=== PATIENT | female | born 1940 | race Caucasian/White ===

== ENCOUNTER → 2017-04-17 13:55 | Outpatient (CLI) | payer MEDICARE, OTHER, SELFPAY ==
[2017-04-17 15:36] LABS: Anion Gap 13.1 mEq/L (5-15); Blood Urea Nitrogen 26 mg/dL (7-18); Carbon Dioxide 28 mmol/L (21.0-32.0); Chloride 108 mmol/L (98-107); Creatinine,Serum 1.23 mg/dL (0.55-1.02); Estimated Glomerular Filt Rate 42 ml/min (>60); GFR (African American) 51 ML/MIN (>60); Glucose 82 mg/dL (74-106); Potassium 5.1 mmoL/L (3.5-5.1); Sodium 144 mmol/L (136-145)
== END ==
PROVIDERS: PCP Internal Medicine Adolescent Medicine; Visit Provider Nurse Practitioner
DX: N17.9 Acute kidney failure, unspecified (principal); N18.3 Chronic kidney disease, stage 3 (moderate)
CPT/HCPCS: 36415; 80048

== ENCOUNTER → 2017-06-20 13:59 | Outpatient (CLI) | payer MEDICARE, OTHER, SELFPAY ==
[2017-06-20 14:04] LABS: Microscopic, Urine URINE MICROSCOPIC (MICROSCOPIC)
[2017-06-20 14:18] LABS: Basophils % 0.7 % (0.1-2.0); Eosinophils # 0.2 K/mm3 (0.0-0.4); Eosinophils % 3.7 % (0.1-12.0); Hematocrit 40.5 % (37.0-47.0); Lymphocytes # 1.1 K/mm3 (0.7-4.5); Lymphocytes % 20.6 K/mm3 (10-50); Mean Corpuscular HGB Conc 32.1 g/dL (31.8-35.4); Mean Corpuscular Hemoglobin 31.9 pg (27.0-31.2); Mean Corpuscular Volume 99.5 fl (81-99); Mean Platelet Volume 8.1 fl (7.4-10.4); Monocytes # 0.3 K/mm3 (0.1-1.0); Monocytes % 6.6 % (1.7-9.3); Neutrophils # 3.5 K/mm3 (1.8-7.8); Neutrophils % 68.3 % (37.0-80.0); Platelet Count 177 K/mm3 (142-424); Red Blood Count 4.07 M/mm3 (4.20-5.40); Red Cell Distribution Width 14.6 % (11.5-17.5); White Blood Count 5.1 K/mm3 (4.8-10.8)
[2017-06-20 14:35] LABS: Appearance,Urine CLEAR (Clear); Bilirubin,Urine Negative (Negative); Blood, Urine TRACE-L (Negative); Color,Urine YELLOW (Yellow); Glucose,Urine (UA) Negative (Negative); Ketones,Urine Negative (Negative); Leukocyte Esterase,Urine 1+ (Negative); Nitrate,Urine Negative (Negative); Protein,Urine 1+ (Negative); Specific Gravity, Urine 1.025 (1.005-1.030); Urobilinogen,Urine 0.2 EU/dl (0.2)
[2017-06-20 14:50] LABS: Creatinine,Urine Random 197 mg/dL (20-320); Total Protein,Urine Random 63.2 mg/dL (0.0-11.9)
[2017-06-20 15:18] LABS: Albumin Level 3.4 gm/dL (3.4-5.0); Anion Gap 11.9 mEq/L (5-15); Blood Urea Nitrogen 20 mg/dL (7-18); Calcium 9.1 mg/dL (8.5-10.1); Carbon Dioxide 25 mmol/L (21.0-32.0); Chloride 114 mmol/L (98-107); Creatinine,Serum 1.26 mg/dL (0.55-1.02); Estimated Glomerular Filt Rate 41 ml/min (>60); GFR (African American) 50 ML/MIN (>60); Glucose 104 mg/dL (74-106); Phosphorous 3.3 mg/dL (2.4-4.9); Potassium 4.9 mmoL/L (3.5-5.1); Sodium 146 mmol/L (136-145)
[2017-06-20 15:51] LABS: Bacteria,Urine 2+ /lpf; Mucus,Urine 1+ /lpf; Squamous Epithelial Cell,Urine 20-50 #/hpf (0-5)
== END ==
PROVIDERS: Visit Provider Hospitalist
DX: N18.9 Chronic kidney disease, unspecified (principal); N18.3 Chronic kidney disease, stage 3 (moderate); R82.90 Unspecified abnormal findings in urine
CPT/HCPCS: 36415; 80069; 81001; 82570; 84155; 85025; 87086

== ENCOUNTER → 2017-08-28 10:00 | Outpatient (CLI) | payer MEDICARE, OTHER, SELFPAY ==
[2017-08-28 10:06] LABS: Microscopic, Urine URINE MICROSCOPIC (MICROSCOPIC)
[2017-08-28 10:31] LABS: Basophils % 0.8 % (0.1-2.0); Eosinophils # 0.2 K/mm3 (0.0-0.4); Hematocrit 38.3 % (37.0-47.0); Lymphocytes % 19.3 K/mm3 (10-50); Mean Corpuscular HGB Conc 31.2 g/dL (31.8-35.4); Mean Corpuscular Hemoglobin 31.8 pg (27.0-31.2); Mean Corpuscular Volume 101.8 fl (81-99); Mean Platelet Volume 8.4 fl (7.4-10.4); Monocytes # 0.4 K/mm3 (0.1-1.0); Monocytes % 7.3 % (1.7-9.3); Neutrophils # 3.6 K/mm3 (1.8-7.8); Neutrophils % 68.6 % (37.0-80.0); Platelet Count 187 K/mm3 (142-424); Red Blood Count 3.76 M/mm3 (4.20-5.40); Red Cell Distribution Width 13.3 % (11.5-17.5); White Blood Count 5.2 K/mm3 (4.8-10.8)
[2017-08-28 11:14] LABS: Appearance,Urine CLEAR (Clear); Bilirubin,Urine Negative (Negative); Blood, Urine Negative (Negative); Color,Urine YELLOW (Yellow); Glucose,Urine (UA) Negative (Negative); Ketones,Urine Negative (Negative); Leukocyte Esterase,Urine TRACE (Negative); Nitrate,Urine Negative (Negative); PH,Urine 6.5 (5.0-8.5); Protein,Urine TRACE (Negative); Specific Gravity, Urine 1.015 (1.005-1.030); Urobilinogen,Urine 0.2 EU/dl (0.2)
[2017-08-28 11:19] LABS: Albumin Level 3.3 gm/dL (3.4-5.0); Anion Gap 9.4 mEq/L (5-15); Blood Urea Nitrogen 24 mg/dL (7-18); Calcium 8.8 mg/dL (8.5-10.1); Carbon Dioxide 28 mmol/L (21.0-32.0); Chloride 108 mmol/L (98-107); Creatinine,Serum 1.28 mg/dL (0.55-1.02); Estimated Glomerular Filt Rate 40 ml/min (>60); GFR (African American) 49 ML/MIN (>60); Glucose 94 mg/dL (74-106); Phosphorous 3.6 mg/dL (2.4-4.9); Potassium 4.4 mmoL/L (3.5-5.1); Sodium 141 mmol/L (136-145)
[2017-08-28 11:38] LABS: Creatinine,Urine Random 129 mg/dL (20-320); Total Protein,Urine Random 38.4 mg/dL (0.0-11.9)
[2017-08-28 11:56] LABS: Bacteria,Urine Trace /lpf; Squamous Epithelial Cell,Urine 20-50 #/hpf (0-5); WBC,Urine Occasional #/hpf (0-3)
[2017-08-29 08:28] LABS: Immunoglobulin A, Qn 308 mg/dL (64-422); Immunoglobulin G, Qn 736 mg/dL (700-1600)
[2017-08-29 20:06] LABS: Immunoglobulin M, Qn 27 mg/dL (26-217); Parathyroid Hormone Intact 138 pg/mL (15-65); Vitamin D 25 Hydroxy 13.9 ng/mL (30.0-100.0)
[2017-09-01 15:19] LABS: Albumin, U 49.8 % (.); Alpha-1-Globulin, U 5.4 % (.); Alpha-2-Globulin, U 11.1 % (.); Gamma Globulin, U 12.6 % (.); M-Spike, % Not Observed % (Not Observed); Protein,Total,Urine 36.7 mg/dL (Not Estab.)
== END ==
PROVIDERS: Visit Provider Hospitalist
DX: N18.3 Chronic kidney disease, stage 3 (moderate) (principal)
CPT/HCPCS: 36415; 80069; 81001; 82570; 82652; 82784; 83970; 84155; 84156; 85025

== ENCOUNTER → 2017-11-26 08:24 | Outpatient (CLI) | payer MEDICARE, OTHER, SELFPAY ==
[2017-11-26 08:27] LABS: Microscopic, Urine URINE MICROSCOPIC (MICROSCOPIC)
[2017-11-26 09:08] LABS: Appearance,Urine CLEAR (Clear); Bilirubin,Urine Negative (Negative); Blood, Urine Negative (Negative); Color,Urine YELLOW (Yellow); Glucose,Urine (UA) Negative (Negative); Ketones,Urine Negative (Negative); Leukocyte Esterase,Urine 1+ (Negative); Nitrate,Urine Negative (Negative); PH,Urine 6.5 (5.0-8.5); Protein,Urine Negative (Negative); Specific Gravity, Urine 1.015 (1.005-1.030); Urobilinogen,Urine 0.2 EU/dl (0.2)
[2017-11-26 09:09] LABS: Basophils % 0.5 % (0.1-2.0); Eosinophils # 0.1 K/mm3 (0.0-0.4); Hematocrit 37.3 % (37.0-47.0); Hemoglobin 11.9 g/dL (12.2-16.2); Lymphocytes # 1.3 K/mm3 (0.7-4.5); Lymphocytes % 29.5 K/mm3 (10-50); Mean Corpuscular HGB Conc 31.9 g/dL (31.8-35.4); Mean Corpuscular Hemoglobin 32.3 pg (27.0-31.2); Mean Corpuscular Volume 101.2 fl (81-99); Mean Platelet Volume 7.9 fl (7.4-10.4); Monocytes # 0.3 K/mm3 (0.1-1.0); Monocytes % 6.4 % (1.7-9.3); Neutrophils # 2.7 K/mm3 (1.8-7.8); Neutrophils % 60.7 % (37.0-80.0); Platelet Count 194 K/mm3 (142-424); Red Blood Count 3.69 M/mm3 (4.20-5.40); Red Cell Distribution Width 13.4 % (11.5-17.5); White Blood Count 4.4 K/mm3 (4.8-10.8)
[2017-11-26 09:15] LABS: Bacteria,Urine Trace /lpf
[2017-11-26 09:19] LABS: Creatinine,Urine Random 38 mg/dL (20-320); Total Protein,Urine Random 18.7 mg/dL (0.0-11.9)
[2017-11-26 10:02] LABS: Albumin Level 3.4 gm/dL (3.4-5.0); Blood Urea Nitrogen 21 mg/dL (7-18); Calcium 8.7 mg/dL (8.5-10.1); Carbon Dioxide 31 mmol/L (21.0-32.0); Chloride 109 mmol/L (98-107); Creatinine,Serum 1.37 mg/dL (0.55-1.02); Estimated Glomerular Filt Rate 37 ml/min (>60); GFR (African American) 45 ML/MIN (>60); Glucose 87 mg/dL (74-106); Sodium 143 mmol/L (136-145)
[2017-11-28 18:40] LABS: Vitamin D 25 Hydroxy 13.8 ng/mL (30.0-100.0)
== END ==
PROVIDERS: PCP Internal Medicine Adolescent Medicine; Visit Provider Hospitalist
DX: N18.3 Chronic kidney disease, stage 3 (moderate) (principal); R82.90 Unspecified abnormal findings in urine
CPT/HCPCS: 36415; 80069; 81001; 82570; 82652; 84155; 85025; 87086; 87088; 87186

== ENCOUNTER → 2018-03-31 14:45 | Outpatient (CLI) | payer MEDICARE, OTHER, SELFPAY ==
[2018-03-31 14:58] LABS: Microscopic, Urine URINE MICROSCOPIC (MICROSCOPIC)
[2018-03-31 15:39] LABS: Basophils % 0.7 % (0.1-2.0); Eosinophils # 0.1 K/mm3 (0.0-0.4); Eosinophils % 2.1 % (0.1-12.0); Hematocrit 37.7 % (37.0-47.0); Hemoglobin 12.1 g/dL (12.2-16.2); Lymphocytes # 0.9 K/mm3 (0.7-4.5); Mean Corpuscular Hemoglobin 31.6 pg (27.0-31.2); Mean Corpuscular Volume 98.8 fl (81-99); Mean Platelet Volume 7.5 fl (7.4-10.4); Monocytes # 0.3 K/mm3 (0.1-1.0); Monocytes % 5.1 % (1.7-9.3); Neutrophils # 3.7 K/mm3 (1.8-7.8); Neutrophils % 74.1 % (37.0-80.0); Platelet Count 216 K/mm3 (142-424); Red Blood Count 3.82 M/mm3 (4.20-5.40); Red Cell Distribution Width 13.7 % (11.5-17.5)
[2018-03-31 17:00] LABS: Albumin Level 3.2 gm/dL (3.4-5.0); Anion Gap 13.6 mEq/L (5-15); Blood Urea Nitrogen 27 mg/dL (7-18); Calcium 8.5 mg/dL (8.5-10.1); Carbon Dioxide 25 mmol/L (21.0-32.0); Chloride 106 mmol/L (98-107); Creatinine,Serum 1.28 mg/dL (0.55-1.02); Estimated Glomerular Filt Rate 40 ml/min (>60); GFR (African American) 49 ML/MIN (>60); Glucose 110 mg/dL (74-106); Phosphorous 3.1 mg/dL (2.4-4.9); Potassium 4.6 mmoL/L (3.5-5.1); Sodium 140 mmol/L (136-145)
[2018-03-31 18:41] LABS: Appearance,Urine CLEAR (Clear); Bilirubin,Urine Negative (Negative); Blood, Urine Negative (Negative); Color,Urine YELLOW (Yellow); Glucose,Urine (UA) Negative (Negative); Ketones,Urine Negative (Negative); Leukocyte Esterase,Urine Negative (Negative); Nitrate,Urine Negative (Negative); PH,Urine 6.5 (5.0-8.5); Protein,Urine TRACE (Negative); Urobilinogen,Urine 0.2 EU/dl (0.2)
[2018-03-31 18:48] LABS: Creatinine,Urine Random 141 mg/dL (20-320); Total Protein,Urine Random 47.6 mg/dL (0.0-11.9)
[2018-03-31 20:50] LABS: Bacteria,Urine 1+ /lpf
== END ==
PROVIDERS: Visit Provider Hospitalist
DX: N18.3 Chronic kidney disease, stage 3 (moderate) (principal)
CPT/HCPCS: 36415; 80069; 81001; 82570; 84155; 85025

== ENCOUNTER → 2018-05-07 12:37 | Outpatient (CLI) | payer MEDICARE, OTHER, SELFPAY ==
--- NOTE | 2018-05-07 12:40 | XR_ITS ---
XR DEXA axial skeleton HISTORY: ITS.REASON: POST MENOPAUSAL SCREENING ORDERING PHYSICIAN: Colby Lamar MD PATIENT AGE: 77 years COMPARISON: None FINDINGS: The BMD measured at the Left femoral neck is 0.711 g/cm squared with a T score of -2.4. This is considered Osteopenic according to the World Health Organization criteria. Fracture risk is Moderate. Treatment is advised. IMPRESSION: Osteopenia with moderate fracture risk. Treatment is advised. Suggest follow-up exam April 2020
== END ==
PROVIDERS: PCP Internal Medicine Adolescent Medicine; Visit Provider Internal Medicine Adolescent Medicine
DX: Z78.0 Asymptomatic menopausal state (principal)
CPT/HCPCS: 77080

== ENCOUNTER → 2018-05-28 09:07 | Outpatient (CLI) | payer MEDICARE, OTHER, SELFPAY ==
--- NOTE | 2018-05-28 09:23 | MM_ITS ---
MM Dig screening mamm BI w/CAD ORDERING PHYSICIAN : Bowen Escobedo MD PATIENT AGE: 77 years GENDER: Female COMPARISON: November 2015, August 2010, August 2008 INDICATION: Routine screening mammogram. No hormones no new complaints. Family history maternal aunt with breast cancer postmenopausal. TECHNIQUE: Standard CC and MLO images were obtained. R2 CAD reviewed. . Pacemaker placement. Would not allow including pectoralismuscle on left MLO view FINDINGS: Generalized fatty replacement with Low-density breast bilaterally. No dominant nor suspicious metastases no suspicious calcifications. Numerous benign skin, dermal calcifications at the medial right and left breast again observed similar to previous studies. RIGHT BREAST:No areas of concern LEFT BREAST: No new areas of significant concern Scant residual asymmetric fibroglandular towards the lateral breast are similar to previous 2016 study and can be followed IMPRESSION: No new areas of significant concern. Low-density breast with Stable minor asymmetry . Follow-up in one year recommended BI-RADS Category: 1 Negative RECOMMENDED FOLLOW-UP: 1YR 1 YEAR FOLLOW-UP (A letter has been sent to the patient regarding results of the study.)
== END ==
PROVIDERS: PCP Family Medicine; Visit Provider Family Medicine
DX: Z12.31 Encounter for screening mammogram for malignant neoplasm of breast (principal)
CPT/HCPCS: 77067

== ENCOUNTER → 2018-09-07 14:01 | Outpatient (CLI) | payer MEDICARE, OTHER, SELFPAY ==
--- NOTE | 2018-09-07 14:07 | XR_ITS ---
XR knee LT 2V HISTORY: ITS.REASON: TRAUMA, LT ANTERIOR KNEE PAIN ORDERING PHYSICIAN: Eliza Carpenter MD PATIENT AGE: 78 years COMPARISON: 11/27/1716 FINDINGS: There are severe osteoarthritic changes of the left knee at the medial compartment and patellofemoral joint. There is mild lateral proximal tibia subluxation of 8 mm.. There is a prominent intra-articular loose body noted posteriorly and laterally. There is generalized vascular calcification. IMPRESSION: 1. No acute fracture. 2. Severe osteoarthritis with loose body
== END ==
PROVIDERS: PCP Emergency Medicine; Visit Provider Emergency Medicine
DX: M25.562 Pain in left knee (principal); T14.90XA Injury, unspecified, initial encounter
CPT/HCPCS: 73560

== ENCOUNTER → 2018-10-14 09:16 | Outpatient (CLI) | payer MEDICARE, OTHER, SELFPAY ==
--- NOTE | 2018-10-14 09:22 | CI_ITS ---
Cerebrovascular Exam Indications: 780.2 Syncope and collapse. 780.4 Dizziness and giddiness. IMPRESSIONS 1. The bilateral vertebral arteries are patent with normal antegrade flow. 2. Study suggests 20-49% stenosis involving the right internal carotid artery. Disease progression from the study of 27-Mar-2015. 3. Study suggests 20-49% stenosis involving the left internal carotid artery. No change from the study of 27-Mar-2015. History: Risk factors: Hypertension. Hyperlipidemia. Ex smoker Carotid duplex study. Complete study and Doppler flow study including spectral analysis, color and allen scale imaging. Height: Height: 160cm. Height: 63in. Weight: Weight: 83.5kg. Weight: 183.6lb. Body mass index: BMI: 32.6kg/m^2. Body surface area: BSA: 1.96m^2. Location: Vascular laboratory. Patient status: Outpatient. Tables: Arterial flow: + +--------+--------+ Location V sys V ed + +--------+--------+ Right CCA - proximal 63.9cm/s 9.1cm/s + +--------+--------+ Right CCA - distal 51cm/s 12.8cm/s + +--------+--------+ Right ECA 73.9cm/s 9.5cm/s + +--------+--------+ Right ICA - proximal 30.8cm/s 10cm/s + +--------+--------+ Right ICA - mid 39.9cm/s 14.1cm/s + +--------+--------+ Right ICA - distal 51.7cm/s 15.9cm/s + +--------+--------+ Right vertebral 28.2cm/s 9.4cm/s + +--------+--------+ Left CCA - proximal 60.1cm/s 16.3cm/s + +--------+--------+ Left CCA - distal 39.7cm/s 13cm/s + +--------+--------+ Left ECA 60cm/s 7cm/s + +--------+--------+ Left ICA - proximal 42.8cm/s 10.6cm/s + +--------+--------+ Left ICA - mid 49cm/s 18.9cm/s + +--------+--------+ Left ICA - distal 68.2cm/s 20.1cm/s + +--------+--------+ Left vertebral 34.1cm/s 8.4cm/s + +--------+--------+ Velocity ratios: + + + + + + Right, V sys Right, V ed Left, V sys Left, V ed + + + + + + Max ICA/dist CCA 1.01 1.24 1.72 1.55 + + + + + + (Report amended ) Electronically signed by: Isidoro Sexton [id number]
== END ==
PROVIDERS: PCP Family Medicine; Visit Provider Family Medicine
DX: R55 Syncope and collapse (principal)
CPT/HCPCS: 93880

== ENCOUNTER 2019-05-18 15:22 | Observation (INO) ==
--- NOTE | 2019-05-18 18:15 | History & Physical Report ---
*Admission Date: 05/18/19 *Chief complaint: Hypotension, dehydration *History of present illness: Ms. Lopez is a 78-year-old white female with a history of congestive heart failure and chronic A. fib to fibrillation who presented to the office today with a one-week history of progressive weakness, dizziness, and debilitation. She was seen 8 days ago with a urinary tract infection and started on Bactrim which she took for 6 days but discontinued because of a sore tongue. She states her urinary symptoms have resolved and her tongue is better since stopping the Bactrim however she has not been eating or drinking very well for the past several days. Blood pressure has been low. No vomiting or diarrhea. No abdominal pain. She states her bowel movements have been normal. She has difficulty getting around the house because every time she stands up she gets dizzy. She lives alone. On examination in the office she appeared weak and tearful. Blood pressure was 90/60 with a heart rate of 116. CBC was normal in the office. She has been admitted for further evaluation and gentle IV hydration. [facility] History Medical History: Reports:: Atrial Fibrillation (chronic), Cardiomyopathy, Congestive Heart Failure, Coronary Artery Disease, Gastroesophageal Reflux Disease(GERD), Internal Pacemaker, Renal Insufficiency (chronic, Stage 3) Denies:: Cancer, Diabetes Mellitus Type 1, Diabetes Mellitus Type 2, MRSA *Have you ever received a pneumonia vaccine?: Yes *Have you received a flu vaccine this season?: Yes Other Medical History: Reports: Arthritis Laterality Cases: Left: Total Knee Replacement (2019), Bilateral: Cataract, Other Other Surgeries: Yes: Colonoscopy, Pacemaker, Other (Coronary ablation, back surgery x4) - *Social History Educational Level: Completed High School Smoking Status: Former smoker (Remote past) Alcohol Intake: never *Occupational Status:: retired *Travel in the last 8 weeks: None Family Hx:: Cancer Review of Systems - Constitutional Reports lack of energy, Reports weakness, Denies body ache(s), Denies chills, Denies fever(s) - Eyes Denies blurry vision, Denies change in vision - ENT Reports abnormal hearing, Denies hoarseness, Denies post nasal drip - *Cardiovascular Denies chest pain, Denies shortness of breath, Denies generalized swelling, Denies fast heart rate - *Respiratory Denies chest congestion, Denies cough - *Gastrointestinal Denies abdominal pain, Denies change in bowel habits, Denies loose stools, Denies vomiting - *Genitourinary Denies painful urination, Denies difficulty starting urination - *Musculoskeletal Denies joint pain - Integumentary/Breasts Reports rash (left breast) - *Neurologic Reports abnormal hearing, Reports unsteadiness, Reports dizziness, Denies behavioral changes, Denies confusion - Psychiatric Reports lack of enjoyment, Denies anxiety - Endocrine Denies cold intolerance, Denies increased urination - Hematologic/Lymphatic Denies easy bruising - Allergic/Immunologic Denies lip swelling Meds Home Medications Medication Instructions Recorded Confirmed Type Apixaban [Eliquis] 2.5 mg PO BID 06/26/17 05/19/19 History Atorvastatin Calcium [Atorvastatin 40 mg PO HS 06/26/17 05/19/19 History 40mg Tab] Gabapentin [Gabapentin 300mg Cap] 300 mg PO TID 06/26/17 05/18/19 History Levothyroxine Sodium [Synthroid 75 mcg PO DAILY 06/26/17 05/18/19 History 75mcg (0.075mg) tablet] Pantoprazole Sodium [Pantoprazole 40 mg PO BID 06/26/17 05/18/19 History 20mg Tab] buPROPion HCl [Bupropion Xl] 150 mg PO DAILY 06/26/17 05/18/19 History Furosemide [Furosemide 20mg Tab] 20 mg PO Q48H 05/19/19 05/19/19 History Montelukast Sodium 10 mg PO HS 05/19/19 05/19/19 History Sacubitril/Valsartan [Entresto 49 1 each PO DAILY 05/19/19 05/19/19 History mg-51 mg Tablet] carvediloL [Carvedilol 12.5mg Tab] 12.5 mg PO BID 05/19/19 05/19/19 History Allergies Allergy/AdvReac Type Severity Reaction Status Date / Time sulfamethoxazole Allergy Unknown Verified 05/18/19 19:16 [From Bactrim] trimethoprim [From Bactrim] Allergy Unknown Verified 05/18/19 19:16 Exam Vital signs and Labs for Last 24 Hours: Temp Pulse Resp BP Pulse Ox 97.2 F L 76 17 105/71 L 96 05/18/19 15:52 05/18/19 15:52 05/18/19 15:52 05/18/19 15:52 05/18/19 15:52 I & O for Last 24 hours: Intake & Output 05/16/19 05/17/19 05/18/19 05/19/19 11:59 11:59 11:59 11:59 Weight 173 lb 7 oz Narrative: She appears weak. She is tearful. She is mildly hard of hearing. Color is normal. No respiratory distress. HEENT shows a cream to be atraumatic and normocephalic. Sclera and conjunctive are clear. Nares patent. Oropharynx shows no oral lesions. Neck is supple with no masses, thyromegaly, or bruits. Lungs are clear to auscultation. Heart is irregularly irregular with no murmur s. Abdomen is soft and nondistended with no unusual masses or tenderness. Lower extremities show no edema. There is a 4 cm red scaly rash on the left breast. Assessment and Plan (1) Hypotension Current visit: Yes Status: Acute Category: Medical Code(s): I95.9 - H ypotension, unspecified (2) Dehydration Current visit: Yes Status: Acute Category: Medical Code(s): E86.0 - Dehydration (3) Congestive heart failure Current visit: Yes Status: Acute Category: Medical Code(s): I50.9 - Heart failure, unspecified (4) Cardiomyopathy Current visit: Yes Status: Acute Category: Medical Code(s): I42.9 - Cardiomyopathy, unspecified (5) Hypothyroidism Current visit: Yes Status: Acute Category: Medical Code(s): E03.9 - Hypothyroidism, unspecified (6) Obstructive sleep apnea Current visit: Yes Status: Acute Category: Medical Code(s): G47.33 - Obstructive sleep apnea (adult) (pediatric) (7) Chronic kidney disease Current visit: Yes Status: Acute Category: Medical Code(s): N18.9 - Chronic kidney disease, unspecified (8) GERD (gastroesophageal reflux disease) Current visit: Yes Status: Acute Category: Medical Code(s): K21.9 - Gastro-esophageal reflux disease without esophagitis (9) Paroxysmal atrial fibrillation Current visit: Yes Status: Acute Category: Medical Code(s): I48.0 - Par oxysmal atrial fibrillation - Assessment and plan all Dx Assessment and Plan for all problems:: She is admitted for further evaluation of her hypotension. This is likely on the basis of hypovolemia as she has not been eating or drinking well for several days. May also be related to her cardiac meds particularly Coreg and Entresto. We will gently hydrate her overnight and reassess things in the morning.
[2019-05-18 18:33] LABS: Albumin Level 3.7 g/dl (3.5-5.0); Albumin/Globulin Ratio 1.3 (1.1-1.8); Anion Gap 13.8 mEq/L (5-15); Bilirubin,Total 0.6 mg/dl (0.2-1.3); Globulin 2.8 g/dL (1.3-3.2); Total Protein,Serum 6.5 g/dl (6.3-8.2)
[2019-05-18 18:42] LABS: Creatine Kinase 30 U/L (30-135)
[2019-05-18 20:59] LABS: Microscopic, Urine URINE MICROSCOPIC (MICROSCOPIC)
[2019-05-18 21:06] LABS: Appearance,Urine CLEAR (Clear); Bilirubin,Urine Negative (Negative); Blood, Urine Negative (Negative); Color,Urine YELLOW (Yellow); Glucose,Urine (UA) Negative (Negative); Ketones,Urine Negative (Negative); Leukocyte Esterase,Urine TRACE (Negative); Protein,Urine Negative (Negative); Urobilinogen,Urine 0.2 EU/dl (0.2)
[2019-05-18 21:15] LABS: Bacteria,Urine Trace /lpf; WBC,Urine Occasional #/hpf (0-3)
--- NOTE | 2019-05-19 07:41 | Pharmacy Consult Notes ---
[facility] Pharmacy VTE Monitoring - Patient Demographics Admission date: 05/19/19 Report Date: 05/19/19 Time: 07:41 Allergies/Adverse Reactions: Patient Allergies sulfamethoxazole [From Bactrim] Allergy (Unknown, Verified 05/18/19 19:16) trimethoprim [From Bactrim] Allergy (Unknown, Verified 05/18/19 19:16) Height: 1.6 m Weight: 79.861 kg Patient Problems: Current Active Problems Hypotension (Acute) Dehydration (Acute) Chronic atrial fibrillation (Acute) Congestive heart failure (Acute) Cardiomyopathy (Acute) Hypothyroidism (Acute) Obstructive sleep apnea (Acute) Chronic kidney disease (Acute) GERD (gastroesophageal reflux disease) (Acute) Paroxysmal atrial fibrillation (Acute) - VTE Risk Labs: VTE Related Lab Results BUN 28 mg/dl (7-17) H 05/18/19 18:00 Creatinine 1.40 mg/dl (0.52-1.04) H 05/18/19 18:00 Estimated Creat Clear 40 mL/min (50-200) 05/18/19 18:00 Clinical Trial Participant: No - Prophylaxis VTE Prophylaxis Ordered?: Yes Types of VTE Prophylaxis: TEDS Knee High
--- NOTE | 2019-05-19 08:42 | Progress Note ---
Internal Medicine - PN: Subj *Date: 05/19/19 *Time: 08:42 Interval history: States she feels better this morning but has not been out of bed much. Exam Vital signs and Labs for Last 24 Hours: Temp Pulse Resp BP Pulse Ox 97.8 F 76 18 126/77 95 05/19/19 08:00 05/19/19 08:00 05/19/19 08:00 05/19/19 08:00 05/19/19 08:00 Laboratory Results - last 24 hr 05/18/19 18:00: Sodium 137, Potassium 4.8, Chloride 106, Carbon Dioxide 22, Anion Gap 13.8, BUN 28 H, Creatinine 1.40 H, Estimated Creat Clear 40, Estimated GFR 36 L, Est GFR ( Amer) 44 L, Glucose 90, Calcium 9.0, Total Bilirubin 0.6, AST 21, ALT 14, Alkaline Phosphatase 105, Total Protein 6.5, Albumin 3.7, Globulin 2.8, Albumin/Globulin Ratio 1.3 05/18/19 18:00: NT-Pro-B Natriuret Pep 513 H 05/18/19 18:00: Total Creatine Kinase 30, CK-MB (CK-2) < 0.2, CK-MB (CK-2) Rel Index 0.7, Troponin I < 0.01 05/18/19 20:50: Urine Color Yellow, Urine Appearance Clear, Urine pH 6.0, Ur Specific [place] 1.020, Urine Protein Negative, Urine Glucose (UA) Negative, Urine Ketones Negative, Urine Blood Negative, Urine Nitrate Negative, Urine Bilirubin Negative, Urine Urobilinogen 0.2, Ur Leukocyte Esterase Trace, Urine WBC Occasional, Ur Squamous Epith Cells 3-5, Urine Bacteria Trace I & O for Last 24 hours: Intake & Output 05/16/19 05/17/19 05/18/19 05/19/19 11:59 11:59 11:59 11:59 Intake Total 1134 / 1134 Output Total 800 / 800 Balance 334 / 334 Weight 176 lb 1 oz Narrative: Alert and oriented. Color is good. Lungs are clear anteriorly. Heart regular. Extremities no edema. Assessment and Plan (1) Hypotension Current visit: Yes Status: Acute Category: Medical Code(s): I95.9 - Hypotension, unspecified (2) Dehydration Current visit: Yes Status: Acute Category: Medical Code(s): E86.0 - Dehydration (3) Congestive heart failure Current visit: Yes Status: Acute Category: Medical Code(s): I50.9 - Heart failure, unspecified (4) Cardiomyopathy Current visit: Yes Status: Acute Category: Medical Code(s): I42.9 - Cardiomyopathy, unspecified (5) Hypothyroidism Current visit: Yes Status: Acute Category: Medical Code(s): E03.9 - Hypothyroidism, unspecified (6) Obstructive sleep apnea Current visit: Yes Status: Acute Category: Medical Code(s): G47.33 - Obstructive sleep apnea (adult) (pediatric) (7) Chronic kidney disease Current visit: Yes Status: Acute Category: Medical Code(s): N18.9 - Chronic kidney disease, unspecified (8) GERD (gastroesophageal reflux disease) Current visit: Yes Status: Acute Category: Medical Code(s): K21.9 - Gastro-esophageal reflux disease without esophagitis (9) Paroxysmal atrial fibrillation Current visit: Yes Status: Acute Category: Medical Code(s): I48.0 - Paroxysmal atrial fibrillation - Assessment and plan all Dx Assessment and Plan for all problems:: Will resume lower dose of Entresto and monitor her blood pressure. She will be allowed to be up and about the room. If she tolerates activity with no further dizziness, may discharge later today.
--- NOTE | 2019-05-20 07:37 | Electrocardiograph Report ---
APPROVED REPORT Exam: Resting ECG HR:77 bpm ECG Measurements Heart Rate 77 AXES QRSd 134 QRS -84 QT 438 T82 QTc 495 <Conclusion> Electronic ventricular pacemaker Electronically signed by : Colby Lamar, 05/20/2019 07:36:27
--- NOTE | 2019-05-20 12:40 | Discharge Summary ---
General - General Admission date:: 05/18/19 <Bowen Escobedo - 05/22/19 11:52> 05/18/19 <Hannah Navas - 05/20/19 12:59> Discharge date: 05/19/19 <Hannah Navas - 05/20/19 12:59> HPI HPI: Ms. Lopez is a 78-year-old white female with a history of congestive heart failure and chronic Atrial fibrillation who presented to the office today with a one-week history of progressive weakness, dizziness, and debilitation. She was seen 8 days ago with a urinary tract infection and started on Bactrim which she took for 6 days but discontinued because of a sore tongue. She states her urinary symptoms have resolved and her tongue is better since stopping the Bactrim, however she has not been eating or drinking very well for the past several days. Blood pressure has been low. No vomiting or diarrhea. No abdominal pain. She states her bowel movements have been normal. She has difficulty getting around the house because every time she stands up, she gets dizzy. She lives alone. On examination in the office she appeared weak and tearful. Blood pressure was 90/60 with a heart rate of 116. CBC was normal in the office. She has been admitted for further evaluation and gentle IV hydration. <Hannah Navas - 05/20/19 12:59> Hospital Course Hospital Course: The patient was admitted and started on gentle hydration. It was felt her hypotension was likely on the basis of hypovolemia, as she had not been eating and drinking well. The patient felt much better by the next day and her blood pressure had improved. She was started back on a low-dose of Entresto and was encouraged to be up and about in her room. She did tolerate activity with no further dizziness and was stable to be discharged home. <Hannah Navas - 05/20/19 12:59> Objective Vital signs: Temp Pulse Resp BP Pulse Ox 98.2 F 64 17 111/79 97 05/19/19 16:00 05/19/19 16:00 05/19/19 16:00 05/19/19 16:00 05/19/19 16:00 <Bowen Escobedo - 05/22/19 11:52> Temp Pulse Resp BP Pulse Ox 98.2 F 64 17 111/79 97 05/19/19 16:00 05/19/19 16:00 05/19/19 16:00 05/19/19 16:00 05/19/19 16:00 <Hannah Navas - 05/20/19 12:59> Narrative: Alert and oriented. Color is good. Lungs are clear anteriorly. Heart regular. Extremities no edema. <Hannah Navas - 05/20/19 12:59> DS: Diagnosis - Discharge Diagnosis (1) Hypotension Status: Acute (2) Dehydration Status: Acute (3) Congestive heart failure Status: Acute (4) Cardiomyopathy Status: Acute (5) Hypothyroidism Status: Acute (6) Obstructive sleep apnea Status: Acute (7) Chronic kidney disease Status: Acute (8) GERD (gastroesophageal reflux disease) Status: Acute (9) Paroxysmal atrial fibrillation Status: Acute <Hannah Navas - 05/20/19 12:20> (1) Hypotension Status: Acute (2) Dehydration Status: Acute (3) Congestive heart failure Status: Acute (4) Cardiomyopathy Status: Acute (5) Hypothyroidism Status: Acute (6) Obstructive sleep apnea Status: Acute (7) Chronic kidney disease Status: Acute (8) GERD (gastroesophageal reflux disease) Status: Acute (9) Paroxysmal atrial fibrillation Status: Acute <Bowen Escobedo - 05/22/19 11:52> Discharge Plan - Patient Discharge Instructions ACTIVITY: Continue current activity <Hannah Navas - 05/20/19 12:59> DIET: continue same diet <Hannah Navas - 05/20/19 12:59> Additional Instructions: Drink plenty of fluids. Try Ensure or Boost supplements. <Bowen Escobedo - 05/22/19 11:52> Patient Instructions: Heart Failure, DI for Hypotension <Bowen Escobedo - 05/22/19 11:52> Forms: <Bowen Escobedo - 05/22/19 11:52> - Follow up Plan Follow up with: Bowen Escobedo MD [Primary Care Provider] - 05/25/19 2:15 pm <Bowen Escobedo - 05/22/19 11:52> Disposition: Home, Self-Care <Bowen Escobedo - 05/22/19 11:52> Home Medications: Home Medications Medication Instructions Recorded Confirmed Type Apixaban [Eliquis 2.5mg tab] 2.5 mg PO BID 06/26/17 05/19/19 History Atorvastatin Calcium [Atorvastatin 40 mg PO HS 06/26/17 05/19/19 History 40mg Tab] Gabapentin [Gabapentin 300mg Cap] 300 mg PO TID 06/26/17 05/18/19 History Levothyroxine Sodium [Synthroid 75 mcg PO DAILY 06/26/17 05/18/19 History 75mcg (0.075mg) tablet] Pantoprazole Sodium [Pantoprazole 40 mg PO BID 06/26/17 05/18/19 History 20mg Tab] buPROPion HCL [Bupropion Xl] 150 mg PO DAILY 06/26/17 05/18/19 History Furosemide [Furosemide 20mg Tab] 20 mg PO Q48H 05/19/19 05/19/19 History Montelukast Sodium 10 mg PO HS 05/19/19 05/19/19 History Sacubitril/Valsartan [Entresto 1 each PO DAILY tab 05/19/19 Rx 24/26mg Tablet] carvediloL [Carvedilol 12.5mg Tab] 12.5 mg PO BID 05/19/19 05/19/19 History <Bowen Escobedo - 05/22/19 11:52> Prescriptions/Medication Reconciliation: New Sacubitril/Valsartan [Entresto 24/26mg Tablet] 1 each PO DAILY tab Continued buPROPion HCL [Bupropion Xl] 150 mg PO DAILY Apixaban [Eliquis 2.5mg tab] 2.5 mg PO BID Pantoprazole Sodium [Pantoprazole 20mg Tab] 40 mg PO BID Levothyroxine Sodium [Synthroid 75mcg (0.075mg) tablet] 75 mcg PO DAILY Gabapentin [Gabapentin 300mg Cap] 300 mg PO TID Montelukast Sodium 10 mg PO HS carvediloL [Carvedilol 12.5mg Tab] 12.5 mg PO BID Atorvastatin Calcium [Atorvastatin 40mg Tab] 40 mg PO HS Furosemide [Furosemide 20mg Tab] 20 mg PO Q48H Discontinued Sacubitril/Valsartan [Entresto 49 mg-51 mg Tablet] 1 each PO DAILY <Bowen Escobedo - 05/22/19 11:52> - Problem Reconciliation Problems Reviewed?: Yes <Bowen Escobedo - 05/22/19 11:52> Yes <Hannah Navas - 05/20/19 12:59> - Additional Information Additional Information: Concur with plan for discharge as outlined above. <Bowen Escobedo - 05/22/19 11:52>
== END 2019-05-19 16:25 | disposition home or self-care (01) ==
LOC: 2ND
PROVIDERS: ADMIT Family Medicine; ATTEND Family Medicine
CPT/HCPCS: 36415; 80053; 81001; 82550; 82553; 83880; 84484; 93005; G0378

== ENCOUNTER → 2020-12-11 16:21 | Outpatient (CLI) | payer MEDICARE, OTHER, SELFPAY ==
--- NOTE | 2020-12-11 16:28 | XR_ITS ---
PROCEDURE INFORMATION: Exam: XR Right Ankle Exam date and time: 12/11/2020 4:28 PM Age: 80 years old Clinical indication: Injury or trauma; Fall; Blunt trauma; Injury details: Patient twisted her right ankle 2 days ago walking down a step in her garage. ; Additional info: Unspecified injury of right ankle, initial encounter TECHNIQUE: Imaging protocol: XR Right ankle. Views: 3 or more views. COMPARISON: CR LLR LOWER LEG-RT 09/24/2014 9:44 AM FINDINGS: Bones/joints: No definite fracture. No malalignment. Bones are osteopenic. Soft tissues: Mild lateral and medial malleolar soft tissue swelling. IMPRESSION: No definite fracture
--- NOTE | 2020-12-11 16:28 | XR_ITS ---
PROCEDURE INFORMATION: Exam: XR Right Hip Exam date and time: 12/11/2020 4:28 PM Age: 80 years old Clinical indication: Injury or trauma; Fall; Blunt trauma (contusions or hematomas); Patient HX: Patient fell 2 days ago in her garage injuring her right hip. TECHNIQUE: Imaging protocol: XR Right hip. Views: 2 or 3 views hip with pelvis when performed. COMPARISON: CR PELAP PELVIS AP ONLY 03/05/2016 6:43 PM FINDINGS: Bones/joints: Unremarkable. No acute fracture. Soft tissues: Unremarkable. IMPRESSION: No definite fracture
== END ==
PROVIDERS: PCP Family Medicine; Visit Provider Family Medicine
DX: S99.911A Unspecified injury of right ankle, initial encounter (principal); S79.911A Unspecified injury of right hip, initial encounter
CPT/HCPCS: 73502; 73610

== ENCOUNTER → 2020-12-12 10:53 | Outpatient (CLI) | payer MEDICARE, OTHER, SELFPAY ==
[2020-12-12 12:14] LABS: Alanine Aminotransferase 11 U/L (12-78); Albumin Level 3.6 g/dl (3.5-5.0); Albumin/Globulin Ratio 1.4 (1.1-1.8); Alkaline Phosphatase 98 U/L (38-126); Anion Gap 9.8 mEq/L (5-15); Aspartate Amino Transferase 21 U/L (14-36); Bilirubin,Total 0.7 mg/dl (0.2-1.3); Blood Urea Nitrogen 19 mg/dl (7-17); Calcium 9.1 mg/dl (8.4-10.2); Carbon Dioxide 28 mmol/L (22.0-30.0); Chloride 109 mmol/L (98-107); Chol/HDL Ratio 2.8 (1-3.5); Cholesterol 127 mg/dl (140-200); Estimated Glomerular Filt Rate 48 ml/min (>60); GFR (African American) 58 ML/MIN (>60); Globulin 2.6 g/dL (1.3-3.2); Glucose 91 mg/dl (74-100); HDL Cholesterol 45 mg/dl (40-60); Potassium 4.8 mmoL/L (3.5-5.1); Sodium 142 mmol/L (136-145); Total Protein,Serum 6.2 g/dl (6.3-8.2); Triglycerides 71 mg/dl (30-150); VLDL Cholesterol 14 mg/dL (0-40)
[2020-12-12 12:25] LABS: Direct LDL Cholesterol 57.67 mg/dL (100-129)
[2020-12-12 12:44] LABS: Thyroid Stimulating Hormone 1.61 uIU/mL (0.465-4.68)
== END ==
PROVIDERS: Visit Provider Family Medicine
DX: I10 Essential (primary) hypertension (principal); E78.5 Hyperlipidemia, unspecified; E03.9 Hypothyroidism, unspecified; I48.20 Chronic atrial fibrillation, unspecified
CPT/HCPCS: 36415; 80053; 80061; 84443

== ENCOUNTER → 2021-06-14 11:03 | Outpatient (CLI) | payer MEDICARE, OTHER, SELFPAY ==
[2021-06-14 13:09] LABS: Alanine Aminotransferase 13 U/L (12-78); Albumin Level 3.8 g/dl (3.5-5.0); Albumin/Globulin Ratio 1.7 (1.1-1.8); Alkaline Phosphatase 100 U/L (38-126); Anion Gap 12.5 mEq/L (5-15); Aspartate Amino Transferase 17 U/L (14-36); Bilirubin,Total 0.8 mg/dl (0.2-1.3); Blood Urea Nitrogen 32 mg/dl (7-17); Calcium 8.6 mg/dl (8.4-10.2); Carbon Dioxide 22 mmol/L (22.0-30.0); Chloride 110 mmol/L (98-107); Chol/HDL Ratio 2.6 (1-3.5); Cholesterol 141 mg/dl (140-200); Estimated Glomerular Filt Rate 43 ml/min (>60); GFR (African American) 52 ML/MIN (>60); Globulin 2.3 g/dL (1.3-3.2); Glucose 79 mg/dl (74-100); HDL Cholesterol 55 mg/dl (40-60); Potassium 4.5 mmoL/L (3.5-5.1); Sodium 140 mmol/L (136-145); Total Protein,Serum 6.1 g/dl (6.3-8.2); Triglycerides 101 mg/dl (30-150); VLDL Cholesterol 20 mg/dL (0-40)
[2021-06-14 13:21] LABS: Direct LDL Cholesterol 60.18 mg/dL (100-129)
[2021-06-14 13:39] LABS: Thyroid Stimulating Hormone 1.21 uIU/mL (0.465-4.68)
== END ==
PROVIDERS: Visit Provider Family Medicine
DX: I10 Essential (primary) hypertension (principal); E03.9 Hypothyroidism, unspecified
CPT/HCPCS: 36415; 80053; 80061; 82043; 84443

== ENCOUNTER → 2021-06-22 09:05 | Outpatient (CLI) | payer MEDICARE, OTHER, SELFPAY ==
--- NOTE | 2021-06-22 09:25 | XR_ITS ---
FINAL REPORT TECHNIQUE: Bone densitometry calculations of the lumbar spine and left hip were obtained. CLINICAL HISTORY: . osteopenia FINDINGS: Using 1/3 forearm the bone mineral density is 0.480 g/cm2, corresponding to T-score of -3.6. Using the left hip, the bone mineral density of the femoral neck is 0.643 g/cm2, corresponding to a T-score of -2.4. Using the right hip, the bone mineral density of the femoral neck is 0.605 g/cm2, corresponding to a T-score of -2.2. NOTE: T-score: Standard deviation compared with peak bone mass of young adult mean. *Following the recommendations of the International Society of Bone densitometry, classification of hip BMD is based on the lower of two T-scores; total hip or femoral neck. IMPRESSION: Diminished bone mineral density of the hips bilaterally consistent with osteopenia. Diminished bone mineral density of the 1/3 forearm consistent with osteoporosis. Using FRAX data, 10 year fracture risk is 28% for major osteoporotic fracture and 19% of hip fracture. Reviewed, Interpreted and Dictated by Nathen Fernandez MD Transcribed by Alissa Garner Authenticated by Nathen Fernandez MD on 06/22/2021 02:40:48 PM [facility]
--- NOTE | 2021-06-22 09:25 | MM_ITS ---
PROCEDURE INFORMATION: Exam: MG Bilateral Screening 3D Mammography Exam date and time: 06/22/2021 9:52 AM Age: 80 years old Clinical indication: Screening examination TECHNIQUE: Imaging protocol: Bilateral Screening tomosynthesis and 2D mammography including computer-aided detection (CAD) when performed. COMPARISON: 1. MG SCBI MM Dig screening mamm BI w/CAD 05/28/2018 9:26 AM 2. MG DMSB DIG MAMM-SCREEN ZULEYKA 11/29/2015 3:28 PM FINDINGS: MAMMOGRAPHY: Breast composition: The breasts are almost entirely fatty. Mass: None. Architectural distortion: None. Calcifications: No suspicious calcifications. Asymmetric density: None. Skin thickening: None. Axillary adenopathy: None. IMPRESSION: No mammographic evidence of malignancy. Annual screening is recommended unless otherwise clinically indicated. ASSESSMENT: BI-RADS Category 1: Negative
== END ==
PROVIDERS: PCP Family Medicine; Visit Provider Family Medicine
DX: Z12.31 Encounter for screening mammogram for malignant neoplasm of breast (principal); M85.89 Other specified disorders of bone density and structure, multiple sites
CPT/HCPCS: 77063; 77067; 77080

== ENCOUNTER → 2021-09-07 11:55 | Outpatient (CLI) | payer MEDICARE, OTHER, SELFPAY ==
--- NOTE | 2021-09-07 12:12 | XR_ITS ---
FINAL REPORT CLINICAL HISTORY: Dorsalgia, unspecified, UNSPECIFIED FALL FINDINGS: LUMBAR SPINE 5 views of the lumbar spine were obtained. There is fusion from L4 to the sacrum. There is no evidence of fracture or dislocation. There is mild anterolisthesis of L4 on L5. There is moderate degenerative change. There is a 3.4 cm abdominal aortic aneurysm. IMPRESSION: Degenerative change with no acute bony abnormality. 3.4 cm abdominal aortic aneurysm, if indicated CTA could further evaluate. Reviewed, Interpreted and Dictated by Luis Fernando Rodriguez III, MD Transcribed by Elizabeth Sanchez Authenticated and [facility]
== END ==
PROVIDERS: PCP Family Medicine; Visit Provider Family Medicine
DX: M54.50 Low back pain, unspecified (principal); M54.9 Dorsalgia, unspecified; W19.XXXA Unspecified fall, initial encounter
CPT/HCPCS: 72110

== ENCOUNTER → 2021-09-18 13:28 | Outpatient (CLI) | payer MEDICARE, OTHER, SELFPAY ==
[2021-09-18 14:38] LABS: Blood Urea Nitrogen 30 mg/dl (7-17); Estimated Glomerular Filt Rate 36 ml/min (>60); GFR (African American) 44 ML/MIN (>60)
== END ==
PROVIDERS: PCP Family Medicine; Visit Provider Family Medicine
DX: I71.4 Abdominal aortic aneurysm, without rupture (principal)
CPT/HCPCS: 36415; 82565; 84520

== ENCOUNTER → 2021-09-20 08:58 | Outpatient (CLI) | payer MEDICARE, OTHER, SELFPAY ==
--- NOTE | 2021-09-20 09:02 | CT_ITS ---
FINAL REPORT TECHNIQUE: Axial CT images were performed through the abdomen pelvis utilizing a CTA protocol. Coronal and sagittal reformatted images were submitted. This study was performed with techniques to keep radiation doses as low as reasonably achievable (ALARA). Individualized dose reduction techniques using automated exposure control or adjustment of mA and/or kV according to the patient's size were employed. CLINICAL HISTORY: ABDOMINAL AORTIC ANEURYSM FINDINGS: CTA: The abdominal aorta is mildly ectatic at the origins of the renal arteries up to 3.2 x 2.8 cm. 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 There is 40% stenosis of the proximal SMA. The MATTIE is patent. There are dual renal arteries bilaterally that are patent. 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 The liver is normal in size and attenuation. The gallbladder is absent. There are calcified granulomas in the spleen. The adrenals are normal. The pancreas is unremarkable. The kidneys enhance appropriately. The aorta is normal in caliber. No free fluid or adenopathy is identified. No findings for mechanical bowel obstruction are identified. There are scattered diverticula throughout the sigmoid colon. PELVIS: There is streak artifact from posterior fusion hardware bridging L3-S1. The appendix is not identified. The urinary bladder is unremarkable. No free fluid, free air, abscess or adenopathy is identified. 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 Mild ectasia of the proximal abdominal aorta. Reviewed, Interpreted and Dictated by Nathen Fernandez MD Transcribed by Linden Li Authenticated and [facility]
== END ==
PROVIDERS: PCP Family Medicine; Visit Provider Family Medicine
DX: I71.4 Abdominal aortic aneurysm, without rupture (principal)
CPT/HCPCS: 74174; Q9967

== ENCOUNTER → 2021-10-23 11:30 | Outpatient (CLI) | payer MEDICARE, OTHER, SELFPAY ==
--- NOTE | 2021-10-23 11:57 | CT_ITS ---
FINAL REPORT TECHNIQUE: Thin section axial CT images were obtained through the neck after intravenous contrast administration. Coronal and sagittal reformats were also obtained. This study was performed with techniques to keep radiation doses as low as reasonably achievable (ALARA). Individualized dose reduction techniques using automated exposure control or adjustment of mA and/or kV according to the patient''s size were employed. CLINICAL HISTORY: CERVICALGIA FINDINGS: The nasopharynx, oropharynx, hypopharynx and larynx are unremarkable. There is a very tortuous right ICA which extends into the right right retropharyngeal region. There are calcifications in the tonsillar pillars consistent with sequela of prior infection. There is no adenopathy. There is a poorly defined nodule in the right thyroid lobe measuring 8 mm. There is a retention cyst or polyp in the right maxillary sinus. There is diffuse moderate to severe degenerative change with multilevel osteophytes and neural foraminal narrowing. There is mild central canal stenosis at C4-5, C5-6 and C6-7. There is scarring in the lung apices. IMPRESSION: Poorly defined nodule in the right thyroid lobe. A thyroid ultrasound may be helpful for further evaluation. Possible retention cyst or polyp in the right maxillary sinus. Diffuse moderate to severe degenerative changes with multilevel osteophytes neural foraminal narrowing. Mild central canal stenosis at multiple levels. Reviewed, Interpreted and Dictated by Luis Fernando Rodriguez III, MD Transcribed by Ivette Hugo Authenticated and . [facility]
[2021-10-23 11:58] LABS: Blood Urea Nitrogen 29 mg/dl (7-17); Estimated Glomerular Filt Rate 36 ml/min (>60); GFR (African American) 44 ML/MIN (>60)
== END ==
PROVIDERS: PCP Family Medicine; Visit Provider Student in an Organized Health Care Education/Training Program
DX: M54.2 Cervicalgia (principal)
CPT/HCPCS: 36415; 70491; 82565; 84520; Q9967

== ENCOUNTER → 2021-11-07 07:40 | Outpatient (CLI) | payer MEDICARE, OTHER, SELFPAY ==
--- NOTE | 2021-11-07 07:47 | US_ITS ---
FINAL REPORT CLINICAL HISTORY: THYROID NODULE FINDINGS: THYROID ULTRASOUND Sonographic images of the thyroid was obtained. The right lobe of the thyroid measures 3.6 x 2.6 x 1.9 cm. There is a 23 x 16 x 15 mm mostly solid and isoechoic nodule, TI-RADS category 3. The left lobe of the thyroid measures 4.3 x 2.1 x 1.2 cm. There is a 3 x 2 x 2 mm solid and hypoechoic nodule in the mid lobe, TI-RADS category 4. There is a 13 x 11 x 6 mm solid and hypoechoic nodule in the lower lobe, TI-RADS category 4. The isthmus measures 4 mm. IMPRESSION: Bilateral thyroid TI-RADS category 3 and TI-RADS category 4 nodules as described. Recommend follow-up ultrasound in 6-12 months. Reviewed, Interpreted and Dictated by Luis Fernando Rodriguez III, MD Transcribed by Elizabeth Sanchez Authenticated and [facility]
--- NOTE | 2021-11-07 07:49 | US_ITS ---
FINAL REPORT CLINICAL HISTORY: THYROID NODULE-- FNA PER MINA MARCANO-- PRIOR US DONE TODAY FINDINGS: Ultrasound guided thyroid biopsy. HISTORY: Thyroid mass. PROCEDURE: After informed consent was obtained and a time-out was performed, the patient was prepped and draped in usual sterile fashion over the anterior neck. Utilizing local anesthesia and sterile technique with a 25-gauge needle, access to the lesion was obtained. 6 passes were made. The patient received no conscious sedation. The patient tolerated procedure well and left the department in good condition. IMPRESSION: Status post ultrasound guided biopsy of a thyroid nodule without immediate complication. Films reviewed , interpreted and dictated by Dr. Rodriguez Transcribed by Mina Marcano PA-C. Reviewed, Interpreted and Dictated by Luis Fernando Rodriguez III, MD Transcribed by MAXIMUS Salvador Authenticated and [facility]
== END ==
PROVIDERS: PCP Family Medicine; Visit Provider Student in an Organized Health Care Education/Training Program
DX: E04.1 Nontoxic single thyroid nodule (principal)
CPT/HCPCS: 10005; 76536; 88173

== ENCOUNTER → 2022-01-02 14:08 | Outpatient (CLI) | payer MEDICARE, OTHER, SELFPAY ==
[2022-01-02 15:13] LABS: Alanine Aminotransferase 13 U/L (12-78); Albumin Level 4.1 g/dl (3.5-5.0); Albumin/Globulin Ratio 1.6 (1.1-1.8); Alkaline Phosphatase 133 U/L (38-126); Anion Gap 16.5 mEq/L (5-15); Aspartate Amino Transferase 22 U/L (14-36); Bilirubin,Total 0.9 mg/dl (0.2-1.3); Blood Urea Nitrogen 26 mg/dl (7-17); Calcium 9.1 mg/dl (8.4-10.2); Carbon Dioxide 31 mmol/L (22.0-30.0); Chloride 100 mmol/L (98-107); Chol/HDL Ratio 2.5 (1-3.5); Cholesterol 127 mg/dl (140-200); Estimated Glomerular Filt Rate 33 ml/min (>60); GFR (African American) 40 ML/MIN (>60); Globulin 2.5 g/dL (1.3-3.2); Glucose 88 mg/dl (74-100); HDL Cholesterol 50 mg/dl (40-60); Potassium 4.5 mmoL/L (3.5-5.1); Sodium 143 mmol/L (136-145); Total Protein,Serum 6.6 g/dl (6.3-8.2); Triglycerides 85 mg/dl (30-150); VLDL Cholesterol 17 mg/dL (0-40)
[2022-01-02 15:40] LABS: Direct LDL Cholesterol 58.17 mg/dL (100-129); Thyroid Stimulating Hormone 1.14 uIU/mL (0.465-4.68)
== END ==
PROVIDERS: PCP Family Medicine; Visit Provider Family Medicine
DX: E03.9 Hypothyroidism, unspecified (principal); E78.5 Hyperlipidemia, unspecified; I10 Essential (primary) hypertension; N18.9 Chronic kidney disease, unspecified
CPT/HCPCS: 36415; 80053; 80061; 84443

== ENCOUNTER 2022-02-19 14:00 | Outpatient (RCR) | payer MEDICARE, OTHER, SELFPAY ==
--- NOTE | 2022-01-08 10:01 | HMH.PTOPEV ---
PT Outpatient Evaluation Rehab PT Outpatient Evaluation Start: 01/08/22 09:21 Freq: Status: Active Protocol: Document 01/08/22 09:21 MARY (Rec: 01/08/22 10:01 MARY [id number]) E-signed By Reji Pittman, PT Outpatient Therapy Subjective History Subjective History Pt reports h/o chronic neck pain for 'many years', however , reports h/o recenet falls with most severe occurring ~3 months ago. Pt reports falling in garage at home, 'I missed a step fall and hit my head against the car, and then against the refridgerator.' Pt reports severe neck pain with catching when going from a flexed position back into neutral. PMH: lumbar fusion w/ right foot drop Chief Complaint Pain,Stiff,Clicks,Catches/ Locks Symptoms Relieved By Rest/Positioning,Heat Symptoms Aggravated By Physical Activity,Twisting Prior Functional Limitations Lifting,Housework Current Functional Limitations Lifting,Housework,Driving Symptom Description Constant but Variable Level of pain today (0-10) 1 Pain scale - at its best (0-10) 1 Pain scale - at its worst (0-10) 10 Cervical Eval Palpation Cervical Muscles R Cervical Paraspinal,L Cervical Paraspinal,R CT Junction,L CT Junction,R Upper Trapezius,L Upper Trapezius Cervical/Thoracic Palpation Findings Tenderness,Trigger Point, Muscle Guarding Posture Head/C-Spine Posture Sitting Position Flexed Head/C-Spine Posture Standing Position Flexed Flexibility Deficits Upper Trapezius Muscle Length (R) Moderate Tightness,(L) Moderate Tightness Levaetor Scapulae Muscle Length (R) Mild Tightness,(L) Mild Tightness Scalene Group Muscle Length (R) Moderate Tightness,(L) Moderate Tightness Passive Joint Mobility Cervical PIVM Dec: R OA L OA R AA L AA R C2/3 L C2/3 R C3/4 L C3/4 R C4/5 L C4/5 R C5/6
--- NOTE | 2022-02-19 14:26 | HMH.RHREAS ---
Rehab Reassessment Rehab OP Re-assessment Start: 02/15/22 10:49 Freq: Status: Active Protocol: Document 02/19/22 14:05 MARY (Rec: 02/19/22 14:26 MARY [id number]) E-signed By Reji Pittman, PT Rehab Re-assessment Subjective Subjective Pt reports 2-5/10 neck pain on VAS w/ activity this pm, and feels 50% better overall since I eval Objective Objective Notes CROM: FLX 0-45, EXT 0-50, R SB 0-40, L SB 0-45, B. ROT 50 MMT: ZULEYKA. DELTOID MM 4/5, ZULEYKA BICEP 4-4+/5, ZULEYKA. TRICEP 4-4+ /5, ZULEYKA. WRIST FLX,EXT 4+/5 TTP: ZULEYKA. UT MM 2-3/4, ZULEYKA. SCALENE 2/4, ZULEYKA. CERVICAL PARASPINALS 2/4 Assessment Progress Assessment Progressing as Expected Assessment Notes IMPROVED CROM, STRENGTH, LIMITED IMPROVEMENT IN TTP Patient goals met STG'S 08/15 LTG'S 03/16 Goals Not Met STG'S 04/17, LTG'S 08/14 Plan Plan Pt to continue w/skilled P.T. to make further improvements in CROM, strength, and TTP to allow for optimal function Frequency of Therapy 2-3x/wk Duration of therapy 4-6wks Time and Billing Re-Eval Time 12 Re-Eval Billing Units 1 PHYSICIAN CERTIFICATION: I certify the specified therapy services for Elyssa Lopez are required, authorized, and reviewed every 30 days.
== END 2022-02-19 14:05 | disposition home or self-care (01) ==
LOC: PT 14:00
PROVIDERS: PCP Family Medicine; Visit Provider Family Medicine
DX: M54.2 Cervicalgia (principal)
CPT/HCPCS: 97010; 97035; 97110; 97140; 97163; 97164

== ENCOUNTER → 2022-11-06 12:57 | Outpatient (CLI) | payer MEDICARE, OTHER, SELFPAY ==
--- NOTE | 2022-11-06 13:01 | CA_ITS ---
FINAL REPORT TECHNIQUE: Real-time imaging was performed of the extracranial carotid arteries in transverse and longitudinal planes, with color duplex evaluation of blood flow velocity. Spectral analysis was performed. The cervical vertebral arteries were also examined. CLINICAL HISTORY: dizziness COMPARISON: None FINDINGS: NASCET technique is utilized for stenosis evaluation. Right carotid system (centimeters/second): CCA: 52.6 ICA: 105.9 ECA: 117.5 Vertebral artery: Antegrade ICA/CCA ratio: 2.4 Mild to moderate plaque is identified at the bifurcation. Left carotid system (centimeters/second): CCA: 62.9 ICA: 70.6 ECA: 108.5 Vertebral artery: Antegrade ICA/CCA ratio: 1.8 Mild to moderate plaque is identified at the bifurcation. IMPRESSION: Less than 50% right ICA stenosis. Less than 50% left ICA stenosis. Antegrade flow bilateral vertebral arteries. Reviewed, Interpreted and Dictated by Nathen Fernandez MD Transcribed by Radha Guzman Authenticated and [facility]
--- NOTE | 2022-11-06 13:02 | US_ITS ---
FINAL REPORT CLINICAL HISTORY: REST PAIN ZULEYKA,HTN,HLD,EX SMOKER COMPARISON: None FINDINGS: ANKLE-BRACHIAL PRESSURE INDICES Pressure indices are as follows: RIGHT LOWER EXTREMITY: Ankle-brachial pressure index: 0.93 Comments: Mildly depressed LEFT LOWER EXTREMITY: Ankle-brachial pressure index: 1.05 Comments: Within normal limits IMPRESSION: Mildly depressed pressures on the right with pressures on the left within normal limits. No evidence of significant arterial disease bilaterally. Reviewed, Interpreted and Dictated by Nathen Fernandez MD Transcribed by Rody Gomez Authenticated and [facility]
== END ==
PROVIDERS: PCP Family Medicine; Visit Provider Family Medicine
DX: R42 Dizziness and giddiness (principal); M79.604 Pain in right leg; M79.605 Pain in left leg; R09.89 Other specified symptoms and signs involving the circulatory and respiratory systems
CPT/HCPCS: 93880; 93923

== ENCOUNTER → 2022-12-31 16:13 | Outpatient (CLI) | payer MEDICARE, OTHER, SELFPAY ==
--- NOTE | 2022-12-31 16:25 | XR_ITS ---
PROCEDURE INFORMATION: Exam: XR Right Ankle Exam date and time: 12/31/2022 4:28 PM Age: 82 years old Clinical indication: Pain; Ankle; Right TECHNIQUE: Imaging protocol: Radiologic exam of the right ankle. Views: 3 or more views. COMPARISON: CR XR ANKLE RT MIN 3V 12/11/2020 4:39 PM FINDINGS: Bones/joints: No fracture or destructive lesion. Mild degenerative change of the tibiotalar and fibulotalar joints. Mild dorsal osteophytic spurring of the tarsal bones. Small plantar surface calcaneal bone spur. Osteopenia. Soft tissues: Medial and lateral soft tissue swelling. IMPRESSION: 1. Medial and lateral soft tissue swelling. 2. No fracture. 3. Mild degenerative changes in the ankle and midfoot.
--- NOTE | 2022-12-31 16:25 | XR_ITS ---
PROCEDURE INFORMATION: Exam: XR Left Hip Exam date and time: 12/31/2022 4:28 PM Age: 82 years old Clinical indication: Hip pain; Left hip TECHNIQUE: Imaging protocol: Radiologic exam of the left hip. Views: 2 or 3 views hip with pelvis when performed. COMPARISON: CT ANGIO ABDOMEN PELVIS 09/20/2021 9:14 AM FINDINGS: Bones/joints: Mild bilateral hip joint space narrowing. Mild degenerative change of the bilateral sacroiliac joints. Moderate degenerative change of the pubic symphysis. Posterior pedicle screws and rods extend from L4 to the sacrum. No fracture or destructive lesion. Soft tissues: Unremarkable. IMPRESSION: 1. 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 2. 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
== END ==
PROVIDERS: PCP Family Medicine; Visit Provider Family Medicine
DX: M25.552 Pain in left hip (principal); M25.571 Pain in right ankle and joints of right foot
CPT/HCPCS: 73502; 73610

== ENCOUNTER 2023-02-02 23:22 | Observation (INO) | payer MEDICARE, OTHER, SELFPAY ==
[2023-02-02 23:22] VITALS: BP 160/102; PULSE 73; RESP 16; TEMP 36.6; O2SAT 96; BMI 31.8
[2023-02-02 23:30] VITALS: BP 160/102; PULSE 73; RESP 16; O2SAT 97
--- OUTSIDE RECORDS SUMMARY | 2023-02-02 23:33 | XMS_ITS | Patient Health Record ---
Author Name Unknown Organization Unknown Support Name Relationship Address Phone Alondra Hollis Emergency Contact Unknown Elyssa Lopez Guarantor Unknown [phone] REASON FOR REFERRAL No Information MEDICATIONS Medication SIG (Take, Route, Frequency, Duration) Notes Start Date End Date Status pantoprazole 40 mg 1 tab(s) orally once a day for 30 day(s) Active Eliquis 2.5 mg 1 tab(s) orally 2 ti mes a day for 30 day(s) Active Entresto 49 mg-51 mg 1 tab(s) orally 2 t imes a day Active atorvastatin 40 mg 1 tab(s) orally once a day for 30 day(s) Active buPROPion 150 mg/24 hours 1 tab(s) orall y every 24 hours for 30 day(s) Active carvedilol 12.5 mg 1 tab(s) orally 2 ti mes a day for 30 day(s) Active Colace sodium 100 mg 1 cap(s) orally 2 t imes a day Active furosemide 40 mg 1 tab(s) orally ever y other day Active gabapentin 300 mg 1 cap(s) orally 3 ti mes a day for 30 day(s) Active levothyroxine 75 mcg (0.075 mg) 1 tab(s) orally once a day for 30 day(s) Active meclizine 25 mg 1 tab(s) orally 3 ti mes a day Active montelukast 10 mg 1 tab(s) orally once a day for 30 day(s) Active oxyCODONE 5 mg 1 tab(s) orally ever y 6 hours prn Active PLAN OF TREATMENT No Information Insurance Providers
--- NOTE | 2023-02-02 23:47 | HMH.EDGENADL ---
Discharge Plan Disposition Patient Disposition: Admitted Clinical Impressions Clinical Impression: Acute pain of left hip, Fall, Ambulatory dysfunction Discharge ED Provider: Jameson Robbins General Adult HPI General Chief complaint: Extremity Injury, Lower Stated complaint: pain from fall Time Seen by Provider: 02/02/23 23:25 Mode of Arrival: EMS Limitations: No Limitations Description of Symptoms (Recalled from ER Triage Doc. by RN): Patient fell out of bed 4 days ago. Patient has brusing on left side of face, left buttock, left and right legs. Patient states that she has been getting around okay since the fall and laying on a heating pad, but tonight when she awoke she could not get up on her own to walk to the restroom. Patient states that the pain comes and goes, the pain is 0/10 right now but a 10/10 when it is there. 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 Patient had a fall out of bed 4 days ago. She did not lose consciousness at that time. She has had some bruising but otherwise did not have any ear symptoms initially. Her hip pain has been worsening since that time. She was unable to ambulate today secondary to severity of pain. Pain is somewhat intermittent in nature but worsens with any movement. Continues to have normal neurologic exam. Denies chest pain abdominal pain shortness of breath neck pain etc. Pain is localized to the left hip and low back. Related Data Home Medications Medication Instructions Recorded Confirmed atorvastatin 40 mg tablet 40 mg PO HS Cholesterol 06/26/17 02/02/23 bupropion HCl 150 mg 24 hr tablet, 150 mg PO DAILY Depression 06/26/17 02/02/23 extended release gabapentin 300 mg capsule 300 mg PO TID Pain 06/26/17 02/02/23 levothyroxine 75 mcg tablet 75 mcg PO DAILY Hypothyroidism 06/26/17 02/02/23 (Synthroid) carvedilol 12.5 mg tablet 12.5 mg PO BID Hypertension 05/19/19 02/03/23 montelukast 10 mg tablet 10 mg PO HS Asthma 05/19/19 02/02/23 apixaban 5 mg tablet (Eliquis) 5 mg PO BID 01/20/23 02/02/23 pantoprazole 40 mg tablet,delayed 40 mg PO BID 01/20/23 02/03/23 release torsemide 10 mg tablet 10 mg PO DAILY 01/20/23 02/02/23 meclizine 12.5 mg tablet 12.5 mg PO TID PRN Dizziness Or 02/03/23 02/03/23 Vertigo sacubitril 24 mg-valsartan 26 mg 1 each PO BID 02/03/23 02/03/23 tablet tramadol 50 mg tablet 50 mg PO HS 02/03/23 02/03/23 Allergies Allergy/AdvReac Type Severity Reaction Status Date / Time sulfamethoxazole Allergy Unknown Verified 01/20/23 15:30 [From Bactrim] trimethoprim [From Bactrim] Allergy Unknown Verified 01/20/23 15:30 PFSH [facility] Disclaimer: The information contained in this section may have been updated after the patient was seen, as this information can be updated by other users. Medical History (Updated 02/03/23 @ 03:46 by Jameson Robbins MD) Cataract Hoarseness Surgical History (Updated 02/03/23 @ 03:32 by Tania Atkinson RN) H/O: hysterectomy History of back surgery History of left knee replacement Hx of cholecystectomy Social History (Updated 02/03/23 @ 03:31 by Tania Atkinson RN) Smoking Status: Never smoker alcohol intake: never current occupational status: retired Travel in the last 8 weeks: None ROS Obtained: Yes All systems reviewed & no additional complaints except as documented Physical Exam General General appearance: alert and in no apparent distress Head Head exam: normocephalic and other (Mild bruising to the left face without focal tenderness) Eye Eye exam: Present normal appearance, PERRL and EOMI ENT ENT exam: Present normal oropharynx and normal external ear exam Neck Neck exam: Present normal inspection and full ROM; Absent tenderness Chest Chest inspection: Present normal inspection and symmetric chest wall rise; Absent tend
--- NOTE | 2023-02-02 23:48 | CT_ITS ---
PROCEDURE INFORMATION: Exam: CT Left Lower Extremity Without Contrast, Hip Exam date and time: 02/03/2023 12:08 AM Age: 82 years old Clinical indication: Pain; Hip; Left; Additional info: Fall, worsening left hip/pelvic pain TECHNIQUE: Imaging protocol: CT of the left lower extremity without contrast was performed. Exam focused on the hip. Radiation optimization: All CT scans at this facility use at least one of these dose optimization techniques: automated exposure control; mA and/or kV adjustment per patient size (includes targeted exams where dose is matched to clinical indication); or iterative reconstruction. REPORTING DATA: Count of CT and Cardiac NM exams in prior 12 months: This patient has received 0 known CTs and 0 known cardiac nuclear medicine studies in the 12 months prior to the current study. COMPARISON: CR XR HIP LT 2-3V W/PELVIS 12/31/2022 4:28 PM FINDINGS: Bones/joints: Moderate degenerative changes of hip. No acute fracture or dislocation. Soft tissues: Normal. IMPRESSION: No acute findings identified. Degenerative changes.
--- NOTE | 2023-02-02 23:48 | CT_ITS ---
PROCEDURE INFORMATION: Exam: CT Lumbar Spine Without Contrast Exam date and time: 02/03/2023 12:02 AM Age: 82 years old Clinical indication: Low back pain; Additional info: Fall, worsening lumbar/left hip pain TECHNIQUE: Imaging protocol: Computed tomography of the lumbar spine without contrast. Radiation optimization: All CT scans at this facility use at least one of these dose optimization techniques: automated exposure control; mA and/or kV adjustment per patient size (includes targeted exams where dose is matched to clinical indication); or iterative reconstruction. REPORTING DATA: Count of CT and Cardiac NM exams in prior 12 months: This patient has received 0 known CTs and 0 known cardiac nuclear medicine studies in the 12 months prior to the current study. COMPARISON: CR XR LUMBAR SPINE MIN 4V 09/07/2021 12:15 PM FINDINGS: Bones/joints: No acute fracture. Multilevel degenerative disc and joint space changes. Chronic degenerative grade 1 L3 on L4 and L4 on L5 anterolisthesis. Vertebral body heights grossly preserved. ORIF of L3, L4 and L5 levels. No significant disc bulge or herniation. No severe spinal canal stenosis. No significant neural foraminal narrowing. Stomach and bowel: Colonic diverticulosis. Vasculature: Tortuous aortoiliac arteries. Soft tissues: Unremarkable. IMPRESSION: No acute findings.
--- NOTE | 2023-02-02 23:48 | XR_ITS ---
PROCEDURE INFORMATION: Exam: XR Chest Exam date and time: 02/03/2023 12:11 AM Age: 82 years old Clinical indication: Pain; Chest pressure; Additional info: Fall TECHNIQUE: Imaging protocol: Radiologic exam of the chest. Views: 1 view. COMPARISON: CR CXR1 CHEST-PORTABLE 03/05/2016 6:41 PM FINDINGS: Tubes, catheters and devices: [address]. Lungs: Unremarkable. No consolidation. Underlying interstitial lung markings. Pleural spaces: Unremarkable. No pleural effusion. No pneumothorax. Heart/Mediastinum: Unremarkable. Stable mild cardiomegaly. Bones/joints: Unremarkable. IMPRESSION: No acute findings.
--- NOTE | 2023-02-02 23:48 | CT_ITS ---
PROCEDURE INFORMATION: Exam: CT Pelvis Without Contrast; Skeletal Exam date and time: 02/03/2023 12:05 AM Age: 82 years old Clinical indication: Pelvic pain; Additional info: Fall, worsening left hip/pelvic pain TECHNIQUE: Imaging protocol: Computed tomography of the pelvis without contrast. Exam focused on the skeleton. Radiation optimization: All CT scans at this facility use at least one of these dose optimization techniques: automated exposure control; mA and/or kV adjustment per patient size (includes targeted exams where dose is matched to clinical indication); or iterative reconstruction. REPORTING DATA: Count of CT and Cardiac NM exams in prior 12 months: This patient has received 0 known CTs and 0 known cardiac nuclear medicine studies in the 12 months prior to the current study. COMPARISON: CT ANGIO ABDOMEN PELVIS 09/20/2021 9:14 AM FINDINGS: Stomach and bowel: Sigmoid colonic diverticulosis. Bones/joints: Unremarkable. No acute fracture. No dislocation. Degenerative changes of both hips and sacroiliac joints. ORIF of visualized lumbosacral spine. Soft tissues: Unremarkable. IMPRESSION: No acute findings.
--- NOTE | 2023-02-02 23:48 | XR_ITS ---
PROCEDURE INFORMATION: Exam: XR Left Hip Exam date and time: 02/03/2023 12:11 AM Age: 82 years old Clinical indication: Hip pain; Left hip; Additional info: Fall, pain TECHNIQUE: Imaging protocol: Radiologic exam of the left hip. Views: 2 or 3 views hip with pelvis when performed. COMPARISON: CT HIP LT WO CON 02/03/2023 12:08 AM FINDINGS: Bones/joints: ORIF of visualized lumbosacral spine. Mild degenerative changes of hips and sacroiliac joints. No erosive changes. Normal bony density. Intact cortices. Soft tissues: Unremarkable. IMPRESSION: Degenerative changes without acute radiographic findings identified.
[2023-02-03] VITALS (12 sets, daily range): BP systolic 111–159; BP diastolic 66–103; PULSE 68–76; RESP 14–19; TEMP 36.6–36.8; O2SAT 94–99; BMI 33.1
--- NOTE | 2023-02-03 00:05 | PC.NURSE ---
pt to radiology
--- NOTE | 2023-02-03 00:24 | PC.NURSE ---
pt back from radiology
[2023-02-03 00:46] LABS: Basophils % 0.5 % (0.1-2.0); Eosinophils # 0.2 K/mm3 (0.0-0.4); Eosinophils % 3.9 % (0.1-12.0); Hematocrit 37.8 % (37.0-47.0); Hemoglobin 12.4 g/dL (12.2-16.2); Lymphocytes # 1.1 K/mm3 (0.7-4.5); Lymphocytes % 23.7 % (10-50); Mean Corpuscular HGB Conc 32.7 g/dL (31.8-35.4); Mean Corpuscular Hemoglobin 33.8 pg (27.0-31.2); Mean Corpuscular Volume 103.3 fl (81-99); Mean Platelet Volume 8.7 fl (7.4-10.4); Monocytes # 0.2 K/mm3 (0.1-1.0); Monocytes % 4.6 % (1.7-9.3); Neutrophils # 3.1 K/mm3 (1.8-7.8); Neutrophils % 67.4 % (37.0-80.0); Platelet Count 178 K/mm3 (142-424); Red Blood Count 3.66 M/mm3 (4.20-5.40); Red Cell Distribution Width 13.8 % (11.5-17.5); White Blood Count 4.6 K/mm3 (4.8-10.8)
[2023-02-03 00:50] LABS: Chloride 107 mmol/L (98-107); Potassium 4.3 mmoL/L (3.5-5.1); Sodium 140 mmol/L (136-145)
[2023-02-03 00:53] LABS: Alanine Aminotransferase 14 U/L (12-78); Albumin Level 3.8 g/dl (3.5-5.0); Albumin/Globulin Ratio 1.4 (1.1-1.8); Alkaline Phosphatase 103 U/L (38-126); Anion Gap 7.3 mEq/L (5-15); Aspartate Amino Transferase 22 U/L (14-36); Bilirubin,Total 0.6 mg/dl (0.2-1.3); Blood Urea Nitrogen 25 mg/dl (7-17); Carbon Dioxide 30 mmol/L (22.0-30.0); Creatinine Clearance Estimated 34 mL/min (50-200); Estimated Glomerular Filt Rate 31 ml/min (>60); GFR (African American) 37 ML/MIN (>60); Globulin 2.7 g/dL (1.3-3.2); Total Protein,Serum 6.5 g/dl (6.3-8.2)
[2023-02-03 00:54] LABS: Calcium 8.1 mg/dl (8.4-10.2); Glucose 99 mg/dl (74-100)
--- NOTE | 2023-02-03 02:16 | PC.NURSE ---
paged dr calvillo @ this time
--- NOTE | 2023-02-03 02:24 | PC.NURSE ---
on phone with dr calvillo
--- NOTE | 2023-02-03 02:24 | PC.NURSE ---
notified warehouse specialist
--- NOTE | 2023-02-03 02:26 | PC.NURSE ---
OBSERVATION TO 207 WITH DX OF FALL AND HIP PAIN TO SERVICE OF DR. DYKES TO DR. VIDAL.
--- NOTE | 2023-02-03 02:42 | PC.NURSE ---
[id number] RECEIVED PHONE REPORT FROM GALINA RN/ED NURSE. PATIENT IS 82 YO FEMALE S/P FALL 4 DAYS AGO. XRAYS NO ACUTE FINDINGS. ADMITTED FOR PAIN CONTROL.
--- NOTE | 2023-02-03 02:50 | PC.NURSE ---
report called to yon alexander
--- NOTE | 2023-02-03 03:07 | PC.NURSE ---
ARRIVED TO THE FLOOR AT 0307 VIA STRETCHER.
--- NOTE | 2023-02-03 03:07 | PC.NURSE ---
pt arrived to floor via stretcher @[id number]
--- NOTE | 2023-02-03 03:57 | PC.NURSE ---
Pt arrived to floor with daughter at bedside. Pt daughter states pt fell out of bed on jan 24 and has become weak since then. She also states that pt was lifting a bag of groceries on Friday afternoon and felt a pop in her back which has caused her weakness to be more severe. Pt states she was unable to get out of bed tonight which caused her to press her life alert bracelet for an ambulance. Pt states she has been having muscle spasms in her back causing 10/10 pain at times.
--- NOTE | 2023-02-03 07:39 | HMH.PHAINT1 ---
Pharmacy Intervention Comments: Med reconciliation completed using external fill history and patient interview. Despite external fill history not showing a fill since July, Ms Lopez states that she is still taking Entresto. It sounds as though she is using an alternate means to her insurance for coverage, and she states that she last took the med on 02/02. She states that she is still taking gabapentin, but she typically takes BID rather than TID as stated on the bottle. She has used meclizine 12.5 mg TID PRN for dizziness, but she states that she has not used it in over a month. She also states that she has been taking her tramadol BID and taking it more frequently recently.
--- NOTE | 2023-02-03 08:39 | EXP.HP ---
History of Present Illness *Admission Date: 02/02/23 *Reason for visit:: Follow-up with right ankle and left hip pain *History of present illness: Ms. Lopez is an 82-year-old female with a history of hypothyroidism, goiter, hypertension, osteoarthritis, stage III chronic kidney disease, CHF, atrial fibs, pacemaker dependent, right foot drop, peripheral neuropathy, presbycusis, and osteopenia who presented to the emergency room with worsening left hip pain after a fall several weeks ago. She had been seen in the office of [facility] on 1024 and x-rays at that time showed arthritis of both the right ankle and the left hip. She was started on tramadol for discomfort. She states that this really did not help totally. With evaluation in the emergency room imaging showed no acute findings with the pelvis CT, lumbar spine CT ,and hip CT. With care in the emergency room they attempted to ambulate the patient after medication. ER staff felt like her pain was possibly related to muscle spasm and she was thus admitted for further evaluation and treatment with PT OT evaluation. [facility] Disclaimer: The information contained in this section may have been updated after the patient was seen, as this information can be updated by other users. Medical History (Updated 02/03/23 @ 13:04 by Say Krause MD) Cataract Chronic atrial fibrillation Chronic kidney disease GERD (gastroesophageal reflux disease) Hoarseness Hypertension Hypothyroidism Osteoarthritis Pacemaker Surgical History (Updated 02/03/23 @ 08:54 by Alissa Stone APRN) H/O: hysterectomy History of back surgery History of cataract surgery History of left knee replacement Hx of cholecystectomy Family History (Updated 02/03/23 @ 08:55 by Alissa Stone APRN) Cancer Social History (Updated 02/03/23 @ 03:31 by Tania Atkinson RN) Smoking Status: Never smoker alcohol intake: never current occupational status: retired Travel in the last 8 weeks: None Review of Systems Constitutional Constitutional: Denies headache(s) and Reports weakness Eyes Eyes: Denies change in vision ENT Ears, Nose, Mouth, and Throat: Denies otalgia, Denies headache(s) and Denies sore throat *Cardiovascular Cardiovascular: Denies chest pain and Denies dyspnea *Respiratory Respiratory: Denies chest congestion, Reports cough (Dry cough) and Denies dyspnea *Gastrointestinal Gastrointestinal: Denies abdominal pain, Denies dyspepsia, Denies nausea and Denies vomiting *Genitourinary Genitourinary: Denies difficulty voiding *Musculoskeletal Musculoskeletal: Reports abnormal gait and Reports arthralgias (Left hip and right ankle) *Neurologic Neurologic: Reports abnormal gait, Denies headache(s) and Reports weakness Meds Home Medications and Allergies Home Medications Medication Instructions Recorded Confirmed Type atorvastatin 40 mg tablet 40 mg PO HS Cholesterol 06/26/17 02/03/23 History bupropion HCl 150 mg 24 hr tablet, 150 mg PO DAILY Depression 06/26/17 02/03/23 History extended release gabapentin 300 mg capsule 300 mg PO BID Pain 06/26/17 02/03/23 History levothyroxine 75 mcg tablet 75 mcg PO DAILY Hypothyroidism 06/26/17 02/03/23 History (Synthroid) carvedilol 12.5 mg tablet 12.5 mg PO BID Hypertension 05/19/19 02/03/23 History montelukast 10 mg tablet 10 mg PO HS Asthma 05/19/19 02/03/23 History apixaban 5 mg tablet (Eliquis) 5 mg PO BID 01/20/23 02/03/23 History pantoprazole 40 mg tablet,delayed 40 mg PO BID 01/20/23 02/03/23 History release torsemide 10 mg tablet 10 mg PO DAILY 01/20/23 02/03/23 History sacubitril 49 mg-valsartan 51 mg 1 tab PO BID 02/03/23 02/03/23 History tablet (Entresto) tramadol 50 mg tablet 50 mg PO HS 02/03/23 02/03/23 History New Prescriptions to Start Prescriptions: Allergies Allergy/AdvReac Type Severity Reaction Status Date / Time sulfamethoxazole Allergy Unknown Verified 01/20/23 15:30 [From Bactrim]
--- NOTE | 2023-02-03 10:56 | HMH.PTEV ---
Physical Therapy Evaluation Rehab PT IP Evaluation Start: 02/03/23 08:49 Freq: ONCE Status: Active Protocol: Document 02/03/23 10:24 LILLIAM (Rec: 02/03/23 10:55 LILLIAM [id number]) Subjective/History History History Pt is a 82 y/o female who reported to [facility] ED on 02/03/23 with report of worsening left hip pain after a fall several weeks ago. Per history & physical note, She had been seen in the office of [facility] on 1024 and x- rays at that time showed arthritis of both the right ankle and the left hip. She was started on tramadol for discomfort. She states that this really did not help totally. With evaluation in the emergency room imaging showed no acute findings with the pelvis CT, lumbar spine CT , and hip CT. With care in the emergency room they attempted to ambulate the patient after medication. ER staff felt like her pain was possibly related to muscle spasm and she was thus admitted for further evaluation and treatment with PT/OT evaluation. Medical History: Cataract, Chronic atrial fibrillation, Chronic kidney disease, GERD ( gastroesophageal reflux disease), Hoarseness, Hypertension, Hypothyroidism, Osteoarthritis, Pacemaker Subjective Subjective Pt reports she fell out of her daughter's guest bed ~3 weeks ago. Pt denies falls since. Pt reports left lumbar/hip pain since with report of sharp, brief pain with any movement. Pt reports pain is a 10/10 when this occurs even after taking prescribed Morphine. Upon observation, pt
--- NOTE | 2023-02-03 11:38 | HMH.OTEV ---
OT Inpatient Evaluation Rehab OT IP Evaluation Start: 02/03/23 09:03 Freq: ONCE Status: Active Protocol: Document 02/03/23 11:15 KRISTIE (Rec: 02/03/23 11:38 KRISTIE [id number]) Rehab OT IP Assessment Subjective History Ms. Lopez is an 82-year-old female with a history of hypothyroidism, goiter, hypertension, osteoarthritis, stage III chronic kidney disease, CHF, atrial fibs, pacemaker dependent, right foot drop, peripheral neuropathy, presbycusis, and osteopenia who presented to the emergency room with worsening left hip pain after a fall several weeks ago. She had been seen in the office of [facility] on 1024 and x-rays at that time showed arthritis of both the right ankle and the left hip. She was started on tramadol for discomfort. She states that this really did not help totally. With evaluation in the emergency room imaging showed no acute findings with the pelvis CT, lumbar spine CT , and hip CT. With care in the emergency room they attempted to ambulate the patient after medication. ER staff felt like her pain was possibly related to muscle spasm and she was thus admitted for further evaluation and treatment with PT OT evaluation. Patient lives home alone. Indepenent with all ADLs and fx'l mobility prior to hospitalization. Patient reported falling out of a bed at her daughters house ~2 weeks ago. Patient has been living alone with continous falls. No fractures note.d Subjective I can get up. Instructed Patient on proper
--- NOTE | 2023-02-03 11:39 | SW/DCPLANNER ---
Addendum entered by Maryana Bremen 02/04/23 12:12: Brianna w/ [facility] stated that services will begin this week for this patient. Addendum entered by [facility] 02/04/23 11:33: Patient information/order has been faxed to [facility]. The plan for this patient is to discharge later today. Addendum entered by Maryana Bremen 02/04/23 11:20: Patient's daughter address: [address] [place] [address] in [facility]. Addendum entered by Maryana Bremen 02/03/23 11:55: Patient's daughter contacted regarding concern w/ discharge plans of home w/ her and home health services. I explained discharge plans further home w/ 24-7 care and home health vs placement under private pay. Daughter is not interested in placement w/ private pay at this time. Original Note: I spoke w/ this patient regarding plans once medically stable for discharge. PT/OT evaluated patient and recommended placement vs home w/ home health and 24-7 assistance. Patient stated that her plan is to discharge home w/ her daughter and home health services. Patient is agreeable to [facility] services. The option of placement was explained to patient regarding private pay: patient is not interested in placement at this time. I will continue to follow up w/ patient and family until medically stable for discharge.
[2023-02-04 04:00] VITALS: BP 119/77; PULSE 78; RESP 16; TEMP 36.4; O2SAT 93; BMI 33.3
--- NOTE | 2023-02-04 05:26 | PC.NURSE ---
Patient slept well this shift. Patient did not c/o of pain throughout the night. Patient had one episode of confusion around 03:00 and was easily reorientated. x1 assist to ambulate to bathroom room to void. Bed alarm remains on for safety. Call light within reach.
[2023-02-04 07:13] LABS: Basophils % 0.4 % (0.1-2.0); Eosinophils # 0.1 K/mm3 (0.0-0.4); Eosinophils % 3.8 % (0.1-12.0); Hematocrit 37.1 % (37.0-47.0); Hemoglobin 12.1 g/dL (12.2-16.2); Lymphocytes # 0.9 K/mm3 (0.7-4.5); Lymphocytes % 25.3 % (10-50); Mean Corpuscular HGB Conc 32.6 g/dL (31.8-35.4); Mean Corpuscular Hemoglobin 33.5 pg (27.0-31.2); Monocytes # 0.2 K/mm3 (0.1-1.0); Monocytes % 5.6 % (1.7-9.3); Neutrophils # 2.3 K/mm3 (1.8-7.8); Neutrophils % 64.8 % (37.0-80.0); Platelet Count 153 K/mm3 (142-424); Red Cell Distribution Width 13.8 % (11.5-17.5); White Blood Count 3.5 K/mm3 (4.8-10.8)
[2023-02-04 07:27] LABS: Anion Gap 9.2 mEq/L (5-15); Blood Urea Nitrogen 22 mg/dl (7-17); Calcium 7.9 mg/dl (8.4-10.2); Carbon Dioxide 28 mmol/L (22.0-30.0); Chloride 102 mmol/L (98-107); Creatinine Clearance Estimated 41 mL/min (50-200); Estimated Glomerular Filt Rate 36 ml/min (>60); GFR (African American) 43 ML/MIN (>60); Glucose 85 mg/dl (74-100); Potassium 4.2 mmoL/L (3.5-5.1); Sodium 135 mmol/L (136-145)
[2023-02-04 08:00] VITALS: BP 90/68; PULSE 74; RESP 16; TEMP 36.4; O2SAT 97
--- NOTE | 2023-02-04 08:06 | EXP.ACUTE.PN ---
Subjective *Date: 02/04/23 *Time: 08:34 Interval history: Patient feels she slept some last night. Nurses noted some confusion during the night. Patient does not remember yesterday. She does not remember physical therapy working with her. She states the pain in her hip is improved but still is sore. She does recall getting up and going to the bathroom with help. She is eating without problems. Renal function has improved. Physical therapy did see the patient and care management has spoken with both patient and family. Plan is for patient to go home with supervision and home health. Medical Exam Vital signs and Labs for Last 24 Hours: Vital Signs Temp Pulse Resp BP Pulse Ox O2 Del Method 02/04/23 07:00 Room Air 02/04/23 05:00 Room Air 02/04/23 04:00 97.6 F 78 16 119/77 93 L Room Air 02/04/23 03:00 Room Air 02/04/23 01:00 Room Air 02/03/23 23:00 Room Air 02/03/23 20:58 Room Air 02/03/23 20:00 Room Air 02/03/23 20:00 98.1 F 72 18 131/85 94 L Room Air 02/03/23 18:35 Room Air 02/03/23 17:00 Room Air 02/03/23 16:00 98.3 F 75 19 111/66 94 L Room Air 02/03/23 15:00 Room Air 02/03/23 13:00 Room Air 02/03/23 10:54 Room Air 02/03/23 09:00 Room Air Intake and Output 02/03/23 02/04/23 02/04/23 19:59 03:59 11:59 Intake Total 710 / 710 360 / 1070 Output Total 0 / 0 0 / 0 0 / 0 Balance 710 / 710 0 / 710 360 / 1070 Intake: Intake, Oral Amount 710 / 710 360 / 1070 Output: Output, Urine Amount 0 / 0 0 / 0 0 / 0 Other: Number of Voids 1 Number of Unmeasured Voids 1 1 1 Weight 188 lb Patient Weight 02/04/23 11:59 Weight 188 lb Laboratory Results - last 24 hr 02/04/23 06:01: WBC 3.5 L, RBC 3.60 L, Hgb 12.1 L, Hct 37.1, MCV 103.0 H, MCH 33.5 H, MCHC 32.6, RDW 13.8, Plt Count 153, MPV 9.0, Neut % (Auto) 64.8, Lymph % (Auto) 25.3, [place] % (Auto) 5.6, Eos % (Auto) 3.8, Baso % (Auto) 0.4, Neut # (Auto) 2.3, Lymph # (Auto) 0.9, [place] # (Auto) 0.2, Eos # (Auto) 0.1, Baso # (Auto) 0.0, Sodium 135 L, Potassium 4.2, Chloride 102, Carbon Dioxide 28, Anion Gap 9.2, BUN 22 H, Creatinine 1.40 H, Estimated Creat Clear 41, Estimated GFR 36 L, Est GFR ( Amer) 43 L, Glucose 85, Calcium 7.9 L I & O for Labs for Last 24 Hours: Intake & Output 02/01/23 02/02/23 02/03/23 02/04/23 11:59 11:59 11:59 11:59 Intake Total 240 / 240 1070 / 1070 Output Total 0 / 0 Balance 240 / 240 1070 / 1070 Weight 187 lb 188 lb Constitutional: Present no acute distress Comment:: Patient is sitting up in bedside comfort chair eating her breakfast. She appears very comfortable. Respiratory: Present CTA bilaterally (A&P) Cardiac: Present Reg Rate and Rhythm GI: Present soft and normal bowel sounds; Absent distention Extremities: Absent edema or calf tenderness Neuro: Present alert and oriented x 3 Assessment and Plan *Assessment and plan (1) Hypothyroidism: Status: Acute Category: Medical Code(s): E03.9 - Hypothyroidism, unspecified (2) GERD (gastroesophageal reflux disease): Status: Acute Category: Medical Code(s): K21.9 - Gastro-esophageal reflux disease without esophagitis (3) Chronic kidney disease: Status: Acute Category: Medical Code(s): N18.9 - Chronic kidney disease, unspecified (4) Osteoarthritis: Status: Acute Category: Medical Code(s): M19.90 - Unspecified osteoarthritis, unspecified site (5) Paroxysmal atrial fibrillation: Status: Acute Category: Medical Code(s): I48.0 - Paroxysmal atrial fibrillation (6) Obstructive sleep apnea: Status: Acute Category: Medical Code(s): G47.33 - Obstructive sleep apnea (adult) (pediatric) (7) Acute pain of left hip: Status: Acute Category: Medical Code(s): M25.552 - Pain in left hip (8) Frequent falls: Status: Acute C
[2023-02-04 09:01] LABS: Vitamin B12 184 pg/mL (239-931)
[2023-02-04 09:03] LABS: Folate 5.55 ng/mL
--- NOTE | 2023-02-05 15:41 | CARE MANAGER ---
Patient's daughter called. She states the patient had a rough night due to muscle spasms. They did not send anything home for that with her. Suggested the daughter reach out to [facility]. I also reached out to Hannah and Dr. Escobedo. They state she has an appointment tomorrow and they will address then. Denies any other questions or concerns. ALONZO Mathias
--- NOTE | 2023-02-06 14:47 | EXP.DC.SUM ---
General Admission date:: 02/03/23 Discharge date: 02/04/23 HPI HPI HPI: Ms. Lopez is an 82-year-old female with a history of hypothyroidism, goiter, hypertension, osteoarthritis, stage III chronic kidney disease, CHF, atrial fibs, pacemaker dependent, right foot drop, peripheral neuropathy, presbycusis, and osteopenia who presented to the emergency room with worsening left hip pain after a fall several weeks ago. She had been seen in the office of [facility] on 1024 and x-rays at that time showed arthritis of both the right ankle and the left hip. She was started on tramadol for discomfort. She states that this really did not help totally. With evaluation in the emergency room imaging showed no acute findings with the pelvis CT, lumbar spine CT ,and hip CT. With care in the emergency room they attempted to ambulate the patient after medication. ER staff felt like her pain was possibly related to muscle spasm and she was thus admitted for further evaluation and treatment with PT OT evaluation. Hospital Course Hospital Course Hospital Course: The patient was admitted and started on pain medication and muscle relaxants. PT and OT were consulted and some of her home medications were restarted. The patient did have some confusion during the night and did not remember working with physical therapy. Her hip pain improved. Her renal function improved. Physical therapy and care management both spoke with the patient and her family and the plan was for her to be discharged home with supervision and home health. She will follow-up in the office [facility]. Exam Data for Last 24 hours Vital signs and Labs for Last 24 Hours: Temp Pulse Resp BP Pulse Ox O2 Del Method 97.5 F L 74 16 90/68 L 97 Room Air 02/04/23 08:00 02/04/23 08:00 02/04/23 08:00 02/04/23 08:00 02/04/23 08:00 02/04/23 14:37 I & O for Last 24 hours: Intake & Output 02/04/23 02/05/23 02/06/23 02/07/23 11:59 11:59 11:59 11:59 Intake Total 1070 / 1070 360 / 360 Output Total 0 / 0 Balance 1070 / 1070 360 / 360 Weight 188 lb Narrative: Constitutional Constitutional: no acute distress Comments: Conversant *Routine HEENT Exam Head: Present normocephalic and atraumatic Eye: Present PERRL; Absent conjunctival icterus, scleral injection or conjunctivae pink ENT: Present mucous membranes moist and oropharynx clear *Routine Neck Exam Neck: Present supple and full ROM; Absent carotid bruit, lymphadenopathy or thyromegaly *Routine Respiratory Exam Respiratory: Present CTA bilaterally *Routine Cardiovascular Exam Cardiovascular: Present RRR *Routine Abdominal Exam Abdominal: Present soft and normoactive bowel sounds; Absent tenderness or distended *Routine Rectal Exam Rectal:: deferred *Routine Genitalia Exam Genitalia:: deferred *Routine Extremities Exam Extremities: Absent edema, calf tenderness or palpable cord Comments: Deformity of toes on the right *Routine Skin Exam Skin: Present ecchymosis Comments: Resolving ecchymosis on face and bilateral legs *Routine Neurological Exam Neurological: Present alert and oriented X3 DS: Diagnosis Discharge Diagnosis (1) Hypothyroidism: Status: Acute Code(s): E03.9 - Hypothyroidism, unspecified (2) GERD (gastroesophageal reflux disease): Status: Acute Code(s): K21.9 - Gastro-esophageal reflux disease without esophagitis (3) Chronic kidney disease: Status: Acute Code(s): N18.9 - Chronic kidney disease, unspecified (4) Osteoarthritis: Status: Acute Code(s): M19.90 - Unspecified osteoarthritis, unspecified site (5) Paroxysmal atrial fibrillation: Status: Acute Code(s): I48.0 - Paroxysmal atrial fibrillation (6) Obstructive sleep apnea: Status: Acute Code(s): G47.33 - Obstructive sleep apnea (adult) (pediatric) (7) Acute pain of left hip: Status: Acute Code(s): M25.552 -
== END 2023-02-04 15:21 | disposition home health service (06) ==
LOC: ER 02-03 00:03 → 2ND 02-03 03:06
PROVIDERS: Family Medicine; Admitting Provider Internal Medicine Adolescent Medicine; Emergency Provider Emergency Medicine; PCP Family Medicine; Visit Provider Family Medicine
DX: E03.9 Hypothyroidism, unspecified (principal); K21.9 Gastro-esophageal reflux disease without esophagitis; N18.30 Chronic kidney disease, stage 3 unspecified; M19.90 Unspecified osteoarthritis, unspecified site; I48.0 Paroxysmal atrial fibrillation; G47.33 Obstructive sleep apnea (adult) (pediatric); M25.552 Pain in left hip; R29.6 Repeated falls; Z95.0 Presence of cardiac pacemaker; Z79.899 Other long term (current) drug therapy; I50.9 Heart failure, unspecified; I13.0 Hypertensive heart and chronic kidney disease with heart failure and stage 1 through stage 4 chronic kidney disease, or unspecified chronic kidney disease
CPT/HCPCS: 36415; 71045; 72131; 72192; 73502; 73700; 80048; 80053; 82607; 82746; 85025; 93225; 97116; 97162; 97165; 97530; 97535; 99285; G0378; J2405

== ENCOUNTER 2023-12-24 15:53 | Outpatient (CLI) | payer MEDICARE, OTHER, SELFPAY ==
--- NOTE | 2023-12-24 16:02 | XR_ITS ---
FINAL REPORT CLINICAL HISTORY: ACUTE MIDLINE LOW BACK PAIN FINDINGS: Sacrum/coccyx Three views were obtained. There is no acute fracture or dislocation. There are mild hypertrophic changes of the sacroiliac joints. The sacrum/coccyx are osteopenic. No soft tissue abnormality is identified. IMPRESSION: Hypertrophic changes of the sacroiliac joints. Reviewed, Interpreted and Dictated by Nathen Fernandez MD Transcribed by Alissa Garner Authenticated and . [facility]
--- NOTE | 2023-12-24 16:02 | XR_ITS ---
FINAL REPORT CLINICAL HISTORY: ACUTE MIDLINE LOW BACK PAIN COMPARISON: 09/07/2021 FINDINGS: LUMBAR SPINE Five views demonstrate no acute fracture. There is posterior fusion hardware bridging L3-S1. Lumbar scoliosis is convex to the right. Vacuum disc phenomenon is most evident at L2-3. Degenerative change has progressed at L2-3. There is no malalignment. IMPRESSION: Degenerative and postsurgical changes. Reviewed, Interpreted and Dictated by Nathen Fernandez MD Transcribed by Alissa Garner Authenticated and [facility]
== END 2023-12-24 23:59 | disposition home or self-care (01) ==
LOC: RAD 15:56
PROVIDERS: PCP Physician Assistant; Visit Provider Physician Assistant
DX: M54.50 Low back pain, unspecified (principal)
CPT/HCPCS: 72110; 72220

== ENCOUNTER 2024-08-10 10:59 | Outpatient (CLI) | payer MEDICARE, OTHER, SELFPAY ==
--- NOTE | 2024-08-10 | US_ITS ---
FINAL REPORT CLINICAL HISTORY: AFIB, LEG PAIN, NONSMOKER, HX- COMPARISON: None FINDINGS: ANKLE-BRACHIAL PRESSURE INDICES Pressure indices are as follows: RIGHT LOWER EXTREMITY: Ankle-brachial pressure index: 0.97 Comments: Normal LEFT LOWER EXTREMITY: Ankle-brachial pressure index: 1.1 Comments: Normal CONCLUSION: No evidence of significant obstructive peripheral vascular disease of the lower extremities Reviewed, Interpreted and Dictated by Gina Howell MD Transcribed by Radha Guzman Authenticated and [facility]
== END 2024-08-10 23:59 | disposition home or self-care (01) ==
LOC: RT 11:00
PROVIDERS: PCP Family Medicine; Visit Provider Physician Assistant
DX: I48.91 Unspecified atrial fibrillation (principal); M79.604 Pain in right leg; G91.2 (Idiopathic) normal pressure hydrocephalus; M79.605 Pain in left leg
CPT/HCPCS: 93923

== ENCOUNTER 2024-11-02 12:03 | Emergency (ER) | payer MEDICARE, OTHER, SELFPAY ==
--- OUTSIDE RECORDS SUMMARY | 2024-09-07 11:00 | XMS_ITS ---
[facility] Address [address] [facility] [address] [place] [id number] Care Team Providers Care Target Protection Specialist Name Role Phone Derrell Escobedo Primary Care [...] Status W/U Status Risk Notes Problem Rhinitis (96252619) Rhinitis (J31.0) Active confirmed Problem Venous insufficiency (I87.2) Active confirmed Vital Signs Weight 165 lbs 09/07/2024 Blood pressure systolic 132 mm Hg 09/08/19 25 Blood pressure diastolic 92 mm Hg 025 Heart Rate 70 /min 09/07/2024 Height 63 in 09/07/2024 BMI 29.23 kg/m2 09/07/2024 Encounters Encounter Location Date [facility] [address] [phone] 09/07/2024 R Nitin Escobedo Rhinitis J31.0 ; [...] Details Follow Up: prn, Reason: Provider Name:Derrell Hawley, 11/23/2024 11:00:00 AM, [address] [place] [facility] 36 [facility], [address], [place], [id number], Provider Name:Derrell Hawley, 05/12/2025 11:00:00 AM, [address] [facility] 36 [facility], [address], [place], [place], [phone], Progress Notes * BRUCE GAONADOB:1940 ( 84 yo F)Acc No.[id number]:09/07/2024 Progress Notes Patient: BRUCE BLANC Provider: Derrell Escobedo M.D. :1940 A ge:84 Y S ex:Female Date:09/07/2024 Address:[facility] [address], [place], [id number] Subjective: * Chief Complaints: * 1 . [...] 2012, cataract surgery , cardiac ablation-Dr Felder [facility] , Pacemaker 2017, left knee njytjtejhgz-[id number]-Sg Kirk 12/29/2018. * Hospitalization/Major Diagno stic Procedure: [...] R hinitis - J31.0 3 . B UT 29.0-29.9,adult - Z68.29 Plan: * Treatment: 2. R shadia Start Flonase Allergy Relief Suspension, 50 MCG/ACT, 1 spray in each nostril, Nasally, Twice a day, 30 days, 1, Refills 2. Notes: OTC Coricidin * Procedure Codes: G 2211 Complex e/m visit add on, 1036F TOBACCO NON-USER, G8420 BMI<30 AND >=22 CALC & DOCU * Follow Up: p rn * Images: Billing Information: * Visit Code: 05485 Office Visit, Est Pt., Level 3. * Procedure Codes: G2211 Complex e/m visit add on. 1036F TOBACCO NON-USER. G8420 BMI<30 AND >=22 CALC & DOCU. * Electronic signature of Derrell Escobedo MD on 11/02/2024 at 12:12 PM EDT Sign off status: Pending * Provider: Derrell Escobedo M.D. Date: 0 09/07/2024 Generated for Martin berman/Jasbir/Marissaitting on: 0 11/02/2024 12:12 PM EDT History and Physical Notes * HPI (History [...]
--- OUTSIDE RECORDS SUMMARY | 2024-09-16 07:00 | XMS_ITS ---
Author Organization [facility] Address [address] [facility] [address] [place] [phone] Care Team Providers Care Dental Chair Assembler Name Role Phone Derrell Escobedo Primary Care Provider Allergies Allergen (clinical drug ingredient) Drug/Non Drug Allergy documented on EMR Reaction Allergy Type Onset Date Status sulfamethoxazole / trimethoprim Bactrim tongue burning, redness Drug Allergy Active REASON FOR VISIT hearing loud noises that are not happening Encounters Encounter Location Date Provider Diagnosis [facility] [address] [place] [phone] 09/16/2024 Derrell Escobedo Plan Of Treatment Next Appt Details Provider Name:Derrell Hawley, 11/23/2024 11:00:00 AM, [address] [place], [address], [place], [phone], Provider Name:Derrell Hawley, 05/12/2025 11:00:00 AM, [address] [place], [address], [place], [phone], Progress Notes * BRUCE GAONADOB:1940 ( 84 yo F)Acc No.[id number]:09/16/2024 Progress Notes Patient: BRUCE BLANC Provider: Derrell Escobedo M.D. :1940 A ge:84 Y S ex:Female Date:09/16/2024 Address:[facility] [address], [place], [id number] Subjective: * Chief Complaints: * 1 . [...] for prolapse , Colonoscopy/ 5 polyps/ Dr. lAexandra 2008, back surgery X 4 Dr Calvo 2012, cataract surgery , cardiac ablation-Dr Felder [facility] , Pacemaker 2017, left knee sgyfwzzknjn-lpsgy-Rs Kirk 12/29/2018. * Hospitalization/Major Diagno stic Procedure: [...] of Derrell Escobedo MD on 11/02/2024 at 12:11 PM EDT Sign off status: Pending * Provider: Derrell Escobedo M.D. Date: 0 09/16/2024 Generated for Martin berman/Jasbir/Edgardo on: 0 11/02/2024 12:11 PM EDT History and Physical Notes * HPI (History of Present Illness) Category Sub-Category Detail Notes Category Not es HPI Patient is here today for Pt is here today with c/o hearing loud noises that are not actually there or happening
--- OUTSIDE RECORDS SUMMARY | 2024-09-16 09:00 | XMS_ITS | Encounter Summary ---
Author Organization [facility] Address [address] [place] [address] Care Team Providers Care Communications Executive Name Role Phone Bowen Escobedo MD Primary Care Provider Encounter Details Date Type Department Care Team (Latest Contact Info) Description 09/16/2024 9:00 AM EDT Clinical Support No Requirements [facility] [address] [phone] Social History Tobacco Use Types Packs/Day Years Used Date Smoking Tobacco: Former Cigarettes 0.5 3 0 03/10/1963 - 03/10/1966 Smokeless Tobacco: Never Comments:socially, quit in 1 967 Alcohol Use Standard Drinks/Week Comments No 0 (1 standard drink = 0.6 oz pur e alcohol) Abuse Screen Answer Date Recorded Feels Unsafe at Home or Work/School no 09/16/2024 Feels Threatened by Someone no 09/07 Does Anyone Try to Keep You From Having Contact with Others or Doing Things Outside Your Home? no 09/16/2024 Physical Signs of Abuse Present no 09/16/2024 Comments No Sex and Gender Information Value Date Recorded Sex Assigned at Female 06/01/2024 7:28 PM EDT Legal Sex Female 11:16 AM EDT Gender Identity Not on file Sexual Orientation Not on file Occupation Industry Job Start Date Job End Date retired Not on file Not on file Not on file documented as of this encounter Functional Status * Calculated C-SSRS Risk Score (Lifetime/Recent) Answer Date of Assessment Author No Risk Indicated 09/16/2024 11:22 AM EDT Carlos Courtney, ALONZO * [place] Suicide Severity Rating Scale (Screener/Recent Self-Report) Question Answer Date of Assessment Author 1. Wish to be (Past 1 Month) No 11:22 AM EDT Carlos Courtney, RN 2. Non-Specific Active Suici rosana Thoughts (Past 1 Month) No 09/16/2024 11:22 AM EDT Marisela Courtney RN 6. Suicidal Behavior (Lifetime) No 11:22 AM EDT Carlos Courtney RN documented as of this encounter Plan of Treatment Upcoming Encounters Date Type Department Care Team (Late st Contact Info) Description 01/20/2025 10:30 AM EST Office Visit [facility] [address] [facility] [address] [place] [phone] Karol Hanson MD [address] [facility] [address] [place] [phone] 06/29/2025 1:45 PM EDT Office Visit [facility] [address] [facility] [address] [place] [phone] Micheal Lopez MD [address] [id number] 11/01/2025 2:30 PM EDT Office Visit [facility] [address] [facility] [address] [place] [address] Rocky Reynolds MD [address] [facility] [address] [place], [place] [phone] Scheduled Procedures Name Priority Associated Diagnoses Date/Ti me LEFT HEART CATH w/cors Angina pectoris documented as of this encounter Procedures Procedure Name Priority Date/Time Associated Diagnosis Comments IN OFFICE DEVICE CHECK 09/16/2024 12:00 AM EDT documented in this encounter Results * In Office Device Check (09/16/2024 12:00 AM EDT) Date Time Interrogation Session [id number] [facility] Implantable Pulse Generator Aluminum Siding Applicator [employer] [facility] Implantable Pulse Generator Type CLIENT TECHNICAL SPECIALIST-P [facility] Implantable Pulse Generator Model 3262 Quadra Allure MP(TM) RF [facility] Implantable Pulse Generator Serial Number [id number] [facility] Implantable Pulse Generator Implant Date [id number] [facility] Battery Voltage 2.960 [facility] Battery BELLMAN CAPTAIN Trigger 2.620 [facility] Battery Status [facility] [place] RADIOLOGY Lead Channel RV Sensing Intrinsic Amplitude 5.900 [facility] Lead Channel Setting RV Sensing Sensitivity 2.00 [facility] Lead Channel RV Impedance Value 410 [facility] [employer] RADIOLOGY Lead Channel RV Pacing Threshold Amplitude 0.880 [facility] Lead Channel RV Pacing Threshold Pulse Width 0.5 [facility] Lead Channel RV Measurements Date and Time 20240916 [facility] Lead Channel Setting RV Pacing Amplitude 2.000 [facility] RADI[facility] Lead Channel Setting RV Pacing Pulse Width 0.5 [facility] Lead Channel LV Impedance Value 1,050 [facility] Lead Channel LV Pacing Threshold Amplitude 0.880 [facility] Lead Channel LV Pacing Threshold Pulse Width 0.7 [facility] LV Lead Channel Measurements Date and Time 20240916 [facility] Lead Channel Setting LV Pacing Amplitude 2.000 [facility] Lead Channel Setting LV Pacing Pulse Width 0.7 [facility] Josesito Setting Mode (NBG Code) VVIR [facility] Ventricular chambers paced during CLIENT TECHNICAL SPECIALIST pacing. BiV [facility] Josesito Setting Lower Rate Limit 70 [facility] Josesito Setting Maximum Sensor Rate 120 [facility] CLIENT TECHNICAL SPECIALIST LV-RV Delay 0 [facility] 09/16/2024 us Rocky Reynolds MD CV IMPLANTABLE CARDIAC DEVICE Fi nal Result [facility] documented in this encounter Visit Diagnoses Not on filedocumented in this encounter Care Teams Communications Executive Relationship Specialty Start Date End Date Bowen Escobedo MD [address] [place] [address] [facility] [place] [address] PCP - General Family Medicine 05/27/18 documented as of this encounter
--- OUTSIDE RECORDS SUMMARY | 2024-09-16 11:21 | XMS_ITS | Encounter Summary ---
Author Organization [facility] Address [address] [place] [address] Care Team Providers Care Musical Instrument Mechanic Name Role Phone Bowen Escobedo MD Primary Care Provider Reason for Visit * Reason Comments Syncope Encounter Details Date Type Department Care Team (Late st Contact Info) Description 09/16/2024 11:21 AM EDT - 09/16/2024 4:59 PM EDT Emergency [facility] [address] [place] [address] Gayathri Hilton MD [address] [facility] [place] [address] Spell of loss of consciousness (Primary Dx); Chronic renal insufficiency, stage 2 (mild); Continuous auditory hallucinations Discharge Disposition: Home or Self Care Social History Tobacco Use Types Packs/Day Years [...] on file documented as of this encounter Last Filed Vital Signs Vital Sign Reading Time Taken Comments Blood Pressure 160/103 09/16/2024 4:30 PM EDT Pulse 73 09/16/2024 4:30 PM EDT Temperature 36.9 C (98.5 F) 09/16/2024 2:45 PM EDT Respiratory Rate 16 09/16/2024 2:45 PM EDT Oxygen Saturation 95% 09/16/2024 4:30 PM EDT Inhaled Oxygen Concentration - - Weight 73.9 kg (163 lb) 09/16/2024 11:18 AM EDT Height 167.6 cm (5' 6 ) 09/16/2024 11:18 AM EDT Body Mass Index 26.31 09/16/2024 11:18 AM EDT documented in this encounter Functional Status * Calculated C-SSRS Risk Score (Lifetime/Recent) Answer Date of Assessment Author No Risk Indicated 09/16/2024 11:22 AM EDT Carlos Courtney RN * [place] Suicide Severity Rating Scale (Screener/Recent Self-Report) Question Answer Date of Assessment Author 1. Wish to be (Past 1 Month) No 025 11:22 AM EDT Carlos Courtney RN 2. Non-Specific Active Suici rosana Thoughts (Past 1 Month) No 09/16/2024 11:22 AM EDT Marisela Courtney RN 6. Suicidal Behavior (Lifetime) No 11:22 AM EDT Carlos Courtney RN documented as of this encounter Discharge Instructions * Discharge Instructions* Gayathri Hilton MD - 09/16/2024 4:14 PM EDT I think you should move in with your daughter so they can keep a closer eye on you. Avoid bending your neck forward or backward to extremes. * Attachments The following attachments cannot be sent through Care Everywhere. * Chronic Kidney Disease in Adults: What to Know (Bruneian) * Syncope Adult (Bruneian) documented in this encounter Medications at Time of Discharge atorvastatin (LIPITOR) 40 MG tablet Take 1 tablet by mouth Every Night. 0 03/13/2017 buPROPion XL (WELLBUTRIN XL) 150 MG 24 hr tablet Take 1 tablet by mouth Daily. 0 03/28/2017 carvedilol (COREG) 12.5 MG tabletIndications :Primary hypertension Take 0.5 tablets by mouth 2 (Two) Times a Day. 08/06/2024 cetirizine (zyrTEC) 10 MG tablet Take 1 tablet by mouth As Needed. Cyanocobalamin (B-12) 1000 MCG tablet controlled-releas e Take 1 tablet by mouth Daily. 05/10/2024 cyclobenzaprine (FLEXERIL) 5 MG tablet Take 1 tablet by mouth As Needed. gabapentin (NEURONTIN) 300 MG capsule Take 1 capsule by mouth 3 (Three) Times a Day. 12 capsule 01/07/2019 ipratropium (ATROVENT) 0.06 % nasal spray Every 8 (Eight) Hours. levothyroxine (SYNTHROID, LEVOTHROID) 75 MCG tabletIndications :Hypothyroidism, unspecified type take 1 tablet by mouth once daily 30 tablet 06/02/2017 meclizine (ANTIVERT) 12.5 MG tablet Take 1 tablet by mouth 3 (Three) Times a Day As Needed. 12/18/2020 montelukast (SINGULAIR) 10 MG tablet Take 1 tablet by mouth Every Night. 0 09/22/2018 NON FORMULARY As Needed. Neuro Reformulating cream for arthritis pantoprazole (PROTONIX) 40 MG EC tablet Take 1 tablet by mouth 2 (Two) Times a Day. sacubitril-valsar mcleod (Entresto) 49-51 MG tablet Take 1 tablet by mouth 2 (Two) Times a Day. 180 tablet 3 04/28/2024 silver sulfadiazine (SILVADENE, SSD) 1 % cream Apply topically to the appropriate area as directed See Admin Instructions. Apply topically to the affected area twice daily 06/12/2021 torsemide (DEMADEX) 10 MG tablet TAKE 1 TABLET BY MOUTH DAILY 90 tablet 3 09/17/2024 traMADol (ULTRAM) 50 MG tablet Take 1 tablet by mouth 3 (Three) Times a Day As Needed. for pain 08/21/2020 triamcinolone (KENALOG) 0.5 % cream Apply 1 Application topically to the appropriate area as directed Daily. 10/25/2022 apixaban (ELIQUIS) 5 MG tablet tablet Take 1 tablet by mouth 2 (Two) Times a Day. 180 tablet 3 04/28/2024 09/28/19 Melatonin 3 MG capsule Take 1 capsule by mouth Every Night. 06/02/2024 10/20/19 torsemide (DEMADEX) 10 MG tablet TAKE 1 TABLET BY MOUTH DAILY 90 tablet 3 09/17/2023 09/18/19 25 documented as of this encounter ED Notes * Gayathri Hilton MD - 09/16/2024 12:07 PM EDT Subjective History of Present Illness This is a pleasant 84-year-old female lives in [facility] accompanied by her daughters and who she stays with in [place] frequently. Baseline a good day for is getting up and getting aroundusing a cane if she is feeling okay a walker if she is not getting room room in the house. I reviewed her most recent cardiology note. She comes emergency room today with a spell of unresponsiveness that happened at home at her daughter's house. Her daughter was doing a hair blow and cool air on her head and curling her hair her head was intermittently for her backwards and flexion extension of the neck and the patient could not be roused. The daughter tried for about 8 or 10 minutes called EMS and by the time they got there shewas starting to rouse up and then regained her normal mentation. She has had a similar episode in the past actually when her hair was being done but only lasted 2 or 3 minutes and they did not seek medical attention at the time. This was not associate with any tonic-clonic activity or incontinence though she is normally incontinent of urine. She has no history of epilepsy but interestingly she has had bilateral auditory hallucinations and is getting ready to see the doctor today for this. She has never had an EEG before. She was started on Coricidin and Flonase a few weeks ago but daughter thinks she had poor reaction to that took her off of it. She think she may be dehydrated. She has had no runny nose she has occasional cough no vomiting or diarrhea. She has had no dysuria. She is chronically anticoagulated on a apixaban for persistent A-fib. No recent hospital admissions. Daughters feel that her strength is declined over the past month. The patient herself can give some simple answers but has some memory issues and so most of the review of systems is from the patient's daughters but the patient does participate. All other systems reviewed and are negative except as noted above. Review of Systems All other systems reviewed and are negative. Past Medical History: Diagnosis Date Abdominal aortic aneurysm (AAA) Abnormal ECG Dont remember Arrhythmia Not sure Arthritis of both knees Atrial fibrillation, chronic CHF (congestive heart failure) CKD (chronic kidney disease) stage 3, GFR 30-59 ml/min Foot drop, right foot GERD (gastroesophageal reflux disease) History of transfusion 1961 during child delivery in [place] per patient's daughter; patient has an antibody present in blood Hyperlipidemia Hypertension Menopause PAD (peripheral artery disease) Sleep apnea 30lb weight loss, has but does not wear Thyroid disease TIA (transient ischemic attack) no residual Wears glasses Wears hearing aid Echo June 2024 inical Indication Heart Failure, Cardiomyopathy, or Sytemic or Pulmonary Hypertension; Dyspnea Dx: Dyspnea on exertion [R06.09 (ICD-10-CM)] Interpretation Summary Left ventricular systolic function is normal. Calculated left ventricular EF = 64.1% Normal left ventricular cavity size noted. Left ventricular wall thickness is consistent with mild to moderate concentric hypertrophy. All left ventricular wall segments contract normally. Left ventricular diastolic function is consistent with age. Normal left atrial pressure. The right ventricular cavity is mildly dilated. Normal right ventricular systolic function noted. Electronic lead present in the ventricle. Severe bi-atrial dilation No aortic valve regurgitation or stenosis is present. There is mild calcification of the aortic valve. Mild mitral annular calcification is present. Moderate mitral valve regurgitation is present with multiple jets noted. No significant mitral valve stenosis is present. TV annular dilation. Moderate tricuspid valve regurgitation is present. No evidence of significant tricuspid valve stenosis is present. Cardiology note Encounter Date: 06/02/24 Patient ID: Elyssa Lopez is a 83 y.o. white female, from [place], [place]. PHYSICIAN: Bowen Escobedo MD FORMER PHYSICIAN: Colby Lamar MD REMOTE PARACHUTE CUSHION INSTALLER: [facility], Seb Phelan MD CURRENT PARACHUTE CUSHION INSTALLER: Rocky Reynolds MD REMOTE CHEMICAL PLANT WORKER: Ozzie Barragan MD FINAL INSPECTOR TRUCK TRAILER: Ana Aguilar MD ORTHOPEDIST: Norbert Ortez MD Chief Complaint: Chief Complaint Patient presents with NICM (nonischemic cardiomyopathy) Problem List: Chronic atrial fibrillation: PVA ablation at [facility] 06/03/13; data deficit, apparent amiodarone prior to ablation. TTE, 09/01/2013: LVEF 0.68, no significant valvular stenosis or regurgitation, LA 5.7 cm TTE, 04/23/2017: LA mild to moderately dilated, mild to moderate MR, mild TR, mild UT, LVEF 0.33, LVmildly dilated, dilated cardiomyopathy, no pericardial effusion, no pulmonary hypertension, aortic valve exhibits sclerosis, normal RV cavity size, wall thickness, systolic motion and septal motion noted. LV wall segments are akinetic: Mid anterior, apical anterior, apical septal, mid inferoseptal,apex and mid anteroseptal AV node ablation with [employer] Mickey biventricular pacemaker placement (October 2017) Persistent normal sinus rhythm with acceptable electrocardiogram and abnormal echocardiogram, September 2019 TTE, 05/02/2021: LVEF 0.58. Left atrial volume severely increased. LV wall thickness consistent with mild to moderate concentric hypertrophy. Estimated RVSP from TR normal. Normal RV cavity size, wall thickness, and septal motion with moderate reduction in RV systolic function. Mild to moderate MR. Hypertension Hyperlipidemia Hx of HFrEF with recovered EF Remote heart catheterization prior to [address] Persaud-data deficit CCS class 0 chest pain/NYHA class III-IV fatigue with abnormal IV Lexiscan hybrid PET cardiac stress scan without evidence of ischemia with reduced LVEF (0.26), May 2017 Hypothyroidism GERD Obstructive sleep apnea, no CPAP use History of moderate obesity with weight loss Peripheral vascular disease Angioplasty of right anterior tibial artery, right peroneal artery with successful intervention 04/10/13 at [facility] Right second toe amputation, right RAMIRO 0.85 indicating mild to moderate flow restriction on the right leg, left RAMIRO 1.09, 04/05/2013 Remote tobacco abuse; smoked 0.25 packs per day ??3 years, quit in 1967 History of CHF with last exacerbation approximately 2011 Osteoarthritis Anxiety/depression Stage III-IV chronic kidney disease Type 2 prediabetes mellitus, hemoglobin A1c 5.8%, May 2017; 6%, October 2017 Episode of epistaxis with [facility] ED evaluation, data deficit, June 2017 Surgical history: Cholecystectomy Back surgeries ??4 PVA ablation [place] Second right toe amputation, 2013 Left total knee arthroplasty, December 2018 Allergies Allergies Allergen Reactions Bactrim [Sulfamethoxazole-Trimethoprim] Other (See Comments) Makes real sick, nausea/vomiting, weakness with inability to ambulate Carbamazepine Unknown - High Severity Sulfamethoxazole Unknown - Low Severity Trimethoprim Unknown - Low Severity Current Medications Current Outpatient Medications: apixaban (ELIQUIS) 5 MG tablet tablet, Take 1 tablet by mouth 2 (Two) Times a Day., Disp: 180 tablet, Rfl: 3 atorvastatin (LIPITOR) 40 MG tablet, Take 1 tablet by mouth Every Night., Disp: , Rfl: 0 buPROPion XL (WELLBUTRIN XL) 150 MG 24 hr tablet, Take 1 tablet by mouth Daily., Disp: , Rfl: 0 carvedilol (COREG) 12.5 MG tablet, Take 1 tablet by mouth 2 (Two) Times a Day. (Patient taking differently: Take 1 tablet by mouth 2 (Two) Times a Day. Pt takes 1.5 two times a day now.), Disp: 60 tablet, Rfl: 11 cetirizine (zyrTEC) 10 MG tablet, Take 1 tablet by mouth As Needed., Disp: , Rfl: Cyanocobalamin (B-12) 1000 MCG tablet controlled-release, Take 1 tablet by mouth Daily., Disp: , Rfl: cyclobenzaprine (FLEXERIL) 5 MG tablet, Take 1 tablet by mouth As Needed., Disp: , Rfl: gabapentin (NEURONTIN) 300 MG capsule, Take 1 capsule by mouth 3 (Three) Times a Day., Disp: 12 capsule, Rfl: 0 ipratropium (ATROVENT) 0.06 % nasal spray, Every 8 (Eight) Hours., Disp: , Rfl: levothyroxine (SYNTHROID, LEVOTHROID) 75 MCG tablet, take 1 tablet by mouth once daily, Disp: 30 tablet, Rfl: 0 meclizine (ANTIVERT) 12.5 MG tablet, Take 1 tablet by mouth 3 (Three) Times a Day As Needed., Disp:, Rfl: NON FORMULARY, As Needed. Neuro Reformulating cream for arthritis, Disp: , Rfl: pantoprazole (PROTONIX) 40 MG EC tablet, Take 1 tablet by mouth 2 (Two) Times a Day., Disp: , Rfl: sacubitril-valsartan (Entresto) 49-51 MG tablet, Take 1 tablet by mouth 2 (Two) Times a Day., Disp:180 tablet, Rfl: 3 silver sulfadiazine (SILVADENE, SSD) 1 % cream, Apply topically to the appropriate area as directedSee Admin Instructions. Apply topically to the affected area twice daily, Disp: , Rfl: torsemide (DEMADEX) 10 MG tablet, TAKE 1 TABLET BY MOUTH DAILY, Disp: 90 tablet, Rfl: 3 traMADol (ULTRAM) 50 MG tablet, Take 1 tablet by mouth 3 (Three) Times a Day As Needed. for pain, Disp: , Rfl: triamcinolone (KENALOG) 0.5 % cream, Apply 1 Application topically to the appropriate area as directed Daily., Disp: , Rfl: montelukast (SINGULAIR) 10 MG tablet, Take 1 tablet by mouth Every Night., Disp: , Rfl: 0 History of Present Illness: Elyssa Lopez returns today for routine follow-up after last being seen in Feb 2023. Since that time she had been seen by Dr. Reynolds in October of last year with normal device interrogation. She denies any chest pain but has been having dyspnea on exertion with her usualactivity. Additionally, she reports feeling tired during the day. On further questioning she does admit to rather atypical sleep schedule, often times not going to bed till 4 AM. She will stay up late and do laundry or other housework. She says that she probably sleeps 4 hours a night and does not feel rested in the mornings. Allergies Allergen Reactions Bactrim [Sulfamethoxazole-Trimethoprim] Other (See Comments) Makes real sick, nausea/vomiting, weakness with inability to ambulate Carbamazepine Unknown - High Severity Sulfamethoxazole Unknown - Low Severity Trimethoprim Unknown - Low Severity Past Surgical History: Procedure Laterality Date BACK SURGERY x4 CARDIAC CATHETERIZATION CARDIAC ELECTROPHYSIOLOGY PROCEDURE N/A 10/15/2017 Procedure: 1. [employer] Biv Pacemaker 2. AV Node Ablation; Surgeon: Seb Phelan MD; Location: [facility]; Service: Cardiology CARDIAC ELECTROPHYSIOLOGY PROCEDURE N/A 10/15/2017 Procedure: av node ablation; Surgeon: Seb Phelan MD; Location: [facility];Service: Cardiovascular CATARACT EXTRACTION Bilateral CHOLECYSTECTOMY COLONOSCOPY HYSTERECTOMY INSERT / REPLACE / REMOVE PACEMAKER Not sure POPLITEAL ARTERY STENT TOE AMPUTATION right second toe TOTAL KNEE ARTHROPLASTY Left 12/29/2018 Procedure: TOTAL KNEE ARTHROPLASTY LEFT; Surgeon: Norbert Ortez MD; Location: [facility]; Service: Orthopedics Family History Problem Relation Age of Onset Cancer Mother Diverticulitis Mother Heart attack Mother Hypertension Mother Cancer Father Cancer Sister Diabetes Brother Heart disease Brother Heart attack Brother Arthritis Maternal Grandmother No Known Problems Maternal Grandfather No Known Problems Paternal Grandmother No Known Problems Paternal Grandfather Social History Socioeconomic History Marital status: Tobacco Use Smoking status: Former Current packs/day: 0.00 Average packs/day: 0.5 packs/day for 3.0 years (1.5 ttl pk-yrs) Types: Cigarettes Start date: 03/10/1963 Quit date: 03/10/1966 Years since quittin.5 Smokeless tobacco: Never Tobacco comments: socially, quit in 1966 Vaping Use Vaping status: Never Used Substance and Sexual Activity Alcohol use: No Drug use: Never Sexual activity: Not Currently control/protection: Abstinence, Post-menopausal Objective Physical Exam Vitals and nursing note reviewed. Constitutional: Comments: This is a pleasant 84-year-old alert in no distress. HENT: Head: Normocephalic and atraumatic. Right Ear: Tympanic membrane, ear canal and external ear normal. Left Ear: Tympanic membrane, ear canal and external ear normal. Ears: Comments: Aids removed Nose: Nose normal. Mouth/Throat: Mouth: Mucous membranes are moist. Pharynx: Oropharynx is clear. Eyes: Extraocular Movements: Extraocular movements intact. Conjunctiva/sclera: Conjunctivae normal. Pupils: Pupils are equal, round, and reactive to light. Neck: Vascular: No carotid bruit. Cardiovascular: Rate and Rhythm: Normal rate and regular rhythm. Pulses: Normal pulses. Heart sounds: Normal heart sounds. Pulmonary: Effort: Pulmonary effort is normal. Breath sounds: Normal breath sounds. Abdominal: General: Abdomen is flat. Bowel sounds are normal. There is no distension. Palpations: Abdomen is soft. There is no mass. Tenderness: There is no abdominal tenderness. Hernia: No hernia is present. Musculoskeletal: Cervical back: Normal range of motion and neck supple. No rigidity or tenderness. Comments: Cool full pulses without edema synovitis rash or venous cords. Lymphadenopathy: Cervical: No cervical adenopathy. Skin: General: Skin is warm and dry. Capillary Refill: Capillary refill takes less than 2 seconds. Neurological: Comments: Face symmetric, voice strong, tongue midline. Vision, hearing, and speech preserved. No focal weakness. Modest generalized weakness. Procedures ED Course Recent Results (from the past 24 hours) In Office Device Check Collection Time: 09/16/24 12:00 AM Result Value Ref Range Date Time Interrogation Session [id number] Implantable Pulse Generator Executive Producer [employer] Implantable Pulse Generator Type QUALITY REVIEW TRAINER-P Implantable Pulse Generator Model 3262 Quadra Allure MP(TM) RF Implantable Pulse Generator Serial Number [id number] Implantable Pulse Generator Implant Date 20171015 Battery Voltage 2.960 Battery POT PUSHER Trigger 2.620 Battery Status MOS Lead Channel RV Sensing Intrinsic Amplitude 5.900 Lead Channel Setting RV Sensing Sensitivity 2.00 Lead Channel RV Impedance Value 410 Lead Channel RV Pacing Threshold Amplitude 0.880 Lead Channel RV Pacing Threshold Pulse Width 0.5 Lead Channel RV Measurements Date and Time 20240916 Lead Channel Setting RV Pacing Amplitude 2.000 Lead Channel Setting RV Pacing Pulse Width 0.5 Lead Channel LV Impedance Value 1,050 Lead Channel LV Pacing Threshold Amplitude 0.880 Lead Channel LV Pacing Threshold Pulse Width 0.7 LV Lead Channel Measurements Date and Time 20240916 Lead Channel Setting LV Pacing Amplitude 2.000 Lead Channel Setting LV Pacing Pulse Width 0.7 [place] Setting Mode (NBG Code) VVIR Ventricular chambers paced during QUALITY REVIEW TRAINER pacing. BiV Josesito Setting Lower Rate Limit 70 Josesito Setting Maximum Sensor Rate 120 QUALITY REVIEW TRAINER LV-RV Delay 0 Urinalysis With Microscopic If Indicated (No Culture) - Urine, Clean Catch Collection Time: 09/16/24 12:58 PM Specimen: Urine, Clean Catch Result Value Ref Range Color, UA Yellow Yellow, Straw Appearance, UA Clear Clear pH, UA 6.5 5.0 - 8.0 Specific [place], UA 1.011 1.005 - 1.030 Glucose, UA Negative Negative Ketones, UA Negative Negative Bilirubin, UA Negative Negative Blood, UA Negative Negative Protein, UA Trace (A) Negative Leuk Esterase, UA Large (3+) (A) Negative Nitrite, UA Negative Negative Urobilinogen, UA 0.2 E.U./dL 0.2 - 1.0 E.U./dL Urinalysis, Microscopic Only - Urine, Clean Catch Collection Time: 09/16/24 12:58 PM Specimen: Urine, Clean Catch Result Value Ref Range RBC, UA 0-2 None Seen, 0-2 /HPF WBC, UA 21-50 (A) None Seen, 0-2 /HPF Bacteria, UA Trace (A) None Seen /HPF Squamous Epithelial Cells, UA 7-12 (A) None Seen, 0-2 /HPF Hyaline Casts, UA 3-6 None Seen /LPF Methodology Automated Microscopy ECG 12 Lead Syncope Collection Time: 09/16/24 1:16 PM Result Value Ref Range QT Interval 456 ms QTC Interval 492 ms Comprehensive Metabolic Panel Collection Time: 09/16/24 1:23 PM Specimen: Blood Result Value Ref Range Glucose 101 (H) 65 - 99 mg/dL BUN 16.7 8.0 - 23.0 mg/dL Creatinine 1.30 (H) 0.57 - 1.00 mg/dL Sodium 139 136 - 145 mmol/L Potassium 4.1 3.5 - 5.2 mmol/L Chloride 104 98 - 107 mmol/L CO2 26.1 22.0 - 29.0 mmol/L Calcium 8.6 8.6 - 10.5 mg/dL Total Protein 6.4 6.0 - 8.5 g/dL Albumin 3.8 3.5 - 5.2 g/dL ALT (SGPT) 6 1 - 33 U/L AST (SGOT) 11 1 - 32 U/L Alkaline Phosphatase 89 39 - 117 U/L Total Bilirubin 0.9 0.0 - 1.2 mg/dL Globulin 2.6 gm/dL A/G Ratio 1.5 g/dL BUN/Creatinine Ratio 12.8 7.0 - 25.0 Anion Gap 8.9 5.0 - 15.0 mmol/L eGFR 40.4 (L) >60.0 mL/min/1.73 CBC Auto Differential Collection Time: 09/16/24 1:23 PM Specimen: Blood Result Value Ref Range WBC 5.21 3.40 - 10.80 10*3/mm3 RBC 3.82 3.77 - 5.28 10*6/mm3 Hemoglobin 12.5 12.0 - 15.9 g/dL Hematocrit 39.4 34.0 - 46.6 % MCV 103.1 (H) 79.0 - 97.0 fL MCH 32.7 26.6 - 33.0 pg MCHC 31.7 31.5 - 35.7 g/dL RDW 13.2 12.3 - 15.4 % RDW-SD 50.3 37.0 - 54.0 fl MPV 10.3 6.0 - 12.0 fL Platelets 129 (L) 140 - 450 10*3/mm3 Neutrophil % 75.0 42.7 - 76.0 % Lymphocyte % 11.5 (L) 19.6 - 45.3 % Monocyte % 11.9 5.0 - 12.0 % Eosinophil % 1.0 0.3 - 6.2 % Basophil % 0.4 0.0 - 1.5 % Immature Grans % 0.2 0.0 - 0.5 % Neutrophils, Absolute 3.91 1.70 - 7.00 10*3/mm3 Lymphocytes, Absolute 0.60 (L) 0.70 - 3.10 10*3/mm3 Monocytes, Absolute 0.62 0.10 - 0.90 10*3/mm3 Eosinophils, Absolute 0.05 0.00 - 0.40 10*3/mm3 Basophils, Absolute 0.02 0.00 - 0.20 10*3/mm3 Immature Grans, Absolute 0.01 0.00 - 0.05 10*3/mm3 nRBC 0.0 0.0 - 0.2 /100 WBC TSH Rfx On Abnormal To Free T4 Collection Time: 09/16/24 1:23 PM Specimen: Blood Result Value Ref Range TSH 0.958 0.270 - 4.200 uIU/mL Magnesium Collection Time: 09/16/24 1:23 PM Specimen: Blood Result Value Ref Range Magnesium 2.0 1.6 - 2.4 mg/dL Note: In addition to lab results from this visit, the labs listed above may include labs taken at another facility or during a different encounter within the last 24 hours. Please correlate lab timeswith ED admission and discharge times for further clarification of the services performed during this visit. CT Head Without Contrast Final Result Impression: 1.No acute intracranial process identified. 2.Findings suggestive of mild chronic small vessel ischemic disease. 3.Moderate mucous retention cyst within right maxillary sinus. Electronically Signed: Samir Muñiz MD 09/16/2024 1:14 PM EDT Workstation ID: [id number] XR Chest 1 View Final Result Impression: Chronic findings without acute process identified. Electronically Signed: Isacc Lan MD 09/16/2024 1:01 PM EDT Workstation ID: [id number] Vitals: 09/16/24 1500 09/16/24 1530 09/16/24 1600 09/16/24 1630 BP: (!) 149/101 138/96 152/100 (!) 160/103 Pulse: 74 70 72 73 Resp: Temp: TempSrc: SpO2: 97% 95% 95% Weight: Height: Medications sodium chloride 0.9 % bolus 1,000 mL (0 mL Intravenous Stopped 09/16/24 1620) ECG/EMG Results (last 24 hours) Procedure Component Value Units Date/Time Telemetry Scan [[id number]] Resulted: 09/16/24 1135 Updated: 09/16/24 1151 ECG 12 Lead Syncope Final Result Test Reason : Syncope Blood Pressure : */* mmHG Vent. Rate : 70 BPM Atrial Rate : 300 BPM P-R Int : * ms QRS Dur : 146 ms QT Int : 456 ms P-R-T Axes : * -74 44 degrees QTcB Int : 492 ms Ventricular-paced rhythm Biventricular pacemaker detected Abnormal ECG When compared with ECG of 17-Dec-2018 16:11, Vent. rate has decreased by 6 bpm Confirmed by GAYATHRI HILTON MD ([id number]) on 09/16/2024 4:25:13 PM Referred By: ED Confirmed By: GAYATHRI HILTON MD Telemetry Scan Final Result Medical Decision Making I have reviewed all available studies at the bedside with the patient and her daughter. She is resting comfortably. She is little bit hypertensive and has not had her second medication today for her blood pressure. Results of her EEG pending. I personally viewed her CT scan of the head which is chronic age-related changes nothing acute chest x-ray is bland. Labs showed asymptomatic leucouria . She has chronic mild renal insufficiency With regards to her auditory hallucinations certainly some something like dementia could be the cause but I wonder rule out a temporal lobe epilepsy and I will refer to neurology for follow-up on this and her EEG. With regards to the spell of loss of consciousness likely represents syncope. She has had in the past. May be carotid sinus receptor mediated and so have asked them to hold off on flexing and extending her neck very much to see if this may help mitigate this. Follow-up with her primary care and neurology as well. Mild elevated blood pressure at discharge just as family keep a blood pressure log and follow-up with her PCP regarding that. Also discussed at length with the patient and family I do not think she is should be living independently anymore and should have some by with her 30/09 and the family will work on that plan. She will return to the ED if worse in any way. 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 Labs: ordered. Decision-making details documented in ED Course. Radiology: ordered and independent interpretation performed. Decision-making details documented in ED Course. ECG/medicine tests: ordered and independent interpretation performed. Decision- making details documented in ED Course. Final diagnoses: Spell of loss of consciousness Chronic renal insufficiency, stage 2 (mild) Continuous auditory hallucinations ED Disposition ED Disposition ED Disposition Discharge Condition Stable Comment -- Bowen Escobedo MD [address] [facility] [address] [facility], [place] [address] Schedule an appointment as soon as possible for a visit Karol Hanson MD [address] [facility] [address] [facility] [phone] Schedule an appointment as soon as possible for a visit Follow-up on your EEG and your auditory music Medication List No changes were made to your prescriptions during this visit. Gayathri Hilton MD 09/16/24 1702 Gayathri Hilton MD 09/16/24 1702 documented in this encounter Plan of Treatment Upcoming Encounters Date Type Department Care Team (Late st Contact Info) Description 01/20/2025 10:30 AM EST Office Visit [facility] [address] [facility] [address] [place] [address] Karol Hanson MD [address] [facility] [address] [place] [phone] 06/29/2025 1:45 PM EDT Office Visit [facility] [address] [facility] [address] [place] [phone] Micheal Lopez MD [address] [facility] [address] [place] [address] 11/01/2025 2:30 PM EDT Office Visit [facility] [address] [facility] [address] [place] [address] Rocky Reynolds MD [address] [facility] [address] [place], [place] [id number] Scheduled Orders Name Type Priority Associated Diagnoses Orde r Schedule Cardiology Scan Cardiac Services Onc e for 1 Occurrences starting 09/20/2024 until 09/20/2024 Scheduled Procedures Name Priority Associated Diagnoses Date/Ti me LEFT HEART CATH w/cors Angina pectoris documented as of this encounter Procedures Procedure Name Priority Date/Time Associated Diagnosis Comments EEG AWAKE OR ASLEEP PORTABLE STAT 09/16/2024 2:10 PM EDT TSH RFX ON ABNORMAL TO FREE T4 STAT 09/16/2024 1:23 PM EDT CBC WITH AUTO DIFFERENTIAL STAT 09/16/2024 1:23 PM EDT CBC AND DIFFERENTIAL STAT 09/16/2024 1:23 PM EDT MAGNESIUM STAT 09/16/2024 1:23 PM EDT COMPREHENSIVE METABOLIC PANEL STAT 09/16/2024 1:23 PM EDT ECG 12-LEAD STAT 09/16/2024 1:[address] HEAD WO CONTRAST STAT 09/16/2024 1 :06 PM EDT XR CHEST 1 VW STAT 09/16/2024 12:59 PM EDT URINALYSIS, MICROSCOPIC ONLY STAT 09/16/2024 12:58 PM EDT URINALYSIS W/ MICROSCOPIC IF INDICATED (NO CULTURE) STAT 09/16/2024 12:58 PM EDT SCANNED - TELEMETRY 09/16/2024 1 1:35 AM EDT documented in this encounter Results * EEG AWAKE OR ASLEEP PORTABLE (09/16/2024 2:10 PM EDT) Impressions Samir Fish MD - 09/16/2024 6:08 PM EDT Diffuse cerebral dysfunction of at least mild degree but nonspecific. This is most commonly seen due to toxic/metabolic or hypoxemic cause No evidence for epilepsy is present This report is transcribed using the [employer] dictation system. Narrative Samir Fish MD - 09/16/2024 6:08 PM EDT Reason for referral: 84 y.o.female with altered mental status, auditory hallucinations Technical Summary: A 19 channel digital EEG was performed using the international 10-20 placement system, including eye leads and EKG leads. Duration: 22 minutes Findings: When the patient is awake, diffuse medium amplitude 4 to 6 Hz intermixed delta and theta activity is seen symmetrically over both hemispheres. A clear posterior rhythm is not seen. Sleep is seen with slowing of the background and vertex waves. Photic stimulation does not change the tracing. Hyperventilation is not performed. No focal features or epileptiform activity are seen. Video: Available Technical quality: Good Rhythm strip: Regular, 70 bpm SUMMARY: Mild-moderate generalized slow No focal features or epileptiform activity are seen us Gayathri Hilton MD NEUROLOGY ORDERABLES Final Re sult * Magnesium (09/16/2024 1:23 PM EDT) Pathologist [facility] Magnesium 2.0 1.6 - 2.4 mg/dL 09/16/2024 2:01 PM EDT [facility] Blood Venipuncture / Unknown 09/16/2024 1:23 PM EDT 09/16/2024 1:28 PM EDT us Gayathri Hilton MD LAB BLOOD ORDERABLES Final Re sult Performing Organization Address [facility] Co de Phone Number [facility]
[address] [place] [address], * TSH Rfx On Abnormal To Free T4 (09/16/2024 1:23 PM EDT) Pathologist [facility] TSH 0.958 0.270 - 4.200 uIU/mL 09/16/2024 2:01 PM EDT [facility] Blood Venipuncture / Unknown 09/16/2024 1:23 PM EDT 09/16/2024 1:28 PM EDT us Gayathri Hilton MD LAB BLOOD ORDERABLES Final Re sult Performing Organization Address [facility] Co de Phone Number [facility]
[address] [place] [address], [place] [phone] * (ABNORMAL) CBC Auto Differential (09/16/2024 1:23 PM EDT) Pathologist [facility] WBC 5.21 3.40 - 10.80 10*3/mm3 09/16/2024 1:37 PM EDT [facility] RBC 3.82 3.77 - 5.28 10*6/mm3 09/16/2024 1:37 PM EDT [facility] Hemoglobin 12.5 12.0 - 15.9 g/dL 09/16/2024 1:37 PM EDT [facility] Hematocrit 39.4 34.0 - 46.6 % 09/16/2024 1:37 PM EDT [facility] MCV 103.1(H) 79.0 - 97.0 fL 09/16/2024 1:37 PM EDT [facility] MCH 32.7 26.6 - 33.0 pg 09/16/2024 1:37 PM EDT [facility] MCHC 31.7 31.5 - 35.7 g/dL 09/16/2024 1:37 PM EDT [facility] RDW 13.2 12.3 - 15.4 % 09/16[facility]2024 [facility] RDW-SD 50.3 37.0 - 54.0 fl 09/16/2024 1:37 [facility] MPV 10.3 6.0 - 12.0 fL 09/16/2024 1:37 PM EDT [facility] Platelets 129(L) 140 - 450 10*3/mm3 09/16/2024 1:37 PM EDT [facility] Neutrophil % 75.0 42.7 - 76.0 % 09/16/2024 1:37 PM EDT [facility] Lymphocyte % 11.5(L) 19.6 - 45.3 % 09/16/2024 1:37 PM EDT [facility] Monocyte % 11.9 5.0 - 12.0 % 09/16/2024 1:37 PM EDT [facility] Eosinophil % 1.0 0.3 - 6.2 % 09/16/2024 1:37 PM EDT [facility] Basophil % 0.4 0.0 - 1.5 % 09/16/2024 1:37 PM EDT [facility] Immature Grans % 0.2 0.0 - 0.5 % 09/16/2024 1:37 PM EDT [facility] Neutrophils, Absolute 3.91 1.70 - 7.00 10*3/mm3 09/16/2024 1:37 PM EDT [facility] Lymphocytes, Absolute 0.60(L) 0.70 - 3.10 10*3/mm3 09/16/2024 1:37 PM EDT [facility] Monocytes, Absolute 0.62 0.10 - 0.90 10*3/mm3 09/16/2024 1:37 PM EDT [facility] Eosinophils, Absolute 0.05 0.00 - 0.40 10*3/mm3 09/16/2024 1:37 PM EDT [facility] Basophils, Absolute 0.02 0.00 - 0.20 10*3/mm3 09/16/2024 1:37 PM EDT [facility] Immature Grans, Absolute 0.01 0.00 - 0.05 10*3/mm3 09/16/2024 1:37 PM EDT [facility] nRBC 0.0 0.0 - 0.2 /100 WBC 09/16/2024 1:37 PM EDT [facility] Blood Venipuncture / Unknown 09/16/2024 1:23 PM EDT 09/16/2024 1:28 PM EDT Narrative [facility] - 09/16/2024 1:37 PM EDT Instrument flags present, additional testing may be recommended. us Gayathri Hilton MD LAB BLOOD ORDERABLES Final Re sult [facility]
[address] [place] [address], * (ABNORMAL) Comprehensive Metabolic Panel (09/16/2024 1:23 PM EDT) [facility] Glucose 101(H) 65 - 99 mg/dL 09/16/2024 2:01 PM EDT [facility] BUN 16.7 8.0 - 23.0 mg/dL 09/16/2024 2:01 PM [facility] Creatinine 1.30(H) 0.57 - 1.00 mg/dL 09/16/2024 2:01 PM [facility] Sodium 139 136 - 145 mmol/L 09/16/2024 2:01 PM [facility] Potassium 4.1 3.5 - 5.2 mmol/L 09/16/2024 2:01 PM [facility] Chloride 104 98 - 107 mmol/L 09/16/2024 2:01 PM [facility] CO2 26.1 22.0 - 29.0 mmol/L 09/16/2024 2:01 PM [facility] Calcium 8.6 8.6 - 10.5 mg/dL 09/16/2024 2:01 PM [facility] Total Protein 6.4 6.0 - 8.5 g/dL 09/16/2024 2:01 PM [facility] Albumin 3.8 3.5 - 5.2 g/dL 09/16/2024 2:01 PM [facility] ALT (SGPT) 6 1 - 33 U/L 09/16/2024 2:01 PM [facility] AST (SGOT) 11 1 - 32 U/L 09/16/2024 2:01 PM [facility] Alkaline Phosphatase 89 39 - 117 U/L 09/16/2024 2:01 PM [facility] Total Bilirubin 0.9 0.0 - 1.2 mg/dL 09/16/2024 2:01 PM [facility] Globulin 2.6 gm/dL 09/16/2024 2:01 PM [facility] Comment:Calculated Result A/G Ratio 1.5 g/dL 09/16/2024 2:01 PM [facility] BUN/Creatinine Ratio 12.8 7.0 - 25.0 09/16/2024 2:01 PM [facility] Anion Gap 8.9 5.0 - 15.0 mmol/L 09/16/2024 2:01 PM EDT [facility] eGFR 40.4(L) >60.0 mL/min/1.7 3 09/16/2024 2:01 PM EDT [facility] Blood Venipuncture / Unknown 09/16/2024 1:23 PM EDT 09/16/2024 1:28 PM EDT Narrative [facility] - 09/16/2024 2:01 PM EDT GFR Categories in Chronic Kidney Disease (CKD) GFR Category GFR (mL/min/1.73) Interpretation G1 90 or greater Normal or high (1) G2 60-89 Mild decrease (1) G3a 45-59 Mild to moderate decrease G3b 30-44 Moderate to severe decrease G4 15-29 Severe decrease G5 14 or less Kidney failure (1)In the absence of evidence of kidney disease, neither GFR category G1 or G2 fulfill the criteria for CKD. eGFR calculation 2020 CKD-EPI creatinine equation, which does not include race as a factor us Gayathri Hilton MD LAB BLOOD ORDERABLES Final Re sult [facility]
[address] [place] [address], * ECG 12 Lead Syncope (09/16/2024 1:16 PM EDT) QT Interval 456 ms ECG QTC Interval 492 ms ECG 09/16/2024 1:16 PM EDT 09/16/2024 4:25 PM EDT Narrative ECG - 09/16/2024 4:25 PM EDT Test Reason : Syncope Blood Pressure : */* mmHG Vent. Rate : 70 BPM Atrial Rate : 300 BPM P-R Int : * ms QRS Dur : 146 ms QT Int : 456 ms P-R-T Axes : * -74 44 degrees QTcB Int : 492 ms Ventricular-paced rhythm Biventricular pacemaker detected Abnormal ECG When compared with ECG of 17-Dec-2018 16:11, Vent. rate has decreased by 6 bpm Confirmed by GAYATHRI HILTON MD ([id number]) on 09/16/2024 4:25:13 PM Referred By: ED Confirmed By: GAYATHRI HILTON MD Procedure Note Gayathri Hilton MD - 09/16/2024 Test Reason : Syncope Blood Pressure : */* mmHG Vent. Rate : 70 BPM Atrial Rate : 300 BPM P-R Int : * ms QRS Dur : 146 ms QT Int : 456 ms P-R-T Axes : * -74 44 degrees QTcB Int : 492 ms Ventricular-paced rhythm Biventricular pacemaker detected Abnormal ECG When compared with ECG of 17-Dec-2018 16:11, Vent. rate has decreased by 6 bpm Confirmed by GAYATHRI HILTON MD ([id number]) on 09/16/2024 4:25:13 PM Referred By: ED Confirmed By: GAYATHRI HILTON MD Gayathri Hilton MD ECG ORDERABLES Final Result ECG * CT Head Without Contrast (09/16/2024 1:06 PM EDT) Anatomical Region Laterality Modality Head N/A Computed Tomogra phy 09/16/2024 1:07 PM EDT Impressions 09/16/2024 1:14 PM EDT Impression: 1.No acute intracranial process identified. 2.Findings suggestive of mild chronic small vessel ischemic disease. 3.Moderate mucous retention cyst within right maxillary sinus. Electronically Signed: Samir Muñiz MD 09/16/2024 1:14 PM EDT Workstation ID: [id number] Narrative 09/16/2024 1:[address] HEAD WO CONTRAST Date of Exam: 09/16/2024 1:04 PM EDT Indication: Bilateral auditory hallucinations evaluate for mass occupying lesion. Comparison: None available. Technique: Axial CT images were obtained of the head without contrast administration. Automated exposure control and iterative construction methods were used. Findings: No acute intracranial hemorrhage or extra-axial collection is identified. The ventricles appear normal in caliber, with no evidence of mass effect or midline shift. The basal cisterns appear patent. The allen-white differentiation appears preserved. The calvarium appear intact. There is a moderate mucous retention cyst in the right maxillary sinus. The mastoid air cells are well-aerated. 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 Scattered foci of periventricular and subcortical white matter hypodensities are nonspecific, but likely the sequela of mild chronic small vessel ischemic disease. Procedure Note Samir Muñiz MD - 09/16/2024 CT HEAD WO CONTRAST Date of Exam: 09/16/2024 1:04 PM EDT Indication: Bilateral auditory hallucinations evaluate for mass occupyinglesion. Comparison: None available. Technique: Axial CT images were obtained of the head without contrastadministration. Automated exposure control and iterative constructionmethods were used. Findings: No acute intracranial hemorrhage or extra-axial collection is identified.The ventricles appear normal in caliber, with no evidence of mass effector midline shift. The basal cisterns appear patent. The allen-whitedifferentiation appears preserved. The calvarium appear intact. There is a moderate mucous retention cyst inthe right maxillary sinus. The mastoid air cells are well-aerated. Thereis an old lacunar infarct along the right basal ganglia. Scattered foci ofperiventricular and subcortical white matter hypodensities are nonspecific, but likely the sequela of mildchronic small vessel ischemic disease. IMPRESSION: Impression: 1.No acute intracranial process identified. 2.Findings suggestive of mild chronic small vessel ischemic disease. 3.Moderate mucous retention cyst within right maxillary sinus. Electronically Signed: Samir Muñiz MD 09/16/2024 1:14 PM EDT Workstation ID: [id number] us Gayathri Hilton MD IMG CT ORDERABLES Final Resul t * XR Chest 1 View (09/16/2024 12:59 PM EDT) Anatomical Region Laterality Modality Body N/A Radiographic Bridgett ging 09/16/2024 1:00 PM EDT Impressions 09/16/2024 1:01 PM EDT Impression: Chronic findings without acute process identified. Electronically Signed: Isacc Lan MD 09/16/2024 1:01 PM EDT Workstation ID: [id number] Narrative 09/16/2024 1:01 PM EDT XR CHEST 1 VW Date of Exam: 09/16/2024 12:31 PM EDT Indication: syncope Comparison: 10/16/2017 Findings: Cardiomediastinal silhouette is enlarged. There is pulmonary vascular and interstitial prominence, similar to prior examination.. No superimposed airspace disease, pneumothorax, nor pleural effusion. No acute osseous abnormality identified. Procedure Note Isacc Lan MD - 09/16/2024 XR CHEST 1 VW Date of Exam: 09/16/2024 12:31 PM EDT Indication: syncope Comparison: 10/16/2017 Findings: Cardiomediastinal silhouette is enlarged. There is pulmonary vascular andinterstitial prominence, similar to prior examination.. No superimposedairspace disease, pneumothorax, nor pleural effusion. No acute osseousabnormality identified. IMPRESSION: Impression: Chronic findings without acute process identified. Electronically Signed: Isacc Lan MD 09/16/2024 1:01 PM EDT Workstation ID: [id number] Gayathri Hilton MD IMG DIAGNOSTIC IMAGING ORDERA BLES Final Result * (ABNORMAL) Urinalysis, Microscopic Only - Urine, Clean Catch (09/16/2024 12:58 PM EDT) RBC, UA 0-2 None Seen, 0-2 /HPF 09/16/2024 1:12 PM EDT [facility] WBC, UA 21-50(A) None Seen, 0-2 /HPF 09/16/2024 1:12 PM EDT [facility] Bacteria, UA Trace(A) None Seen /HPF 09/16/2024 1:12 PM EDT [facility] Squamous Epithelial Cells, UA 7-12(A) None Seen, 0-2 /HPF 09/16/2024 1:12 PM EDT [facility] Hyaline Casts, UA 3-6 None Seen /LPF 09/16/2024 1:12 PM EDT [facility] Methodology Automated Microscopy 09/16/2024 1:12 PM EDT [facility] Urine Urine specimen obtained by clean catch procedure / Unknown Collection / Unknown 09/16/2024 12:58 PM EDT 09/16/2024 1:04 PM EDT Gayathri Hilton MD URINE ORDERABLES Final Result [facility]
[address] [place] [address], * (ABNORMAL) Urinalysis With Microscopic If Indicated (No Culture) - Urine, Clean Catch (09/16/2024 12:58 PM EDT) Color, UA Yellow Yellow, Straw 09/16/2024 1:24 PM EDT [facility] Appearance, UA Clear Clear 09/16/2024 1:24 PM EDT [facility] pH, UA 6.5 5.0 - 8.0 09/16/2024 1:24 PM EDT [facility] Specific [place], UA 1.011 1.005 - 1.030 09/16/2024 1:24 PM EDT [facility] Glucose, UA Negative Negative 09/16/2024 1:24 PM EDT [facility] Ketones, UA Negative Negative 09/16/2024 1:24 PM EDT [facility] Bilirubin, UA Negative Negative 09/16/2024 1:24 PM EDT [facility] Blood, UA Negative Negative 09/16/2024 1:24 PM EDT [facility] Protein, UA Trace(A) Negative 09/16/2024 1:24 PM EDT [facility] Leuk Esterase, UA Large (3+)(A) Negative 09/16/2024 1:24 PM EDT [facility] Nitrite, UA Negative Negative 09/16/2024 1:24 PM EDT [facility] Urobilinogen, UA 0.2 E.U./dL 0.2 - 1.0 E.U./dL 09/16/2024 1:24 PM EDT [facility] Urine Urine specimen obtained by clean catch procedure / Unknown Collection / Unknown 09/16/2024 12:58 PM EDT 09/16/2024 1:04 PM EDT Gayathri Hilton MD URINE ORDERABLES Final Result [facility]
[address] [place] [address], * Telemetry Scan (09/16/2024 11:35 AM EDT) [facility] Onbase ECG ORDERABLES Final Result documented in this encounter Visit Diagnoses Diagnosis Spell of loss of consciousness- Primary Chronic renal insufficiency, stage 2 (mild) Continuous auditory hallucinations documented in this encounter Administered Medications Inactive Administered Medications - up to 3 most recent administrations Medication Order MAR Action Action Date Dose Rate Site sodium chloride 0.9 % bolus 1,000 mL 1,000 mL, Intravenous, at 2,000 mL/hr, Administer over 0.5 Hours, Once, On Alexandra 09/16/24 at 1244, For 1 dose New Bag 09/16/2024 3:22 PM EDT 1,000 mL 2000 mL/hr documented in this encounter Active and Recently Administered Medications Times are shown in EDT. 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
--- OUTSIDE RECORDS SUMMARY | 2024-09-21 10:00 | XMS_ITS ---
Author Organization [facility] Address [address] [place] [id number] Care Team Providers Care In Service Educator Name Role Phone Derrell Escobedo Primary Care Provider [phone] Allergies Allergen (clinical drug ingredient) Drug/Non Drug Allergy documented on EMR Reaction Allergy Type Onset Date Status sulfamethoxazole / trimethoprim Bactrim tongue burning, redness Drug Allergy Active Reason For Referral Reason [facility] in [place] for leg weakness, balance problems, right foot drop Diagnosis 1 Leg weakness, bilate ral (M62.81) Referral Organization [facility] Referring Provider First Name Derrell Taveras Referring Provider Last Name Fanny Referring Provider Speciality Family Pra ctice Referred Provider Physical Therapy, . Referred Provider Specialty Physical The rapist General Notes Sharon Lyle 2024 09:53:44 AM > faxed to [facility] in [place] Referral Priority Routine REASON FOR VISIT f/u [...] Problem Status W/U Status Risk Notes Problem Balance problem (R26.89) Active confirmed Vital Signs Weight 161 lbs 09/21/2024 Blood pressure systolic 130 mm Hg 09/22/19 25 Blood pressure diastolic 82 mm Hg 025 Heart Rate 75 /min 09/21/2024 Height 63 in 09/21/2024 BMI 28.52 kg/m2 09/21/2024 Encounters Encounter Location Date Provider Diagnosis [facility] [address] [facility] [address] [place], [place] [id number] 09/21/2024 Derrell Escobedo UTI (lower urinary tract [...] 09/21/2024 09/21/2024, [facility] in [place] for leg weakness, balance problems, right foot drop, . Physical Therapy Next Appt Details Follow Up: 2 Months, Reason: Provider Name:Derrell Hawley, 11/23/2024 11:00:00 AM, [address] [facility] [address] [facility], [address], [place], [place], [id number], Provider Name:Derrell Hawley, 05/12/2025 11:00:00 AM, [address] [facility] [address] [facility], [address], [place], [place], [phone], Progress Notes * BRUCE GAONADOB:1940 ( 84 yo F)Acc No.[id number]:09/21/2024 Patient: BRUCE BLANC Provider: Derrell Escobedo M.D. :1940 A ge:84 Y S ex:Female Date:09/21/2024 Address:[address], [place], [id number] Subjective: * Chief Complaints: * 1 . f/u er. * HPI: C ardiology: Bruce was taken to [facility] emergency room 2 days ago after she [...] 2012, cataract surgery , cardiac ablation-Dr Felder [facility] , Pacemaker 2017, left knee [id number]-Tm Kirk 12/29/2018. * Hospitalization/Major Diagno stic Procedure: [...] Temp: 97.5, BP: 130/82, HR: 75, Nurse: PE, Ht: 63, BMI:28.52. * Examination: G eneral [...] foot drop - M21.371 5 . B UT 28.0-28.9,adult - Z68.28 Plan: * Treatment: * Procedure Codes: G 2211 Complex e/m visit add on, 1036F TOBACCO NON-USER, G8420 BMI<30 AND >=22 CALC & DOCU, G8783 BP SCR PRFRM RCMDD DEFIND SCR INTVL, G8752 MOST RECENT SYSTOLIC BP < 140MM HG, G8754 MOST RECENT DIASTOLIC BP < 90MM HG * Follow Up: 2 Months * Images: Billing Information: * Visit Code: 99737 Office Visit, Est Pt., Level 3. * [...] M.D. Date: 0 09/21/2024 Generated for Martin berman/Jasbir/eTransmitting on: 0 11/02/2024 12:11 PM EDT History and Physical Notes * Examination Category [...] Referring Provider Referred Provider Not es 09/21/2024 Derrell Escobedo Physical Therapy, . [facility] in [place] for leg weakness, balance problems, right foot drop
--- OUTSIDE RECORDS SUMMARY | 2024-10-19 10:45 | XMS_ITS | Encounter Summary ---
Author Organization [facility] Address [address] [place] [address] Care Team Providers Care Refinery Operator Helper Crude Unit Name Role Phone Bowen Escobedo MD Primary Care Provider Reason for Visit * Reason Comments NICM (nonischemic cardiomyopathy) Encounter Details Date Type Department Care Team (Late st Contact Info) Description 10/19/2024 10:45 AM EDT Office Visit [facility] [address] [facility] [address] [place] [address] Rocky Reynolds MD [address] [facility] [address] [place], [place] [id number] Persistent atrial fibrillation (Primary Dx); NICM (nonischemic cardiomyopathy); Congestive heart failure, unspecified HF chronicity, unspecified heart failure type; Biventricular cardiac pacemaker in situ; Primary hypertension Social History Tobacco Use Types Packs/Day Years Used Date Smoking Tobacco: Former Cigarettes 0.5 3 0 03/10/1963 - 03/10/1966 Passive Smoke Exposure: Past Smokeless Tobacco: Never Tobacco Cessation:Counseling Given: Not Answered Comments:socially, quit in 1966 Alcohol Use Standard Drinks/Week Comments No 0 [...] Sign Reading Time Taken Comments Blood Pressure 136/88 10/19/2024 11:17 AM EDT Pulse 69 10/19/2024 11:17 AM EDT Temperature - - Respiratory Rate - - Oxygen Saturation 98% 10/19/2024 11:17 AM EDT Inhaled Oxygen Concentration - - Weight 73.5 kg (162 lb) 10/19/2024 11:17 AM EDT Height 167.6 cm (5' 6 ) 10/19/2024 11:17 AM EDT Body Mass Index 26.15 10/19/2024 11:17 AM EDT documented in this encounter Progress Notes * Rocky Reynolds MD - 10/19/2024 10:45 AM EDT Images from the original note were not included. Cardiac Electrophysiology Outpatient Note [facility] Office Visit Elyssa Lopez [id number] 09/25/2021 Primary Care Physician: Bowen Escobedo MD Referred By: No ref. provider found Subjective Chief Complaint Patient presents with NICM (nonischemic cardiomyopathy) History of Present Illness: Elyssa Lopez is a 84 y.o. female who presents to my electrophysiology clinic for follow up of permanent atrial fibrillation status post AV node ablation and biventricular pacemaker implantation, now normalized ejection fraction. She overall continues to do well since her last visit. No significant cardiac issues. Her main issue has been back pain. Denies any significant shortness of breath. Gets a little shortness of breath with stairs but otherwise is not noticed problems. No significant chest pain. Did have an episode ofsyncope. She was getting her hair done at the time. She was seen in the ER and this was felt to be vasovagal syncope. Has not had any further recurrence. Does have some overall fatigue. Continues to take torsemide. Last visit she is overall done well. She does complain about feeling tired all the time. She does say she does not get good sleep at night. She often has to wake up to use the bathroom. Also has had trouble with a UTI which has been making her feel poorly also. Denies any significant shortness of breath. Has been tolerating her Eliquis without issue. Past Medical History: Diagnosis Date Abdominal aortic aneurysm (AAA) Abnormal ECG Dont remember Arrhythmia Not sure Arthritis of both knees Atrial fibrillation, chronic CHF (congestive heart failure) CKD (chronic kidney disease) stage 3, GFR 30-59 ml/min Foot drop, right foot GERD (gastroesophageal reflux disease) History of transfusion 1961 during child delivery in [place] per patient's daughter; patient has an antibody present in blood Hyperlipidemia Hypertension Menopause PAD (peripheral artery disease) Sleep apnea 30lb weight loss, has but does not wear Thyroid disease TIA (transient ischemic attack) no residual Wears glasses Wears hearing aid Past Surgical History: Procedure Laterality Date BACK SURGERY x4 CARDIAC CATHETERIZATION CARDIAC ELECTROPHYSIOLOGY PROCEDURE N/A 10/15/[address]: [address] Biv Pacemaker 2. AV Node Ablation; Surgeon: Seb Phelan MD; Location: [facility] LOCATION; Service: Cardiology CARDIAC ELECTROPHYSIOLOGY PROCEDURE N/A 10/15/2017 Procedure: av node ablation; Surgeon: Seb Phelan MD; Location: [facility]IVE LOCATION;Service: Cardiovascular CATARACT EXTRACTION Bilateral [...] date: 03/10/1963 Quit date: 03/10/1966 Years since quittin.6 Passive exposure: Past Smokeless tobacco: Never Tobacco comments: socially, quit in 1966 Vaping Use Vaping status: Never Used Substance and Sexual Activity Alcohol use: No Drug use: Never Sexual activity: Not Currently control/protection: Abstinence, Post-menopausal Current Outpatient Medications: atorvastatin (LIPITOR) 40 MG tablet, Take 1 tablet by mouth Every Night., Disp: , Rfl: 0 buPROPion XL (WELLBUTRIN XL) 150 MG 24 hr tablet, Take 1 tablet by mouth Daily., Disp: , Rfl: 0 carvedilol (COREG) 12.5 MG tablet, Take 0.5 tablets by mouth 2 (Two) Times a Day., Disp: , Rfl: cetirizine (zyrTEC) 10 MG tablet, Take 1 tablet by mouth As Needed., Disp: , Rfl: Cyanocobalamin (B-12) 1000 MCG tablet controlled-release, Take 1 tablet by mouth Daily., Disp: , Rfl: cyclobenzaprine (FLEXERIL) 5 MG tablet, Take 1 tablet by mouth As Needed., Disp: , Rfl: Eliquis 5 MG tablet tablet, TAKE 1 TABLET BY MOUTH TWICE DAILY, Disp: 180 tablet, Rfl: 3 gabapentin (NEURONTIN) 300 MG capsule, Take 1 [...] Times a Day As Needed., Disp:, Rfl: montelukast (SINGULAIR) 10 MG tablet, Take 1 tablet by mouth Every Night., Disp: , Rfl: 0 NON FORMULARY, As Needed. Neuro Reformulating cream [...] area as directed Daily., Disp: , Rfl: Allergies: Allergies Allergen Reactions Bactrim [Sulfamethoxazole-Trimethoprim] Other (See Comments) Makes real sick, nausea/vomiting, weakness with inability to ambulate Carbamazepine Unknown - High Severity Melatonin Mental Status Change Sulfamethoxazole Unknown - Low Severity Trimethoprim Unknown - Low Severity Objective Vital Signs: Blood pressure 136/88, pulse 69, height 167.6 cm (66 ), weight 73.5 kg (162 lb), SpO2 98%, not currently . PHYSICAL EXAM General appearance: Awake, alert, cooperative Head: Normocephalic, without obvious abnormality, atraumatic Neck: No JVD Lungs: Clear to ascultation bilaterally Heart: Regular rate and rhythm, no murmurs, 2+ LE pulses, no lower extremity swelling Skin: Skin color, turgor normal, no rashes or lesions Neurologic: Grossly normal Lab Results Component Value Date GLUCOSE 101 (H) 09/16/2024 CALCIUM 8.6 09/16/2024 NA 139 09/16/2024 K 4.1 09/16/2024 CO2 26.1 09/16/2024 CL 104 09/16/2024 BUN 16.7 09/16/2024 CREATININE 1.30 (H) 09/16/2024 EGFRIFNONA 46 (L) 10/13/2020 BCR 12.8 09/16/2024 ANIONGAP 8.9 09/16/2024 Lab Results Component Value Date WBC 5.21 09/16/2024 HGB 12.5 09/16/2024 HCT 39.4 09/16/2024 MCV 103.1 (H) 09/16/2024 PLT 129 (L) 09/16/2024 Lab Results Component Value Date INR 1.11 12/29/2018 INR 1.30 (H) 12/17/2018 PROTIME 13.7 12/29/2018 PROTIME 15.6 (H) 12/17/2018 Lab Results Component Value Date TSH 0.958 09/16/2024 Results for orders placed during the hospital encounter of 08/05/24 Adult Transthoracic Echo Complete w/ Color, Spectral and Contrast if necessary per protocol 08/05/2024 3:11 PM Interpretation Summary Left ventricular systolic function is [...] of significant tricuspid valve stenosis is present. Procedures Advance Care Planning ACP discussion was held with the patient during this visit. Patient has an advance directive in EMRwhich is still valid. Assessment & Plan 1. Biventricular cardiac pacemaker in situ Her [employer] biventricular pacemaker was interrogated function well. She has approximately 2.7 years of battery life remaining. She is pacing all the time in the ventricles. She is set to VVIR 70. Her pacing sensing threshold in normal limits. No significant arrhythmias. No changes to settings today. 2. NICM (nonischemic cardiomyopathy) ([facility]) Has history of nonischemic cardiomyopathy and follows with Dr. Lopez. Ejection fraction is now normalized. 3. Persistent atrial fibrillation She has a history of permanent atrial fibrillation status post AV node ablation. She remains on Eliquis for anticoagulation. Follow Up: Return in about 1 year (around 10/19/2025) for [facility]. Thank you for allowing me to participate in the care of your patient. Please do not hesitate to contact me with additional questions or concerns. Rocky Reynolds M.D. Cardiac Group Manager [facility] documented in this encounter Plan of Treatment Upcoming Encounters Date Type Department Care Team (Late st Contact Info) Description 01/20/2025 10:30 AM EST Office Visit [facility] [address] [facility] [address] [place] [address] Karol Hanson MD [address] [facility] [address] [place] [address] 06/29/2025 1:45 PM EDT Office Visit [facility] [address] [facility] [address] [place] [address] Micheal Lopez MD [address] [facility] [address] [place], [place] [phone] 11/01/2025 2:30 PM EDT Office Visit [facility] [address] [facility] [address] [place] [address] Rocky Reynolds MD [address] [facility] [address] [place], [place] [phone] Scheduled Procedures Name Priority Associated Diagnoses Date/Ti me LEFT HEART CATH w/cors Angina pectoris documented as of this encounter Visit Diagnoses Diagnosis Persistent atrial fibrillation- Primary Atrial fibrillation NICM (nonischemic cardiomyopathy) Congestive heart failure, unspecified HF chronicity, unspecified heart failure type Biventricular cardiac pacemaker in situ Primary hypertension Unspecified essential hypertension documented in this encounter Care Teams Refinery Operator Helper Crude Unit Relationship Specialty Start Date End Date Bowen Escobedo MD [address] [facility] [address] [place] [address] PCP - General Family Medicine 05/27/18 documented as of this encounter
[2024-11-02 12:05] VITALS: BP 141/97; PULSE 71; RESP 18; TEMP 36.7; O2SAT 97; BMI 26.6
--- OUTSIDE RECORDS SUMMARY | 2024-11-02 12:11 | XMS_ITS | Encounter Summary ---
[facility] Address [address] [place] [address] Care Team Providers Care Mold Making Plastics Sheets Supervisor Name Role Phone Bowen Escobedo MD Primary Care Provider Encounter Details Date Type Department Care Team (Late st Contact Info) Description 12/24/2017 External CPT II DIRECTOR OF SPECIAL SERVICES - [facility] Social History Tobacco Use Types Packs/Day Years Used Date Smoking Tobacco: Former Cigarettes 1 964 - 1966 Smokeless Tobacco: Never Comments:socially, quit in 1 967 Alcohol Use Standard Drinks/Week Comments No 0 (1 standard drink = 0.6 oz pur e alcohol) Comments No Sex and Gender Information Value Date Recorded Sex Assigned at Female 06/01/2024 7:28 PM EDT Legal Sex Female 11:16 AM EDT Gender Identity Not on file Sexual Orientation Not on file Occupation Industry Job Start Date Job End Date retired Not on file Not on file Not on file documented as of this encounter Plan of Treatment Upcoming Encounters Date Type Department Care Team (Late st Contact Info) Description 01/20/2025 10:30 AM EST Office Visit [facility] NEUROLOGY [address] [facility] [address] [place] [address] Karol Hanson MD [address] [facility] [address] [place] [address] 06/29/2025 1:45 PM EDT Office Visit [facility] CARDIOLOGY [address] [facility] [address] [place] [address] Micheal Lopez MD 1720 [facility] 400 [place], [place] [id number] 11/01/2025 2:30 PM EDT Office Visit [facility] CARDIOLOGY [address] [facility] [address] [place] [address] Rocky Reynolds MD [address] [facility] [address] [place] [address] Scheduled Procedures Name Priority Associated Diagnoses Date/Ti me LEFT HEART CATH w/cors Angina pectoris documented as of this encounter Visit Diagnoses Not on filedocumented in this encounter Care Teams Mold Making Plastics Sheets Supervisor Relationship Specialty Start Date End Date Bowen Escobedo MD 1210 [facility] [address] [place] [address] PCP - General Family Medicine 05/27/18 documented as of this encounter
--- OUTSIDE RECORDS SUMMARY | 2024-11-02 12:11 | XMS_ITS | Encounter Summary ---
[facility] Address [address] [place] [address] Care Team Providers Care Instrument Engineer Name Role Phone Bowen Escobedo MD Primary Care Provider Encounter Details Date Type Department Care Team (Late st Contact Info) Description 05/17/2015 External CPT II FEEDER OPERATOR - [facility] Social History Tobacco Use Types Packs/Day Years Used Date Smoking Tobacco: Never Assessed Comments Unknown Sex and Gender Information Value Date Recorded Sex Assigned at Female 06/01/2024 7:28 PM EDT Legal Sex Female 11:16 AM EDT Gender Identity Not on file Sexual Orientation Not on file documented as of this encounter Plan of Treatment Upcoming Encounters Date Type Department Care Team (Late st Contact Info) Description 01/20/2025 10:30 AM EST Office Visit [facility] NEUROLOGY [address] [facility] 204 [place] [address] Karol Hanson MD [address] [facility] 204 [place] [address] 06/29/2025 1:45 PM EDT Office Visit [facility] CARDIOLOGY [address] [facility] [address] [place] [address] Micheal Lopez MD 1720 [facility] 400 [place] [address] 11/01/2025 2:30 PM EDT Office Visit [facility] CARDIOLOGY [address] [facility] [address] [place] [address] Rocky Reynolds MD 1720 [facility] 400 [place], [place] [id number] Scheduled Procedures Name Priority Associated Diagnoses Date/Ti me LEFT HEART CATH w/cors Angina pectoris documented as of this encounter Visit Diagnoses Not on filedocumented in this encounter Care Teams Instrument Engineer Relationship Specialty Start Date End Date Bowen Escobedo MD 1210 [facility] [address] [place] [address] PCP - General Family Medicine 05/27/18 documented as of this encounter
--- OUTSIDE RECORDS SUMMARY | 2024-11-02 12:11 | XMS_ITS | Encounter Summary ---
[facility] Address [address] [place] [address] Care Team Providers Care Cook Fish And Chips Name Role Phone Bowen Escobedo MD Primary Care Provider Encounter Details Date Type Department Care Team (Late st Contact Info) Description 08/18/2018 External CPT II GOGGLES ASSEMBLER - [facility] Social History Tobacco Use [...] 01/20/2025 10:30 AM EST Office Visit [facility] NEUROLOGY [address] [facility] 204 [place] [address] Karol Hanson MD [address] [facility] 204 [place] [address] 06/29/2025 1:45 PM EDT Office Visit [facility] CARDIOLOGY 17[address] [facility] 400 [place] [address] Micheal Lopez MD 1720 [facility] 400 [place], [place] [address] 11/01/2025 2:30 PM EDT Office Visit [facility] CARDIOLOGY 17[address] [facility] 400 [place] [address] Rocky Reynolds MD 1720 [facility] [address] [place] [address] Scheduled Procedures Name Priority Associated Diagnoses Date/Ti me LEFT HEART CATH w/cors Angina pectoris documented as of this encounter Visit Diagnoses Not on filedocumented in this encounter Care Teams Cook Fish And Chips Relationship Specialty Start Date End Date Bowen Escobedo MD 1210 [facility] [address] [place] [address] PCP - General Family Medicine 05/27/18 documented as of this encounter
--- OUTSIDE RECORDS SUMMARY | 2024-11-02 12:11 | XMS_ITS | Encounter Summary ---
[facility] Address [address] [place] [address] Care Team Providers Care Adjunct Instructor In Economics Name Role Phone Bowen Escobedo MD Primary Care Provider Encounter Details Date Type Department Care Team (Late st Contact Info) Description 08/10/2015 External CPT II BUCKLE COVERER - [facility] Social History Tobacco Use [...] Description 01/20/2025 10:30 AM EST Office Visit [facility] NEUROLOGY [address] [facility] 204 [place] [address] Karol Hanson MD [address] [facility] [address] [place] [address] 06/29/2025 1:45 PM EDT Office Visit [facility] CARDIOLOGY [address] [facility] [address] [place] [address] Micheal Lopez MD 1720 [facility] 400 [place] [address] 11/01/2025 2:30 PM EDT Office Visit [facility] CARDIOLOGY 17[address] [facility] 400 [place] [address] Rocky Reynolds MD [address] [facility] [address] [place], [place] [id number] Scheduled Procedures Name Priority Associated Diagnoses Date/Ti me LEFT HEART CATH w/cors Angina pectoris documented as of this encounter Visit Diagnoses Not on filedocumented in this encounter Care Teams Adjunct Instructor In Economics Relationship Specialty Start Date End Date Bowen Escobedo MD 1210 [facility] [address] [place] [address] PCP - General Family Medicine 05/27/18 documented as of this encounter
--- OUTSIDE RECORDS SUMMARY | 2024-11-02 12:11 | XMS_ITS | Encounter Summary ---
[facility] Address [address] [place] [address] Care Team Providers Care Bagger And Stock Handler Helper Name Role Phone Bowen Escobedo MD Primary Care Provider Encounter Details Date Type Department Care Team (Late st Contact Info) Description 09/24/2014 External CPT II TRAFFIC OR SYSTEM DISPATCHER - [facility] Social History Tobacco Use [...] Description 01/20/2025 10:30 AM EST Office Visit [facility] NEUROLOGY [address] [facility] 204 [place] [address] Karol Hanson MD 2101 [facility] 204 [place] [address] 06/29/2025 1:45 PM EDT Office Visit [facility] CARDIOLOGY 1720 [facility] [address] [place] [address] Micheal Lopez MD 1720 [facility] 400 [place] [address] 11/01/2025 2:30 PM EDT Office Visit [facility] CARDIOLOGY [address] [facility] [address] [place] [address] Rocky Reynolds MD [address] [facility] [address] [place], [place] [phone] Scheduled Procedures Name Priority Associated Diagnoses Date/Ti me LEFT HEART CATH w/cors Angina pectoris documented as of this encounter Visit Diagnoses Not on filedocumented in this encounter Care Teams Bagger And Stock Handler Helper Relationship Specialty Start Date End Date Bowen Escobedo MD 1210 [facility] [address] [place] [address] PCP - General Family Medicine 05/27/18 documented as of this encounter
--- OUTSIDE RECORDS SUMMARY | 2024-11-02 12:11 | XMS_ITS | Clinical Summary ---
Author Organization Healthcare Address [address] [place] [address] Care Team Providers Care Medicare Compliance Auditor Name Role Phone Colby Lamar MD Primary Care Provider [phone] Family History Medical History Relation Name Comments Diabetes Brother 1 Hypertension Brother 2 Arthritis Mother Cancer Mother Hypertension Mother Cancer Other 1 Hypertension Other 2 Relation Name Status Comments Brother 1 Brother 2 Mother Other 1 Other 2 Social History Tobacco Use Types Packs/Day Years Used Date Smoking Tobacco: Never Assessed Comments Unknown Sex and Gender Information Value Date Recorded Sex Assigned at Not on file Legal Sex Female 7:33 PM EDT Gender Identity Not on file Sexual Orientation Not on file Last Filed Vital Signs Vital Sign Reading Time Taken Comments Blood Pressure - - Pulse - - Temperature - - Respiratory Rate - - Oxygen Saturation - - Inhaled Oxygen Concentration - - Weight 83.4 kg (183 lb 13.8 oz) 017 10:51 AM EDT Height 167.6 cm (5' 6 ) 08/02/2016 10:5 1 AM EDT Body Mass Index 29.68 08/02/2016 10:51 AM EDT Plan of Treatment Health Maintenance Due Date Last Done Comments [facility]-Bone Density Scan 1939 [facility]-Depression Screening 1939 [facility]-Infant/Child/Adol SDOH Screenings 1940 [facility]- SDOH Screenings 07/09/1957 [facility]-Adult SDOH Screenings 07/09/1957 [facility]-DTaP,Tdap,and Td Vaccine s (1 - Tdap) 07/09/1958 [facility]-Pneumococcal Vaccine: 50 + Years (1 of 1 - PCV) 07/09/1989 [facility]-Zoster Vaccines (1 of 2) 07/09/1989 [facility]-RSV Vaccine: 60+ Years o r (1 - 1-dose 75+ series) 07/09/2014 [id number] Vaccine (1 - 20 24-25 season) 2023 [facility]-Influenza Vaccine (#1) 2024 HPV Vaccines Aged Out No longer eligi ble based on patient's age to complete this topic [facility]-HIB Vaccines Aged Out No longer e ligible based on patient's age to complete this topic [facility]-Hepatitis A Vaccines Aged Out No longer eligible based on patient's age to complete this topic [facility]-IPV Vaccines Aged Out No longer e ligible based on patient's age to complete this topic [facility]-Rotavirus Vaccines Aged Out No lo nger eligible based on patient's age to complete this topic Care Teams Medicare Compliance Auditor Relationship Specialty Start Date End Date Colby Lamar MD [address] [place] [address] PCP - General 07/21/20
--- OUTSIDE RECORDS SUMMARY | 2024-11-02 12:11 | XMS_ITS | Encounter Summary ---
Author Organization [facility] Address [address] [place] [address] Care Team Providers Care Logging Specialist Name Role Phone Bowen Escobedo MD Primary Care Provider Encounter Details Date Type Department Care Team (Late st Contact Info) Description 12/11/2016 External CPT II PERISHABLE FRUIT INSPECTOR - [facility] Social History Tobacco Use [...] Description 01/20/2025 10:30 AM EST Office Visit [facility] NEUROLOGY [address]01 [facility] 204 [place] [address] Karol Hanson MD [address]01 [facility] 204 [place] [address] 06/29/2025 1:45 PM EDT Office Visit [facility] CARDIOLOGY 1720 [facility] [address] [place] [address] Micheal Lopez MD 1720 [facility] 400 [place] [address] 11/01/2025 2:30 PM EDT Office Visit [facility] CARDIOLOGY 1720 [facility] 400 [place] [address] Rocky Reynolds MD [address]20 [facility] 400 [place], [place] [phone] Scheduled Procedures Name Priority Associated Diagnoses Date/Ti me LEFT HEART CATH w/cors Angina pectoris documented as of this encounter Visit Diagnoses Not on filedocumented in this encounter Care Teams Logging Specialist Relationship Specialty Start Date End Date Bowen Escobedo MD 1210 [facility] [address] [place] [address] PCP - General Family Medicine 05/27/18 documented as of this encounter
--- OUTSIDE RECORDS SUMMARY | 2024-11-02 12:11 | XMS_ITS | Encounter Summary ---
[facility] Address [address] [place] [address] Care Team Providers Care Waste Elimination Name Role Phone Bowen Escobedo MD Primary Care Provider Encounter Details Date Type Department Care Team (Late st Contact Info) Description 02/28/2016 External CPT II APPLICATION PROGRAMMER ANALYST - [facility] Social History Tobacco Use [...] Description 01/20/2025 10:30 AM EST Office Visit [facility] NEUROLOGY [address] [facility] [address] [place] [address] Karol Hanson MD [address] [facility] [address] [place] [address] 06/29/2025 1:45 PM EDT Office Visit [facility] CARDIOLOGY 1720 [facility] [address] [place] [address] Micheal Lopez MD 1720 [facility] 400 [place] [address] 11/01/2025 2:30 PM EDT Office Visit [facility] CARDIOLOGY [address] [facility] [address] [place] [address] Rocky Reynolds MD [address] [facility] 400 [place], [place] [phone] Scheduled Procedures Name Priority Associated Diagnoses Date/Ti me LEFT HEART CATH w/cors Angina pectoris documented as of this encounter Visit Diagnoses Not on filedocumented in this encounter Care Teams Waste Elimination Relationship Specialty Start Date End Date Bowen Escobedo MD 1210 [facility] [address] [place] [address] PCP - General Family Medicine 05/27/18 documented as of this encounter
--- OUTSIDE RECORDS SUMMARY | 2024-11-02 12:11 | XMS_ITS | Encounter Summary ---
[facility] Address [address] [place] [address] Care Team Providers Care Call Worker Person Name Role Phone Bowen Escobedo MD Primary Care Provider Encounter Details Date Type Department Care Team (Late st Contact Info) Description 03/13/2016 External CPT II THERMITE BOMB LOADER - [facility] Social History Tobacco Use [...] Description 01/20/2025 10:30 AM EST Office Visit [facility] NEUROLOGY 2101 [facility] 204 [place] [address] Karol Hanson MD 2101 [facility] [address] [place] [address] 06/29/2025 1:45 PM EDT Office Visit [facility] CARDIOLOGY 1720 [facility] [address] [place] [address] Micheal Lopez MD 1720 [facility] 400 [place] [address] 11/01/2025 2:30 PM EDT Office Visit [facility] CARDIOLOGY 1720 [facility] 400 [place] [address] Rocky Reynolds MD 1720 [facility] 400 [place], [place] [address] Scheduled Procedures Name Priority Associated Diagnoses Date/Ti me LEFT HEART CATH w/cors Angina pectoris documented as of this encounter Visit Diagnoses Not on filedocumented in this encounter Care Teams Call Worker Person Relationship Specialty Start Date End Date Bowen Escobedo MD 1210 [facility] [address] [place] [address] PCP - General Family Medicine 05/27/18 documented as of this encounter
--- NOTE | 2024-11-02 12:12 | ECG_ITS ---
APPROVED REPORT Exam: Resting ECG HR:69 bpm ECG Measurements Heart Rate 69 AXES QRSd 145 QRS -69 QT 473 T 82 QTc 493 Conclusion ELECTRONIC VENTRICULAR PACEMAKER ABNORMAL RHYTHM ECG UNCONFIRMED REPORT Ventricular pacemaker present. No ST elevation or depression. Electronically signed by : MARGARITO PERDOMO, 11/03/2024 13:44:51
--- NOTE | 2024-11-02 12:12 | XR_ITS ---
FINAL REPORT CLINICAL HISTORY: CP, soa COMPARISON: 02/03/2023 FINDINGS: A portable view of the chest was obtained. There is no change in the left-sided pacemaker. The heart is enlarged. The mediastinum is unremarkable. There are increased interstitial markings bilaterally which are worse from prior exam, could represent interstitial pulmonary edema or interstitial pneumonia. There is no pleural effusion or pneumothorax. IMPRESSION: Interstitial edema versus interstitial pneumonia. Reviewed, Interpreted and Dictated by Gina Howell MD Transcribed by Alissa Garner Authenticated and [facility]
--- OUTSIDE RECORDS SUMMARY | 2024-11-02 12:12 | XMS_ITS | Encounter Summary ---
[facility] Address [address] [place] [address] Care Team Providers Care Pole Shaver Helper Name Role Phone Bowen Escobedo MD Primary Care Provider Encounter Details Date Type Department Care Team (Latest Contact Info) Description 10/19/2024 Travel Social History Tobacco Use Types Packs/Day Years Used Date Smoking Tobacco: Former Cigarettes 0.5 3 0 03/10/1963 - 03/10/1966 Passive Smoke Exposure: Past Smokeless Tobacco: Never Comments:socially, quit in 1 [...] Description 01/20/2025 10:30 AM EST Office Visit [facility] NEUROLOGY [address] [facility] 204 [place] [address] Karol Hanson MD 2101 [facility] [address] [place] [address] 06/29/2025 1:45 PM EDT Office Visit [facility] CARDIOLOGY [address] [facility] 400 [place] [address] Micheal Lopez MD 1720 [facility] 400 [place] [address] 11/01/2025 2:30 PM EDT Office Visit [facility] CARDIOLOGY [address] [facility] 400 [place] [address] Rocky Reynolds MD 1720 [facility] [address] [place], [place] [address] Scheduled Procedures Name Priority Associated Diagnoses Date/Ti me LEFT HEART CATH w/cors Angina pectoris documented as of this encounter Visit Diagnoses Not on filedocumented in this encounter Care Teams Pole Shaver Helper Relationship Specialty Start Date End Date Bowen Escobedo MD 1210 [facility] [address] [place] [address] PCP - General Family Medicine 05/27/18 documented as of this encounter
--- OUTSIDE RECORDS SUMMARY | 2024-11-02 12:12 | XMS_ITS | Encounter Summary ---
[facility] Address [address] [place] [address] Care Team Providers Care Group Sales Coordinator Name Role Phone Bowen Escobedo MD Primary Care Provider Reason for Visit * Reason Comments Med Refill Encounter Details Date Type Department Care Team (Late st Contact Info) Description 09/26/2024 Refill [facility] CARDIOLOGY 1720 [facility] 400 [place] [address] Micheal Lopez MD 1720 [facility] [address] [place] [address] Med Refill Social History Tobacco Use Types Packs/Day Years [...] Description 01/20/2025 10:30 AM EST Office Visit [facility] NEUROLOGY 2101 [facility] 204 [place] [address] Karol Hanson MD 2101 [facility] [address] [place] [address] 06/29/2025 1:45 PM EDT Office Visit [facility] CARDIOLOGY 1720 [facility] [address] [place] [address] Micheal Lopez MD 1720 [facility] [address] [place], [place] [id number] 11/01/2025 2:30 PM EDT Office Visit [facility] CARDIOLOGY 1720 [facility] [address] [place] [address] Rocky Reynolds MD 1720 [facility] [address] [place], [place] [phone] Scheduled Procedures Name Priority Associated Diagnoses Date/Ti me LEFT HEART CATH w/cors Angina pectoris documented as of this encounter Visit Diagnoses Not on filedocumented in this encounter Care Teams Group Sales Coordinator Relationship Specialty Start Date End Date Bowen Escobedo MD 1210 [facility] [address] [place] [address] PCP - General Family Medicine 05/27/18 documented as of this encounter
--- OUTSIDE RECORDS SUMMARY | 2024-11-02 12:12 | XMS_ITS | Encounter Summary ---
Author Organization [facility] Address [address] [place] [address] Care Team Providers Care Drum Sprayer Name Role Phone Bowen Escobedo MD Primary Care Provider Encounter Details Date Type Department Care Team (Latest Contact Info) Description 09/16/2024 Travel Social History Tobacco Use Types Packs/Day [...] 11:22 AM EDT Carlos Courtney RN * [place] Suicide Severity Rating Scale (Screener/Recent Self-Report) Question Answer Date of Assessment Author 1. Wish to be (Past 1 Month) No 025 11:22 AM EDT Carlos Courtney, ALONZO 2. Non-Specific Active Suici rosana Thoughts (Past 1 Month) No 09/16/2024 11:22 AM EDT Marisela Courtney RN 6. Suicidal Behavior (Lifetime) No 11:22 AM EDT Carlos Courtney RN documented as of this encounter Plan of Treatment Upcoming Encounters Date Type Department Care Team (Late st Contact Info) Description 01/20/2025 10:30 AM EST Office Visit [facility] NEUROLOGY 2101 [facility] 204 [place] [address] Karol Hanson MD 210 [facility] 204 [place] [address] 06/29/2025 1:45 PM EDT Office Visit [facility] CARDIOLOGY 1720 [facility] 400 [place] [address] Micheal Lopez MD 1720 [facility] 400 [place], [place] [phone] 11/01/2025 2:30 PM EDT Office Visit [facility] CARDIOLOGY 1720 [facility] [address] [place] [address] Rocky Reynolds MD 1720 [facility] [address] [place], [place] [phone] Scheduled Procedures Name Priority Associated Diagnoses Date/Ti me LEFT HEART CATH w/cors Angina pectoris documented as of this encounter Visit Diagnoses Not on filedocumented in this encounter Care Teams Drum Sprayer Relationship Specialty Start Date End Date Bowen Escobedo MD 1210 [facility] [address] [place] [address] PCP - General Family Medicine 05/27/18 documented as of this encounter
--- OUTSIDE RECORDS SUMMARY | 2024-11-02 12:12 | XMS_ITS | Clinical Summary ---
Author Organization [facility] Address [address] [place] [address] Care Team Providers Care Limnologist Name Role Phone Bowen Escobedo MD Primary Care Provider Allergies Active Allergy Reactions Criticality Noted Date Comments Sulfamethoxazole-Trimethop rim Other (See Comments) High 08/24/2019 Makes real sick, nausea/vomiting, weakness with inability to ambulate Carbamazepine Unknown - High Severity 02/27/2022 Melatonin Mental Status Change 10/19/2024 Sulfamethoxazole Unknown - Low Severity 01/20/2023 Trimethoprim Unknown - Low Severity 01/20/2023 Medications buPROPion XL (WELLBUTRIN XL) 150 MG 24 hr tablet Take 1 tablet by mouth Daily. 0 018 Active atorvastatin (LIPITOR) 40 MG tablet Take 1 tablet by mouth Every Night. 0 018 Active levothyroxine (SYNTHROID, LEVOTHROID) 75 MCG tabletIndicatio ns:Hypothyroidi sm, unspecified type take 1 tablet by mouth once daily 30 tablet 018 Active pantoprazole (PROTONIX) 40 MG EC tablet Take 1 tablet by mouth 2 (Two) Times a Day. Active montelukast (SINGULAIR) 10 MG tablet Take 1 tablet by mouth Every Night. 0 019 Active gabapentin (NEURONTIN) 300 MG capsule Take 1 capsule by mouth 3 (Three) Times a Day. 12 capsule Active cetirizine (zyrTEC) 10 MG tablet Take 1 tablet by mouth As Needed. Active traMADol (ULTRAM) 50 MG tablet Take 1 tablet by mouth 3 (Three) Times a Day As Needed. for pain Active meclizine (ANTIVERT) 12.5 MG tablet Take 1 tablet by mouth 3 (Three) Times a Day As Needed. Active silver sulfadiazine (SILVADENE, SSD) 1 % cream Apply topically to the appropriate area as directed See Admin Instructions. Apply topically to the affected area twice daily Active ipratropium (ATROVENT) 0.06 % nasal spray Every 8 (Eight) Hours. Active NON FORMULARY As Needed. Neuro Reformulating cream for arthritis Active cyclobenzaprine (FLEXERIL) 5 MG tablet Take 1 tablet by mouth As Needed. Active triamcinolone (KENALOG) 0.5 % cream Apply 1 Application topically to the appropriate area as directed Daily. 023 Active sacubitril-vals jaqui (Entresto) 49-51 MG tablet Take 1 tablet by mouth 2 (Two) Times a Day. 180 tablet 3 025 Active Cyanocobalamin (B-12) 1000 MCG tablet controlled-rele ase Take 1 tablet by mouth Daily. 025 Active carvedilol (COREG) 12.5 MG tabletIndicatio ns:Primary hypertension Take 0.5 tablets by mouth 2 (Two) Times a Day. 025 Active torsemide (DEMADEX) 10 MG tablet TAKE 1 TABLET BY MOUTH DAILY 90 tablet 3 025 Active Eliquis 5 MG tablet tablet TAKE 1 TABLET BY MOUTH TWICE DAILY 180 tablet 3 025 Active Melatonin 3 MG capsule Take 1 capsule by mouth Every Night. 025 2024 Discontinued Active Problems Problem Noted Date Diagnosed Date JASON (obstructive sleep apnea) 12/29/2018 Dyslipidemia 12/12/2017 Biventricular cardiac pacemaker in situ 10/16/19 18 Overview (10/15/2017): 1. [employer] Pacemaker - Oct 2017 NICM (nonischemic cardiomyopathy) 06/20/2017 CHF (congestive heart failure) 05/28/2017 Overview (05/28/2017): 1. Echo 04-09-17 Left atrial cavity size is tnwa-yu-mnxnodthpr dilated. Xutv-yx-uaifemhy mitral valve regurgitation is present. Mild tricuspid valve regurgitation is present. Mild pulmonic valve regurgitation is present. Left ventricular systolic function is severely decreased. Estimated EF = 33%. The left ventricular cavity is mildly dilated. 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 PAD (peripheral artery disease) 05/28/2017 Overview (05/28/2017): 1. 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 Resolved Problems Problem Noted Date Diagnosed Date Resolved Date Acute blood loss anemia, 1 unit PRBC 01/0112/30/2018 10/01/2022 Acute postoperative pain 12/30/2018 Primary osteoarthritis of left knee 10/21/2018 10/01/2022 Epistaxis 07/11/2017 10/01/2022 Encounters Date Type Department Care Team Description 10/19/2024 10:45 AM EDT Office [facility] [address] [facility] [address] [place] [address] Rocky Reynolds MD Persistent atrial fibrillation (Primary Dx); NICM (nonischemic cardiomyopathy); Congestive heart failure, unspecified HF chronicity, unspecified heart failure type; Biventricular cardiac pacemaker in situ; Primary hypertension 10/19/2024 Travel 10/12/[address] [facility] [address] [facility] [address] [place] [address] Rocky Reynolds MD 09/26/[address] [facility] [address] [facility] [address] [place] [address] Micheal Lopez MD Med Refill 09/16/2024 11:21 AM EDT - 09/16/2024 4:59 PM EDT Emergency [facility] [address] [place] [address] Gayathri Hilton MD Spell of loss of consciousness (Primary Dx); Chronic renal insufficiency, stage 2 (mild); Continuous auditory hallucinations Discharge Disposition: Home or Self Care 09/16/2024 9:00 AM EDT Clinical Support No Requirements [facility] [address] [facility] [address] [place] [address] 09/16/2024 Travel 09/16/[address] [facility] [address] [facility] [address] [place] [address] Micheal Lopez MD Med Refill 08/05/2024 12:36 PM EDT - 08/05/2024 11:59 PM EDT Hospital Encounter [facility] [address] [place] [address] Micheal Lopez MD Dyspnea on exertion Discharge Disposition: Home or Self Care 08/05/2024 Results Follow-Up [facility] [address] [facility] [address] [place] [address] Micheal Lopez MD Results 08/05/2024 Travel from Last 3 Months Immunizations Immunization Administration Dates Next Due Fluzone High-Dose 65+yrs 01/16/2022 Family History Medical History Relation Name Comments Diabetes Brother L C Heart attack Brother L C Heart disease Brother L C Cancer Father No Known Problems Maternal Grandfather Arthritis Maternal Grandmother Cancer Mother Mother Diverticulitis Mother Mother Heart attack Mother Mother Hypertension Mother Mother No Known Problems Paternal Grandfather No Known Problems Paternal Grandmother Cancer Sister Relation Name Status Comments Brother L C Father Maternal Grandfather Maternal Grandmother Mother Mother Paternal Grandfather Paternal Grandmother Sister Social History Tobacco Use Types Packs/Day Years [...] file Not on file Not on file Last Filed Vital Signs Vital Sign Reading Time Taken Comments Blood Pressure 136/88 10/19/2024 11:17 AM EDT Pulse 69 10/19/2024 11:17 AM EDT Temperature 36.9 C (98.5 F) 09/16/2024 2:45 PM EDT Respiratory Rate 16 09/16/2024 2:45 PM EDT Oxygen Saturation 98% 10/19/2024 11:17 AM EDT Inhaled Oxygen Concentration - - Weight 73.5 kg (162 lb) 10/19/2024 11:17 AM EDT Height 167.6 cm (5' 6 ) 10/19/2024 11:17 AM EDT Body Mass Index 26.15 10/19/2024 11:17 AM EDT Plan of Treatment Upcoming Encounters Date Type Department Care Team (Late st Contact Info) Description 01/20/2025 10:30 AM EST Office Visit [facility] [address] [facility] [address] [place] [address] Karol Hanson MD [address] [facility] [address] [place] [address] 06/29/2025 1:45 PM EDT Office Visit [facility] [address] [facility] [address] [place] [address] Micheal Lopez MD [address] [facility] [address] [place] [address] 11/01/2025 2:30 PM EDT Office Visit [facility] [address] [facility] [address] [place] [address] Rocky Reynolds MD [address] [facility] [address] [place] [address] Scheduled Procedures Name Priority Associated Diagnoses Date/Ti me LEFT HEART CATH w/cors Angina pectoris Health Maintenance Due Date Last Done Comments TDAP/TD VACCINES (1 - Tdap) 07/09/1959 ZOSTER VACCINE (1 of 2) 07/09/1989 RSV Vaccine - Adults (1 - 1- dose 75+ series) 07/09/2014 Pneumococcal Vaccine 50+ (2 of 2 - PPSV23) 02/18/2018 12/24/2017, 12/13/2016 DXA SCAN 06/23/2023 06/22/2021, 05/07/2018 ANNUAL WELLNESS VISIT 10/16/2023 10/15/2022 , 06/11/2021, 08/18/2018, Additional history exists LIPID PANEL 10/16/2023 10/15/2022, 12/09, 06/14/2021, Additional history exists COVID-19 Vaccine (2023-2 5 season) 2023 02/15/2021, 05/17/2020, 04/19/2020 INFLUENZA VACCINE 12/08/2024 01/16/2022, , 01/16/2022, Additional history exists HEMOGLOBIN A1C Discontinued 12/17/2018, 12/08, 08/18/2018, Additional history exists Medical Devices Implanted Type Area Cook Fry Device Identifier Shelf Expiration Date Model / Serial / Lot Cmt Bone Simplex/P Full Dose 10Pk - [id number] Implanted:Qty: 2 on 12/29/2018 by Norbert Ortez MD at [facility] Implant Left: Knee AURA DIVINA 12/07/2020 [id number] / / [id number] Comp Fem Legion Oxinium Ps Sz5 Lt - [id number] Implanted:Qty: 1 on 12/29/2018 by Norbert Ortez MD at [facility] Implant Left: Knee [employer] 10/31/2028 [id number] / / [id number] Pat Gen2 Resrf 32mm - [id number] Implanted:Qty: 1 on 12/29/2018 by Norbert Ortez MD at [facility] Implant Left: Knee [employer] 10/31/2028 [id number] / / [id number] Base Tib/Kn Gen2 Nonpor Ti Sz3 Lt - [id number] Implanted:Qty: 1 on 12/29/2018 by Norbert Ortez MD at [facility] Implant Left: Knee [employer] 08/18/2028 [id number] / / [id number] Insrt Art Legion Ps Hf Xlpe Sz3to4 10mm - [id number] Implanted:Qty: 1 on 12/29/2018 by Norbert Ortez MD at [facility] Implant Left: Knee [employer] 11/16/2028 [id number] / / [id number] Totl Kn Joshua Mccloud Nephew - [id number] Implanted:Qty: 1 on 12/29/2018 by Norbert Ortez MD at [facility] Implant Left: Knee [employer] CAPKNEETOTA LSN2 / / Ld Pm Tendril Sts 6f52cm [id number] - [id number] - [id number] Implanted:Qty: 1 on 10/15/2017 by Seb Phelan MD at [facility] Lead [facility] 08/07/[id number] / [id number] / Ld Quartet Lv S/Crv Bipol 1458q/75 - [id number] - [id number] Implanted:Qty: 1 on 10/15/2017 by Seb Phelan MD at [facility] Lead [employer] 08/08/2019 [id number] / [id number] / Gen Pm Allure Quadra Bivent Rf Crtp Vq9025 - [id number] - [id number] Implanted:Qty: 1 on 10/15/2017 by Seb Phelan MD at [facility] Pacemaker [facility] 01/07/2019 [id number] / [id number] / [id number] Description:home monitoring Procedures Procedure Name Priority Date/Time Associated Diagnosis Comments REMOTE DEVICE CHECK 10/31/2024 8 :19 PM EDT EEG AWAKE OR ASLEEP PORTABLE STAT 09/16/2024 2:10 PM EDT CBC AND DIFFERENTIAL STAT 09/16/2024 1:23 PM EDT MAGNESIUM STAT 09/16/2024 1:23 PM EDT TSH RFX ON ABNORMAL TO FREE T4 STAT 09/16/2024 1:23 PM EDT CBC WITH AUTO DIFFERENTIAL STAT 09/16/2024 1:23 PM EDT COMPREHENSIVE METABOLIC [...] - TELEMETRY 09/16/2024 1 1:35 AM EDT IN OFFICE DEVICE CHECK 12:00 AM EDT ECHO COMPLETE W/ DOPPLER AND COLOR FLOW Routine 08/05/2024 1:21 PM EDT Dyspnea on exertion HEMOGLOBIN A1C Routine 12/17/2018 3:59 PM EDT LIPID PANEL STAT 05/28/2017 6:39 AM EDT from Last 3 Months or Most Recently Relevant to Health Maintenance Results * EEG AWAKE OR ASLEEP PORTABLE (09/16/2024 2:10 PM EDT) Impressions Samir Fish MD - 09/16/2024 6:08 PM EDT Diffuse cerebral dysfunction of at least mild degree but nonspecific. This is most commonly seen due to toxic/metabolic or hypoxemic cause No evidence for epilepsy is present This report is transcribed using the Dataguise dictation system. Narrative Samir Fish MD - [...] MD NEUROLOGY ORDERABLES Final Re sult * TSH Rfx On Abnormal To Free T4 (09/16/2024 1:23 PM EDT) TSH 0.958 0.270 - 4.200 uIU/mL 09/16/2024 2:01 PM EDT [facility] Blood Venipuncture / Unknown 09/16/2024 1:23 PM EDT 09/16/2024 1:28 PM EDT Gayathri Hilton MD LAB BLOOD ORDERABLES Final Re sult [facility]
[address] [place] [address], * (ABNORMAL) CBC Auto Differential (09/16/2024 1:23 PM EDT) WBC 5.21 3.40 - 10.80 10*3/mm3 09/16/2024 1:37 PM EDT [facility] RBC 3.82 3.77 - 5.28 10*6/mm3 09/16/2024 1:37 PM EDT [facility] Hemoglobin 12.5 12.0 - 15.9 g/dL 09/16/2024 1:37 PM EDT [facility] Hematocrit 39.4 34.0 - 46.6 % 09/16/2024 1:37 PM EDT [facility] MCV 103.1(H) 79.0 - 97.0 fL 09/16/2024 1:37 PM EDT [facility] MCH 32.7 26.6 - 33.0 pg 09/16/2024 1:37 PM EDT [facility] MCHC 31.7 31.5 - 35.7 g/dL 09/16/2024 1:37 PM EDT [facility] RDW 13.2 12.3 - 15.4 % 09/16/2024 1:37 PM EDT [facility] RDW-SD 50.3 37.0 - 54.0 fl 09/16/2024 1:37 PM EDT [facility] MPV 10.3 6.0 - 12.0 fL 09/16/2024 1:37 PM EDT [facility] Platelets 129(L) 140 - 450 10*3/mm3 09/16/2024 1:37 PM EDT [facility] Neutrophil % 75.0 42.7 - 76.0 % 09/16/2024 1:37 PM [facility] Lymphocyte % 11.5(L) 19.6 - 45.3 % 09/16/2024 1:37 PM [facility] Monocyte % 11.9 5.0 - 12.0 % 09/16/2024 1:37 PM [facility] Eosinophil % 1.0 0.3 - 6.2 % 09/16/2024 1:37 PM [facility] Basophil % 0.4 0.0 - 1.5 % 09/16/2024 1:37 PM [facility] Immature Grans % 0.2 0.0 - 0.5 % 09/16/2024 1:37 PM [facility] Neutrophils, Absolute 3.91 1.70 - 7.00 10*3/mm3 09/16/2024 1:37 PM [facility] Lymphocytes, Absolute 0.60(L) 0.70 - 3.10 10*3/mm3 09/16/2024 1:37 PM [facility] Monocytes, Absolute 0.62 0.10 - 0.90 10*3/mm3 09/16/2024 1:37 PM [facility] Eosinophils, Absolute 0.05 0.00 - 0.40 10*3/mm3 09/16/2024 1:37 PM [facility] Basophils, Absolute 0.02 0.00 - 0.20 10*3/mm3 09/16/2024 1:37 PM [facility] Immature Grans, Absolute 0.01 0.00 - 0.05 10*3/mm3 09/16/2024 1:37 PM [facility] nRBC 0.0 0.0 - 0.2 /100 WBC 09/16/2024 1:37 PM [facility] Blood Venipuncture / Unknown 09/16/2024 1:23 PM EDT 09/16/2024 1:28 PM [facility] - 09/16/2024 1:37 PM EDT Instrument flags present, additional testing may be recommended. us Gayathri Hilton MD LAB BLOOD ORDERABLES Final Re sult Performing Organization Address City/[facility]/ZIP Co de Phone Number [facility]
[address] [place] [address], [place] [phone] * Magnesium (09/16/2024 1:23 PM EDT) Pathologist [facility] Magnesium 2.0 1.6 - 2.4 mg/dL 09/16/2024 2:01 PM EDT [facility] Blood Venipuncture / Unknown 09/16/2024 1:23 PM EDT 09/16/2024 1:28 PM EDT us Gayathri Hilton MD LAB BLOOD ORDERABLES Final Re sult Performing Organization Address [facility] Co de Phone Number [facility]
[address] [place] [address], [place] [phone] * (ABNORMAL) Comprehensive Metabolic Panel (09/16/2024 1:23 PM EDT) Pathologist [facility] Glucose 101(H) 65 - 99 mg/dL 09/16/2024 2:01 PM EDT [facility] BUN 16.7 8.0 - 23.0 mg/dL 09/16/2024 2:01 PM EDT [facility] Creatinine 1.30(H) 0.57 - 1.00 mg/dL 09/16/2024 2:01 PM EDT [facility] Sodium 139 136 - 145 mmol/L 09/16/2024 2:01 PM EDT [facility] Potassium 4.1 3.5 - 5.2 mmol/L 09/16/2024 2:01 PM EDT [facility] Chloride 104 98 - 107 mmol/L 09/16/2024 2:01 PM EDT [facility] CO2 26.1 22.0 - 29.0 mmol/L 09/16/2024 2:01 PM EDT [facility] Calcium 8.6 8.6 - 10.5 mg/dL 09/16/2024 2:01 PM T [facility] Total Protein 6.4 6.0 - 8.5 g/dL 09/16/2024 2:01 PM T [facility] Albumin 3.8 3.5 - 5.2 g/dL 09/16/2024 2:01 PM EDT [facility] ALT (SGPT) 6 1 - 33 U/L 09/16/2024 2:01 PM T [facility] AST (SGOT) 11 1 - 32 U/L 09/16/2024 2:01 PM T [facility] Alkaline Phosphatase 89 39 - 117 U/L 09/16/2024 2:01 PM T [facility] Total Bilirubin 0.9 0.0 - 1.2 mg/dL 09/16/2024 2:01 PM [facility] Globulin 2.6 gm/dL 09/16/2024 2:01 PM [facility] Comment:Calculated Result A/G Ratio 1.5 g/dL 09/16/2024 2:01 PM [facility] BUN/Creatinine Ratio 12.8 7.0 - 25.0 09/16/2024 2:01 PM [facility] Anion Gap 8.9 5.0 - 15.0 mmol/L 09/16/2024 2:01 PM [facility] eGFR 40.4(L) >60.0 mL/min/1.7 3 09/16/2024 2:01 PM [facility] Blood Venipuncture / Unknown 09/16/2024 1:23 PM EDT 09/16/2024 1:28 PM T [facility] - 09/16/2024 2:01 PM EDT GFR [...] does not include race as a factor Gayathri Hilton MD LAB BLOOD ORDERABLES Final Re sult [facility]
[address] [place] [address], * ECG 12 Lead Syncope (09/16/2024 1:16 PM EDT) QT Interval 456 ms BH ECG QTC Interval 492 ms ECG 09/16/2024 1:16 PM EDT 09/16/2024 4:25 PM EDT Narrative BH ECG - 09/16/2024 4:25 PM EDT Test [...] MD 09/16/2024 1:14 PM EDT Workstation ID: [id number] Narrative 09/16/2024 1:[address] HEAD [...] MD 09/16/2024 1:14 PM EDT Workstation ID: [id number] us Gayathri Hilton MD IMG CT ORDERABLES Final Resul t * XR Chest 1 View (09/16/2024 12:59 PM EDT) Anatomical Region Laterality Modality Body N/A Radiographic Bridgett ging 09/16/2024 1:00 PM EDT Impressions 09/16/2024 1:01 PM EDT Impression: Chronic findings without acute process identified. Electronically Signed: Isacc Lan MD 09/16/2024 1:01 PM EDT Workstation ID: [id number] Narrative 09/16/2024 1:01 PM EDT XR CHEST [...] MD 09/16/2024 1:01 PM EDT Workstation ID: [id number] Gayathri Hilton MD IMG DIAGNOSTIC IMAGING ORDERA BLES Final Result * (ABNORMAL) Urinalysis, Microscopic Only - Urine, Clean Catch (09/16/2024 12:58 PM EDT) RBC, UA 0-2 None Seen, 0-2 /HPF 09/16/2024 1:12 PM EDT [facility] WBC, UA 21-50(A) None Seen, 0-2 /HPF 09/16/2024 1:12 PM EDT [facility] Bacteria, UA Trace(A) None Seen /HPF 09/16/2024 1:12 PM EDT [facility] Squamous Epithelial Cells, UA 7-12(A) None Seen, 0-2 /HPF 09/16/2024 1:12 PM EDT [facility] Hyaline Casts, UA 3-6 None Seen /LPF 09/16/2024 1:12 PM EDT [facility] Methodology Automated Microscopy 09/16/2024 1:12 PM EDT [facility] Urine Urine specimen obtained by clean catch procedure / Unknown Collection / Unknown 09/16/2024 12:58 PM EDT 09/16/2024 1:04 PM EDT Gayathri Hilton MD URINE ORDERABLES Final Result [facility]
[address] [place] [address], * (ABNORMAL) Urinalysis With Microscopic If Indicated (No Culture) - Urine, Clean Catch (09/16/2024 12:58 PM EDT) Color, UA Yellow Yellow, Straw 09/16/2024 1:24 PM EDT [facility] Appearance, UA Clear Clear 09/16/2024 1:24 PM EDT [facility] pH, UA 6.5 5.0 - 8.0 09/16/2024 1:24 PM EDT [facility] Specific [place], UA 1.011 1.005 - 1.030 09/16/2024 1:24 PM EDT [facility] Glucose, UA Negative Negative 09/16/2024 1:24 PM EDT [facility] Ketones, UA Negative Negative 09/16/2024 1:24 PM EDT [facility] Bilirubin, UA Negative Negative 09/16/2024 1:24 PM EDT [facility] Blood, UA Negative Negative 09/16/2024 1:24 PM EDT [facility] Protein, UA Trace(A) Negative 09/16/2024 1:24 PM EDT [facility] Leuk Esterase, UA Large (3+)(A) Negative 09/16/2024 1:24 PM EDT [facility] Nitrite, UA Negative Negative 09/16/2024 1:24 PM EDT [facility] Urobilinogen, UA 0.2 E.U./dL 0.2 - 1.0 E.U./dL 09/16/2024 1:24 PM EDT [facility] Urine Urine specimen obtained by clean catch procedure / Unknown Collection / Unknown 09/16/2024 12:58 PM EDT 09/16/2024 1:04 PM EDT us Gayathri Hilton MD URINE ORDERABLES Final Result [facility]
[address] [place] [address], * Telemetry Scan (09/16/2024 11:35 AM EDT) [facility] ORDERABLES Final Result * In Office Device Check (09/16/2024 12:00 AM EDT) Date Time Interrogation Session [id number] [facility] Implantable Pulse Generator Cook Fry [facility] Implantable Pulse Generator Type EXT JS DEVELOPER-P [facility] Implantable Pulse Generator Model 3262 Quadra Allure MP(TM) RF [facility] Implantable Pulse Generator Serial Number [id number] [facility] Implantable Pulse Generator Implant Date [id number] [facility] Battery Voltage 2.960 [facility] Battery FRUIT SHIPPER Trigger 2.620 [facility] Battery Status MOS [facility] [employer] [facility] Lead Channel RV Sensing Intrinsic Amplitude 5.900 [facility] [employer] [facility] Lead Channel Setting RV Sensing Sensitivity 2.00 [facility] [employer] [facility] Lead Channel RV Impedance Value 410 [facility] [employer] [facility] Lead Channel RV Pacing Threshold Amplitude 0.880 [facility] [employer] [facility] Lead Channel RV Pacing Threshold Pulse Width 0.5 [facility] Lead Channel RV Measurements Date and Time [id number] [facility] Lead Channel Setting RV Pacing Amplitude 2.000 [facility] [employer] [facility] Lead Channel Setting RV Pacing Pulse Width 0.5 [facility] Lead Channel LV Impedance Value 1,050 [facility] [employer] [facility] Lead Channel LV Pacing Threshold Amplitude 0.880 [facility] [employer] [facility] Lead Channel LV Pacing Threshold Pulse Width 0.7 [facility] LV Lead Channel Measurements Date and Time [id number] [facility] Lead Channel Setting LV Pacing Amplitude 2.000 [facility] Lead Channel Setting LV Pacing Pulse Width 0.7 [facility] [employer] Setting Mode (NBG Code) VVIR [facility] Ventricular chambers paced during EXT JS DEVELOPER pacing. BiV [facility] [employer] Setting Lower Rate Limit 70 [facility] [employer] Setting Maximum Sensor Rate 120 [facility] fanatix EXT JS DEVELOPER LV-RV Delay 0 [facility] 09/16/2024 Rocky Reynolds MD CV IMPLANTABLE CARDIAC DEVICE Fi nal Result [facility] * ECHO COMPLETE W/ DOPPLER AND COLOR FLOW (08/05/2024 1:21 PM EDT) EF(MOD-bp) 64.1 % LVIDd 4.6 cm LVIDs 3.2 cm IVSd 1.20 cm LVPWd 1.30 cm FS 30.4 % IVS/LVPW 0.92 cm ESV(cubed) 32.8 ml LV Sys Vol (BSA corrected) 7.4 cm2 EDV(cubed) 97.3 ml LV Funk Vol (BSA corrected) 21.7 cm2 LV mass(C)d 217.4 grams LVOT area 3.1 cm2 LVOT diam 2.00 cm EDV(MOD-sp2) 42.0 ml EDV(MOD-sp4) 39.6 ml ESV(MOD-sp2) 16.9 ml ESV(MOD-sp4) 13.5 ml SV(MOD-sp2) 25.1 ml SV(MOD-sp4) 26.1 ml SVi(MOD-SP2) 13.8 ml/m2 SVi(MOD-SP4) 14.3 ml/m2 SVi (LVOT) 25.5 ml/m2 EF(MOD-sp2) 59.8 % EF(MOD-sp4) 65.9 % MV E max shane 82.8 cm/sec MV A max shane 32.0 cm/sec MV dec time 0.16 sec MV E/A 2.6 LA ESV Index (BP) 57.7 ml/m2 Med Peak E' Shane 7.3 cm/sec Lat Peak E' Shane 10.2 cm/sec TR max shane 222.0 cm/sec Avg E/e' ratio 9.46 SV(LVOT) 46.5 ml RV Base 3.2 cm RV Mid 2.6 cm RV Length 5.3 cm TAPSE (>1.6) 2.7 cm RV S' 7.8 cm/sec LA dimension (2D) 5.3 cm LV V1 max 76.5 cm/sec LV V1 max PG 2.34 mmHg LV V1 mean PG 1.00 mmHg LV V1 VTI 14.8 cm Ao pk shane 101.3 cm/sec Ao max PG 4.1 mmHg Ao mean PG 2.00 mmHg Ao V2 VTI 20.1 cm GUILLERMO(I,D) 2.32 cm2 Dimensionless Index 0.74 (DI) MV max PG 5.8 mmHg MV mean PG 2.00 mmHg MV V2 VTI 30.3 cm MV P1/2t 52.9 msec MVA(P1/2t) 4.2 cm2 MVA(VTI) 1.53 cm2 MV dec slope 676.0 cm/sec2 TR max PG 23.3 mmHg PA acc time 0.14 sec PI end-d shane 144.0 cm/sec Ao root diam 3.2 cm Ascending aorta 3.3 cm BH CV VAS BP RIGHT ARM 161/100 mmHg Anatomical Region Laterality Modality Ultrasound Narrative 08/05/2024 3:11 PM EDT Left ventricular systolic function is normal. Calculated [...] of significant tricuspid valve stenosis is present. Left Ventricle Left ventricular systolic function is normal. Calculated left ventricular EF = 64.1% Normal left ventricular cavity size noted. Left ventricular wall thickness is consistent with mild to moderate concentric hypertrophy. All left ventricular wall segments contract normally. Left ventricular diastolic function is consistent with age. Normal left atrial pressure. Right Ventricle The right ventricular cavity is mildly dilated. Normal right ventricular systolic function noted. Electronic lead present in the ventricle. Left Atrium The left atrial cavity is dilated. Left atrial volume is severely increased. Right Atrium The right atrial cavity is severely dilated. Right atrial volume is 79 ml. Mitral Valve Mild mitral annular calcification is present. Moderate mitral valve regurgitation is present with multiple jets noted. No significant mitral valve stenosis is present. Tricuspid Valve The tricuspid valve is abnormal in structure. Moderate tricuspid valve regurgitation is present. No evidence of significant tricuspid valve stenosis is present. Aortic Valve No aortic valve regurgitation or stenosis is present. The aortic valve is abnormal in structure. There is mild calcification of the aortic valve. Pulmonic Valve The pulmonic valve is structurally normal with no significant stenosis present. There is mild pulmonic valve regurgitation present. Pericardium There is no evidence of pericardial effusion. . Greater Vessels No dilation of the aortic root is present. No dilation of the ascending aorta is present. Inferior vena cava not well visualized. Study Quality The study is technically good for diagnosis. us Micheal Lopez MD CV ECHO ORDERABLES Final Resu lt * Hemoglobin A1c (12/17/2018 3:59 PM EDT) Hemoglobin A1C 5.30 4.80 - 5.60 % 12/17/2018 5:10 PM EDT [facility] Blood Venipuncture / Unknown 12/17/2018 3:59 PM EDT 12/17/2018 4:32 PM EDT Narrative [facility] - 12/17/2018 5:10 PM EDT Hemoglobin A1C Ranges: Increased Risk for Diabetes 5.7% to 6.4% Diabetes >= 6.5% Diabetic Goal < 7.0% Nathen Johnson MD LAB BLOOD ORDERABLES Gwendolyn l Result [facility]
[address] [place] [address], * Lipid Panel (05/28/2017 6:39 AM EDT) Total Cholesterol 120 0 - 200 mg/dL 05/28/2017 7:24 AM EDT [facility] Triglycerides 80 0 - 150 mg/dL 05/28/2017 7:24 AM EDT [facility] HDL Cholesterol 47 40 - 60 mg/dL 05/28/2017 7:24 AM EDT [facility] LDL Cholesterol 67 0 - 130 mg/dL 05/28/2017 7:24 AM EDT [facility] Blood Line / Unknown 05/28/2017 6: 39 AM EDT 05/28/2017 6:48 AM EDT Narrative [facility] - 05/28/2017 7:24 AM EDT Cholesterol Reference Ranges: Desirable < 200 mg/dL Borderline 200-239 mg/dL High Risk > 239 mg/dL Triglyceride Reference Ranges: Normal < 150 mg/dL Borderline 150-199 mg/dL High 200-499 mg/dL Very High > 499 mg/dL HDL Reference Ranges: Low < 40 mg/dL High > 59 mg/dL LDL Reference Ranges: Optimal < 100 mg/dL Near Optimal 100-129 mg/dL Borderline 130-159 mg/dL High 160-189 mg/dL Very High > 189 mg/dL Rui STROUD LAB BLOOD ORDERABLES Final Result [facility]
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 - SCAN 12/29/2018 12:21 PM POA 12/25/2018 LIVING WILL - SCAN 12/29/2018 12:21 PM RICCARDO GONCALVES WILL/HEALTHCARE SURROGATE 09/05/2009 * CPR (Attempt to Resuscitate) (Latest Code Status on File) Date Activated Date Inactivated Comments 01/05/2019 7:32 PM 01/07/2019 5:53 PM Question Answer Comments Code Status (Patient has no pulse and is not breathing): CPR (Attempt to Resuscitate) Medical Interventions (Patie nt has pulse or is breathing): Full * CPR (Attempt to Resuscitate) Date Activated Date Inactivated Comments 12/29/2018 4:57 PM 01/01/2019 8:36 PM Question Answer Comments Code Status (Patient has no pulse and is not breathing): CPR (Attempt to Resuscitate) Medical Interventions (Patie nt has pulse or is breathing): Full Level Of Support Discussed With: Patient Care Teams Limnologist Relationship Specialty Start Date End Date Bowen Escobedo MD [facility] [address] [facility] [address] [place] [address] PCP - General Family Medicine 05/27/18
--- OUTSIDE RECORDS SUMMARY | 2024-11-02 12:12 | XMS_ITS | Encounter Summary ---
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 - [facility] Social History Tobacco Use [...] Description 01/20/2025 10:30 AM EST Office Visit [facility] [address] [facility] [address] [place] [address] Karol Hanson MD [address] [facility] [address] [place] [address] 06/29/2025 1:45 PM EDT Office Visit [facility] [address] [facility] [address] [place] [address] Micheal Lopez MD [address] [facility] [address] [place] [address] 11/01/2025 2:30 PM EDT Office Visit [facility] [address] [facility] [address] [place] [address] Rocky Reynolds MD [address] [facility] [address] [place], [place] [id number] Scheduled Procedures Name Priority Associated Diagnoses Date/Ti me LEFT HEART CATH w/cors Angina pectoris documented as of this encounter Visit Diagnoses Not on filedocumented in this encounter Care Teams Banbury Operator Relationship Specialty Start Date End Date Bowen Escobedo MD [address] [facility] [address] [place] [address] PCP - General Family Medicine 05/27/18 documented as of this encounter
--- OUTSIDE RECORDS SUMMARY | 2024-11-02 12:12 | XMS_ITS | Encounter Summary ---
[facility] Address [address] [place] [address] Care Team Providers Care X Ray Inspector Name Role Phone Bowen Escobedo MD Primary Care Provider Encounter Details Date Type Department Care Team (Late st Contact Info) Description 10/12/2024 Telephone [facility]ICAL [facility] [address] [facility] [address] [place] [address] Rocky Reynolds MD [address] [facility] [address] [place] [id number] Social History Tobacco Use Types Packs/Day Years [...] on file documented as of this encounter Miscellaneous Notes * Telephone Encounter - WynneRoberto julioprem Fraire - 10/12/2024 2:52 PM EDT I spoke with 's daughter regarding her bedside landy monitor. It was scheduled to send a reading this morning and it did not. She is staying with her daughter for a few days do to being ill.Her daughter stated she may home in a few more days, documented in this encounter Plan of Treatment Upcoming Encounters Date Type Department Care Team (Late st Contact Info) Description 01/20/2025 10:30 AM EST Office Visit [facility] [address] [facility] [address] [place] [address] Karol Hanson MD [address] [facility] [address] [place] [address] 06/29/2025 1:45 PM EDT Office Visit [facility] [address] [facility] [address] [place] [address] Micheal Lopez MD [address] [id number] 11/01/2025 2:30 PM EDT Office Visit [facility] [address] [facility] [address] [place] [address] Rocky Reynolds MD [address] [facility] [address] [place], [place] [phone] Scheduled Procedures Name Priority Associated Diagnoses Date/Ti me LEFT HEART CATH w/cors Angina pectoris documented as of this encounter Visit Diagnoses Not on filedocumented in this encounter Care Teams X Ray Inspector Relationship Specialty Start Date End Date Fanny, Bowen Nitin, MD [address] [facility] [address] [place] [address] PCP - General Family Medicine 05/27/18 documented as of this encounter
--- OUTSIDE RECORDS SUMMARY | 2024-11-02 12:12 | XMS_ITS | Encounter Summary ---
[facility] Address [address] [place] [address] Care Team Providers Care Brief Writer Name Role Phone Bowen Escobedo MD Primary Care Provider Reason for Visit * Reason Comments Med Refill Encounter Details Date Type Department Care Team (Late st Contact Info) Description 09/16/2024 Refill [facility] MEDICAL [facility] C[facility] [address] [facility] [address] [place] [address] Micheal Lopez MD [address] [facility] [address] [place] [address] Med Refill Social History Tobacco Use Types [...] 11:22 AM EDT Carlos Courtney RN * [place] Suicide Severity Rating Scale (Screener/Recent Self-Report) Question Answer Date of Assessment Author 1. Wish to be (Past 1 Month) No 025 11:22 AM EDT Carlos Courtney, ALONZO 2. Non-Specific Active Suici rosana Thoughts (Past 1 Month) No 09/16/2024 11:22 AM EDT Marisela Courtney RN 6. Suicidal Behavior (Lifetime) No 11:22 AM EDT Carlos Courtney RN documented as of this encounter Miscellaneous Notes * Telephone Encounter - Sandy Whalen RN - 09/17/2024 8:52 AM EDT Lab Results Component Value Date GLUCOSE 101 (H) 09/16/2024 BUN 16.7 09/16/2024 CREATININE 1.30 (H) 09/16/2024 NA 139 09/16/2024 K 4.1 09/16/2024 CL 104 09/16/2024 CALCIUM 8.6 09/16/2024 PROTEINTOT 6.4 09/16/2024 ALBUMIN 3.8 09/16/2024 ALT 6 09/16/2024 AST 11 09/16/2024 ALKPHOS 89 09/16/2024 BILITOT 0.9 09/16/2024 GLOB 2.6 09/16/2024 AGRATIO 1.5 09/16/2024 BCR 12.8 09/16/2024 ANIONGAP 8.9 09/16/2024 EGFR 40.4 (L) 09/16/2024 documented in this encounter Plan of Treatment Upcoming Encounters Date Type Department Care Team (Late st Contact Info) Description 01/20/2025 10:30 AM EST Office Visit [facility] NEUR[facility] [address] [facility] [address] [place] [address] Karol Hanson MD [address] [facility] [address] [place] [address] 06/29/2025 1:45 PM EDT Office Visit [facility] [address] [facility] [address] [place] [address] Micheal Lopez MD [address] [facility] [address] [place] [address] 11/01/2025 2:30 PM EDT Office Visit [facility] [address] [facility] [address] [place] [address] Rocky Reynolds MD [address] [facility] [address] [place], [place] [phone] Scheduled Procedures Name Priority Associated Diagnoses Date/Ti me LEFT HEART CATH w/cors Angina pectoris documented as of this encounter Visit Diagnoses Not on filedocumented in this encounter Care Teams Brief Writer Relationship Specialty Start Date End Date Bowen Escobedo MD [facility] [address] [place] [address] PCP - General Family Medicine 05/27/18 documented as of this encounter
--- OUTSIDE RECORDS SUMMARY | 2024-11-02 12:12 | XMS_ITS | Encounter Summary ---
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 - [facility] Social History Tobacco Use [...] Description 01/20/2025 10:30 AM EST Office Visit [facility]UR[facility] [address] [facility] [address] [place] [address] Karol Hanson MD [address] [facility] [address] [place] [address] 06/29/2025 1:45 PM EDT Office Visit [facility] [address] [facility] [address] [place] [address] Micheal Lopez MD [address]20 [facility] [address] [place] [address] 11/01/2025 2:30 PM EDT Office Visit [facility] [address] [facility] [address] [place] [address] Rocky Reynolds MD [address] [facility] [address] [place], [place] [phone] Scheduled Procedures Name Priority Associated Diagnoses Date/Ti me LEFT HEART CATH w/cors Angina pectoris documented as of this encounter Visit Diagnoses Not on filedocumented in this encounter Care Teams Sole Layer Relationship Specialty Start Date End Date Bowen Escobedo MD [address] [facility] [address] [place] [address] PCP - General Family Medicine 05/27/18 documented as of this encounter
--- OUTSIDE RECORDS SUMMARY | 2024-11-02 12:13 | XMS_ITS | Encounter Summary ---
Author Organization [facility] Address [address] [place] [address] Care Team Providers Care Spice Miller Name Role Phone Bowen Escobedo MD Primary Care Provider Encounter Details Date Type Department Care Team (Late st Contact Info) Description 10/24/2017 External CPT II SINGLE RESOURCE BOSS - [facility] Social History Tobacco Use [...] Description 01/20/2025 10:30 AM EST Office Visit [facility]UR[facility] [address] [facility] [address] [place] [address] Karol Hanson MD [address] [facility] [address] [place] [address] 06/29/2025 1:45 PM EDT Office Visit [facility] [address] [facility] [address] [place] [address] Micheal Lopez MD [address]20 [facility] [address] [place], [place] [id number] 11/01/2025 2:30 PM EDT Office Visit [facility] [address] [facility] [address] [place] [address] Rocky Reynolds MD [address] [facility] [address] [place] [address] Scheduled Procedures Name Priority Associated Diagnoses Date/Ti me LEFT HEART CATH w/cors Angina pectoris documented as of this encounter Visit Diagnoses Not on filedocumented in this encounter Care Teams Spice Miller Relationship Specialty Start Date End Date Bowen Escobedo MD [address] [facility] [address] [place] [address] PCP - General Family Medicine 05/27/18 documented as of this encounter
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
[2024-11-02 12:18] LABS: Hematocrit 37.1 % (37.0-47.0); Hemoglobin 11.9 g/dL (12.2-16.2); Immature Granulocytes % 0.2 %; Mean Corpuscular HGB Conc 32.1 g/dL (31.8-35.4); Mean Corpuscular Hemoglobin 32.7 pg (27.0-31.2); Mean Corpuscular Volume 101.9 fl (81-99); Nucleated Red Blood Cells % 0 %; Platelet Count 159 K/mm3 (142-424); Red Blood Count 3.64 M/mm3 (4.20-5.40); Red Cell Distribution Width-SD 51.8 fL; White Blood Count 4.1 K/mm3 (4.8-10.8)
[2024-11-02 12:24] LABS: Albumin Level 4.1 g/dl (3.5-5.0); Chloride 108 mmol/L (98-107)
--- NOTE | 2024-11-02 12:24 | CT_ITS ---
FINAL REPORT TECHNIQUE: Axial imaging of the chest is obtained after the administration of contrast. 3-D MIP reformatted images were also obtained and reviewed per PE protocol. CLINICAL HISTORY: Shortness of breath, chest pain COMPARISON: CTA abdomen 09/20/2021 FINDINGS: The pulmonary arteries are well filled. There is no evidence of pulmonary embolus. Exam is somewhat limited for evaluation of the aorta due to contrast bolus timing. However, there appears to be aortic dissection or intramural hematoma beginning at the level of the aortic arch and extending to the aortic hiatus. Heart size is enlarged. There is no mediastinal, hilar, or axillary lymphadenopathy. Basilar and subpleural predominant areas of ground glass opacity and interlobular septal thickening are favored to be related to interstitial lung disease. There is no pleural or pericardial effusion. Evaluation of the upper abdomen is limited, but abnormality of the aorta extends into the upper abdomen. Otherwise, no acute findings. No acute osseous abnormality. 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 Exam not performed using aortic protocol. This is new at the level of the diaphragm compared to prior CTA of the abdomen from 2021. No evidence of pulmonary embolism. Reviewed, Interpreted and Dictated by Gina Howell MD Transcribed by Rody Gomez Authenticated and . [facility]
[2024-11-02 12:25] LABS: Potassium 4.5 mmoL/L (3.5-5.1); Sodium 141 mmol/L (136-145)
[2024-11-02 12:27] LABS: Alanine Aminotransferase 10 U/L (12-78); Alkaline Phosphatase 99 U/L (38-126); Anion Gap 11.5 mEq/L (5-15); Aspartate Amino Transferase 22 U/L (14-36); Bilirubin,Total 1.3 mg/dl (0.2-1.3); Carbon Dioxide 26 mmol/L (22.0-30.0)
--- NOTE | 2024-11-02 12:27 | HMH.EDGENADL ---
Discharge Plan Disposition Patient Disposition: Xfer Other Prescriptions Prescriptions: No Action Eliquis 5 mg tablet 5 mg PO BID Patient Comments: TAKE 1 TABLET BY MOUTH TWICE DAILY pantoprazole 40 mg tablet,delayed release (DR/EC) 40 mg PO BID torsemide 10 mg tablet 10 mg PO DAILY Patient Comments: TAKE 1 TABLET BY MOUTH DAILY bupropion HCl 150 MG tablet extended release 24 hr 150 mg PO DAILY atorvastatin 40 MG tablet 40 mg PO HS levothyroxine [Synthroid] 75 MCG tablet 75 mcg PO DAILY gabapentin 300 MG capsule 300 mg PO BID carvedilol 12.5 MG tablet 12.5 mg PO BID montelukast 10 MG tablet 10 mg PO HS tramadol 50 mg tablet 50 mg PO HS Patient Comments: TAKE 1 TABLET BY MOUTH THREE TIMES DAILY NEEDED Entresto 49-51 mg Tablet 1 tab PO BID Referrals Follow up/Referrals: Bowen Escobedo MD [Primary Care Provider, Medical] - See instructions Clinical Impressions Clinical Impression: Aortic arch dissection Stand Alone Forms Stand Alone Forms: Transfer Record - ED Print Language Print Language: Panamanian Discharge ED Provider: Renard Benton General Adult HPI General Chief complaint: Chest Pain Stated complaint: Chest Pain Time Seen by Provider: 11/02/24 12:12 Mode of Arrival: EMS Source of Information: Patient and EMS Description of Symptoms (Recalled from ER Triage Doc. by RN): pt reports having crushing CP that started @0400. she states it goes through her shoulders and to her back. rates it a 10/10. denies SOA. no vomiting, no nausea History of Present Illness HPI narrative: Elyssa Lopez is an 84y female with a history of GERD, CKD, hypothyroidism, hypertension, hypotension who presents to the emergency department via EMS for complaints of chest pain. Patient states that she has been stressed recently as she is helping her daughter take care of her disabled family member. She states that she was at home earlier this morning cleaning the house and was on her hands and knees when she developed sudden sharp and dull midsternal chest pain that radiates to her back. She describes it as severe and unrelenting. She received nitroglycerin and 25 mcg of fentanyl with EMS with only slight improvement in the pain. She denies any history of heart attacks but states that she has a pacemaker. She does report that she is mildly short of breath and that the pain is worse with palpation. She states that it is worse with deep breathing as well. Related Data Home Medications ?Medication ?Instructions ?Recorded ?Confirmed atorvastatin 40 mg tablet 40 mg PO HS Cholesterol 06/26/17 02/03/23 bupropion HCl 150 mg 24 hr tablet, 150 mg PO DAILY Depression 06/26/17 02/03/23 extended release gabapentin 300 mg capsule 300 mg PO BID Pain 06/26/17 02/03/23 levothyroxine 75 mcg tablet 75 mcg PO DAILY Hypothyroidism 06/26/17 02/03/23 (Synthroid) carvedilol 12.5 mg tablet 12.5 mg PO BID Hypertension 05/19/19 02/03/23 montelukast 10 mg tablet 10 mg PO HS Asthma 05/19/19 02/03/23 apixaban 5 mg tablet (Eliquis) 5 mg PO BID 01/20/23 02/03/23 pantoprazole 40 mg tablet,delayed 40 mg PO BID 01/20/23 02/03/23 release torsemide 10 mg tablet 10 mg PO DAILY 01/20/23 02/03/23 sacubitril 49 mg-valsartan 51 mg 1 tab PO BID 02/03/23 02/03/23 tablet (Entresto) tramadol 50 mg tablet 50 mg PO HS 02/03/23 02/03/23 Allergies Allergy/AdvReac Type Severity Reaction Status Date / Time sulfamethoxazole (From Allergy Unknown Verified 01/20/23 15:30 Bactrim) trimethoprim (From Bactrim) Allergy Unknown Verified 01/20/23 15:30 [facility] Disclaimer: The information contained in this section may have been updated after the patient was seen, as this information can be updated by other users. Medical History (Updated 11/02/24 @ 14:27 by Renard Benton MD) Pacemaker Osteoarthritis Cataract Hoarseness Paroxysmal atrial fibrillation GERD (gastroesophageal reflux disease) Chronic kidney disease Hypothyroidism Cardiomyopathy Congestive heart failure Chronic atrial fibrillation Hypotension Hypertension Epistaxis Surgical History (Updated 02/03/23 @ 08:54 by Alissa Stone APRN) History of cataract surgery Hx of cholecystectomy History of left knee replacement History of back surgery H/O: hysterectomy Family History (Updated 02/03/23 @ 08:55 by Alissa Stone APRN) Other Cancer Social History (Updated 02/03/23 @ 03:31 by Tania Atkinson RN) Smoking Status: Never smoker alcohol intake: never current occupational status: retired Travel in the last 8 weeks?: None Have you lived/traveled outside [place] in past 30 days?: No Contact w/someone who lives/traveled outside US past 30 days?: No Exposure to someone with infectious disease in past 14 days?: No Do you have a fever (greater than 100.4 F or 38 C)?: No Have you tested positive for COVID-19?: No Exposed to someone with COVID-19 in past 14 days?: No Do you have a sore throat?: No Do you have a cough?: No Do you have any weakness?: No Do you have any diarrhea?: No Are you experiencing any unusual bleeding?: No Do you have any muscle aches/pain?: No Do you have any abdominal pain?: No Are you experiencing loss of taste or smell?: No Other Medical History Have you received the Flu Vaccine for this season: No Have you received the Pneumonia Vaccine: No ROS Obtained: Yes Systems reviewed as appropriate & no additional complaints except as documented Physical Exam General General appearance: alert and in no apparent distress Comment: appears uncomfortable Head Head exam: atraumatic Eye Eye exam: Present normal appearance ENT ENT exam: Present normal external ear exam Neck Neck exam: Present full ROM Chest Chest inspection: Present symmetric chest wall rise Respiratory Respiratory exam: Present normal lung sounds bilaterally; Absent respiratory distress, wheezes or stridor Cardiovascular Cardiovascular exam: Present regular rate and normal rhythm Abdominal Exam Abdominal exam: Present soft; Absent tenderness or guarding Extremities Exam Extremities exam: Present normal inspection Back Exam Back exam: Present normal inspection Neurological Exam Neurological exam: Present alert and oriented X3 Psychiatric Psychiatric exam: Present normal affect Skin Skin exam: Present warm and dry Medical Decision Making Medical Records Screening: Per USPSTF and CDC recommendations, given the prevalence of disease in our region, it is our hospital?s policy to screen for HIV and viral Hepatitis for all patients aged 18 and over and those with ongoing risk factors. Samuel Inquiry Pt receiving controlled substance: No Vital Signs: 11/02/24 12:05 11/02/24 12:30 11/02/24 13:00 Temperature 98.1 F Temperature Source Oral Pulse Rate 71 Pulse Rate [Right] 71 Respiratory Rate 18 Blood Pressure 158/100 H 152/108 H Blood Pressure [Right Arm] 141/97 H Blood Pressure Mean 120 Blood Pressure Mean [Right Arm] 111 02 Sat by Pulse Oximetry 97 98 Oxygen Delivery Method Room Air Lab Data Lab Results 11/02/24 12:00: WBC 4.1 L, RBC 3.64 L, Hgb 11.9 L, Hct 37.1, MCV 101.9 H, MCH 32.7 H, MCHC 32.1, RDW 13.7, Plt Count 159, MPV 10.5 H, Neut % (Auto) 71.7, Lymph % (Auto) 17.1, [place] % (Auto) 7.6, Eos % (Auto) 2.7, Baso % (Auto) 0.7, Neut # (Auto) 2.9, Lymph # (Auto) 0.7, [place] # (Auto) 0.3, Eos # (Auto) 0.1, Baso # (Auto) 0.0, PT 12.8 H, INR 1.17 H, APTT 29.2, Sodium 141, Potassium 4.5, Chloride 108 H, Carbon Dioxide 26, Anion Gap 11.5, BUN 20 H, Creatinine 1.20 H, Estimated Creat Clear 40, Estimated GFR 43 L, Est GFR ( Amer) 52 L, Glucose 83, Calcium 9.2, Total Bilirubin 1.3, AST 22, ALT 10 L, Alkaline Phosphatase 99, Troponin I < 0.01, NT-Pro-B Natriuret Pep 4230 H, Total Protein 7.1, Albumin 4.1, Globulin 3.0, Albumin/Globulin Ratio 1.4, HCV Ab VERENICE w/Rflx PCR Qn Negative, HIV Ag/Ab Combo Qual Negative 11/02/24 12:24: VBG pH 7.32, VBG pCO2 32.8 L, VBG pO2 51.0 H, VBG HCO3 16.6 L, VBG Total CO2 17.6 L, VBG O2 Saturation 80.0 H, VBG Base Excess -9.5 L, VBG Lactic Acid 0.7 11/02/24 12:00 11/02/24 12:00 Orders (Tests/Meds): ED MEDICATIONS Generic Name Dose Route Start Last Admin Trade Name Freq PRN Reason Stop Dose Admin Esmolol HCl 2,500 mg in 250 mls @ 22.453 mls/hr 11/02/24 14:30 11/02/24 15:16 Esmolol In Water 2,500mg/250ml Premix IV 12/02/24 14:29 300 mcg/kg/min .Q11H9M DMITRI 134.72 mls/hr Protocol Titration 50 MCG/KG/MIN Nicardipine HCl 25 mg/ Sodium 250 mls @ 50 mls/hr 11/02/24 15:32 11/02/24 15:43 Chloride IV 12/02/24 15:31 5 mg/hr .Q5H DMITRI 50 mls/hr Protocol Administration 5 MG/HR Discontinued Medications Generic Name Dose Route Start Last Admin Trade Name Burtq PRN Reason Stop Dose Admin Aspirin 325 mg 11/02/24 12:24 11/02/24 12:31 Aspirin 325mg Tablet PO 11/02/24 12:25 325 mg ONCE ONE Administration Iopamidol 80 ml 11/02/24 13:32 11/02/24 13:33 Iopamidol-370 (76%);100ml Bottle IV 11/02/24 13:33 80 ml ONCE ONE Administration Morphine Sulfate 2 mg 11/02/24 12:24 11/02/24 12:31 Morphine 2mg/Ml Syringe IV 11/02/24 12:25 2 mg ONCE ONE Administration Sodium Chloride 50 ml 11/02/24 13:32 11/02/24 13:33 0.9 % Sodium Chloride 50 Ml Vial IV 11/02/24 13:33 50 ml ONCE ONE Administration Sodium Chloride 10 ml 11/02/24 13:32 11/02/24 13:33 Sodium Chloride 0.9% 10ml Syr (Rad Only) IV 11/02/24 13:33 10 ml ONCE ONE Administration ORDERS Category Date Time Status CT angio chest PE protocol Stat Cat Scan 11/02/24 12:24 Completed Chest XR -- portable [XR chest portable] Stat Exams 11/02/24 12:12 Completed POCUS Point of Care (ER Only) Stat Exams 11/02/24 14:02 Completed BNP [NT Pro Brain Natriuretic Pep.] Stat Lab 11/02/24 12:00 Completed Complete Blood Count Auto Diff Stat Lab 11/02/24 12:00 Completed Comprehensive Metabolic Panel Stat Lab 11/02/24 12:00 Completed HIV Combo Stat Lab 11/02/24 12:00 Completed Hepatitis C Ab Qual. W/ RFX Stat Lab 11/02/24 12:00 Completed PT INR [Prothrombin Time INR] Stat Lab 11/02/24 12:00 Completed PTT [Activated Partial Thrombo Time] Stat Lab 11/02/24 12:00 Completed Troponin I Q3H Lab 11/02/24 16:00 Received Troponin I Q3H Lab 11/02/24 18:15 Ordered Troponin I Stat Lab 11/02/24 12:00 Completed VBG [Venous Blood Gas] Stat RT 11/02/24 12:24 Completed ECG Data Tracing #1: I reviewed this ECG and interpreted as documented below: Ventricularly paced rhythm. No ST elevation or depression. T wave inversions in V2 and aVL. QTc of 493. Medical Decision Narrative: Elyssa Lopez is an 84y female with a history of GERD, CKD, hypothyroidism, hypertension, hypotension who presents to the emergency department via EMS for complaints of chest pain. Patient states that she has been stressed recently as she is helping her daughter take care of her disabled family member. She states that she was at home earlier this morning cleaning the house and was on her hands and knees when she developed sudden sharp and dull midsternal chest pain that radiates to her back. She describes it as severe and unrelenting. She received nitroglycerin and 25 mcg of fentanyl with EMS with only slight improvement in the pain. She denies any history of heart attacks but states that she has a pacemaker. She does report that she is mildly short of breath and that the pain is worse with palpation. She states that it is worse with deep breathing as well. On arrival, patient is hypertensive, heart rate within normal limits, heart rate within normal limits. Oxygen saturation 98% SpO2. Afebrile. Physical exam, as stated above, revealed an overall nontoxic-appearing female in no respiratory distress. She does appear mildly uncomfortable. Cardiopulmonary exam reveals no murmurs, wheezing. No rales or rhonchi. Abdomen is soft, nontender nondistended. Differential diagnosis includes, but is not limited to: ACS, pulmonary embolism, aortic dissection, pericarditis, gastroesophageal reflux disease, rib fracture, costochondritis, among others. The most morbid conditions were considered and workup was based on these. Patient was given 325 mg of oral aspirin as well as 2 mg of IV morphine. Workup in the emergency department included CTA pulmonary embolism, troponin, CBC with differential, CMP, BNP, VBG with lactate, chest x-ray, EKG. EKG showed isolated T wave inversions and V2 and aVL without ST depression or elevation. See interpretation above. Chest x-ray interpreted by me personally. Patient does appear to have a widened mediastinum and some increased pulmonary vascular congestion. See final radiology report for details. Laboratory studies show chronically low white blood cell count of 4.1 (at baseline), hemoglobin near baseline at 11.9, hematocrit 37.1. VBG showed low bicarb of 16.6 but pH normal at 7.32, pCO2 low at 32.8, lactate of 0.7. Chronically elevated creatinine at baseline of 1.2, BUN chronically elevated and at baseline of 20. Electrolytes within normal limits. Liver enzymes within normal limits. Initial troponin less than 0.01. BNP is elevated at 4230, this is above last check in 2020. CT imaging was interpreted by me personally and confirmed via radiologist. Patient appears to have an aortic dissection versus intramural hematoma from the aortic arch extending into the upper abdomen, which is new compared to previous scan in 2021. Given these findings, patient was started on an esmolol drip for tight impulse and blood pressure control and patient states that she is followed by cardiology at [facility]. Will arrange for transfer to [facility] as she will likely need cardiothoracic surgery. [id number] cardiac ultrasound was performed by me personally. No pericardial effusion is noted. Globally enlarged heart. No focal wall hypokinesis. I discussed case with Janina, nurse coordinator at [facility] who stated that the CT surgeon is currently scrubbed in in the OR and is unable to take the call and recommended we send that patient elsewhere. Will attempt to talk to transfer [place] for transfer. I spoke with Dr. Begum at 1458 at the [facility] transfer center who stated that she attempted to call cardiothoracic surgery however had not heard back from them. Will call back once they are able to look at the images. Dr. Begum at the transfer center called back at 1547 and patient was excepted to the [facility] emergency department for transfer as she would likely need vascular surgery evaluation. Patient was also started on Cardene drip due to continued elevated blood pressures. Patient's heart rate has remained in the 70s, although she is in a paced rhythm. She is currently on Cardene and maxed on esmolol. Will transfer the patient via [facility]. Procedures Limited Ultrasound Interpretation:: Limited cardiac ultrasound Indication: -Chest pain -Shortness of breath Identified cardiac views: -Cardiac parasternal long axis -Cardiac parasternal short axis -Cardiac apical four-chamber -Cardiac subxiphoid Findings: -Cardiac activity present -Wall motion mildly reduced -Pericardial effusion absent -Right heart strain absent Impression: - From above Images were saved to permanent archive The study was technically adequate CPT: 20131 This study was performed by me, and I personally interpreted all images/videos. Based on my clinical judgement, these images were adequate and did not not necessitate further imaging. Critical Care Critical Care Time Critical Care Time: Yes Attestation: On 11/02/24, the high probability of a clinically significant, sudden or life threatening deterioration of the following system(s) required my full and direct attention, intervention and personal management. The time I documented below is in addition to time spent performing reported procedures but includes the following listed in this critical care notation. Total Time Total Critical Care Time: 45
[2024-11-02 12:28] LABS: Albumin/Globulin Ratio 1.4 (1.1-1.8); Calcium 9.2 mg/dl (8.4-10.2); Globulin 3.0 g/dL (1.3-3.2); Glucose 83 mg/dl (74-100); Total Protein,Serum 7.1 g/dl (6.3-8.2)
[2024-11-02 12:30] VITALS: BP 158/100; PULSE 71; O2SAT 98
[2024-11-02] MEDS: MORPHINE 2MG/ML SYRINGE 2 MG IV (12:31)
[2024-11-02] MEDS: ASPIRIN 325MG TABLET 325 MG PO (12:31)
--- NOTE | 2024-11-02 12:40 | PC.NURSE ---
Collected and sent VBG to lab. Notified respiratory.
[2024-11-02 12:42] LABS: Lactate Venous 0.7 mmol/L (0.4-2.0); VBG HCO3 16.6 mmol/L (23-30); VBG PCO2 32.8 mmol/L (35-51); VBG PH 7.32 mmol/L (7.31-7.41); VBG PO2 51.0 mmol/L (28-40)
[2024-11-02 12:50] LABS: NT Pro Brain Natriuretic Pep. 4230 pg/mL (0-450)
[2024-11-02 13:00] VITALS: BP 152/108
[2024-11-02 13:14] LABS: Blood Urea Nitrogen 20 mg/dl (7-17); Creatinine Clearance Estimated 40 mL/min (50-200); Creatinine,Serum 1.20 mg/dl (0.52-1.04); Estimated Glomerular Filt Rate 43 ml/min (>60); GFR (African American) 52 ML/MIN (>60)
[2024-11-02 13:27] LABS: Troponin I < 0.01 ng/ml (0.00-0.034)
[2024-11-02 13:28] LABS: Hepatitis C Ab Qual. W/ RFX NEGATIVE (Negative)
[2024-11-02] MEDS: SODIUM CHLORIDE 0.9% 10ML SYR (RAD ONLY) 10 ML IV (13:33)
[2024-11-02] MEDS: IOPAMIDOL-370 (76%);100ML BOTTLE 80 ML IV (13:33)
[2024-11-02] MEDS: 0.9 % SODIUM CHLORIDE 50 ML VIAL IV (13:33)
--- NOTE | 2024-11-02 14:26 | PC.NURSE ---
call made to [facility] for weather check. possible ETA 36 minutes
--- NOTE | 2024-11-02 14:26 | PC.NURSE ---
Called [facility] per Dr Benton to have this pt transferred to there facility for an Aortic Dissection. Patient asked to call [facility] because thats where there animal husbandry worker is so calling [facility] now.
[2024-11-02] MEDS: ESMOLOL HCL IN STERILE WATER 2,500 MG/250 ML PIGGYBACK 22.45 MG IV (14:30)
--- NOTE | 2024-11-02 14:30 | PC.NURSE ---
[facility] accept flight stand by at [facility] call back [facility] when have accepting MD AGUILAR 36 minutes
--- NOTE | 2024-11-02 14:33 | PC.NURSE ---
Called [facility] per Dr Benton about this pt with an Aortic Dissection. [facility] said they would call back
--- NOTE | 2024-11-02 14:45 | PC.NURSE ---
Called [facility] back to speak to them about this pt since [facility] declined. they said they would call us back
[2024-11-02 14:53] LABS: Activated Partial Thrombo Time 29.2 seconds (22.8-30.6); INR 1.17 (0.9-1.1); Prothrombin Time 12.8 seconds (10.1-12.5)
--- NOTE | 2024-11-02 15:05 | PC.NURSE ---
spoke with MD in regards to esmolol increase. okayed to increase to max of 300.
[2024-11-02] MEDS: NICARDIPINE HCL 25 MG in 0.9 % SODIUM CHLORIDE 240 ML 50 MG IV (15:43)
--- NOTE | 2024-11-02 15:47 | PC.NURSE ---
called back and is speaking with Dr Benton at this time
--- NOTE | 2024-11-02 15:52 | PC.NURSE ---
[facility] was pulled to another transport. [facility] checking with [facility] for possible transfer. will call back with update
--- NOTE | 2024-11-02 15:56 | PC.NURSE ---
[facility] called back and said [facility] was in the air and would be at our facility in 10 minutes. Let House know and maintenance
[2024-11-02 16:10] VITALS: BP 96/68; PULSE 77; RESP 16; TEMP 36.9; O2SAT 98
[2024-11-02 16:45] LABS: Troponin I < 0.01 ng/ml (0.00-0.034)
== END 2024-11-02 16:26 | disposition other institution (70) ==
PROVIDERS: Emergency Provider Student in an Organized Health Care Education/Training Program; PCP Family Medicine
DX: I71.011 Dissection of aortic arch (principal); I48.91 Unspecified atrial fibrillation; I13.0 Hypertensive heart and chronic kidney disease with heart failure and stage 1 through stage 4 chronic kidney disease, or unspecified chronic kidney disease; N18.9 Chronic kidney disease, unspecified; I50.9 Heart failure, unspecified
CPT/HCPCS: 71045; 71275; 80053; 82803; 83880; 84484; 85025; 85610; 85730; 86803; 87389; 93005; 96365; 96367; 96375; 99284; 99291; J1806; J2270; J2404; J7050; Q9967

== ENCOUNTER 2025-01-17 22:26 | Observation (INO) | payer MEDICARE, OTHER, SELFPAY ==
[2025-01-17] VITALS (13 sets, daily range): BP systolic 106–180; BP diastolic 70–112; PULSE 69–75; RESP 12–21; TEMP 37.3; O2SAT 92–95; BMI 29.8
--- NOTE | 2025-01-17 22:28 | ECG_ITS ---
APPROVED REPORT Exam: Resting ECG HR:69 bpm ECG Measurements Heart Rate 69 AXES QRSd 137 QRS -71 QT 458 T 88 QTc 478 Conclusion ELECTRONIC VENTRICULAR PACEMAKER ABNORMAL RHYTHM ECG UNCONFIRMED REPORT Electronically signed by : MARCO ANTONIO BENITEZ, 01/18/2025 05:21:25
--- OUTSIDE RECORDS SUMMARY | 2025-01-17 22:31 | XMS_ITS | Encounter Summary ---
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 - [facility] Social History Tobacco Use [...] Description 01/20/2025 10:30 AM EST Office Visit [facility] NEUROLOGY [address] [facility] [address] [place] [address] Karol Hanson MD [address] [facility] [address] [place] [address] 06/29/2025 1:45 PM EDT Office Visit [facility] CARDIOLOGY [address] [facility] [address] [place] [address] Micheal Lopez MD [address] [facility] [address] [place], [place] [id number] 11/01/2025 2:30 PM EDT Office Visit [facility] CARDI[facility]Y [address] [facility] [address] [place] [address] Rocky Reynolds MD [address] [facility] [address] [place] [address] Scheduled Procedures Name Priority Associated Diagnoses Date/Ti me LEFT HEART CATH w/cors Angina pectoris documented as of this encounter Visit Diagnoses Not on filedocumented in this encounter Care Teams Septic Tank Servicer Relationship Specialty Start Date End Date Bowen Escobedo MD [address] [facility] [address] [place] [address] PCP - General Family Medicine 05/27/18 documented as of this encounter
--- OUTSIDE RECORDS SUMMARY | 2025-01-17 22:31 | XMS_ITS | Encounter Summary ---
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 - [facility] Social History Tobacco Use [...] Description 01/20/2025 10:30 AM EST Office Visit [facility] NEUROLOGY [address] [facility] [address] [place] [address] Karol Hanson MD [address] [facility] [address] [place] [address] 06/29/2025 1:45 PM EDT Office Visit [facility] CARDIOLOGY [address] [facility] [address] [place] [address] Micheal Lopez MD [address] [facility] [address] [place], [place] [id number] 11/01/2025 2:30 PM EDT Office Visit [facility] CARDIOLOGY [address] [facility] [address] [place] [address] Rocky Reynolds MD [address] [facility] [address] [place] [address] Scheduled Procedures Name Priority Associated Diagnoses Date/Ti me LEFT HEART CATH w/cors Angina pectoris documented as of this encounter Visit Diagnoses Not on filedocumented in this encounter Care Teams Deputy Sheriff Civil Division Relationship Specialty Start Date End Date Bowen Escobedo MD [address] [facility] [address] [place] [address] PCP - General Family Medicine 05/27/18 documented as of this encounter
--- NOTE | 2025-01-17 22:32 | CT_ITS ---
PROCEDURE INFORMATION: Exam: CTA Chest With Contrast Exam date and time: 01/17/2025 11:21 PM Age: 84 years old Clinical indication: Pain; Chest pressure; HX of dissection; Additional info: Cp TECHNIQUE: Imaging protocol: Computed tomographic angiography of the chest with contrast. Exam focused on the arteries. 3D rendering (Not supervised by radiologist): MIP and/or 3D reconstructed images were created by the technologist. Radiation optimization: All CT scans at this facility use at least one of these dose optimization techniques: automated exposure control; mA and/or kV adjustment per patient size (includes targeted exams where dose is matched to clinical indication); or iterative reconstruction. Contrast material: ISOVUE; Contrast volume: 80 ml; Contrast route: INTRAVENOUS (IV); COMPARISON: CT ANGIO CHEST PE PROTOCOL 11/02/2024 1:35 PM FINDINGS: Tubes, catheters and devices: A pacing device enters via the left subclavian vein. Pulmonary arteries: The pulmonary artery is dilated measuring 3.5 cm diameter. No pulmonary embolus. Aorta: Again noted is a type B dissection beginning at the distal arch level and extending into the proximal abdominal aorta. There is opacification of the false lumen along the distal aspect of the arch and at the mid to distal descending aortic level. There has been an overall increase in the false lumen component of the dissection. For example the false lumen now measures 1.9 cm in thickness between the left pulmonary artery and proximal descending aorta series 8, image 40 compared to 1.1 cm on series 5, image 48 of the prior study. Lungs: Chronic peripheral interstitial lung disease is present. Pleural spaces: Unremarkable. No pneumothorax. No pleural effusion. Heart: The heart is enlarged. Lymph nodes: Unremarkable. No enlarged lymph nodes. Bones/joints: There are moderate to severe degenerative changes of the thoracic spine. No acute fracture. Soft tissues: Unremarkable. 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
--- NOTE | 2025-01-17 22:32 | CT_ITS ---
PROCEDURE INFORMATION: Exam: CTA Abdomen and Pelvis With Contrast Exam date and time: 01/17/2025 11:21 PM Age: 84 years old Clinical indication: Pain; Other: Chest; HX of dissection; Additional info: Cp, R/O dissection TECHNIQUE: Imaging protocol: Computed tomographic angiography of the abdomen and pelvis with contrast. Exam focused on the arteries. 3D rendering (Not supervised by radiologist): MIP and/or 3D reconstructed images were created by the technologist. Radiation optimization: All CT scans at this facility use at least one of these dose optimization techniques: automated exposure control; mA and/or kV adjustment per patient size (includes targeted exams where dose is matched to clinical indication); or iterative reconstruction. 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 The remainder of the abdominal aorta is ectatic without aneurysmal dilatation or dissection. Moderate calcific atherosclerotic disease is evident. Celiac and mesenteric arteries: No occlusion. 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 Renal arteries: No occlusion or significant stenosis. There are accessory bilateral renal arteries. Right iliac arteries: No occlusion or significant stenosis. Left iliac arteries: No occlusion or significant stenosis. Liver: No mass. Gallbladder and biliary ducts: The gallbladder is absent. There is no biliary ductal dilation. Pancreas: Unremarkable. No mass. No ductal dilation. Spleen: Unremarkable. No splenomegaly. Adrenal glands: Unremarkable. No mass. Kidneys and ureters: No hydronephrosis or stone disease. There is a 2.8 cm cortical cyst upper pole right kidney. Stomach and bowel: There is left colon diverticulosis without acute inflammation. No bowel obstruction. No mucosal thickening. Appendix: No evidence of appendicitis. Intraperitoneal space: Unremarkable. No free air. No significant fluid collection. Lymph nodes: Unremarkable. No enlarged lymph nodes. Urinary bladder: Unremarkable. No mass. Reproductive: The uterus is absent. Bones/joints: There is severe degenerative changes of the spine. There is hardware fusion from L3 through S1. The hardware is intact. Soft tissues: Unremarkable. IMPRESSION: 1. The known type B aortic dissection extends into the supra celiac component of the abdominal aorta. The remainder of the abdominal aorta does not demonstrate an acute abnormality. There approximate 50% stenoses of the proximal celiac axis and SMA. 2. Other nonurgent findings as noted.
--- NOTE | 2025-01-17 22:32 | CT_ITS ---
PROCEDURE INFORMATION: Exam: CT Head Without Contrast Exam date and time: 01/17/2025 11:18 PM Age: 84 years old Clinical indication: Pain; Headache; Additional info: HOPE TECHNIQUE: Imaging protocol: Computed tomography of the head without contrast. Radiation optimization: All CT scans at this facility use at least one of these dose optimization techniques: automated exposure control; mA and/or kV adjustment per patient size (includes targeted exams where dose is matched to clinical indication); or iterative reconstruction. 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 Cerebral ventricles: No ventriculomegaly. Paranasal sinuses: Visualized sinuses are unremarkable. No fluid levels. Mastoid air cells: Visualized mastoid air cells are well aerated. Bones: Unremarkable. No acute fracture. Soft tissues: Unremarkable. 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
--- OUTSIDE RECORDS SUMMARY | 2025-01-17 22:32 | XMS_ITS | Encounter Summary ---
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 - [facility] Social History Tobacco Use [...] AM EST Office Visit [facility] NEUROLOGY [address] [facility] [address] [place] [address] Karol Hanson MD [address] [facility] [address] [place] [address] 06/29/2025 1:45 PM EDT Office Visit [facility] CARDIOLOGY [address] [facility] [address] [place] [phone] Micheal Lopez MD [address] [facility] [address] [place] [address] 11/01/2025 2:30 PM EDT Office Visit [facility] CARDIOLOGY [address] [facility] [address] [place] [address] Rocky Reynolds MD [address] [facility] [address] [place], [place] [phone] Scheduled Procedures Name Priority Associated Diagnoses Date/Ti me LEFT HEART CATH w/cors Angina pectoris documented as of this encounter Visit Diagnoses Not on filedocumented in this encounter Care Teams Hotel Reservation Agent Relationship Specialty Start Date End Date Bowen Escobedo MD [address] [facility] [address] [place] [address] PCP - General Family Medicine 05/27/18 documented as of this encounter
--- OUTSIDE RECORDS SUMMARY | 2025-01-17 22:32 | XMS_ITS | Encounter Summary ---
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 - [facility] Social History Tobacco Use [...] 10:30 AM EST Office Visit [facility] NEUROLOGY [address] [facility] [address] [place] [address] Karol Hanson MD [address] [facility] [address] [place] [address] 06/29/2025 1:45 PM EDT Office Visit [facility] CARDIOLOGY [address] [facility] [address] [place] [address] Micheal Lopez MD [address] [facility] [address] [place] [address] 11/01/2025 2:30 PM EDT Office Visit [facility] CARDIOLOGY [address] [facility] [address] [place] [address] Rocky Reynolds MD [address] [facility] [address] [place], [place] [phone] Scheduled Procedures Name Priority Associated Diagnoses Date/Ti me LEFT HEART CATH w/cors Angina pectoris documented as of this encounter Visit Diagnoses Not on filedocumented in this encounter Care Teams Welfare Aide Relationship Specialty Start Date End Date Bowen Escobedo MD [address] [facility] [address] [place] [address] PCP - General Family Medicine 05/27/18 documented as of this encounter
--- OUTSIDE RECORDS SUMMARY | 2025-01-17 22:32 | XMS_ITS | Clinical Summary ---
[facility] Address [address] [place] [address] Care Team Providers Care Voltage Inspector Name Role Phone Bowen Escobedo MD [...] Take 1 tablet by mouth Daily. 0 03/28/19 18 Active atorvastatin (LIPITOR) 40 MG tablet Take 1 tablet by mouth Every Night. 0 03/13/19 18 Active levothyroxine (SYNTHROID, LEVOTHROID) 75 MCG tabletIndication s:Hypothyroidism , unspecified type take 1 tablet by mouth once daily 30 tablet 06/03/19 18 Active pantoprazole (PROTONIX) 40 MG EC tablet Take 1 tablet by mouth 2 (Two) Times a Day. Active montelukast (SINGULAIR) 10 MG tablet Take 1 tablet by mouth Every Night. 0 09/23/19 19 Active gabapentin (NEURONTIN) 300 MG capsule Take 1 capsule by mouth 3 (Three) Times a Day. 12 capsule 01/08/20 19 Active cetirizine (zyrTEC) 10 MG tablet Take 1 tablet by mouth As Needed. Active traMADol (ULTRAM) 50 MG tablet Take 1 tablet by mouth 3 (Three) Times a Day As Needed. for pain 08/22/19 21 Active meclizine (ANTIVERT) 12.5 MG tablet Take 1 tablet by mouth 3 (Three) Times a Day As Needed. 12/19/19 21 Active silver sulfadiazine (SILVADENE, SSD) 1 % cream Apply topically to the appropriate area as directed See Admin Instructions. Apply topically to the affected area twice daily 06/13/19 22 Active ipratropium (ATROVENT) 0.06 % nasal spray Every 8 (Eight) Hours. Active NON FORMULARY As Needed. Neuro Reformulating cream for arthritis Active cyclobenzaprine (FLEXERIL) 5 MG tablet Take 1 tablet by mouth As Needed. Active triamcinolone (KENALOG) 0.5 % cream Apply 1 Application topically to the appropriate area as directed Daily. 10/26/19 23 Active sacubitril-valsa rtan (Entresto) 49-51 MG tablet Take 1 tablet by mouth 2 (Two) Times a Day. 180 tablet 3 04/28/19 25 Active Cyanocobalamin (B-12) 1000 MCG tablet controlled-relea se Take 1 tablet by mouth Daily. 05/11/19 25 Active carvedilol (COREG) 12.5 MG tabletIndication s:Primary hypertension Take 0.5 tablets by mouth 2 (Two) Times a Day. 08/07/19 25 Active torsemide (DEMADEX) 10 MG tablet TAKE 1 TABLET BY MOUTH DAILY 90 tablet 3 09/18/19 25 Active Eliquis 5 MG tablet tablet TAKE 1 TABLET BY MOUTH TWICE DAILY 180 tablet 3 09/28/19 25 Active Active Problems Problem Noted Date Diagnosed Date JASON (obstructive sleep apnea) 12/29/2018 Dyslipidemia 12/12/2017 Biventricular cardiac pacemaker in situ 10/16/19 18 Overview (10/15/2017): 1. [facility] Pacemaker - Oct 2017 NICM (nonischemic cardiomyopathy) 06/20/2017 CHF (congestive heart failure) 05/28/2017 Overview (05/28/2017): 1. Echo 04-09-17 Left atrial cavity size is lsff-ey-usjukrbgzx dilated. Sfco-vq-xbgewvlg mitral valve regurgitation is present. Mild tricuspid valve regurgitation is present. Mild pulmonic valve regurgitation is present. Left ventricular systolic function is severely decreased. Estimated EF = 33%. The left ventricular cavity is mildly dilated. 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 PAD (peripheral artery disease) 05/28/2017 Overview (05/28/2017): 1. AA with runoff and TE[employer] Apr 2013 Mixed hyperlipidemia 05/16/2017 Hypothyroidism 04/09/2017 Hypertension Persistent atrial fibrillation Overview (04/25/2017): Hx of atrial flutter s/p flutter ablation 06/03/13 ([facility]) Chadsvasc: 4 Echo 09/01/13: Normal EF, 68%, [...] Description 10/19/2024 10:45 AM EDT Office Visit [facility] CARDIOLOGY [address] [place] [phone] Rocky Reynolds MD Persistent atrial fibrillation (Primary Dx); NICM (nonischemic cardiomyopathy); Congestive heart failure, unspecified HF chronicity, unspecified heart failure type; Biventricular cardiac pacemaker in situ; Primary hypertension 10/19/2024 Travel from Last 3 Months Immunizations Immunization [...] Description 01/20/2025 10:30 AM EST Office Visit [facility] NEUROLOGY [address] [place] [address] Karol Hanson MD [address] [facility] [address] [place] [address] 06/29/2025 1:45 PM EDT Office Visit [facility] CARD[facility] [address] [facility] [address] [place] [phone] Micheal Lopez MD [address] [facility] [address] [place], [place] [id number] 11/01/2025 2:30 PM EDT Office Visit [facility] [address] [facility] [address] [place] [address] Rocky Reynolds MD [address] [facility] [address] [place], [place] [phone] Scheduled Procedures Name Priority Associated Diagnoses Date/Ti me LEFT HEART CATH w/cors Angina pectoris Health Maintenance Due Date Last Done Comments TDAP/TD VACCINES (1 - Tdap) 07/09/1959 ZOSTER VACCINE (1 of 2) 07/09/1989 RSV Vaccine - Adults (1 - 1- dose 75+ series) 07/09/2014 Pneumococcal Vaccine 50+ (2 of 2 - PPSV23, PCV20, or PCV21) 02/18/2018 12/24/2017, 12/13/2016 COVID-19 Vaccine (3 - Modern a risk series) 03/15/2021 02/15/2021, 05/17/2020, 04/19/2020 DXA SCAN 06/23/2023 06/22/2021, 05/07/2018 ANNUAL WELLNESS VISIT 10/16/2023 10/15/2022 , 06/11/2021, 08/18/2018, Additional history exists LIPID PANEL 10/16/2023 10/15/2022, 12/09, 06/14/2021, Additional history exists INFLUENZA VACCINE 10/08/2024 01/16/2022, , 01/16/2022, Additional history exists HEMOGLOBIN A1C Discontinued 12/17/2018, 12/08, 08/18/2018, Additional history exists Medical Devices Implanted Type Area Farmworker Fur Device Identifier Shelf Expiration Date Model / Serial / Lot Cmt Bone Simplex/P Full Dose 10/Pk - [id number] Implanted:Qty: 2 on 12/29/2018 by Norbert Ortez MD at [facility] Implant Left: Knee AURA [employer]INA 12/07/2020 [id number] / / [id number] Comp Fem Legion Oxinium Ps Sz5 Lt - [id number] Implanted:Qty: 1 on 12/29/2018 by Norbert Ortez MD at [facility] Implant Left: Knee [employer] 10/31/2028 [id number] / / [id number] Pat Gen2 Resrf 32mm - [id number] Implanted:Qty: 1 on 12/29/2018 by Norbert Ortez MD at [facility] Implant Left: Knee [employer] 10/31/2028 [id number] / / [id number] Base Tib/Kn Gen2 Nonpor Ti Sz3 Lt - [id number] Implanted:Qty: 1 on 12/29/2018 by Norbert Ortez MD at [facility] Implant Left: Knee [employer] 08/18/2028 [id number] / / [id number] Insrt Art Legion Ps Hf Xlpe Sz3to4 10mm - [id number] Implanted:Qty: 1 on 12/29/2018 by Norbert Ortez MD at [facility] Implant Left: Knee [employer] 11/16/2028 [id number] / / [id number] Totl Kn Joshua Mccloud Nephew - [id number] Implanted:Qty: 1 on 12/29/2018 by Norbert Ortez MD at [facility] Implant Left: Knee [employer] CAPKNEETOTA LSN2 / / Ld Pm Tendril Sts 6f52cm [id number] - [id number] - [id number] Implanted:Qty: 1 on 10/15/2017 by Seb Phelan MD at [facility] Lead [employer] 08/07/[id number] / [id number] / Ld Quartet Lv S/Crv Bipol 1458q/75 - [id number] - [id number] Implanted:Qty: 1 on 10/15/2017 by Seb Phelan MD at [facility] Lead [facility] 08/08/2019 [id number] / [id number] / Gen Pm Allure Quadra Bivent Rf Crtp [id number] - [id number] - [id number] Implanted:Qty: 1 on 10/15/2017 by Seb Phelan MD at [facility] Pacemaker [facility] 01/07/2019 [id number] / [id number] / [id number] Description:home monitoring Procedures Procedure Name Priority Date/Time Associated Diagnosis Comments REMOTE DEVICE CHECK 10/31/2024 8 :19 PM EDT HEMOGLOBIN A1C Routine 12/17/2018 3:59 PM EDT LIPID PANEL STAT 05/28/2017 6:39 AM EDT from Last 3 Months or Most Recently Relevant to Health Maintenance Results * Remote Device Check (10/31/2024 8:19 PM EDT) Date Time Interrogation Session [id number] [facility] Type Interrogation Session Remote Scheduled [facility] Implantable Pulse Generator Farmworker Fur [employer] [facility] Implantable Pulse Generator Type MENTAL RETARDATION AIDE-P [facility] Implantable Pulse Generator Model [id number] Quadra Allure MP(TM) RF [facility] Implantable Pulse Generator Serial Number [id number] [facility] Implantable Pulse Generator Implant Date [id number] [facility] Battery Remaining Percentage 33.00 % [facility] Battery Remaining Longevity 30.0 mo [facility] Battery Voltage 2.960 [facility] Battery HOOK AND EYE ATTACHER Trigger 2.620 [facility] Battery Status Middle of Service [facility] MENTAL RETARDATION AIDE Statistic MENTAL RETARDATION AIDE Percent Paced 99.00 [facility] Lead Channel RV Sensing Intrinsic Amplitude 6.100 [facility] Lead Channel Setting RV Sensing Sensitivity 2.00 [facility] Lead Channel RV Impedance Value 360 [facility] Lead Channel RV Pacing Threshold Amplitude 0.750 [facility] Lead Channel RV Pacing Threshold Pulse Width 0.5 [facility] [employer] [facility] Lead Channel RV Measurements Date and Time [id number] [facility] [employer] [facility] Lead Channel Setting RV Pacing Amplitude 2.000 [facility] Lead Channel Setting RV Pacing Pulse Width 0.5 [facility] [employer] Lead Channel LV Impedance Value 990 [facility] [employer] [facility] Lead Channel LV Pacing Threshold Amplitude 1.000 [facility] Lead Channel LV Pacing Threshold Pulse Width 0.7 [facility] [employer] [facility] LV Lead Channel Measurements Date and Time [id number] [facility] [employer] [facility] Lead Channel Setting LV Pacing Amplitude 2.000 [facility] [employer] [facility] Lead Channel Setting LV Pacing Pulse Width 0.7 [facility] [employer] [facility] [place] Setting Mode (NBG Code) VVIR [facility] [employer] Ventricular chambers paced during MENTAL RETARDATION AIDE pacing. BiV [facility] [employer] [facility] [place] Setting Lower Rate Limit 70 [facility] [employer] [facility] [place] Setting Maximum Sensor Rate 120 [facility] [facility] MENTAL RETARDATION AIDE LV-RV Delay 0 [facility] [employer] [facility] Lead Channel Setting RA Sensing Polarity Bipolar [facility] Lead Channel Setting RV Sensing Polarity Bipolar [facility] Lead Channel Setting RA Pacing Polarity Bipolar [facility] Lead Channel Setting RV Pacing Polarity Bipolar [facility] Lead Channel Setting LV Pacing Polarity Bipolar [facility] Lead Channel RV Pacing Threshold Polarity Bipolar [facility] Lead Channel LV Pacing Threshold Polarity Bipolar [facility] [employer] 10/31/2024 8:19 PM EDT us Rocky Reynolds MD CV IMPLANTABLE CARDIAC DEVICE Fi nal Result [facility] * Hemoglobin A1c (12/17/2018 3:59 PM EDT) Hemoglobin A1C 5.30 4.80 - 5.60 % 12/17/2018 5:10 PM EDT [facility] [employer] [facility] Blood Venipuncture / Unknown 12/17/2018 3:59 PM EDT 12/17/2018 4:32 PM EDT Narrative [facility] [employer] [facility] - 12/17/2018 5:10 PM EDT Hemoglobin A1C Ranges: Increased Risk for Diabetes 5.7% to 6.4% Diabetes >= 6.5% Diabetic Goal < 7.0% Nathen Johnson MD LAB BLOOD ORDERABLES Gwendolyn l Result Performing Organization Address [facility] Co de Phone Number [facility]
[address] [place] [address], * Lipid Panel (05/28/2017 6:39 AM EDT) Total Cholesterol 120 0 - 200 mg/dL 05/28/2017 7:24 AM EDT [facility] Triglycerides 80 0 - 150 mg/dL 05/28/2017 7:24 AM EDT [facility] HDL Cholesterol 47 40 - 60 mg/dL 05/28/2017 7:24 AM EDT [facility] LDL Cholesterol 67 0 - 130 mg/dL 05/28/2017 7:24 AM EDT [facility] Blood Line / Unknown 05/28/2017 6: 39 AM EDT 05/28/2017 6:48 AM EDT Narrative [facility] - 05/28/2017 7:24 AM EDT Cholesterol [...] Rui STROUD LAB BLOOD ORDERABLES Final Result Performing Organization Address [facility]/ZIP Co de Phone Number [facility]
[address] [place] [address], from Last 3 Months or Most Recently Relevant to Health Maintenance Insurance [place], [place] [id number] MEDICARE A & B Advance Directives Documents on File Type Date Recorded Patient Quality Control Coordinator Expl anation POWER OF BLOOD BANK TECHNOLOGIST - SCAN 12/29/2018 12:21 PM POA 12/25/2018 [...] Of Support Discussed With: Patient Care Teams Voltage Inspector Relationship Specialty Start Date End Date Bowen Escobedo MD [address] [facility] [address] [place] [id number] PCP - General Family Medicine 05/27/18
--- OUTSIDE RECORDS SUMMARY | 2025-01-17 22:32 | XMS_ITS | Encounter Summary ---
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 - [employer] Social History Tobacco Use [...] Description 01/20/2025 10:30 AM EST Office Visit [facility] NEUROLOGY [address] [facility] [address] [place] [address] Karol Hanson MD [address] [facility] [address] [place] [address] 06/29/2025 1:45 PM EDT Office Visit [facility] CARDIOLOGY [address] [facility] [address] [place] [phone] Micheal Lopez MD [address] [facility] [address] [place] [address] 11/01/2025 2:30 PM EDT Office Visit [facility] [address] [facility] [address] [place] [phone] Rocky Reynolds MD [address] [facility] [address] [place], [place] [phone] Scheduled Procedures Name Priority Associated Diagnoses Date/Ti me LEFT HEART CATH w/cors Angina pectoris documented as of this encounter Visit Diagnoses Not on filedocumented in this encounter Care Teams Alto Singer Relationship Specialty Start Date End Date Bowen Escobedo MD [address] [facility] [address] [place] [address] PCP - General Family Medicine 05/27/18 documented as of this encounter
--- OUTSIDE RECORDS SUMMARY | 2025-01-17 22:32 | XMS_ITS | Data Portability ---
Author Organization [facility] Address [address] [facility] [address] [place] [address] Care Team Providers Care Cone Machine Feeder Name Role Phone CAMRYNBOWEN Primary Care Provider Assessment No assessment recorded. Plan of Treatment Reminders Order Date Submit Date Provider Last Modified By Organization Details Last Modified Time Details Appointments None recorded. Lab None recorded. Referral None recorded. Procedures None recorded. Surgeries None recorded. Imaging None recorded. Medication Orders ipratropium bromide 42 mcg (0.06 %) nasal spray 2021 022 [employer] 9 IP [facility] #[id number], [address] [address] [place], [id number], 16:56:52 Patient TargetsNo targets recorded. Patient Instructions Encounter Date Encounter Id Patient Instructions Last Modified By Organization Details Last Modified Time 10/12/2021 [id number] 1. Unilateral (left) Cerumenectomy performed in office today. Full risks, complications, and benefits of non-operative intervention have been thoroughly discussed. Understanding was expressed, informed consent given, and we will proceed with the discussed operative treatment plan. There were no questions for me at the end of the office visit. 2. Suggest patient administer sweet/olive oil to ears once a month to help with cerumen impaction. 3. Laryngoscopy flex performed in office today. Full risks, complications, and benefits of non-operative intervention have been thoroughly discussed. Understanding was expressed, informed consent given, and we will proceed with the discussed operative treatment plan. There were no questions for me at the end of the office visit. 4. CT scan of head and neck scheduled in office today. 5. f/u with results of CT [email or web address] Not available 10/12/2021 16:42:35 81-year-old femandrea chu with complaints of a itching and tingling sensation on the left side of her face and neck intermittently. Denies any pain. Small amount of cerumen cleared and some dry skin in her ear canal but otherwise reassuring exam. Reassuring flexible laryngoscopy. Possible TMJ she does have some audible clicking of the TMJ joint. We will set up for a head and neck CT to further investigate. Unable to get an MRI as she has a pacemaker. We will see back with results and plan to get audio at that time she does have a history of hearing loss and previously has had hearing aids. [email or web address] Not available 10/12/2021 17:16:22 10/26/2021 [id number] 1. Continue candelario niño, zytrec 2. RX: ipratropium nasal spray 3. coclear implant briefly discussed 4. recommended HAE 5. Thyroid U/S FNA 6. f/u with results [email or web address] Not available 10/26/2021 18:38:53 81-year-old follow-up sensation of feeling like something is draining left side of her neck. I reviewed her CT scan from [facility]. She does have what appears to be a right thyroid nodule which we will set up for an ultrasound-guided fine-needle aspiration. Otherwise reassuring. She does have some mild cervical foraminal narrowing in her spine but would not expect that to cause the sensation she is describing. No significant sinus disease other than an incidental mucous retention cyst in her right maxillary sinus. Will place on ipratropium spray to cover for vasomotor rhinitis. Bilateral SNHL. Reviewed hearing protection going forward. Discussed hearing aids, will set up for HAE with audiology if patient desires. Plan to recheck hearing in about a year to ensure stability. [email or web address] Not available 10/26/2021 18:38:52 Reason for Referral None Reported. Results Created Date Observation Date Name Description Value Unit Range Abnormal Flag Note LastModifiedBy Organization Detail LastModifiedTime 10/30/19 22 10/26/2021 audio gram No observ ation record ed. BARCODE Not Available 2021 09:47:02 10/30/1910/23/2021 US, neck, soft tissu e No observ ation record ed. BARCODE Not Available 2021 11:22:01 Result Notes None recorded. Procedures Surgical History Date Name Laterality Status Provider Name and Address Organization Details Recorded Time 10/27/19 Tympanogram completed CHRISTIANO HURST, AUD [address] [place], [address], [facility] 10/26/2021 15:50:44 10/27/19 Audiogram completed CHRISTIANO HURST AUD [address] [place], [address], [facility] 10/26/2021 15:50:43 10/13/19 Cerumen removal - Instruments, Unilateral completed Ivette Schroeder [facility] 10/12/2021 16:32:40 10/13/19 Laryngoscopy Flex completed FREIDA ROMAN MD [address] [place], [address], [facility] 10/12/2021 17:15:10 extraction of cataract completed Sierraoren Bain [facility] 10/12/2021 16:10:45 cholecystectomy completed Sierra [facility] 10/12/2021 16:10:51 hysterectomy completed [facility] 10/12/2021 16:11:01 Back Surgery completed Sierra [facility] 10/12/2021 16:11:07 amputation of toe completed Sierra [facility] 10/12/2021 16:11:13 Imaging Results None recorded. Procedure Notes None recorded. Medical Equipment None Reported. Allergies Allergen ID Allergen Name Allergen Category Reaction Reaction Severity Criticality Documentation Date Start Date Code Code System Note Provider Name and Address Organization Details Recorded Time 550869 Bactrim medicatio n Not available Not available Not available 10/12/2021 59198 9 RxNorm Sierra Bain [facility] 16:10:19 724863 carbamaze pine medicatio n Not available Not available Not available 10/12/20212001 RxNorm Sierra Vest [facility] 16:10:29 Medications Name Sig Start Date Stop Date Status Note LastModified by Organization Details LastModified Time atorvastati n 40 mg tablet TAKE 1 TABLET BY MOUTH EVERY DAY active Not Available Not Available No t Available silver sulfadiazin e 1 % topical cream APPLY TOPICALLY TO THE AFFECTED AREA TWICE DAILY active Not Available Not Available No t Available prednisone 10 mg tablet TAKE ONE TABLET BY MOUTH TWICE DAILY FOR 5 DAYS THEN ONE TABLET EVREY DAY FOR 5 DAYS active Not Available Not Available N ot Available carvedilol 12.5 mg tablet TAKE 1 TABLET BY MOUTH TWICE DAILY active Not Available Not Available No t Available torsemide 10 mg tablet TAKE 1 TABLET BY MOUTH DAILY active Not Available Not Available No t Available bisoprolol 5 mg-hydrochl orothiazide 6.25 mg tablet Daily active Frequen cy: daily;M edicati on Descrip tion: bisopro lol-hyd rochlor othiazi de; Dosage: 1; Route:o ral; refills :0; Quantit y:30 tablet Not Available Not Available Not Available meclizine 12.5 mg tablet TAKE 1 TABLET BY MOUTH THREE TIMES DAILY NEEDED active Not Available Not Available No t Available tramadol 50 mg tablet TAKE 1 TABLET BY MOUTH THREE TIMES DAILY NEEDED active Not Available Not Available No t Available levothyroxi ne 75 mcg tablet TAKE 1 TABLET BY MOUTH EVERY DAY active Not Available Not Available No t Available carbamazepi ne 200 mg tablet TAKE 1 TABLET BY MOUTH TWICE DAILY active Not Available Not Available No t Available Xanax 0.25 mg tablet Two times a day active Frequen cy: bid;Alt Frequen cy: prn;Med ication Descrip tion: alprazo gordon; Dosage: 1; Route:o ral; refills :0 Not Available Not Available Not Available pantoprazol e 40 mg tablet,anita yed release TAKE 1 TABLET BY MOUTH TWICE DAILY active Not Available Not Available No t Available gabapentin 300 mg capsule TAKE 1 CAPSULE BY MOUTH THREE TIMES DAILY active Not Available Not Available No t Available montelukast 10 mg tablet TAKE 1 TABLET BY MOUTH EVERY DAY active Not Available Not Available No t Available furosemide 20 mg tablet TAKE 1 TABLET BY MOUTH THREE DAYS OF THE WEEK DIRECTED active Not Available Not Available No t Available ipratropium bromide 42 mcg (0.06 %) nasal spray USE 2 SPRAYS IN EACH NOSTRIL THREE TIMES DAILY active Not Available Not Available No t Available Rythmol 225 mg tablet Three times a day active Frequen cy: tid;Med ication Descrip tion: propafe none; Dosage: 1; Route:o ral; refills :PRN 1 yr; Quantit y:90 tablet Not Available Not Available Not Available cyclobenzap rine 5 mg tablet TAKE 1 TABLET BY MOUTH TWICE DAILY active Not Available Not Available No t Available bupropion HCl XL 150 mg 24 hr tablet, extended release TAKE 1 TABLET BY MOUTH EVERY 24 HOURS active Not Available Not Available No t Available Eliquis 2.5 mg tablet TAKE 1 TABLET BY MOUTH EVERY 12 HOURS active Not Available Not Available No t Available Entresto 49 mg-51 mg tablet TAKE 1 TABLET BY MOUTH TWICE DAILY active Not Available Not Available No t Available Vitals Date Recorded Body weight Body temperature Body mass index (BMI) Body height Heart rate Systolic And Diastolic Provider Name and Address Organization Details Last Updated DateTime 2 96086.2 1 g 97.2 [degF] 33.2 kg/m2 160.02 cm 74 /min 146/90 mm[Hg] Sierra Bain [facility] 2 16:14:05 Date Recorded Body height Body temperature Body mass index (BMI) Body weight Heart rate Systolic And Diastolic Provider Name and Address Organization Details Last Updated DateTime 2 160.02 cm 96.4 [degF] 32.9 kg/m2 91717.1 8 g 70 /min 110/77 mm[Hg] Shahla Quispe [facility] 2 15:18:08 Social History None recorded. Functional Status Question Answer Note LastModified by Organization D etails LastModified Time What is your level of alcohol consumption? None [email or web address] Information not available 10/12/2021 Mental Status None recorded. Family History Relationship Description Onset Age of this Age Resolved Age Notes LastModified by Organization Details LastModified Time Father Family history of malignant neoplasm [email or web address] Not available 2021 16:08:25 Father Heart disease [email or web address] Not available 2021 16:08:41 Father Hypertensive disorder [email or web address] Not available 2021 16:08:57 Father Cerebrovascu lar accident [email or web address] Not available 07/2021 16:09:08 Mother Family history of malignant neoplasm [email or web address] Not available 2021 16:08:25 Mother Heart disease [email or web address] Not available 2021 16:08:41 Mother Hypertensive disorder [email or web address] Not available 2021 16:08:57 Mother Kidney disease [email or web address] Not available 2021 16:09:23 Sister Family history of malignant neoplasm [email or web address] Not available 2021 16:08:25 Brother Heart disease [email or web address] Not available 2021 16:08:41 Brother Hypertensive disorder [email or web address] Not available 2021 16:08:57 Brother Diabetes mellitus [email or web address] Not available 2021 16:09:13 Medical History Condition Response Diabetes N Heart Problems Y Bleeding Disorder N Arthritis Y Anesthesia Complications N Acid Reflux (GERD) Y Heart Disease Y Cancer N Hypertension Y Gynecological HistoryNo gynecological history recorded. 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.549 Hearing loss 64218881 H9 1.90 Facial ner ve sensory disorder 6228481 G51.9 [id number] FREIDA ROMAN MD [facility] [address] [place] [address] 10/26/2021 15:03:37 10/29/2021 07:55:04 Cardiac pacemaker in situ 508743223 Z95.0 Hearing loss 21555702 H9 1.90 Vasomotor rhinitis 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.0 [id number] OSCAR [facility] [address] [place] [address] 10/26/2021 15:04:53 11/07/2021 08:53:28 Sensorineural hearing loss of bilateral ears 570131838 H90.3 Health Concerns Section Related Observation LastModified by Organization Detai ls LastModified Time None Recorded Concern Status LastModified by Organization Details LastModified Time None Recorded Advance Directives Directive None Recorded Payers Insurance Date Sequence Insurance Name Policy Number Policy Blackmon Covered Member ID Blackmon Member ID Guarantor Name 11/07/2021 2 [employer] (MEDICARE SUPPLEMENT) Elysas Lopez [id number] Elyssa Lopez 10/12/2021 1 [place] Elyssa Lopez [id number] Elyssa Lopez Notes Date Note Type Note Provider Name and Address Organization Details Recorded Time 10/12/2021 text/html Elyssa comes in today for consultation at the request of Dr. Bowen Escobedo for an evaluation of jaw pain. - Complains of itchy ears and posterior rhinorrhea (only left sided present for 4-5 month)- States that sensation seem to be coming from her throat.- No pain and minimal discomfort.- PCP suspects inflammation from arthritis. FREIDA ROMAN MD [address] [place] [address], [phone], [facility] 10/12/2021 17:16:37 10/26/2021 text/html Elyssa is a 81 year old female coming in for a recheck of her neck. Continues to complain of intermittent sensation of something draining in the left side of her neck. FREIDA ROMAN MD [address] [place] [address], [phone], [facility] 10/26/2021 18:39:04 OBGyn Episode No OBEpisode recorded.
--- OUTSIDE RECORDS SUMMARY | 2025-01-17 22:32 | XMS_ITS | Encounter Summary ---
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 - [facility] Social History Tobacco Use [...] Description 01/20/2025 10:30 AM EST Office Visit [facility] NEUROLOGY [address] [facility] [address] [place] [address] Karol Hanson MD [address] [facility] [address] [place] [address] 06/29/2025 1:45 PM EDT Office Visit [facility] CARDIOLOGY [address] [facility] [address] [place] [address] Micheal Lopez MD [address] [facility] [address] [place] [address] 11/01/2025 2:30 PM EDT Office Visit [facility] CARDIOLOGY [address] [facility] [address] [place] [address] Rocky Reynolds MD [address] [facility] [address] [place], [place] [id number] Scheduled Procedures Name Priority Associated Diagnoses Date/Ti me LEFT HEART CATH w/cors Angina pectoris documented as of this encounter Visit Diagnoses Not on filedocumented in this encounter Care Teams Paperhanger Assistant Relationship Specialty Start Date End Date Bowen Escobedo MD [address] [facility] [address] [place] [address] PCP - General Family Medicine 05/27/18 documented as of this encounter
--- OUTSIDE RECORDS SUMMARY | 2025-01-17 22:32 | XMS_ITS | Encounter Summary ---
[facility] Address [address] [place] [address] Care Team Providers Care Pantry Goods Worker Name Role Phone Bowen Escobedo MD Primary Care Provider Encounter Details Date Type Department Care Team (Late st Contact Info) Description 05/17/2015 External CPT II EQUIPMENT HIRE MANAGER - [facility] Social History Tobacco Use [...] Office Visit [facility] NEUROLOGY [address] [facility] [address] [place] [address] Karol Hanson MD [address] [facility] [address] [place] [address] 06/29/2025 1:45 PM EDT Office Visit [facility] CARDIOLOGY [address] [facility] [address] [place] [address] Micheal Lopez MD [address] [facility] [address] [place] [address] 11/01/2025 2:30 PM EDT Office Visit [facility]ARDIOLOG[facility] [address] [facility] [address] [place] [address] Rocky Reynolds MD [address] [facility] [address] [place], [place] [id number] Scheduled Procedures Name Priority Associated Diagnoses Date/Ti me LEFT HEART CATH w/cors Angina pectoris documented as of this encounter Visit Diagnoses Not on filedocumented in this encounter Care Teams Pantry Goods Worker Relationship Specialty Start Date End Date Bowen Escobedo MD [address] [facility] [address] [place] [address] PCP - General Family Medicine 05/27/18 documented as of this encounter
--- OUTSIDE RECORDS SUMMARY | 2025-01-17 22:32 | XMS_ITS | Encounter Summary ---
Author Organization [facility] Address [address] [place] [address] Care Team Providers Care Tank House Supervisor Name Role Phone Bowen Escobedo MD Primary Care Provider Encounter Details Date Type Department Care Team (Late st Contact Info) Description 07/01/2014 External CPT II FRONT SERVICES AGENT - [facility] Social History Tobacco Use [...] Description 01/20/2025 10:30 AM EST Office Visit [facility] NEUROLOGY [address] [facility] [address] [place] [address] Karol Hanson MD [address] [facility] [address] [place] [address] 06/29/2025 1:45 PM EDT Office Visit [facility] CARDIOLOGY [address] [facility] [address] [place] [address] Micheal Lopez MD [address] [facility] [address] [place] [address] 11/01/2025 2:30 PM EDT Office Visit [facility] CARDIOLOGY [address] [facility] [address] [place] [address] Rocky Reynolds MD [address] [facility] [address] [place], [place] [phone] Scheduled Procedures Name Priority Associated Diagnoses Date/Ti me LEFT HEART CATH w/cors Angina pectoris documented as of this encounter Visit Diagnoses Not on filedocumented in this encounter Care Teams Tank House Supervisor Relationship Specialty Start Date End Date Bowen Escobedo MD [address] [facility] [address] [place] [address] PCP - General Family Medicine 05/27/18 documented as of this encounter
--- OUTSIDE RECORDS SUMMARY | 2025-01-17 22:32 | XMS_ITS | Encounter Summary ---
[facility] Organization [facility] Address [address] [place] [address] Care Team Providers Care Camera Mechanic Name Role Phone Bowen Escobedo MD Primary Care Provider Encounter Details Date Type Department Care Team (Late st Contact Info) Description 10/24/2017 External CPT II TIMING MACHINE OPERATOR - [facility] Social History Tobacco [...] Description 01/20/2025 10:30 AM EST Office Visit [facility] NEUROLOGY [address] [facility] [address] [place] [address] Karol Hanson MD [address] [facility] [address] [place] [address] 06/29/2025 1:45 PM EDT Office Visit [facility] C[facility] [address] [facility] [address] [place] [address] Micheal Lopez MD [address] [facility] [address] [place], [place] [id number] 11/01/2025 2:30 PM EDT Office Visit [facility] CARDI[facility] [address] [facility] [address] [place] [address] Rocky Reynolds MD [address] [facility] [address] [place] [address] Scheduled Procedures Name Priority Associated Diagnoses Date/Ti me LEFT HEART CATH w/cors Angina pectoris documented as of this encounter Visit Diagnoses Not on filedocumented in this encounter Care Teams Camera Mechanic Relationship Specialty Start Date End Date Bowen Escobedo MD [address] [facility] [address] [place] [address] PCP - General Family Medicine 05/27/18 documented as of this encounter
--- OUTSIDE RECORDS SUMMARY | 2025-01-17 22:32 | XMS_ITS | Encounter Summary ---
[facility] Address [address] [place] [address] Care Team Providers Care Market Research Coordinator Name Role Phone Bowen Escobedo MD Primary Care Provider Encounter Details Date Type Department Care Team (Late st Contact Info) Description 08/10/2015 External CPT II SUPERVISOR BRAIDING - [facility] Social History Tobacco Use [...] Office Visit [facility] NEUROLOGY [address] [facility] [address] [place] [address] Karol Hanson MD [address] [facility] [address] [place] [address] 06/29/2025 1:45 PM EDT Office Visit [facility] C[facility]IOLOG[facility] [address] [facility] [address] [place] [address] Micheal Lopez MD [address] [facility] [address] [place] [address] 11/01/2025 2:30 PM EDT Office Visit [facility] [address] [facility] [address] [place] [address] Rocky Reynolds MD [address] [facility] [address] [place], [place] [phone] Scheduled Procedures Name Priority Associated Diagnoses Date/Ti me LEFT HEART CATH w/cors Angina pectoris documented as of this encounter Visit Diagnoses Not on filedocumented in this encounter Care Teams Market Research Coordinator Relationship Specialty Start Date End Date Bowen Escobedo MD [address] [facility] [address] [place] [address] PCP - General Family Medicine 05/27/18 documented as of this encounter
--- OUTSIDE RECORDS SUMMARY | 2025-01-17 22:32 | XMS_ITS | Encounter Summary ---
Author Organization [facility] Address [address] [place] [address] Care Team Providers Care Talent Acquisition Coordinator Name Role Phone Bowen Escobedo MD Primary Care Provider Encounter Details Date Type Department Care Team (Late st Contact Info) Description 09/24/2014 External CPT II SET UP MECHANIC CROWN ASSEMBLY MACHINE - [facility] Social History Tobacco Use [...] Description 01/20/2025 10:30 AM EST Office Visit [facility] NEUROLOGY [address] [facility] [address] [place] [address] Karol Hanson MD [address] [facility] [address] [place] [address] 06/29/2025 1:45 PM EDT Office Visit [facility] CARDIOLOGY [address] [facility] [address] [place] [address] Micheal Lopez MD [address] [facility] [address] [place] [address] 11/01/2025 2:30 PM EDT Office Visit [facility] CARDIOLOGY [address] [facility] [address] [place] [address] Rocky Reynolds MD [address] [facility] [address] [place], [place] [phone] Scheduled Procedures Name Priority Associated Diagnoses Date/Ti me LEFT HEART CATH w/cors Angina pectoris documented as of this encounter Visit Diagnoses Not on filedocumented in this encounter Care Teams Talent Acquisition Coordinator Relationship Specialty Start Date End Date Bowen Escobedo MD [address] [facility] [address] [place] [address] PCP - General Family Medicine 05/27/18 documented as of this encounter
--- NOTE | 2025-01-17 22:36 | [facility].EDCP ---
Discharge Plan Disposition Patient Disposition: Admitted Condition: Good Clinical Impressions Clinical Impression: Aortic dissection Discharge ED Provider: Jameson Robbins HPI <Nydia Clark DO - Last Filed: 01/18/25 00:08> General Chief Complaint: Chest Pain Stated Complaint: Chest pain Time Seen by Provider: 01/17/25 22:32 History of Present Illness HPI narrative: 84-year-old female with known history of aortic dissection presenting the emergency department with acute onset chest pain beginning at approximately 9 PM. She states the pain is now radiating to her back. She does take Eliquis. She is also now complaining of a headache. Denies any abdominal pain. No recent falls. She states she has experienced this pain in the past, however she is unsure what was occurring at the time. EMS presents a DNR that is signed. I discussed this with the patient. She is fully alert and oriented. She states she would like everything done to save her life should this come to it. When asked about chest compressions, she states she would like them. Related Data Home Medications ?Medication ?Instructions ?Recorded ?Confirmed atorvastatin 40 mg tablet 40 mg PO HS Cholesterol 06/26/17 02/03/23 bupropion HCl 150 mg 24 hr tablet, 150 mg PO DAILY Depression 06/26/17 02/03/23 extended release gabapentin 300 mg capsule 300 mg PO BID Pain 06/26/17 02/03/23 levothyroxine 75 mcg tablet 75 mcg PO DAILY Hypothyroidism 06/26/17 02/03/23 (Synthroid) carvedilol 12.5 mg tablet 12.5 mg PO BID Hypertension 05/19/19 02/03/23 montelukast 10 mg tablet 10 mg PO HS Asthma 05/19/19 02/03/23 apixaban 5 mg tablet (Eliquis) 5 mg PO BID 01/20/23 02/03/23 pantoprazole 40 mg tablet,delayed 40 mg PO BID 01/20/23 02/03/23 release torsemide 10 mg tablet 10 mg PO DAILY 01/20/23 02/03/23 sacubitril 49 mg-valsartan 51 mg 1 tab PO BID 02/03/23 02/03/23 tablet (Entresto) tramadol 50 mg tablet 50 mg PO HS 02/03/23 02/03/23 Allergies Allergy/AdvReac Type Severity Reaction Status Date / Time sulfamethoxazole (From Allergy Unknown Verified 01/20/23 15:30 Bactrim) trimethoprim (From Bactrim) Allergy Unknown Verified 01/20/23 15:30 PFSH <Nydia Clark DO - Last Filed: 01/18/25 00:08> PFS Disclaimer: The information contained in this section may have been updated after the patient was seen, as this information can be updated by other users. Medical History (Updated 01/18/25 @ 03:08 by Jameson Robbins MD) Pacemaker Osteoarthritis Cataract Hoarseness Paroxysmal atrial fibrillation GERD (gastroesophageal reflux disease) Chronic kidney disease Hypothyroidism Cardiomyopathy Congestive heart failure Chronic atrial fibrillation Hypotension Hypertension Epistaxis Surgical History (Updated 02/03/23 @ 08:54 by Alissa Stone APRN) History of cataract surgery Hx of cholecystectomy History of left knee replacement History of back surgery H/O: hysterectomy Family History (Updated 02/03/23 @ 08:55 by Alissa Stone APRN) Other Cancer Social History (Updated 02/03/23 @ 03:31 by Tania Atkinson RN) Smoking Status: Never smoker alcohol intake: never current occupational status: retired Travel in the last 8 weeks?: None Have you lived/traveled outside [place] in past 30 days?: No Contact w/someone who lives/traveled outside US past 30 days?: No Exposure to someone with infectious disease in past 14 days?: No Do you have a fever (greater than 100.4 F or 38 C)?: No Have you tested positive for COVID-19?: No Exposed to someone with COVID-19 in past 14 days?: No Do you have a sore throat?: No Do you have a cough?: No Do you have any weakness?: No Do you have any diarrhea?: No Are you experiencing any unusual bleeding?: No Do you have any muscle aches/pain?: No Do you have any abdominal pain?: No Are you experiencing loss of taste or smell?: No Other Medical History Have you received the Flu Vaccine for this season: No Have you received the Pneumonia Vaccine: No <DO Kitty Silva Last Filed: 01/18/25 00:08> ROS Obtained: Yes All systems reviewed & no additional complaints except as documented Physical Exam <DO Kitty Silva Last Filed: 01/18/25 00:08> General General appearance: alert Comment: Crying in pain Head Head exam: atraumatic and normocephalic Eye Eye exam: Present PERRL ENT ENT exam: Present mucous membranes moist Neck Neck exam: Present normal inspection Chest Chest inspection: Present symmetric chest wall rise; Absent tenderness Respiratory Respiratory exam: Present normal lung sounds bilaterally; Absent respiratory distress, wheezes or accessory muscle use Cardiovascular Cardiovascular exam: Present regular rate, normal rhythm and other (The patient has strong pulses in all 4 extremities.) Abdominal Exam Abdominal exam: Present soft; Absent distention or tenderness Extremities Exam Extremities exam: Present normal inspection; Absent tenderness Neurological Exam Neurological exam: Present alert and oriented X3 Psychiatric Psychiatric exam: Present normal affect Skin Skin exam: Present warm and dry HEART Score <Nydia Clark DO - Last Filed: 01/18/25 00:08> HEART Score HEART Score assessment performed?: Yes HEART Score: 7 <Jameson Robbins MD - Last Filed: 01/18/25 03:08> HEART Score History (anamnesis): Moderately suspicious ECG: Non-specific disturbance Age: >65 years Risk factors: 3 or more risk factors Troponin: </= normal limit HEART Score: 6 Critical Care <Nydia Clark DO - Last Filed: 01/18/25 00:08> Critical Care Time Critical Care Time: No <Jameson Robbins MD - Last Filed: 01/18/25 03:08> Critical Care Time Critical Care Time: Yes Attestation: On 01/17/25, the high probability of a clinically significant, sudden or life threatening deterioration of the following system(s) required my full and direct attention, intervention and personal management. The time I documented below is in addition to time spent performing reported procedures but includes the following listed in this critical care notation. Total Time Total Critical Care Time: 45 Medical Decision Making <Nydia Clark DO - Last Filed: 01/18/25 00:08> Samuel Inquiry Pt receiving controlled substance: No Samuel was queried for this patient: No Vital Signs Vital Signs: 01/17/25 22:31 01/17/25 22:33 01/17/25 22:40 Temperature 99.2 F Temperature Source Oral Pulse Rate 72 69 Pulse Rate [Left Radial] 75 Respiratory Rate 12 15 Blood Pressure Blood Pressure [Right Arm] 180/112 H Blood Pressure Mean Blood Pressure Mean [Right Arm] 134 Blood Pressure Source Blood Pressure Source [Right Arm] Automatic Cuff Blood Pressure Position Blood Pressure Position [Right Arm] Supine 02 Sat by Pulse Oximetry 92 L 94 L Oxygen Delivery Method Room Air Room Air 01/17/25 22:45 01/17/25 22:50 01/17/25 22:50 Temperature Temperature Source Pulse Rate 72 72 Pulse Rate [Left Radial] Respiratory Rate 15 17 Blood Pressure 132/82 Blood Pressure [Right Arm] Blood Pressure Mean 98 Blood Pressure Mean [Right Arm] Blood Pressure Source Blood Pressure Source [Right Arm] Blood Pressure Position Blood Pressure Position [Right Arm] 02 Sat by Pulse Oximetry 93 L 94 L Oxygen Delivery Method Room Air Room Air 01/17/25 23:00 01/17/25 23:01 01/17/25 23:01 Temperature Temperature Source Pulse Rate 73 73 Pulse Rate [Left Radial] Respiratory Rate 16 19 Blood Pressure 128/87 Blood Pressure [Right Arm] Blood Pressure Mean 96 Blood Pressure Mean [Right Arm] Blood Pressure Source Blood Pressure Source [Right Arm] Blood Pressure Position Blood Pressure Position [Right Arm] 02 Sat by Pulse Oximetry 95 95 Oxygen Delivery Method Room Air Room Air 01/17/25 23:13 01/17/25 23:30 01/17/25 23:31 Temperature Temperature Source Pulse Rate 73 Pulse Rate [Left Radial] Respiratory Rate 21 18 Blood Pressure 135/84 Blood Pressure [Right Arm] Blood Pressure Mean 101 Blood Pressure Mean [Right Arm] Blood Pressure Source Blood Pressure Source [Right Arm] Blood Pressure Position Blood Pressure Position [Right Arm] 02 Sat by Pulse Oximetry 93 L Oxygen Delivery Method Room Air 01/17/25 23:45 01/17/25 23:51 01/17/25 23:55 Temperature Temperature Source Pulse Rate 72 Pulse Rate [Left Radial] Respiratory Rate 20 Blood Pressure 135/84 106/70 L Blood Pressure [Right Arm] Blood Pressure Mean 82 Blood Pressure Mean [Right Arm] Blood Pressure Source Blood Pressure Source [Right Arm] Blood Pressure Position Blood Pressure Position [Right Arm] 02 Sat by Pulse Oximetry 92 L Oxygen Delivery Method Room Air 01/17/25 23:55 01/18/25 00:00 01/18/25 00:00 Temperature Temperature Source Pulse Rate 73 71 Pulse Rate [Left Radial] Respiratory Rate 18 19 Blood Pressure 123/73 Blood Pressure [Right Arm] Blood Pressure Mean 83 Blood Pressure Mean [Right Arm] Blood Pressure Source Blood Pressure Source [Right Arm] Blood Pressure Position Blood Pressure Position [Right Arm] 02 Sat by Pulse Oximetry 94 L 93 L Oxygen Delivery Method Room Air Room Air 01/18/25 00:15 01/18/25 00:21 01/18/25 00:50 Temperature 99.2 F Temperature Source Oral Pulse Rate 70 70 Pulse Rate [Left Radial] Respiratory Rate 19 18 Blood Pressure 123/73 123/73 Blood Pressure [Right Arm] Blood Pressure Mean Blood Pressure Mean [Right Arm] Blood Pressure Source Automatic Cuff Blood Pressure Source [Right Arm] Blood Pressure Position Supine Blood Pressure Position [Right Arm] 02 Sat by Pulse Oximetry 94 L Oxygen Delivery Method Room Air Room Air Lab Data Labs: Lab Results 01/17/25 22:40: WBC 4.4 L, RBC 2.90 L, Hgb 9.3 L, Hct 29.4 L, MCV 101.4 H, MCH 32.1 H, MCHC 31.6 L, RDW 15.5, Plt Count 147, MPV 9.7, Neut % (Auto) 66.8, Lymph % (Auto) 18.5, [place] % (Auto) 11.3 H, Eos % (Auto) 2.7, Baso % (Auto) 0.5, Neut # (Auto) 3.0, Lymph # (Auto) 0.8, [place] # (Auto) 0.5, Eos # (Auto) 0.1, Baso # (Auto) 0.0, VBG pH 7.40, VBG pCO2 44.6, VBG pO2 31.6, VBG HCO3 26.7, VBG Total CO2 28.1 H, VBG O2 Saturation 55.8, VBG Base Excess 1.8, VBG Lactic Acid 1.1, Sodium 135 L, Potassium 3.9, Chloride 104, Carbon Dioxide 27, Anion Gap 7.9, BUN 21 H, Creatinine 1.30 H, Estimated Creat Clear 37, Estimated GFR 39 L, Est GFR ( Amer) 47 L, Glucose 103 H, Calcium 8.8, Total Bilirubin 0.7, AST 20, ALT 8 L, Alkaline Phosphatase 99, Troponin I < 0.01, Total Protein 6.9, Albumin 3.5, Globulin 3.4 H, Albumin/Globulin Ratio 1.0 L, Lipase 64, HCV Ab VERENICE w/Rflx PCR Qn Negative, HIV Ag/Ab Combo Qual Negative 01/17/25 22:40 01/17/25 22:40 Response Orders (Tests/Meds): ED MEDICATIONS Generic Name Dose Route Start Last Admin Trade Name Venus PRN Reason Stop Dose Admin Carvedilol 12.5 mg 01/18/25 09:00 Carvedilol 12.5mg Tablet PO 02/17/25 08:59 BID DMITRI Metoprolol Tartrate 2.5 mg 01/18/25 02:31 Metoprolol Tartrate 5mg/5ml Vial IV 02/17/25 02:30 Q6HP PRN Blood Pressure - High Discontinued Medications Generic Name Dose Route Start Last Admin Trade Name Venus PRN Reason Stop Dose Admin Iopamidol 80 ml 01/17/25 23:34 01/17/25 23:35 Iopamidol-370 (76%);100ml Bottle IV 01/17/25 23:35 80 ml ONCE ONE Administration Labetalol HCl 10 mg 01/17/25 23:35 01/17/25 23:51 Labetalol 20mg/4ml Syringe IV 01/17/25 23:36 10 mg ONCE ONE Administration Labetalol HCl 10 mg 01/18/25 00:15 01/18/25 00:21 Labetalol 20mg/4ml Syringe IV 01/18/25 00:16 10 mg ONCE ONE Administration Morphine Sulfate 4 mg 01/17/25 22:32 01/17/25 22:48 Morphine 4mg/Ml Syringe IV 01/17/25 22:33 4 mg ONCE ONE Administration Sodium Chloride 50 ml 01/17/25 23:34 01/17/25 23:35 0.9 % Sodium Chloride 50 Ml Vial IV 01/17/25 23:35 50 ml ONCE ONE Administration Sodium Chloride 10 ml 01/17/25 23:34 01/17/25 23:35 Sodium Chloride 0.9% 10ml Syr (Rad Only) IV 01/17/25 23:35 10 ml ONCE ONE Administration ORDERS Category Date Time Status CT angio abdomen pelvis Stat Cat Scan 01/17/25 22:[address] head/brain wo con Stat Cat Scan 01/17/25 22:32 Completed CTA Chest [CT angio chest - dissection] Stat Cat Scan 01/17/25 22:32 Completed CBC w/Auto Diff [Complete Blood Count Auto Diff] Stat Lab 01/17/25 22:40 Completed CMP [Comprehensive Metabolic Panel] Stat Lab 01/17/25 22:40 Completed HIV Combo Stat Lab 01/17/25 22:40 Completed Hepatitis C Ab Qual. W/ RFX Stat Lab 01/17/25 22:40 Completed Lactate Venous Stat Lab 01/17/25 22:51 Ordered Lipase Stat Lab 01/17/25 22:40 Completed Trop I [Troponin I] Stat Lab 01/17/25 22:40 Completed Troponin I Q3H Lab 01/17/25 22:45 Completed Troponin I Q3H Lab 01/18/25 04:45 Ordered VBG [Venous Blood Gas] Stat RT 01/17/25 22:40 Completed MDM Narrative Medical Decision Narrative: In summary, this is a 84y/o female presenting the emergency department for acute onset chest pain that is now radiating to the back with a history of aortic dissection. Differential diagnosis includes but is not limited to: Aortic dissection, ACS, pneumothorax, anxiety On my initial assessment, the patient is hypertensive without concurrent tachycardia. She is in acute distress secondary to her pain. She is awake and alert. Physical exam is notable for equal pulses in the bilateral upper extremities. She overall appears warm and well-perfused. ECG personally interpreted: Ventricularly paced rhythm at a rate of 69. No acute ischemic changes noted. Normal QRS and QTc. Patient received morphine for treatment. She was sent to the CT scanner prior to waiting for lab results. Care transferred to Dr. Robbins pending CT scan results with very high clinical suspicion for aortic dissection. <Jameson Robbins MD - Last Filed: 01/18/25 03:08> Medical Records Medical records reviewed: Yes I reviewed the patient's medical records. Vital Signs Vital Signs: 01/17/25 22:31 01/17/25 22:33 01/17/25 22:40 Temperature 99.2 F Temperature Source Oral Pulse Rate 72 69 Pulse Rate [Left Radial] 75 Respiratory Rate 12 15 Blood Pressure Blood Pressure [Right Arm] 180/112 H Blood Pressure Mean Blood Pressure Mean [Right Arm] 134 Blood Pressure Source Blood Pressure Source [Right Arm] Automatic Cuff Blood Pressure Position Blood Pressure Position [Right Arm] Supine 02 Sat by Pulse Oximetry 92 L 94 L Oxygen Delivery Method Room Air Room Air 01/17/25 22:45 01/17/25 22:50 01/17/25 22:50 Temperature Temperature Source Pulse Rate 72 72 Pulse Rate [Left Radial] Respiratory Rate 15 17 Blood Pressure 132/82 Blood Pressure [Right Arm] Blood Pressure Mean 98 Blood Pressure Mean [Right Arm] Blood Pressure Source Blood Pressure Source [Right Arm] Blood Pressure Position Blood Pressure Position [Right Arm] 02 Sat by Pulse Oximetry 93 L 94 L Oxygen Delivery Method Room Air Room Air 01/17/25 23:00 01/17/25 23:01 01/17/25 23:01 Temperature Temperature Source Pulse Rate 73 73 Pulse Rate [Left Radial] Respiratory Rate 16 19 Blood Pressure 128/87 Blood Pressure [Right Arm] Blood Pressure Mean 96 Blood Pressure Mean [Right Arm] Blood Pressure Source Blood Pressure Source [Right Arm] Blood Pressure Position Blood Pressure Position [Right Arm] 02 Sat by Pulse Oximetry 95 95 Oxygen Delivery Method Room Air Room Air 01/17/25 23:13 01/17/25 23:30 01/17/25 23:31 Temperature Temperature Source Pulse Rate 73 Pulse Rate [Left Radial] Respiratory Rate 21 18 Blood Pressure 135/84 Blood Pressure [Right Arm] Blood Pressure Mean 101 Blood Pressure Mean [Right Arm] Blood Pressure Source Blood Pressure Source [Right Arm] Blood Pressure Position Blood Pressure Position [Right Arm] 02 Sat by Pulse Oximetry 93 L Oxygen Delivery Method Room Air 01/17/25 23:45 01/17/25 23:51 01/17/25 23:55 Temperature Temperature Source Pulse Rate 72 Pulse Rate [Left Radial] Respiratory Rate 20 Blood Pressure 135/84 106/70 L Blood Pressure [Right Arm] Blood Pressure Mean 82 Blood Pressure Mean [Right Arm] Blood Pressure Source Blood Pressure Source [Right Arm] Blood Pressure Position Blood Pressure Position [Right Arm] 02 Sat by Pulse Oximetry 92 L Oxygen Delivery Method Room Air 01/17/25 23:55 01/18/25 00:00 01/18/25 00:00 Temperature Temperature Source Pulse Rate 73 71 Pulse Rate [Left Radial] Respiratory Rate 18 19 Blood Pressure 123/73 Blood Pressure [Right Arm] Blood Pressure Mean 83 Blood Pressure Mean [Right Arm] Blood Pressure Source Blood Pressure Source [Right Arm] Blood Pressure Position Blood Pressure Position [Right Arm] 02 Sat by Pulse Oximetry 94 L 93 L Oxygen Delivery Method Room Air Room Air 01/18/25 00:15 01/18/25 00:21 01/18/25 00:50 Temperature 99.2 F Temperature Source Oral Pulse Rate 70 70 Pulse Rate [Left Radial] Respiratory Rate 19 18 Blood Pressure 123/73 123/73 Blood Pressure [Right Arm] Blood Pressure Mean Blood Pressure Mean [Right Arm] Blood Pressure Source Automatic Cuff Blood Pressure Source [Right Arm] Blood Pressure Position Supine Blood Pressure Position [Right Arm] 02 Sat by Pulse Oximetry 94 L Oxygen Delivery Method Room Air Room Air Lab Data Labs: Lab Results 01/17/25 22:40: WBC 4.4 L, RBC 2.90 L, Hgb 9.3 L, Hct 29.4 L, MCV 101.4 H, MCH 32.1 H, MCHC 31.6 L, RDW 15.5, Plt Count 147, MPV 9.7, Neut % (Auto) 66.8, Lymph % (Auto) 18.5, [place] % (Auto) 11.3 H, Eos % (Auto) 2.7, Baso % (Auto) 0.5, Neut # (Auto) 3.0, Lymph # (Auto) 0.8, [place] # (Auto) 0.5, Eos # (Auto) 0.1, Baso # (Auto) 0.0, VBG pH 7.40, VBG pCO2 44.6, VBG pO2 31.6, VBG HCO3 26.7, VBG Total CO2 28.1 H, VBG O2 Saturation 55.8, VBG Base Excess 1.8, VBG Lactic Acid 1.1, Sodium 135 L, Potassium 3.9, Chloride 104, Carbon Dioxide 27, Anion Gap 7.9, BUN 21 H, Creatinine 1.30 H, Estimated Creat Clear 37, Estimated GFR 39 L, Est GFR ( Amer) 47 L, Glucose 103 H, Calcium 8.8, Total Bilirubin 0.7, AST 20, ALT 8 L, Alkaline Phosphatase 99, Troponin I < 0.01, Total Protein 6.9, Albumin 3.5, Globulin 3.4 H, Albumin/Globulin Ratio 1.0 L, Lipase 64, HCV Ab VERENICE w/Rflx PCR Qn Negative, HIV Ag/Ab Combo Qual Negative Response Orders (Tests/Meds): ED MEDICATIONS Generic Name Dose Route Start Last Admin Trade Name Freq PRN Reason Stop Dose Admin Carvedilol 12.5 mg 01/18/25 09:00 Carvedilol 12.5mg Tablet PO 12/11/25 08:59 BID DMITRI Metoprolol Tartrate 2.5 mg 01/18/25 02:31 Metoprolol Tartrate 5mg/5ml Vial IV 02/17/25 02:30 Q6HP PRN Blood Pressure - High Discontinued Medications Generic Name Dose Route Start Last Admin Trade Name Freq PRN Reason Stop Dose Admin Iopamidol 80 ml 01/17/25 23:34 01/17/25 23:35 Iopamidol-370 (76%);100ml Bottle IV 01/17/25 23:35 80 ml ONCE ONE Administration Labetalol HCl 10 mg 01/17/25 23:35 01/17/25 23:51 Labetalol 20mg/4ml Syringe IV 01/17/25 23:36 10 mg ONCE ONE Administration Labetalol HCl 10 mg 01/18/25 00:15 01/18/25 00:21 Labetalol 20mg/4ml Syringe IV 01/18/25 00:16 10 mg ONCE ONE Administration Morphine Sulfate 4 mg 01/17/25 22:32 01/17/25 22:48 Morphine 4mg/Ml Syringe IV 01/17/25 22:33 4 mg ONCE ONE Administration Sodium Chloride 50 ml 01/17/25 23:34 01/17/25 23:35 0.9 % Sodium Chloride 50 Ml Vial IV 01/17/25 23:35 50 ml ONCE ONE Administration Sodium Chloride 10 ml 01/17/25 23:34 01/17/25 23:35 Sodium Chloride 0.9% 10ml Syr (Rad Only) IV 01/17/25 23:35 10 ml ONCE ONE Administration ORDERS Category Date Time Status CT angio abdomen pelvis Stat Cat Scan 01/17/25 22:[address] head/brain wo con Stat Cat Scan 01/17/25 22:32 Completed CTA Chest [CT angio chest - dissection] Stat Cat Scan 01/17/25 22:32 Completed CBC w/Auto Diff [Complete Blood Count Auto Diff] Stat Lab 01/17/25 22:40 Completed CMP [Comprehensive Metabolic Panel] Stat Lab 01/17/25 22:40 Completed HIV Combo Stat Lab 01/17/25 22:40 Completed Hepatitis C Ab Qual. W/ RFX Stat Lab 01/17/25 22:40 Completed Lactate Venous Stat Lab 01/17/25 22:51 Ordered Lipase Stat Lab 01/17/25 22:40 Completed Trop I [Troponin I] Stat Lab 01/17/25 22:40 Completed Troponin I Q3H Lab 01/17/25 22:45 Completed Troponin I Q3H Lab 01/18/25 04:45 Ordered VBG [Venous Blood Gas] Stat RT 01/17/25 22:40 Completed MDM Narrative Medical Decision Narrative: In summary, this is a 84y/o female presenting the emergency department for acute onset chest pain that is now radiating to the back with a history of aortic dissection. Differential diagnosis includes but is not limited to: Aortic dissection, ACS, pneumothorax, anxiety On my initial assessment, the patient is hypertensive without concurrent tachycardia. She is in acute distress secondary to her pain. She is awake and alert. Physical exam is notable for equal pulses in the bilateral upper extremities. She overall appears warm and well-perfused. ECG personally interpreted: Ventricularly paced rhythm at a rate of 69. No acute ischemic changes noted. Normal QRS and QTc. Patient received morphine for treatment. She was sent to the CT scanner prior to waiting for lab results. Care transferred to Dr. Robbins pending CT scan results with very high clinical suspicion for aortic dissection. Itzel GUEVARA: I assumed care of the patient at the time of handoff from the prior provider. On reassessment patient blood pressure 130 systolic, heart rate in the 70s. CT imaging was independently by me and shows enlargement of the previously noted dissection. In conjunction with the patient's acute symptoms, this likely represents a worsening of her chronic dissection. I had an extensive discussion with patient and family regarding her presentation. They report that she is DNR/DNI and does not wish to proceed with transfer or any surgical intervention. They have been through this before and want to get her blood pressure and pain under control and ultimately get her back to the nursing facility as soon as reasonably possible. They understand that this is a potentially life-threatening condition and would like to proceed with admission here. I gave the patient 2 doses of 10 mg of IV labetalol with improvement in her blood pressure and heart rate. I called and spoke with the hospitalist on-call for admission. Blood pressure goal of less than 120 systolic, heart rate goal of less than 60.
[2025-01-17] MEDS: MORPHINE 4MG/ML SYRINGE 4 MG IV (22:48)
[2025-01-17 22:49] LABS: Hematocrit 29.4 % (37.0-47.0); Hemoglobin 9.3 g/dL (12.2-16.2); Immature Granulocytes % 0.2 %; Mean Corpuscular HGB Conc 31.6 g/dL (31.8-35.4); Mean Corpuscular Hemoglobin 32.1 pg (27.0-31.2); Mean Corpuscular Volume 101.4 fl (81-99); Nucleated Red Blood Cells % 0 %; Platelet Count 147 K/mm3 (142-424); Red Blood Count 2.90 M/mm3 (4.20-5.40); Red Cell Distribution Width-SD 58.4 fL; White Blood Count 4.4 K/mm3 (4.8-10.8)
[2025-01-17 22:51] LABS: Lactate Venous 1.1 mmol/L (0.4-2.0); VBG HCO3 26.7 mmol/L (23-30); VBG PCO2 44.6 mmol/L (35-51); VBG PH 7.40 mmol/L (7.31-7.41); VBG PO2 31.6 mmol/L (28-40)
[2025-01-17 23:09] LABS: Alanine Aminotransferase 8 U/L (12-78); Albumin Level 3.5 g/dl (3.5-5.0); Albumin/Globulin Ratio 1.0 (1.1-1.8); Alkaline Phosphatase 99 U/L (38-126); Anion Gap 7.9 mEq/L (5-15); Aspartate Amino Transferase 20 U/L (14-36); Bilirubin,Total 0.7 mg/dl (0.2-1.3); Blood Urea Nitrogen 21 mg/dl (7-17); Calcium 8.8 mg/dl (8.4-10.2); Carbon Dioxide 27 mmol/L (22.0-30.0); Chloride 104 mmol/L (98-107); Creatinine Clearance Estimated 37 mL/min (50-200); Creatinine,Serum 1.30 mg/dl (0.52-1.04); Estimated Glomerular Filt Rate 39 ml/min (>60); GFR (African American) 47 ML/MIN (>60); Globulin 3.4 g/dL (1.3-3.2); Glucose 103 mg/dl (74-100); Lipase 64 U/L (23-300); Potassium 3.9 mmoL/L (3.5-5.1); Sodium 135 mmol/L (136-145); Total Protein,Serum 6.9 g/dl (6.3-8.2)
--- NOTE | 2025-01-17 23:13 | PC.NURSE ---
Pt's family states that they know her aorta disease is bad and they would like to manage with pain control and HTN meds as needed. They state she will not consent to surgery They also were questioning if she still needs a CT scan Dr Robbins states he feels the Ct is worth the risk of contrast with her kidney function
[2025-01-17] MEDS: IOPAMIDOL-370 (76%);100ML BOTTLE 80 ML IV (23:35)
[2025-01-17] MEDS: 0.9 % SODIUM CHLORIDE 50 ML VIAL IV (23:35)
[2025-01-17] MEDS: SODIUM CHLORIDE 0.9% 10ML SYR (RAD ONLY) 10 ML IV (23:35)
[2025-01-17 23:38] LABS: Troponin I < 0.01 ng/ml (0.00-0.034)
[2025-01-17] MEDS: LABETALOL 20MG/4ML SYRINGE 10 MG IV (23:51)
[2025-01-17 23:57] LABS: Hepatitis C Ab Qual. W/ RFX NEGATIVE (Negative)
[2025-01-18] VITALS (53 sets, daily range): BP systolic 100–145; BP diastolic 57–93; PULSE 60–78; RESP 13–92; TEMP 36.6–37.3; O2SAT 83–100; BMI 29.6
--- NOTE | 2025-01-18 00:11 | PC.NURSE ---
Pt arrived with previous DNR/DNI form from senior care. Pt's HPOA surrogate at bedside and updated code status. [facility] code status formed filled out accordingly per pt's wishes.
[2025-01-18] MEDS: LABETALOL 20MG/4ML SYRINGE 10 MG IV (00:21)
--- NOTE | 2025-01-18 00:48 | PC.NURSE ---
Report called to Alma Rosa ROSADO on ICU
--- NOTE | 2025-01-18 01:31 | PC.NURSE ---
Patient arrived to ICU unit via ED stretcher @00:54 from ED.
--- NOTE | 2025-01-18 02:35 | P.HP_ITS ---
<Statement entered by Leonel Dubon MD - 01/18/25 15:52> Rounded on patient after nurse practitioner. Personally examined and interviewed patient. Agree with exam findings and care plan as documented. History of Present Illness *Admission Date: 01/18/25 *Reason for visit:: chest and back pain *History of present illness: 84-year-old female patient from local acute rehab presents to the ER with complaints of chest pain and back pain. She has a known aortic aneurysm with dissection. This was initially found on a CT chest in October of this year. It was decided at that time by her and family that they did not want surgery or any intervention. Goal has been to keep blood pressure and heart rate under control. Patient is DNR and DNI. Daughter reports that she got worked up today and she is sure her blood pressure got high and she started having pain. She received labetalol in the ER x 2 doses blood pressure and heart rate have improved and she is no longer having the severe pain. She still has some mild low back pain. Daughter reports that the goal is to get her back to rehab and ultimately home if able. Patient denies shortness of breath. No other complaints other than the back pain and chest pain. [facility] Disclaimer: The information contained in this section may have been updated after the patient was seen, as this information can be updated by other users. Medical History (Updated 01/18/25 @ 02:50 by Monalisa Wolf APRN) Pacemaker Osteoarthritis Cataract Hoarseness Paroxysmal atrial fibrillation GERD (gastroesophageal reflux disease) Chronic kidney disease Hypothyroidism Cardiomyopathy Congestive heart failure Chronic atrial fibrillation Hypotension Hypertension Epistaxis Surgical History (Updated 02/03/23 @ 08:54 by Alissa Stone APRN) History of cataract surgery Hx of cholecystectomy History of left knee replacement History of back surgery H/O: hysterectomy Family History (Updated 02/03/23 @ 08:55 by Alissa Stone APRN) Other Cancer Social History (Updated 02/03/23 @ 03:31 by Tania Atkinson RN) Smoking Status: Never smoker alcohol intake: never current occupational status: retired Travel in the last 8 weeks?: None Have you lived/traveled outside US in past 30 days?: No Contact w/someone who lives/traveled outside US past 30 days?: No Exposure to someone with infectious disease in past 14 days?: No Do you have a fever (greater than 100.4 F or 38 C)?: No Have you tested positive for COVID-19?: No Exposed to someone with COVID-19 in past 14 days?: No Do you have a sore throat?: No Do you have a cough?: No Do you have any weakness?: No Do you have any diarrhea?: No Are you experiencing any unusual bleeding?: No Do you have any muscle aches/pain?: No Do you have any abdominal pain?: No Are you experiencing loss of taste or smell?: No Other Medical History Have you received the Flu Vaccine for this season: No Have you received the Pneumonia Vaccine: No Review of Systems Constitutional Constitutional: Reports system reviewed and no additional complaints, except as documented Eyes Eyes: Reports system reviewed and no additional complaints, except as documented ENT Ears, Nose, Mouth, and Throat: Reports system reviewed and no additional complaints, except as documented *Cardiovascular Cardiovascular: Reports chest pain and Denies dyspnea *Respiratory Respiratory: Denies dyspnea *Gastrointestinal Gastrointestinal: Denies abdominal pain, Denies loose stools and Denies vomiting *Genitourinary Genitourinary: Denies difficulty voiding and Denies dysuria *Musculoskeletal Musculoskeletal: Denies arthralgias and Reports back pain *Neurologic Neurologic: Denies abnormal speech and Denies confusion Psychiatric Psychiatric: Denies confusion Meds Home Medications and Allergies Home Medications ?Medication ?Instructions ?Recorded ?Confirmed ?Type atorvastatin 40 mg tablet 40 mg PO HS Cholesterol 06/0802/03/23 History bupropion HCl 150 mg 24 hr tablet, 150 mg PO DAILY Dep ression 06/26/17 02/03/23 History extended release gabapentin 300 mg capsule 300 mg PO BID Pain 06/26/17 02/03/23 History levothyroxine 75 mcg tablet 75 mcg PO DAILY Hypothyroi dism 06/26/17 02/03/23 History (Synthroid) carvedilol 12.5 mg tablet 12.5 mg PO BID Hypertension 05/19/19 02/03/23 History montelukast 10 mg tablet 10 mg PO HS Asthma 05/19/19 02/03/23 History apixaban 5 mg tablet (Eliquis) 5 mg PO BID 01/20/23 History pantoprazole 40 mg tablet,delayed 40 mg PO BID 3 02/03/23 History release torsemide 10 mg tablet 10 mg PO DAILY 01/20/2301/09 History sacubitril 49 mg-valsartan 51 mg 1 tab PO BID 02/03/23 02/03/23 History tablet (Entresto) tramadol 50 mg tablet 50 mg PO HS 02/03/23 3 History New Prescriptions to Start Prescriptions: Allergies Allergy/AdvReac Type Severity Reaction Status Date / Time sulfamethoxazole (From Allergy Unknown Verified 01/20/23 15:30 Bactrim) trimethoprim (From Bactrim) Allergy Unknown Verified 01/20/23 15:30 Exam Data for Last 24 hours Vital signs and Labs for Last 24 Hours: Temp Pulse Resp BP Pulse Ox O2 Del Method 97.9 F 72 13 131/79 95 Room Air 01/18/25 01:00 01/18/25 02:00 01/18/25 02:00 01/18/25 02:00 01/18/25 02:00 01/18/25 02:00 Laboratory Results - last 24 hr 01/17/25 22:40: WBC 4.4 L, RBC 2.90 L, Hgb 9.3 L, Hct 29.4 L, MCV 101.4 H, MCH 32.1 H, MCHC 31.6 L, RDW 15.5, Plt Count 147, MPV 9.7, Neut % (Auto) 66.8, Lymph % (Auto) 18.5, [place] % (Auto) 11.3 H, Eos % (Auto) 2.7, Baso % (Auto) 0.5, Neut # (Auto) 3.0, Lymph # (Auto) 0.8, [place] # (Auto) 0.5, Eos # (Auto) 0.1, Baso # (Auto) 0.0, VBG pH 7.40, VBG pCO2 44.6, VBG pO2 31.6, VBG HCO3 26.7, VBG Total CO2 28.1 H, VBG O2 Saturation 55.8, VBG Base Excess 1.8, VBG Lactic Acid 1.1, Sodium 135 L, Potassium 3.9, Chloride 104, Carbon Dioxide 27, Anion Gap 7.9, BUN 21 H, Creatinine 1.30 H, Estimated Creat Clear 37, Estimated GFR 39 L, Est GFR ( Amer) 47 L, Glucose 103 H, Calcium 8.8, Total Bilirubin 0.7, AST 20, ALT 8 L, Alkaline Phosphatase 99, Troponin I < 0.01, Total Protein 6.9, Albumin 3.5, Globulin 3.4 H, Albumin/Globulin Ratio 1.0 L, Lipase 64, HCV Ab VERENICE w/Rflx PCR Qn Negative, HIV Ag/Ab Combo Qual Negative I & O for Last 24 hours: Intake & Output 01/15/25 01/16/25 01/17/25 01/18/25 23:59 23:59 23:59 23:59 Output Total 100 / 100 Balance -100 / -100 Weight 73.936 kg 73.028 kg Constitutional Constitutional: no acute distress *Routine HEENT Exam Head: Present normocephalic and atraumatic Eye: Present PERRL ENT: Present mucous membranes moist *Routine Neck Exam Neck: Present supple; Absent lymphadenopathy *Routine Respiratory Exam Respiratory: Present CTA bilaterally *Routine Cardiovascular Exam Cardiovascular: Present RRR, Normal S1 and Normal S2 *Routine Abdominal Exam Abdominal: Present soft and normoactive bowel sounds; Absent tenderness *Routine Rectal Exam Rectal:: deferred *Routine Genitalia Exam Genitalia:: deferred *Routine Extremities Exam Extremities: Present pulses intact (Left pedal pulses 2+. Right pedal pulse faint); Absent edema *Routine Skin Exam Skin: Present intact, dry and warm *Routine Neurological Exam Neurological: Present alert and oriented X3 H&P: Result Imaging and Cardiology CT scan - chest: Additional comments: Redemonstration of type B aortic dissection with enlarging false lumen Assessment and Plan *Assessment and plan (1) Aortic dissection: Status: Acute Qualifiers: Aortic location: unspecified Qualified Code(s): I71.00 - Dissection of unspecified site of aorta Category: Medical Code(s): I71.00 - Dissection of unspecified site of aorta (2) Hypertension: Status: Acute Qualifiers: Hypertension type: primary hypertension Qualified Code(s): I10 - Essential (primary) hypertension Category: Medical Code(s): I10 - Essential (primary) hypertension (3) Hypothyroidism: Status: Acute Qualifiers: Hypothyroidism type: unspecified Qualified Code(s): E03.9 - Hypothyroidism, unspecified Category: Medical Code(s): E03.9 - Hypothyroidism, unspecified (4) CKD (chronic kidney disease): Status: Acute Qualifiers: Chronic kidney disease stage: stage 3 (moderate) Chronic kidney disease stage 3 subtype: unspecified whether 3a or 3b Qualified Code(s): N18.30 - Chronic kidney disease, stage 3 unspecified Category: Medical Code(s): N18.9 - Chronic kidney disease, unspecified (5) Atrial fibrillation: Problem Comment: Patient's EKG shows ventricular pacemaker. However it is noted on her home meds that she is still on anticoagulation. Status: Acute Qualifiers: Atrial fibrillation type: unspecified Qualified Code(s): I48.91 - Unspecified atrial fibrillation Category: Medical Code(s): I48.91 - Unspecified atrial fibrillation Plan After discussion with the ER physician it was decided to admit the patient for further blood pressure control. I discussed at bedside with her daughters who tell me again she wishes to be a DNR/DNI. The patient's ultimate goal is to be able to go home however family realized that is unlikely. At best they would like her to be able to return to the acute rehab facility. Will resume her Coreg that she takes at home. Will add IV Lopressor as needed to help control blood pressure as well as heart rate. Currently she is not having any chest or back pain. She denies any shortness of breath. During her discussion family report they have not discussed palliative or hospice care yet. They understand that this will need to be discussed in the near future.
[2025-01-18 02:46] LABS: Troponin I < 0.01 ng/ml (0.00-0.034)
--- NOTE | 2025-01-18 05:19 | PC.NURSE ---
Pt admitted this shift. Pts SBP has been 120-130's since admission. Pt has had no complaints. Denies chest pain. Pt slightly confused through the night. Spoke with Nurse at [facility] who reports this is pts baseline. Admission and med rec completed with patient, and also nurse from , and pts medical records. call light in reach. No needs at this time.
[2025-01-18 06:18] LABS: Troponin I < 0.01 ng/ml (0.00-0.034)
[2025-01-18] MEDS: ONDANSETRON 4MG/2ML VIAL 4 MG IV (07:43)
[2025-01-18] MEDS: ACETAMINOPHEN 325MG TAB 650 MG PO ×2 (07:43→19:26)
--- NOTE | 2025-01-18 08:01 | P.PN_ITS ---
Subjective *Date: 01/18/25 *Time: 12:36 Interval history: Patient does not feel well this morning. She states her back is killing her and points to her lower back. She is also nauseated. She is unable to eat any breakfast. She did sleep some during the night. She denies chest pain. She also states she is somewhat short of breath. Per nursing: Patient slept. Blood pressure has been stable. She has not complained of any pain. Head CT showed globally all brain atrophy which has advanced. Abdominal?pelvis CTA with the following results Head CT showed globally all brain atrophy which has advanced. Abdominal?pelvis CTA with the following results Exam Data for Last 24 hours Vital signs and Labs for Last 24 Hours: Temp Pulse Resp BP Pulse Ox O2 Del Method 98.0 F 75 20 143/81 H 92 L Room Air 01/18/25 04:00 01/18/25 07:54 01/18/25 07:05 01/18/25 07:54 01/18/25 07:54 01/18/25 07:57 Laboratory Results - last 24 hr 01/17/25 22:40: WBC 4.4 L, RBC 2.90 L, Hgb 9.3 L, Hct 29.4 L, MCV 101.4 H, MCH 32.1 H, MCHC 31.6 L, RDW 15.5, Plt Count 147, MPV 9.7, Neut % (Auto) 66.8, Lymph % (Auto) 18.5, [place] % (Auto) 11.3 H, Eos % (Auto) 2.7, Baso % (Auto) 0.5, Neut # (Auto) 3.0, Lymph # (Auto) 0.8, [place] # (Auto) 0.5, Eos # (Auto) 0.1, Baso # (Auto) 0.0, VBG pH 7.40, VBG pCO2 44.6, VBG pO2 31.6, VBG HCO3 26.7, VBG Total CO2 28.1 H, VBG O2 Saturation 55.8, VBG Base Excess 1.8, VBG Lactic Acid 1.1, Sodium 135 L, Potassium 3.9, Chloride 104, Carbon Dioxide 27, Anion Gap 7.9, BUN 21 H, Creatinine 1.30 H, Estimated Creat Clear 37, Estimated GFR 39 L, Est GFR ( Amer) 47 L, Glucose 103 H, Calcium 8.8, Total Bilirubin 0.7, AST 20, ALT 8 L, Alkaline Phosphatase 99, Troponin I < 0.01, Total Protein 6.9, Albumin 3.5, Globulin 3.4 H, Albumin/Globulin Ratio 1.0 L, Lipase 64, HCV Ab VERENICE w/Rflx PCR Qn Negative, HIV Ag/Ab Combo Qual Negative 01/18/25 02:01: Troponin I < 0.01 01/18/25 05:11: Troponin I < 0.01 I & O for Last 24 hours: Intake & Output 01/15/25 01/16/25 01/17/25 01/18/25 11:59 11:59 11:59 11:59 Output Total 400 / 400 Balance -400 / -400 Weight 160 lb 15.987 oz Constitutional Constitutional: no acute distress Comments: Grimaces when she discusses her lower back pain *Routine Respiratory Exam Respiratory: Present crackles (Few bibasilar crackles) *Routine Cardiovascular Exam Cardiovascular: Present RRR (Sinus rhythm on monitor) *Routine Abdominal Exam Abdominal: Present soft and normoactive bowel sounds; Absent tenderness or distended *Routine Extremities Exam Extremities: Absent edema or calf tenderness Comments: Right foot drop *Routine Neurological Exam Neurological: Present alert and oriented X3; Absent hearing grossly intact (Hard of hearing) Assessment and Plan *Assessment and plan (1) Aortic dissection: Status: Acute Qualifiers: Aortic location: thoracic aorta Thoracic aorta location: aortic arch Qualified Code(s): I71.011 - Dissection of aortic arch Category: Medical Code(s): I71.00 - Dissection of unspecified site of aorta (2) Hypertension: Status: Acute Qualifiers: Hypertension type: primary hypertension Qualified Code(s): I10 - Esse ntial (primary) hypertension Category: Medical Code(s): I10 - Essential (primary) hypertension (3) Hypothyroidism: Status: Acute Qualifiers: Hypothyroidism type: unspecified Qualified Code(s): E03.9 - Hypothyroidism, unspecified Category: Medical Code(s): E03.9 - Hypothyroidism, unspecified (4) CKD (chronic kidney disease): Status: Acute Qualifiers: Chronic kidney disease stage: stage 3 (moderate) Chronic kidney disease stage 3 subtype: unspecified whether 3a or 3b Qualified Code(s): N18.30 - Chronic kidney disease, stage 3 unspecified Category: Medical Code(s): N18.9 - Chronic kidney disease, unspecified (5) Atrial fibrillation: Problem Comment: Patient's EKG shows ventricular pacemaker. However it is noted on her home meds that she is still on anticoagulation. Status: Acute Qualifiers: Atrial fibrillation type: unspecified Qualified Code(s): I48.91 - Unspecified atrial fibrillation Category: Medical Code(s): I48.91 - Unspecified atrial fibrillation (6) Pacemaker: Status: Acute Category: Medical Code(s): Z95.0 - Presence of cardiac pacemaker (7) Osteoarthritis: Status: Acute Category: Medical Code(s): M19.90 - Unspecified osteoarthritis, unspecified site (8) Nausea: Status: Acute Category: Medical Code(s): R11.0 - Nausea (9) Degenerative disc disease: Status: Acute Category: Medical Plan Will check urinalysis. Zofran for nausea and Tylenol for her back pain. She is already on gabapentin. Out of bed while monitoring Dr. Krause entry - Saw patient, agree with above note. Spoke to her daughter. Plan to continue blood pressure managememnt for aortic dissection. No intervention planned, will likely discharge back to [facility] tomorrow if she remains stable.
--- NOTE | 2025-01-18 08:03 | SW/DCPLANNER ---
Addendum entered by Marynaa Qiu 01/18/25 13:10: Per Norman this patient can return SNF level of care once medically stable for discharge. Addendum entered by Maryana Qiu 01/18/25 10:12: Per patient's daughter she prefer that patient return back to [facility] level of care at discharge. I have updated Norman herrera/ Timoteo Gomez. CM will continue to follow up. Original Note: Patient currently resides at [facility] level of care. Updated patient information has been faxed to Norman herrera/ Timoteo Gomez. Discharge date is unknown at this time. CM will continue to follow up.
--- NOTE | 2025-01-18 08:24 | P.CONPHA_ITS ---
Pharmacy Intervention Comments: HOME MEDICATION LIST VERIFIED USING LIST FROM ASSISTED MAR
--- NOTE | 2025-01-18 08:24 | HMH.PHAINT1 ---
Pharmacy Intervention Comments: HOME MEDICATION LIST VERIFIED USING LIST FROM [facility]
[2025-01-18] MEDS: SACUBITRIL/VALSARTAN 24-26MG TABLET 1 EACH PO ×2 (08:47→20:00)
[2025-01-18] MEDS: LEVOTHYROXINE 50MCG (0.05MG) TAB 50 MCG PO (08:47)
[2025-01-18] MEDS: CARVEDILOL 12.5MG TABLET 12.5 MG PO ×2 (08:48→20:00)
[2025-01-18] MEDS: GABAPENTIN 300MG CAPSULE 300 MG PO ×3 (09:21→20:00)
--- NOTE | 2025-01-18 09:26 | HMH.OTEV ---
OT Evaluation Rehab OT IP Evaluation Start: 01/18/25 04:12 Freq: ONCE Status: Active Protocol: [facility]18[facility]25 09[facility]21 [facility] (Rec: 01/18/25 09:25 [facility] [id number]) Rehab OT IP Assessment Subjective History Pt oriented x 2 on arrival. Pt agreeable to engage in therapy evaluation. Pt admitted on 01/18/25 due to chest pain. History and physical: 84-year-old female patient from local acute rehab presents to the ER with complaints of chest pain and back pain. She has a known aortic aneurysm with dissection. This was initially found on a CT chest in October of this year. It was decided at that time by her and family that they did not want surgery or any intervention. Goal has been to keep blood pressure and heart rate under control. Patient is DNR and DNI. Daughter reports that she got worked up today and she is sure her blood pressure got high and she started having pain. She received labetalol in the ER x 2 doses blood pressure and heart rate have improved and she is no longer having the severe pain. She still has some mild low back pain. Daughter reports that the goal is to get her back to rehab and ultimately home if able. Patient denies shortness of breath. No other complaints other than the back pain and chest pain. Subjective Pt pleasantly confused on arrival. Pt reports she was still living independently, however nursing reports she was at [facility] prior to being in the hospital. Pt claims she is normally independent with all ADLs and her family assists with IADLs. Pt also reports she uses a rolling walker and wheelchair during functional transfers. All information provided by patient may not be trustworthy due to pt being a poor historian and confused. Objective Patient Orientation Person,Birthday Right Upper WFL Extremity Gross ROM Left Upper Extremity WFL Gross ROM Bed Mobility bed mobility-scooting,bed mobility - supine/sit Assist Level Minimal x 1 (25% assist) Transfer Training Sit/Stand Transfer Assist Level Minimal x 2 (25% assist) Rehab OT IP prob,goals,plan Problems Date of Evaluation: 01/18/25 OT IP Problems Bed Mobility,Transfers,Balance,Self care,Safety Rehab Potential Rehab Potential Good Equipment Needs Assistive Devices Rolling / Wheeled Walker Plan OT intervention Plan Bed Mobility,Transfers,Balance,Self care,Safety, Therapeutic Exercise OT Plan Frequency Daily Duration LOS Discharge Goals Bed Mobility Ability Assistance x1 Sit to Stand Chair Contact Guard/Hand Hold,Minimal x 1 (25% assist) Transfer Ability Chair Transfer Contact Guard/Hand Hold Ability Chair Transfer Sit to/from Ambulatory Technique Chair Transfer Rolling Walker Assistive Devices Lower Body Dressing Moderate Assistance Ability Upper Body Dressing Minimal Assistance Ability Performing Toilet Moderate Assistance Hygiene Ability Overall Commode/ Contact Guard,Minimal Assistance Toilet Transfer Ability Commode/Toilet Sit to/from Ambulatory Transfer Technique Discharge Plan OT Discharge Plan Pt will continue to be seen for OT services while at [facility]. Pt would benefit most from short term rehab at SNF following hospital stay. Continued skilled therapy is important in order for patient to improve strength, safety, endurance, ADL independence, and functional transfers to reach PLOF. Eval Complexity Eval Charge Codes 30108 - Moderate Complexity PHYSICIAN CERTIFICATION: I certify the specified therapy services for Elyssa Lopez are required, authorized, and reviewed every 30 days.
--- NOTE | 2025-01-18 10:09 | HMH.PTEV ---
Physical Therapy Evaluation Rehab PT IP Evaluation Start: 01/18/25 04:12 Freq: ONCE Status: Active Protocol: Document 01/18/25 10:00 FAY (Rec: 01/18/25 10:09 [facility] [id number]) Subjective/History History History Per H&P: 84-year-old female patient from local acute rehab presents to the ER with complaints of chest pain and back pain. She has a known aortic aneurysm with dissection. This was initially found on a CT chest in October of this year. It was decided at that time by her and family that they did not want surgery or any intervention. Goal has been to keep blood pressure and heart rate under control. Patient is DNR and DNI. Daughter reports that she got worked up today and she is sure her blood pressure got high and she started having pain. She received labetalol in the ER x 2 doses blood pressure and heart rate have improved and she is no longer having the severe pain. She still has some mild low back pain. Daughter reports that the goal is to get her back to rehab and ultimately home if able. Patient denies shortness of breath. No other complaints other than the back pain and chest pain. Subjective Subjective Pt reports she has been at a detention for 2 weeks and has been using a w/c for mobility. Pt reports prior to detention placement, she lived alone in a SS home. Pt reports it has been >2 weeks since she could ambulate. [facility] How much help from another person do you currently need... Turning from your A little back to your side while in a flat bed without using bedrails? Moving from lying on A little back to sitting on the side of a flat bed without using bedrails? Moving to and from a A little bed to a chair ( including a wheelchair)? Standing up from a A little chair using your arms? (e.g., wheelchair, bedside chair) Walking in hospital A lot room? Climbing 3-5 steps A lot with a railing? Mobility Score 16 Mobility Level [facility] Mobility 5 Stand (1 or more minutes) Mobility Calculator Rehab PT IP Eval Objective Appearance Patient Behavior Appropriate,Cooperative Patient Orientation Person,Place Difficulty following none instructions Speech Pattern Clear Ambulation Patient Able to No Ambulate Balance Ability to Arise Able, uses arms to help Sitting Balance Steady, safe Standing Balance Steady, wide stance Dynamic Sitting Good Balance Ability Dynamic Standing Fair Balance Ability Transfers Bed Transfer Ability Minimal x 1 (25% assist) Sit to Stand Bed Moderate x 1 (50% assist) Transfer Ability Rehab PT IP prob,goals,plan Problems Date of Evaluation: 01/18/25 PT IP Problems Bed Mobility,Transfers,Gait,Balance,Self care,Safety Rehab Potential Rehab Potential Good Plan PT Intervention Plan Bed Mobility,Transfers,Gait,Balance,Self care,Safety, Therapeutic Exercise Other Intervention 1-2 times Plan PT Plan Frequency Daily Duration LOS Discharge Goals Bed Transfer Ability Contact Guard/Hand Hold Sit to Stand Chair Contact Guard/Hand Hold Transfer Ability Discharge Plan PT Discharge Plan Initial physical therapy evaluation performed. Patient presents below baseline at this time in functional mobility, transfers, and strength. PT recommending inpatient rehabilitation. Pt would benefit from skilled PT while at [facility] to prevent further functional decline and maximize safety with mobility. Eval Complexity Eval Charge Codes 14244 - Moderate Complexity PHYSICIAN CERTIFICATION: I certify the specified therapy services for Elyssa Lopez are required, authorized, and reviewed every 30 days.
[2025-01-18 10:15] LABS: Microscopic, Urine URINE MICROSCOPIC (MICROSCOPIC)
[2025-01-18 10:18] LABS: Bilirubin,Urine Negative (Negative); Color,Urine YELLOW (Yellow); Glucose,Urine (UA) Negative (Negative); Ketones,Urine Negative (Negative); Leukocyte Esterase,Urine Negative (Negative); PH,Urine 7.0 (5.0-8.5); Protein,Urine TRACE (Negative); Specific Gravity, Urine 1.010 (1.005-1.030); Urobilinogen,Urine 0.2 EU/dl (0.2)
[2025-01-18 10:28] LABS: Bacteria,Urine Trace /lpf
--- NOTE | 2025-01-18 17:50 | PC.NURSE ---
Patient has been AxO to self today. Confused and lethargic this shift. Family states this is not new when she is admitted into a hospital. B/P has been stable this shift, systolic staying below 130s. Patient has not needed PRN toprol ordered for systolic above 150. Was up in chair twice this shift for both lunch and supper. Lung sounds are clear, currently on NC 2/liters while sleeping, on RA when up to recliner. Voids per BSC. V-Paced on the monitor this shift. Independently will turn in bed on own. Denies chest pain this shift. Currently in bed with call howard at bedside and no complaints at this time.
[2025-01-18] MEDS: PANTOPRAZOLE 40MG TABLET 40 MG PO (20:00)
--- NOTE | 2025-01-18 22:29 | PC.NURSE ---
Patient refuses to wear oxygen; attempted to reach provider by phone, have not been able to reach her.
[2025-01-19] VITALS (15 sets, daily range): BP systolic 90–149; BP diastolic 55–88; PULSE 60–86; RESP 12–24; TEMP 36.5–36.9; O2SAT 90–100; BMI 29.6
--- NOTE | 2025-01-19 04:55 | PC.NURSE ---
Patient having episode where she is very confused and hostile. She believes staff here has killed her daughter, and that we are in her house. She refuses to wear monitoring equipment or to lay in the bed. She will not let staff touch her. Notified assistant housekeeping manager and provider. Provider is currently in room with patient attempting to de-escalate the situation. The patients daughter has been called and is on her way in. I am not able to get the 0400 cardiac monitoring done as patient has been ongoing with this issue since around 03:45.
--- NOTE | 2025-01-19 08:26 | EXP.ACUTE.PN ---
Subjective *Date: 01/19/25 *Time: 08:46 Interval history: Patient had a rough night and was very confused. She denies any pain this am but does have pain in her back and tailbone when she moves. She is not hungry and is very tired this am. Medical Exam Vital signs and Labs for Last 24 Hours: Vital Signs Temp Pulse Resp BP Pulse Ox O2 Del Method O2 Flow Rate 01/19/25 08:15 98.4 F 74 21 128/79 97 Nasal Cannula 3 01/19/25 06:58 Room Air 01/19/25 05:00 Room Air 01/19/25 04:00 Nasal Cannula 3 01/19/25 04:00 86 24 117/69 93 L Nasal Cannula 3 01/19/25 03:00 75 18 149/88 H 98 Nasal Cannula 3 01/19/25 03:00 Nasal Cannula 3 01/19/25 02:00 62 22 104/68 L 96 Nasal Cannula 3 01/19/25 01:00 Nasal Cannula 3 01/19/25 01:00 72 24 116/67 95 Nasal Cannula 3 01/19/25 00:00 90 L Nasal Cannula 3 01/19/25 00:00 60 01/19/25 00:00 97.9 F 60 24 101/62 L 90 L Room Air 01/18/25 23:00 62 16 106/75 L 90 L 01/18/25 23:00 Nasal Cannula 3 01/18/25 22:00 60 19 101/63 L 94 L Room Air 01/18/25 21:00 71 20 109/66 L 95 Nasal Cannula 2 01/18/25 21:00 Nasal Cannula 2 01/18/25 20:03 98.4 F 73 20 133/82 97 Nasal Cannula 2 01/18/25 20:00 96 Nasal Cannula 2 01/18/25 20:00 70 01/18/25 19:00 98.4 F 62 17 145/93 H 94 L Nasal Cannula 2 01/18/25 18:59 Nasal Cannula 2 01/18/25 18:58 75 92 H 131/83 Nasal Cannula 2 01/18/25 18:36 98.7 F 01/18/25 18:00 73 18 131/83 94 L Nasal Cannula 2 01/18/25 17:00 71 127/77 94 L Room Air 01/18/25 16:55 Room Air 01/18/25 16:00 72 01/18/25 16:00 Room Air 01/18/25 16:00 60 18 124/79 96 Nasal Cannula 2 01/18/25 14:54 Nasal Cannula 2 01/18/25 14:54 72 18 107/57 L 96 Nasal Cannula 2 01/18/25 13:53 73 101/64 L 95 Nasal Cannula 2 01/18/25 13:00 Nasal Cannula 2 01/18/25 13:00 73 101/64 L 95 Nasal Cannula 2 01/18/25 12:15 78 20 89 L 01/18/25 12:00 72 01/18/25 12:00 98.4 F 73 20 102/72 L 91 L 01/18/25 12:00 102/72 L 01/18/25 12:00 73 18 102/72 L 90 L Room Air 01/18/25 11:46 Room Air 01/18/25 11:45 73 20 91 L 01/18/25 11:30 75 18 97 01/18/25 11:15 70 17 97 01/18/25 11:00 121/75 01/18/25 11:00 70 16 97 01/18/25 11:00 Nasal Cannula 2 01/18/25 11:00 70 18 121/75 90 L Nasal Cannula 2 01/18/25 10:45 72 16 95 01/18/25 10:30 70 17 98 01/18/25 10:15 73 21 94 L 01/18/25 10:08 113/73 01/18/25 10:08 70 20 98 01/18/25 10:07 74 16 100 01/18/25 10:00 74 113/73 98 Nasal Cannula 2 01/18/25 09:45 60 19 84 L 01/18/25 09:30 70 18 83 L 01/18/25 09:15 73 19 94 L 01/18/25 09:00 117/74 01/18/25 09:00 73 20 91 L 01/18/25 08:56 76 100/62 L 93 L Room Air 01/18/25 08:45 70 20 87 L 01/18/25 08:44 Room Air 01/18/25 08:30 70 19 85 L Intake and Output 01/18/25 01/19/25 01/19/25 19:59 03:59 11:59 Intake Total 360 / 360 Output Total 625 / 975 350 / 975 Balance -265 / -615 -350 / -615 Intake: Intake, Oral Amount 360 / 360 Output: Output, Urine Amount 625 / 975 350 / 975 Other: Number of Unmeasured Voids 0 0 Weight 161 lb 2.526 oz Patient Weight 01/19/25 11:59 Weight 161 lb 2.526 oz Laboratory Results - last 24 hr 01/18/25 08:00: Urine Color Yellow, Urine Appearance Clear, Urine pH 7.0, Ur Specific [place] 1.010, Urine Protein Trace, Urine Glucose (UA) Negative, Urine Ketones Negative, Urine Blood Negative, Urine Nitrate Negative, Urine Bilirubin Negative, Urine Urobilinogen 0.2, Ur Leukocyte Esterase Negative, Urine RBC None, Urine WBC None, Ur Squamous Epith Cells 3-5, Urine Bacteria Trace I & O for Labs for Last 24 Hours: Intake & Output 01/16/25 01/17/25 01/18/25 01/19/25 11:59 11:59 11:59 11:59 Intake Total 120 / 120 360 / 360 Output Total 1040 / 1040 975 / 975 Balance -920 / -920 -615 / -615 Weight 160 lb 15.987 oz 161 lb 2.526 oz Constitutional: Present no acute distress Respiratory: Present CTA bilaterally (A&P) Cardiac: Present Reg Rate and Rhythm GI: Present soft and normal bowel sounds; Absent distention Extremities: Absent edema or calf tenderness Neuro: Present alert and oriented x 3 Assessment and Plan *Assessment and plan (1) Aortic dissection: Status: Acute Qualifiers: Aortic location: thoracic aorta Thoracic aorta location: aortic arch Qualified Code(s): I71.011 - Dissection of aortic arch Category: Medical Code(s): I71.00 - Dissection of unspecified site of aorta (2) Hypertension: Status: Acute Qualifiers: Hypertension type: primary hypertension Qualified Code(s): I10 - Essential (primary) hypertension Category: Medical Code(s): I10 - Essential (primary) hypertension (3) Hypothyroidism: Status: Acute Qualifiers: Hypothyroidism type: unspecified Qualified Code(s): E03.9 - Hypothyroidism, unspecified Category: Medical Code(s): E03.9 - Hypothyroidism, unspecified (4) CKD (chronic kidney disease): Status: Acute Qualifiers: Chronic kidney disease stage: stage 3 (moderate) Chronic kidney disease stage 3 subtype: unspecified whether 3a or 3b Qualified Code(s): N18.30 - Chronic kidney disease, stage 3 unspecified Category: Medical Code(s): N18.9 - Chronic kidney disease, unspecified (5) Atrial fibrillation: Problem Comment: Patient's EKG shows ventricular pacemaker. However it is noted on her home meds that she is still on anticoagulation. Status: Acute Qualifiers: Atrial fibrillation type: unspecified Qualified Code(s): I48.91 - Unspecified atrial fibrillation Category: Medical Code(s): I48.91 - Unspecified atrial fibrillation (6) Pacemaker: Status: Acute Category: Medical Code(s): Z95.0 - Presence of cardiac pacemaker (7) Osteoarthritis: Status: Acute Category: Medical Code(s): M19.90 - Unspecified osteoarthritis, unspecified site (8) Nausea: Status: Acute Category: Medical Code(s): R11.0 - Nausea (9) Degenerative disc disease: Status: Acute Category: Medical Plan Will discuss further care with Dr. Krause. BP was normal this am. Dr. Krause entry - Saw patient, agree with above notew. OK to discharge back to [facility] today. Will continue BP control for aortic dissection, no plans for intervention. Eliquis has been stopped.
[2025-01-19] MEDS: SACUBITRIL/VALSARTAN 24-26MG TABLET 1 EACH PO (09:39)
[2025-01-19] MEDS: CARVEDILOL 12.5MG TABLET 12.5 MG PO (09:39)
[2025-01-19] MEDS: GABAPENTIN 300MG CAPSULE 300 MG PO (09:39)
[2025-01-19] MEDS: PANTOPRAZOLE 40MG TABLET 40 MG PO (09:39)
--- NOTE | 2025-01-19 10:02 | EXP.DC.SUM ---
General Admission date:: 01/18/25 Discharge date: 01/19/25 HPI HPI HPI: 84-year-old female patient from local acute rehab presents to the ER with complaints of chest pain and back pain. She has a known aortic aneurysm with dissection. This was initially found on a CT chest in October of this year. It was decided at that time by her and family that they did not want surgery or any intervention. Goal has been to keep blood pressure and heart rate under control. Patient is DNR and DNI. Daughter reports that she got worked up today and she is sure her blood pressure got high and she started having pain. She received labetalol in the ER x 2 doses blood pressure and heart rate have improved and she is no longer having the severe pain. She still has some mild low back pain. Daughter reports that the goal is to get her back to rehab and ultimately home if able. Patient denies shortness of breath. No other complaints other than the back pain and chest pain. Hospital Course Hospital Course Hospital Course: Patient was admitted to [facility] with a worsening aortic dissection. Plans were made for tighter blood pressure control and stopping her Eliquis. She and her daughter confirmed that they did not want any surgical intervention for dissection. She was seen by physical therapy and they state she is appropriate to resume intermediate care rehab. Exam Data for Last 24 hours Vital signs and Labs for Last 24 Hours: Temp Pulse Resp BP Pulse Ox O2 Del Method O2 Flow Rate 98.4 F 74 21 128/79 97 Nasal Cannula 3 01/19/25 08:15 01/19/25 08:15 01/19/25 08:15 01/19/25 08:15 01/19/25 08:15 01/19/25 08:15 01/19/25 08:15 Laboratory Results - last 24 hr 01/18/25 08:00: Urine Color Yellow, Urine Appearance Clear, Urine pH 7.0, Ur Specific [place] 1.010, Urine Protein Trace, Urine Glucose (UA) Negative, Urine Ketones Negative, Urine Blood Negative, Urine Nitrate Negative, Urine Bilirubin Negative, Urine Urobilinogen 0.2, Ur Leukocyte Esterase Negative, Urine RBC None, Urine WBC None, Ur Squamous Epith Cells 3-5, Urine Bacteria Trace I & O for Last 24 hours: Intake & Output 01/16/25 01/17/25 01/18/25 01/19/25 23:59 23:59 23:59 23:59 Intake Total 480 / 480 0 / 0 Output Total 1715 / 1715 300 / 300 Balance -1235 / -1235 -300 / -300 Weight 163 lb 160 lb 15.987 oz 161 lb 2.526 oz Constitutional Constitutional: no acute distress Comments: Grimaces when she discusses her lower back pain *Routine Respiratory Exam Respiratory: Present crackles (Few bibasilar crackles) *Routine Cardiovascular Exam Cardiovascular: Present RRR (Sinus rhythm on monitor) *Routine Abdominal Exam Abdominal: Present soft and normoactive bowel sounds; Absent tenderness or distended *Routine Extremities Exam Extremities: Absent edema or calf tenderness Comments: Right foot drop *Routine Neurological Exam Neurological: Present alert and oriented X3; Absent hearing grossly intact (Hard of hearing) Results Data Completed and Pending Labs on day of discharge: Labs from last 24 hours 01/18/25 08:00 Urine Color Yellow Urine Appearance Clear Urine pH 7.0 Ur Specific [place] 1.010 Urine Protein Trace Urine Glucose (UA) Negative Urine Ketones Negative Urine Blood Negative Urine Nitrate Negative Urine Bilirubin Negative Urine Urobilinogen 0.2 Ur Leukocyte Esterase Negative Urine RBC None Urine WBC None Ur Squamous Epith Cells 3-5 Urine Bacteria Trace DS: Diagnosis Discharge Diagnosis (1) Aortic dissection: Status: Acute Code(s): I71.00 - Dissection of unspecified site of aorta Qualifiers: Aortic location: thoracic aorta Thoracic aorta location: aortic arch Qualified Code(s): I71.011 - Dissection of aortic arch (2) Hypertension: Status: Acute Code(s): I10 - Essential (primary) hypertension Qualifiers: Hypertension type: primary hypertension Qualified Code(s): I10 - Essential (primary) hypertension (3) Hypothyroidism: Status: Acute Code(s): E03.9 - Hypothyroidism, unspecified Qualifiers: Hypothyroidism type: unspecified Qualified Code(s): E03.9 - Hypothyroidism, unspecified (4) CKD (chronic kidney disease): Status: Acute Code(s): N18.9 - Chronic kidney disease, unspecified Qualifiers: Chronic kidney disease stage: stage 3 (moderate) Chronic kidney disease stage 3 subtype: unspecified whether 3a or 3b Qualified Code(s): N18.30 - Chronic kidney disease, stage 3 unspecified (5) Atrial fibrillation: Status: Acute Code(s): I48.91 - Unspecified atrial fibrillation Qualifiers: Atrial fibrillation type: unspecified Qualified Code(s): I48.91 - Unspecified atrial fibrillation Problem details: Patient's EKG shows ventricular pacemaker. However it is noted on her home meds that she is still on anticoagulation. (6) Pacemaker: Status: Acute Code(s): Z95.0 - Presence of cardiac pacemaker (7) Osteoarthritis: Status: Acute Code(s): M19.90 - Unspecified osteoarthritis, unspecified site (8) Nausea: Status: Acute Code(s): R11.0 - Nausea (9) Degenerative disc disease: Status: Acute Meds Home Medications and Allergies Home Medications ?Medication ?Instructions ?Recorded ?Confirmed ?Type atorvastatin 40 mg tablet 40 mg PO HS 06/26/17 01/18/25 History bupropion HCl 150 mg 24 hr tablet, 150 mg PO DAILY 06/26/17 01/18/25 History extended release carvedilol 12.5 mg tablet 12.5 mg PO BID 05/19/19 01/18/25 History pantoprazole 40 mg tablet,delayed 40 mg PO BID 01/20/23 01/18/25 History release torsemide 10 mg tablet 10 mg PO DAILY 01/20/23 01/18/25 History sacubitril 49 mg-valsartan 51 mg 1 tab PO BID 02/03/23 01/18/25 History tablet (Entresto) acetaminophen 325 mg tablet 325 mg PO QID PRN Mild Pain (Scale 01/18/25 01/18/25 History (Tylenol) Score 1-4) cyanocobalamin (vitamin B-12) 1,000 mcg PO DAILY 01/18/25 01/18/25 History 1,000 mcg tablet,extended release (Vitamin B-12 ER) levothyroxine 50 mcg tablet 50 mcg PO DAILY 01/18/25 01/18/25 History gabapentin 300 mg capsule 300 mg PO TID #90 caps 01/19/25 Rx New Prescriptions to Start Prescriptions: gabapentin [place]elida[place] Allergies Allergy/AdvReac Type Severity Reaction Status Date / Time sulfamethoxazole (From Allergy Unknown Verified 01/20/23 15:30 Bactrim) trimethoprim (From Bactrim) Allergy Unknown Verified 01/20/23 15:30 Discharge Plan Disposition Patient Disposition: [facility] Condition: Good Discharge Order Discharge Orders: Discharge Order (Routine); Ordered 01/19/25 Ordered By: Say Krause Follow up Plan Follow up with: Bowen Escobedo MD [Primary Care Provider, Medical] - Enter time for follow up Referral Note: At [place] Prescriptions/Medication Reconciliation: Continued pantoprazole 40 mg tablet,delayed release (DR/EC) 40 mg PO BID torsemide 10 mg tablet 10 mg PO DAILY Patient Comments: TAKE 1 TABLET BY MOUTH DAILY bupropion HCl 150 MG tablet extended release 24 hr 150 mg PO DAILY atorvastatin 40 MG tablet 40 mg PO HS carvedilol 12.5 MG tablet 12.5 mg PO BID sacubitril-valsartan [Entresto] 49-51 mg Tablet 1 tab PO BID cyanocobalamin (vitamin B-12) [Vitamin B-12] 1,000 mcg tablet extended release 1,000 mcg PO DAILY Patient Comments: TAKE 1 TABLET BY MOUTH DAILY acetaminophen [Tylenol] 325 mg Tablet 325 mg PO QID PRN (Reason: Mild Pain (Scale Score 1-4)) levothyroxine 50 mcg tablet 50 mcg PO DAILY gabapentin 300 MG capsule 300 mg PO TID Qty: 90 0RF Discontinued Eliquis 5 mg tablet 5 mg PO BID Patient Comments: TAKE 1 TABLET BY MOUTH TWICE DAILY Problem Reconciliation Problems Reviewed?: Yes Patient Discharge Instructions ACTIVITY: Continue current activity DIET: continue same diet Patient Instructions: Aortic Dissection Print Language: Estonian Providers Primary Care Provider: Bowen Escobedo Admit Provider: Micheal Mirza Attending Provider: Say Krause
--- NOTE | 2025-01-19 14:16 | PC.NURSE ---
1200 attempted to call report to [facility]. DC summary not received, will try again. dc summary to be faxed 1250 attempted to call report to [facility], [place] packet received but not dc summary. refaxing and will call again 1336 called report to [facility] at [phone] Called [facility], transfer arranged.
== END 2025-01-19 13:05 ==
LOC: ER 01-18 00:33 → ICU 01-18 03:17
PROVIDERS: Nurse Practitioner Family; Student in an Organized Health Care Education/Training Program; Admitting Provider Student in an Organized Health Care Education/Training Program; Emergency Provider Emergency Medicine; PCP Family Medicine; Visit Provider Family Medicine
DX: I71.011 Dissection of aortic arch (principal); E03.9 Hypothyroidism, unspecified; N18.30 Chronic kidney disease, stage 3 unspecified; I48.91 Unspecified atrial fibrillation; Z95.0 Presence of cardiac pacemaker; M19.90 Unspecified osteoarthritis, unspecified site; R11.0 Nausea; I71.00 Dissection of unspecified site of aorta; I12.9 Hypertensive chronic kidney disease with stage 1 through stage 4 chronic kidney disease, or unspecified chronic kidney disease; Z90.710 Acquired absence of both cervix and uterus; Z90.49 Acquired absence of other specified parts of digestive tract; Z96.652 Presence of left artificial knee joint; Z88.2 Allergy status to sulfonamides; Z79.890 Hormone replacement therapy; Z79.899 Other long term (current) drug therapy; Z66 Do not resuscitate
CPT/HCPCS: 36415; 70450; 71275; 74174; 80053; 81001; 82803; 83690; 84484; 85025; 86803; 87081; 87389; 93005; 97162; 97166; 97530; 99285; G0378; J1920; J2270; J2405; Q9967

== ENCOUNTER 2025-01-23 01:37 | Outpatient (CLI) | payer MEDICARE, OTHER, SELFPAY ==
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
--- OUTSIDE RECORDS SUMMARY | 2024-05-13 05:45 | XMS_ITS ---
Author Organization [facility] Address [address] [place] [id number] Care Team Providers Care Bandoleer Straightener Stamper Name Role Phone Derrell Escobedo Primary Care Provider Allergies Allergen (clinical drug ingredient) Drug/Non Drug Allergy documented on EMR Reaction Allergy Type Onset Date Status sulfamethoxazole / trimethoprim Bactrim tongue burning, redness Drug Allergy Active Results Component Value Reference Range Notes CBC Venipuncture (in house) Reviewed date:05/18/2024 08:49:50 AM Interpretation:Normal Performing Lab: Notes/Report: Normal wbc 3.3 3.5 - 10 lymph 20.0 15 - 50 mid 4.9 2 - 15 gran 75.1 35 - 80 rbc 3.63 3.5 - 5.5 hgb 12.1 11.5 - 16.5 hct 35.8 35 - 55 mcv 98.6 75 - 100 mch 33.4 25 - 35 mchc 33.8 31 - 38 platlet 152 100 - 400 P-Comprehensive Metabolic Pa marianne (CMP) Reviewed date:05/18/2024 08:49:50 AM Interpretation:Cr 1.32, gfr 40 Performing Lab: Notes/Report: CLIA: [id number] Shaun Draper MD, Server Programmer [facility] , [address], [place] [address] Test performed by [facility], [facility] Sodium 140 135-145 mmol/L Potassium 4.5 3.5-5.3 mmol/L Chloride 106 97-108 mmol/L CO2 25 22-32 mmol/L Glucose 89 65-99 mg/dL BUN 19 8-23 mg/dL Creatinine 1.32 0.50-1.00 mg/dL Calcium 9.1 8.6-10.4 mg/dL eGFR by Creatinine 40 >59 mL/min/1.73m2 Protein 6.2 6.0-8.3 g/dL Albumin 4.0 3.5-5.3 g/dL Alkaline Phosphatase 109 35-121 IU/L ALT (SGPT) 9 <5-47 IU/L AST (SGOT) 11 <5-40 IU/L Bilirubin, Total 0.7 <0.2-1.2 mg/dL A/G Ratio 1.8 1.1-2.5 P-Lipid Panel Reviewed date:05/18/2024 08:49:50 AM Interpretation:Normal Performing Lab: Notes/Report: Test performed by [facility], [address] , [facility], [place] [address] Shaun Draper MD, Server Programmer CLIA: [id number] Cholesterol 117 <200 mg/dL Triglycerides 66 <150 mg/dL HDL Cholesterol 49 >39 mg/dL Cholesterol / HDL Ratio 2.39 0.00-4.44 Ratio Non-HDL Cholesterol 68 <130 mg/dL LDL Cholesterol (Calculation) 55 <130 mg/dL LDL Cholesterol Levels* Less than 100 mg/dL Optimal 100 to 129 mg/dL Near Optimal/ Above Optimal 130 to 159 mg/dL Borderline High 160 to 189 mg/dL High 190 mg/dL and above Very High * Categories as recommended by the 2004 ATPIII guidelines LDL/HDL Ratio 1.1 <3.3 Ratio LDL Cholesterol Patient History Test Date: 05/13/2024 LDL Results: 55 Units: mg/dL % Change: - P-Magnesium Reviewed date:05/18/2024 08:49:50 AM Interpretation:Normal Performing Lab: Notes/Report: Test performed by [facility] [address] [place] [address] , [place] [address] Shaun Draper MD, Server Programmer CLIA: [id number] Magnesium 2.1 1.6-2.4 mg/dL P-TSH Reviewed date:05/18/2024 08:49:50 AM Interpretation:Normal Performing Lab: Notes/Report: Test performed by [facility] [address] [place] [address] [place] [address] Shaun Draper MD, Server Programmer CLIA: [id number] TSH 1.69 0.43-5.25 mU/L REASON FOR VISIT checkup with refills and Annual Wellness Visit, Needs labs & bone density screening Medications Medication SIG (Take, Route, Frequency, Duration) Notes Start Date End Date Status buPROPion HCl ER (XL) 150 MG TAKE 1 TABL ET BY MOUTH EVERY 24 HOURS; Duration: 30 Active Coreg 12.5 MG 1 tab(s) orally 2 ti mes a day; Duration: 90 days Active Synthroid 50 MCG 1 tablet in the morn ing on an empty stomach Orally Once a day; Duration: 90 days Active Vitamin B12 1000 MCG 1 tablet Orally Onc e a day; Duration: 30 days Active Atorvastatin Calcium 40 MG 1 tablet Oral ly Once a day; Duration: 90 days Active Protonix 40 MG 1 tab(s) orally 2 ti mes a day; Duration: 90 days Active Gabapentin 300 MG 1 cap(s) orally 3 ti mes a day; Duration: 30 day(s) 12/12/2023 Active Macrobid 100 MG 1 capsule with food Orally every 12 hrs; Duration: 5 day(s) 09/26/2023 Active NEURO CREAM KETAMINE 10%, GABAPENTIN 6%, LIDOCAINE 5%, AMITRIPTYLINE 2%, BUPIVACAINE 2%, MELOXICAM 0.1% 1-2 GRAMS APPLY TOPICALLY 3-4 TIMES PER DAY 01/01/2022 Active traMADol HCl 50 MG 1 tab(s) orally thre e times a day as needed 12/25/2023 Active Montelukast Sodium 10 MG TAKE 1 TABLET B Y MOUTH EVERY DAY; Duration: 90 Active Amoxicillin-Pot Clavulanate 875-125 MG 1 tablet Orally every 12 hrs; Duration: 7 days 09/23/2023 Active Torsemide 10 MG 1 tab(s) orally once a day Active Entresto 24-26 MG 1 tab(s) orally once daily Active Silver sulfADIAZINE 1 % apply topically to the affected area twice daily Active Eliquis 2.5 MG 1 tab(s) orally bid Active Lipitor 40 MG 1 tab(s) orally once a day Active TEGretol 200 MG 1 tab(s) orally 2 ti mes a day; Duration: 90 days Active Vital Signs Weight 169.0 lbs 05/13/2024 Blood pressure systolic 130 mm Hg 05/14/19 25 Blood pressure diastolic 90 mm Hg 025 Heart Rate 43 /min 05/13/2024 Height 63 in 05/13/2024 BMI 29.93 kg/m2 05/13/2024 Encounters Encounter Location Date Provider Diagnosis [facility] [address] [phone] 05/13/2024 R Nitin Escobedo Adult general medica l examination Z00.00 ; Essential hypertension I10 ; Acquired hypothyroidism E03.9 ; Dyslipidemia E78.5 ; Peripheral polyneuropathy G62.9 ; Chronic kidney disease N18.9 ; Screening for breast cancer Z12.39 ; Bunion of great toe M21.619 ; Callus of foot L84 ; Osteopenia M85.80 ; Osteoporosis M81.0 ; Pacemaker Z95.0 ; Seasonal allergies J30.2 ; GERD (gastroesophageal reflux disease) K21.9 ; JASON (obstructive sleep apnea) G47.33 ; Generalized osteoarthritis M15.9 ; Status post left knee replacement Z96.652 and BMI 29.0-29.9,adult Z68.29 Assessments Encounter Date Diagnosis (ICD Code) Assessment Notes Treatment Notes Treatment Clinical Notes Section Notes 05/13/2024 Adult general medical examination (ICD-10 - Z00.00) Patient instructed to return to office Annually for Annual Wellness Visits to include annual screenings of Pain assessment, Functional Ability assessment, Cognitive Ability assessment, Fall Risk assessment, Depression screening and Bladder control screening. 05/13/2024 Essential hypertension (ICD-10 - I10) 05/13/2024 Acquired hypothyroidism (ICD-10 - E03.9) 05/13/2024 Dyslipidemia (ICD-10 - E78.5) 05/13/2024 Peripheral polyneuropathy (ICD-10 - G62.9) 05/13/2024 Chronic kidney disease (ICD-10 - N18.9) 05/13/2024 Screening for breast cancer (ICD-10 - Z12.39) 05/13/2024 Bunion of great toe (ICD-10 - M21.619) 05/13/2024 Callus of foot (ICD-10 - L84) Recommend she follow-up with her rn document improvement specialist 05/13/2024 Osteopenia (ICD-10 - M85.80) 05/13/2024 Osteoporosis (ICD-10 - M81.0) 05/13/2024 Pacemaker (ICD-10 - Z95.0) 05/13/2024 Seasonal allergies (ICD-10 - J30.2) 05/13/2024 GERD (gastroesophageal reflux disease) (ICD-10 - K21.9) 05/13/2024 JASON (obstructive sleep apnea) (ICD-10 - G47.33) 05/13/2024 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) 05/13/2024 Status post left knee replacement (ICD-10 - Z96.652) 05/13/2024 BMI 29.0-29.9,adult (ICD-10 - Z68.29) Plan Of Treatment Treatment Notes Assessment Notes Adult general medical examination Patien t instructed to return to office Annually for Annual Wellness Visits to include annual screenings of Pain assessment, Functional Ability assessment, Cognitive Ability assessment, Fall Risk assessment, Depression screening and Bladder control screening. Callus of foot Recommend she follow -up with her rn document improvement specialist Pending Test Test Name Order Date Mammogram 05/13/2024 Next Appt Details Follow Up: 6 Months, Reason: Provider Name:Derrell Hawley 05/12/2025 11:00:00 AM, [address], [address], [place], [place], [id number], Progress Notes * BRUCE GAONADOB:1940 ( 84 yo F)Acc No.[id number]:05/13/2024 Annual Wellness Visit Patient: BRUCE BLANC Provider: Derrell Escobedo M.D. :1940 A ge:83 Y S ex:Female Date:05/13/2024 Address:[address], [place], [id number] Subjective: * Chief Complaints: * 1 . checkup with refills and Annual Wellness Visit. 2. Needs labs & bone density screening. * HPI: H PI: 83 year old female presents with c/o Patient is here today for?Pt is here today for a check up with refills and , a Medicare Annual Wellness Visit. . ? A nkle/Foot: c/o Pain P t sts her 2nd toe of right foot was removed a few years ago due to being infected and and now her great toe is angled outwards and causing some discomfort. This is also caused her to develop a callus on the bottom of her foot.. S houlder/Upper arm: c/o shoulder pain r ight shoulder. N eurology: Daughter notes some occasional episodes of confusion usually triggered by stressful situations. Nonetheless she is still living alone and functioning independently with assistance of her family. * ROS: D ERMATOLOGY: no R fernando. n o H brian. G ASTROENTEROLOGY: no N ausea. n o V omiting. n o D iarrhea.? O PTHALMOLOGY: Negative for d enies vision issues. U ROLOGY: no D ifficulty urinating. n [...] oophorectomy for prolapse , Colonoscopy/ 5 polyps/ DrJanina Alexandra 2008, back surgery X 4 Dr Calvo 2012, cataract surgery , cardiac ablation-Dr Felder [facility] , Pacemaker 2017, left knee [id number]-Hi Kirk 12/29/2018. * Hospitalization/Major Diagno stic Procedure: [...] orally 2 times a day , Taking Silver sulfADIAZINE 1 % Cream apply topically to the affected area twice daily , Taking Torsemide 10 MG Tablet 1 [...] food Orally every 12 hrs , Taking NEURO CREAM KETAMINE 10%, GABAPENTIN 6%, LIDOCAINE 5%, AMITRIPTYLINE 2%, BUPIVACAINE 2%, MELOXICAM 0.1% 1-2 GRAMS APPLY TOPICALLY 3-4 TIMES PER DAY , Taking Protonix 40 MG Tablet Delayed Release 1 tab(s) orally 2 times a day , Taking Gabapentin 300 MG Capsule 1 cap(s) orally 3 times a day , Taking traMADol HCl 50 MG Tablet 1 tab(s) orally three times a day as needed , Taking Vitamin B12 1000 MCG Tablet Extended Release 1 tablet Orally Once a day , Taking Atorvastatin Calcium 40 MG Tablet 1 tablet Orally Once a day , Taking Coreg 12.5 MG Tablet 1 tab(s) orally 2 times a day , Taking Synthroid 50 MCG Tablet 1 tablet in the morning on an empty stomach Orally Once a day , Taking buPROPion HCl ER (XL) 150 MG Tablet Extended Release 24 Hour TAKE 1 TABLET BY MOUTH EVERY 24 HOURS , Medication List reviewed and reconciled with the patient * Allergies: B actrim: tongue burning, redness. Objective: * Vitals: W t:169.0, Temp:97.6, BP:130/90, HR:43, O2 Sat:100% on RA, Nurse:felix, Ht: 63, BMI:29.93. * Examination: G eneral Examination: General Appearance: S he comes in accompanied by her daughter. Weight loss noted.. H EENT: sclera and conjunctiva clear, PERRLA, bilateral hearing aides. O ral cavity: n o lesions, mucosa moist and WNL, no erythema. N alexandra: s upple, no lymphadenopathy, no carotid bruits, no thyromegaly. H eart: R SR. L ungs: c lear to auscultation. A bdomen: soft, not distended, nontender, bowel sounds present. Neurologic Exam: right foot drop o/w no focal deficits. S kin: n ormal, no rash.?Extremities: t race pretibial edema. 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 She has a bunion with significant lateral deviation of the great toe. She has developed large callus over the ball of the first MP joint.. * Physical Examination: ENERAL: Pain Assessment: P ain level: 3, on a scale of 0-10 (with 10 being extreme pain). F unctional Status Assessment: P atient response to question of how often physical health interferes with daily activities: . Occasionally Able to perform ADLs-including meal preparation, grocery shopping, housework, laundry, taking medications or handling finances. Cognitive Status: alert and oriented. Ambulation Status: Fully ambulatory . F all Risk Assessment: I ndependant in ambulation, adequate lighting in home. Patient has NOT fallen or had trouble walking within the past 12 months. D epression Screening: D enies depressed mood or anxiety. Describes emotional health as: positive. B ladder Control Screening: s ignificant p sage. Assessment: * Assessment: 1. A dult general medical examination - Z00.00 (Primary) 2 . E ssential hypertension - I10 3 . A cquired hypothyroidism - E03.9 4 . D yslipidemia - E78.5 5 . P eripheral polyneuropathy - G62.9 6 . Chronic kidney disease - N18.9 7 . S creening for breast cancer - Z12.39 8 . B union of great toe - M21.619 9 . C allus of foot - L84? 10. O steopenia - M85.80 1 1. O steoporosis - M81.0 1 2. P acemaker - Z95.0 1 3. S easonal allergies - J30.2 ?14. G ERD (gastroesophageal reflux disease) - K21.9 1 5. O SA (obstructive sleep apnea) - G47.33 1 6. G eneralized osteoarthritis - M15.9 17. S tatus post left knee replacement - Z96.652 1 8. B WA 29.0-29.9,adult - Z68.29 Plan: * Treatment: 2. E ssential hypertension L AB: P-Comprehensive Metabolic Panel (CMP) (Collection Date & Time - 05/13/2024 10:40 AM) C r 1.32, gfr 40 Value Reference Range A /G Ratio 1.8 1.1-2.5 - * A lbumin 4.0 3.5-5.3 - g/dL * A lkaline Phosphatase 109 35-121 - IU/L * A LT (SGPT) 9 <5-47 - IU/L * A ST (SGOT) 11 <5-40 - IU/L * B ilirubin, Total 0.7 <0.2-1.2 - mg/dL * B UN 19 8-23 - mg/dL * C alcium 9.1 8.6-10.4 - mg/dL * C hloride 106 97-108 - mmol/L * C O2 25 22-32 - mmol/L * C reatinine 1.32 H 0.50-1.00 - mg/dL * G lucose 89 65-99 - mg/dL * P otassium 4.5 3.5-5.3 - mmol/L * S odium 140 135-145 - mmol/L * P rotein 6.2 6.0-8.3 - g/dL * e GFR by Creatinine 40 L >59 - mL/min/1.73m2 * Derrell Escobedo 05/18/2024 8 :49:39 AM >See phone encounter 3.?Acquired hypothyroidism?LAB: P-TSH (Collection Date & Time - 05/13/2024 10:40 AM)?Normal* Value Reference Range T SH 1.69 0.43-5.25 - mU/L * Derrell Escobedo 05/18/2024 8 :49:39 AM >See phone encounter 4.?Dyslipidemia?LAB: P-Lipid Panel (Collection Date & Time - 05/13/2024 10:40 AM)?Normal* Value Reference Range C holesterol / HDL Ratio 2.39 0.00-4.44 - Ratio * C holesterol 117 <200 - mg/dL * H DL Cholesterol 49 >39 - mg/dL * L DL Cholesterol (Calculation) 55 <130 - mg/d L * L DL/HDL Ratio 1.1 <3.3 - Ratio * N on-HDL Cholesterol 68 <130 - mg/dL * T riglycerides 66 <150 - mg/dL * Derrell Escobedo 05/18/2024 8 :49:39 AM >See phone encounter 5.?Chronic kidney disease?LAB: P-Magnesium (Collection Date & Time - 05/13/2024 10:40 AM)?Normal* Value Reference Range M agnesium 2.1 1.6-2.4 - mg/dL * Derrell Escobedo 05/18/2024 8 :49:39 AM >See phone encounter 6.?Screening for breast cancer?Imaging: Mammogram* Sharon Lyle 05/13/2024 12:41: 35 PM > faxed to [facility] Scheduling 7.?Callus of foot? Notes: Recommend she follow-up with her rn document improvement specialist?? * Labs: * L ab: CBC Venipuncture (in house) (Collection Date & Time - 05/13/2024) N ormal Value Reference Range w bc 3.3 3.5 - 10 * l ymph 20.0 15 - 50 * m id 4.9 2 - 15 * g ran 75.1 35 - 80 * r bc 3.63 3.5 - 5.5 * h gb 12.1 11.5 - 16.5 * h ct 35.8 35 - 55 * m cv 98.6 75 - 100 * m ch 33.4 25 - 35 * m chc 33.8 31 - 38 * p armaan 152 100 - 400 * Marcelina Boss 05/13/2024 12:00: 41 PM > Derrell Escobedo Nitin 05/18/2024 8:49:39 AM >See phone encounter * Procedure Codes: G 0439 ANNUAL WELLNESS VST; PPS SUBSQT VST, G2211 Complex e/m visit add on, G0444 ANNUAL DEPRESSION SCREENING 15 MIN, 1090F PRES/ABSN URINE INCON ASSESS, 3288F FALL RISK ASSESSMENT DOCD, 1170F FXNL STATUS ASSESSED, 1159F MED LIST DOCD IN RCRD, 1003F LEVEL OF ACTIVITY ASSESS, 1036F TOBACCO NON-USER, 03156 CBC WITH AUTO DIFF, 1125F AMNT PAIN NOTED PAIN PRSNT, 3075F SYST BP GE 130 - 139MM HG, 3080F DIAST BP = 90 MM HG * Preventive Medicine: Counseling: E motional health: D iscussed ways to improve socialization. B ladder control: M ethods of controlling or managing leakage of urine discussed. E xercise: Patient advised to start, increase or maintain level of exercise/physical activity. I njury prevention: F all prevention discussed. Discussed need for cane/walker. Potential trip hazards discussed. Immunizations: P neumococcal r ecommended. Screening / Special Tests: M ammogram R ecent history: 06/22/2021, negative, recommended today. C olonoscopy R ecent history:, excluded due to age. B one mineral Density R ecent history: 06/22/2021, osteopenia, osteoporosis, recommended. * Follow Up: 6 Months * Images: Billing Information: * Visit Code: 45333 Office Visit, Est Pt., Level 3. Modifiers: 25 * Procedure Codes: G0439 ANNUAL WELLNESS VST; PPS SUBSQT VST. G2211 Complex e/m visit add on. G0444 ANNUAL DEPRESSION SCREENING 15 MIN. 1090F PRES/ABSN URINE INCON ASSESS. 3288F FALL RISK ASSESSMENT DOCD. 1170F FXNL STATUS ASSESSED. 1159F MED LIST DOCD IN RCRD. 1003F LEVEL OF ACTIVITY ASSESS. 1036F TOBACCO NON-USER. 41956 CBC WITH AUTO DIFF. 1125F AMNT PAIN NOTED PAIN PRSNT. 3075F SYST BP GE 130 - 139MM HG. 3080F DIAST BP = 90 MM HG. * Electronic signature of Derrell Escobedo MD on 01/23/2025 at 01:45 AM EST Sign off status: Pending * Provider: Derrell Escobedo M.D. Date: 0 05/13/2024 Generated for Martin berman/Jasbir/eTransmitting on: 1 03/25/2024 01:45 AM EST History and Physical Notes * HPI (History of Present Illness) Category Sub-Category Detail Notes Category Not es Ankle/Foot Pain Pt sts her 2nd t oe of right foot was removed a few years ago due to being infected and and now her great toe is angled outwards and causing some discomfort. This is also caused her to develop a callus on the bottom of her foot. Shoulder/Upper arm shoulder pain right shoulder HPI Patient is here today for Pt is here today for a check up with refills and , a Medicare Annual Wellness Visit. Physical Examination Category Sub-Category Detail Notes Section Note s GENERAL Pain Assessment: Pain level: 3, on a scale of 0-10 (with 10 being extreme pain) Functional Status Assessment: Patient response to question of how often physical health interferes with daily activities: . Occasionally Able to perform ADLs-including meal preparation, grocery shopping, housework, laundry, taking medications or handling finances. Cognitive Status: alert and oriented. Ambulation Status: Fully ambulatory Fall Risk Assessment: Independant in amb ulation, adequate lighting in home. Patient has NOT fallen or had trouble walking within the past 12 months Depression Screening: Denies depressed m ood or anxiety. Describes emotional health as: positive Bladder Control Screening: significant p roblems Examination Category Sub-Category Detail Notes Category Not es General Examination HEENT: sclera and c onjunctiva clear, PERRLA, bilateral hearing aides Heart: RSR Lungs: clear to auscultatio n Abdomen: soft, not distended, nontender, bowel sounds present Extremities: trace pretibial rosa a. 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 She has a bunion with significant lateral deviation of the great toe. She has developed large callus over the ball of the first MP joint. General Appearance: She comes in accompa nied by her daughter. Weight loss noted. Skin: normal, no rash Neurologic Exam: right foot drop o/w no focal deficits Neck: supple, no lymphaden opathy, no carotid bruits, no thyromegaly Oral cavity: no lesions, mucosa m oist and WNL, no erythema Chest:
--- OUTSIDE RECORDS SUMMARY | 2024-07-21 08:30 | XMS_ITS ---
[facility] Address [address] [facility] [address] [place] [id number] Care Team Providers Care Cooler Supervisor Name Role Phone Derrell Escobedo Primary Care Provider Hannah Navas [phone] Allergies Allergen (clinical drug ingredient) Drug/Non Drug Allergy documented on EMR Reaction Allergy Type Onset Date Status sulfamethoxazole / trimethoprim Bactrim tongue burning, redness Drug Allergy Active Results Component Value Reference Range Notes Urinalysis - Inhouse Reviewed date:07/21/2024 02:55:46 PM Interpretation: Performing Lab: Notes/Report: Color/Clarity yellow/clear Leuk 1+ Nitrite neg Urobili 3.2 Protein 2+ pH 6.0 Blood neg Sp. Gr. 1.025 Ketone trace Bili neg Gluc neg CBC Venipuncture (in house) Reviewed date:07/21/2024 02:57:20 PM Interpretation: Performing Lab: Notes/Report: wbc 4.2 3.5 - 10 lymph 19.7 15 - 50 mid 5.2 2 - 15 gran 75.1 35 - 80 rbc 3.65 3.5 - 5.5 hgb 11.8 11.5 - 16.5 hct 37.3 35 - 55 mcv 102.0 75 - 100 mch 32.4 25 - 35 mchc 31.7 31 - 38 platlet 89 100 - 400 P-Culture, Urine Reviewed date:07/30/2024 01:39:20 PM Interpretation:No Growth Performing Lab: Notes/Report: CLIA: [id number] Shaun Draper MD, [address] [facility] , [address], [place] [address] Test performed by [facility] Source Urine - Void Culture, Urine See Below Final Report : No growth Ankle-brachial index Reviewed date:08/20/2024 04:15:46 PM Interpretation:Negative Performing Lab: Notes/Report: Negative Reason For Referral Diagnosis 1 Bunion, right foot ( M21.611) Referral Organization [facility] Referring Provider First Name Hannah Referring Provider Last Name Eloise Referring Provider Speciality Physician Floater Operator Referred Provider Specialty Podiatry General Notes Sharon Grace 2024 02:17:13 PM > faxed to [facility] Podiatry; please call Maria Isabel Worrell (daughter) with appt time , Sharon Grace 07/21/2024 02:52:06 PM > patients daughter called back and they 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; canceled referral to [facility] Podiatry Referral Priority Routine REASON FOR VISIT confusion in the mornings Medications Medication SIG (Take, Route, Frequency, Duration) Notes Start Date End Date Status Eliquis 2.5 MG 1 tab(s) orally Two times a day; Duration: 90 days Active Gabapentin 300 MG 1 cap(s) orally 3 ti mes a day; Duration: 30 day(s) 05/24/2024 Active Pantoprazole Sodium 40 MG TAKE 1 TABLET BY MOUTH TWICE DAILY; Duration: 90 Active Coreg 12.5 MG 1 tab(s) orally 2 ti mes a day; Duration: 90 days Active Atorvastatin Calcium 40 MG 1 tablet Oral ly Once a day; Duration: 90 days Active Montelukast Sodium 10 MG TAKE 1 TABLET B Y MOUTH EVERY DAY; Duration: 90 Active traMADol HCl 50 MG 1 tab(s) orally thre e times a day as needed 12/25/2023 Active NEURO CREAM KETAMINE 10%, GABAPENTIN 6%, LIDOCAINE 5%, AMITRIPTYLINE 2%, BUPIVACAINE 2%, MELOXICAM 0.1% 1-2 GRAMS APPLY TOPICALLY 3-4 TIMES PER DAY 01/01/2022 Active Entresto 24-26 MG 1 tab(s) orally once daily Active Torsemide 10 MG 1 tab(s) orally once a day Active Silver sulfADIAZINE 1 % apply topically to the affected area twice daily Active TEGretol 200 MG 1 tab(s) orally 2 ti mes a day; Duration: 90 days Active Lipitor 40 MG 1 tab(s) orally once a day Active Levothyroxine Sodium 50 MCG TAKE 1 TABLE T BY MOUTH DAILY IN THE MORNING ON AN EMPTY STOMACH; Duration: 90 Active B-12 1000 MCG TAKE 1 TABLET BY NICCI TH DAILY; Duration: 30 Active buPROPion HCl ER (XL) 150 MG TAKE 1 TABL ET BY MOUTH EVERY 24 HOURS Orally Once a day; Duration: 90 days Active Problems Problem Type SNOMED Code ICD Code Onset Dates Problem Status W/U Status Risk Notes Problem Congestive heart failure (95651698) Congestive heart failure, unspecified (I50.9) Active confirmed Problem Chronic atrial fibrillation (disorder) (658102323) Chronic atrial fibrillation, unspecified (I48.20) Active confirmed Problem Hypertensive heart AND chronic kidney disease with congestive heart failure (63108193113347) Hypertensive heart and chronic kidney disease with heart failure and stage 1 through stage 4 chronic kidney disease, or unspecified chronic kidney disease (I13.0) Active confirmed Problem Paroxysmal atrial fibrillation (142944393) Paroxysmal atrial fibrillation (I48.0) Active confirmed Vital Signs Weight 164.8 lbs 07/21/2024 Blood pressure systolic 130 mm Hg 07/22/19 25 Blood pressure diastolic 86 mm Hg 025 Heart Rate 70 /min 07/21/2024 Height 63 in 07/21/2024 BMI 29.19 kg/m2 07/21/2024 Encounters Encounter Location Date Provider Diagnosis [facility] [address], [place] [id number] 07/21/2024 Hannah Navas Confusion R41.0 ; Bunion, right foot M21.611 ; Callus of foot L84 ; Pain in right leg M79.604 ; Pain in left leg M79.605 ; Pyuria R82.81 ; Congestive heart failure, unspecified I50.9 ; Chronic atrial fibrillation, unspecified I48.20 ; Hypertensive heart and chronic kidney disease with heart failure and stage 1 through stage 4 chronic kidney disease, or unspecified chronic kidney disease I13.0 ; Paroxysmal atrial fibrillation I48.0 and BMI 29.0-29.9,adult Z68.29 Assessments Encounter Date Diagnosis (ICD Code) Assessment Notes Treatment Notes Treatment Clinical Notes Section Notes 07/21/2024 Confusion (ICD-10 - R41.0) Has resolved since stopping the melatonin. Will refrain from taking melatonin. 07/21/2024 Bunion, right foot (ICD-10 - M21.611) 07/21/2024 Callus of foot (ICD-10 - L84) Will make podiatry referral. 07/21/2024 Pain in right leg (ICD-10 - M79.604) 07/21/2024 Pain in left leg (ICD-10 - M79.605) 07/21/2024 Pyuria (ICD-10 - R82.81) 07/21/2024 Congestive heart failure, unspecified (ICD-10 - I50.9) 07/21/2024 Chronic atrial fibrillation, unspecified (ICD-10 - I48.20) 07/21/2024 Hypertensive heart and chronic kidney disease with heart failure and stage 1 through stage 4 chronic kidney disease, or unspecified chronic kidney disease (ICD-10 - I13.0) 07/21/2024 Paroxysmal atrial fibrillation (ICD-10 - I48.0) 07/21/2024 BMI 29.0-29.9,adult (ICD-10 - Z68.29) Plan Of Treatment Treatment Notes Assessment Notes Confusion Has resolved since s topping the melatonin. Will refrain from taking melatonin. Callus of foot Will make podiatry r eferral. Referrals Referral Date Details 07/21/2024 07/21/2024 Next Appt Details Follow Up: via phone to repo rt test results, Reason: Provider Name:Derrell Hawley, 05/12/2025 11:00:00 AM, [address], [address], [place], [place], [id number], Progress Notes * BRUCE GAONADOB:1940 ( 84 yo F)Acc No.[id number]:07/21/2024 Progress Notes Patient: MARIA R BLANCGY Provider: MAXIMUS Mcfarland :1940 A ge:84 Y S ex:Female Date:07/21/2024 Address:[facility] [address], [place] [id number] Pcp:Derrell Escobedo Subjective: * Chief Complaints: * 1 . Confusion in the mornings. * HPI: H PI: Pt presents today and sts she was having some confusion episodes that lasted about 4 hours after waking up. She had been taking melatonin. Pt sts that she has stopped taking Melatonin because she thinks that it was causing it. The confusion has been better since stopping the medication. She is also having pain in her lower extremities and her daughter would like to check her blood flow. D ermatology: Pt needs her foot examined today as well. * ROS: D ERMATOLOGY: no R fernando. [...] 2012, cataract surgery , cardiac ablation-Dr Felder [facility] , Pacemaker 2017, left knee fgoeujtfbfp-tppwk-Ln Kirk 12/29/2018. * Hospitalization/Major Diagno stic Procedure: [...] yes. Alcohol: No. * Medications: T aking Lipitor 40 MG Tablet 1 tab(s) orally [...] TABLET BY MOUTH EVERY DAY , Taking NEURO CREAM KETAMINE 10%, GABAPENTIN 6%, LIDOCAINE 5%, AMITRIPTYLINE 2%, BUPIVACAINE 2%, MELOXICAM 0.1% 1-2 GRAMS APPLY TOPICALLY 3-4 TIMES PER DAY , Taking traMADol HCl 50 MG Tablet 1 tab(s) orally three times a day as needed , Taking Atorvastatin Calcium 40 MG Tablet 1 tablet Orally Once a day , Taking Coreg 12.5 MG Tablet 1 tab(s) orally 2 times a day , Taking Pantoprazole Sodium 40 MG Tablet Delayed Release TAKE 1 TABLET BY MOUTH TWICE DAILY , Taking Gabapentin 300 MG Capsule 1 cap(s) orally 3 times a day , Taking Eliquis 2.5 MG Tablet 1 tab(s) orally Two times a day , Taking B-12 1000 MCG Tablet Extended Release TAKE 1 TABLET BY MOUTH DAILY , Taking Levothyroxine Sodium 50 MCG Tablet TAKE 1 TABLET BY MOUTH DAILY IN THE MORNING ON AN EMPTY STOMACH , Taking buPROPion HCl ER (XL) 150 MG Tablet Extended Release 24 Hour TAKE 1 TABLET BY MOUTH EVERY 24 HOURS Orally Once a day , Discontinued Amoxicillin-Pot Clavulanate 875- 125 MG Tablet 1 tablet Orally every 12 hrs , Discontinued Macrobid 100 MG Capsule 1 capsule with food Orally every 12 hrs , Medication List reviewed and reconciled with the patient * Allergies: B actrim: tongue burning, redness. Objective: * Vitals: W t: 164.8, Temp: 97.5, BP: 130/86, HR: 70, Nurse: SAWYER, Ht: 63, BMI:29.19. * Examination: G eneral Examination: General Appearance: N AD. H EENT: u nremarkable.?Oral cavity: n o lesions, mucosa moist and WNL, no erythema. N alexandra: s upple, no lymphadenopathy. C hest: n ormal shape and expansion. H eart: R SR. L ungs: c lear to auscultation. A bdomen: b owel sounds present , soft and nontender , no organomegaly or masses. N eurologic Exam: I ntact, gait normal. S kin: n ormal, no rash. P eripheral pulses: n ormal (2+) bilaterally. E xtremities: n o leg edema, right foot with significant bunion, the 2nd digit is missing, there is a callus at the base of the great toe on the plantar aspect of the foot that is tender. Assessment: * Assessment: 1. C onfusion - R41.0 (Primary) 2 . B union, right foot - M21.611 ? 3 . C allus of foot - L84 4 . P ain in right leg - M79.604 5 . P ain in left leg - M79.605 6 . P yuria - R82.81 7 . C ongestive heart failure, unspecified - I50.9 8 . C hronic atrial fibrillation, unspecified - I48.20 9 . H ypertensive heart and chronic kidney disease with heart failure and stage 1 through stage 4 chronic kidney disease, or unspecified chronic kidney disease - I13.0 1 0. P aroxysmal atrial fibrillation - I48.0 1 1. B CO 29.0-29.9,adult - Z68.29 Plan: * Treatment: Value Reference Range C olor/Clarity yellow/clear * L euk 1+ * N itrite neg * U robili 3.2 * P rotein 2+ * p H 6.0 * B lood neg * S p. Gr. 1.025 * K etone trace * B law neg * G thomas neg * Zhane Lozano 07/21/2024 02: 55:38 PM > reviewed w/ pt in office ?LAB: CBC Venipuncture (in house) (Collection Date & Time - 07/21/2024)* Value Reference Range w bc 4.2 3.5 - 10 * l ymph 19.7 15 - 50 * m id 5.2 2 - 15 * g ran 75.1 35 - 80 * r bc 3.65 3.5 - 5.5 * h gb 11.8 11.5 - 16.5 * h ct 37.3 35 - 55 * m cv 102.0 75 - 100 * m ch 32.4 25 - 35 * m chc 31.7 31 - 38 * p latlet 89 100 - 400 * Zhane Lozano 07/21/2024 02: 56:49 PM > reviewed w/ pt in office Notes: Has resolved since stopping the melatonin. Will refrain from taking melatonin.??2.?Bunion, right foot? Referral To:Podiatry ?Reason: 3.?Callus of foot? Notes: Will make podiatry referral.??4.?Pain in right leg?Imaging: Ankle-brachial index (Performed Date - 08/10/2024)?Negative* Sharon Grace 07/22/2024 03:1 8:01 PM > no auth requried as MCR is primary; CPT code 81786; faxed to [facility] 08/20/2024 04:14:26 PM EDT >pt informed 5.?Pain in left leg?Imaging: Ankle-brachial index (Performed Date - 08/10/2024)?Negative* Sharon Grace 07/22/2024 03:1 8:01 PM > no auth requried as MCR is primary; CPT code 60650; faxed to [facility] 08/20/2024 04:14:26 PM EDT >pt informed 6.?Pyuria?LAB: P-Culture, Urine (Collection Date & Time - 07/21/2024 01:56 PM)?No Growth* Value Reference Range C ulture, Urine See Below - * S pecimen Source Urine - Void - * Hannah Navas 07/25/2024 11 :24:32 PM > Please let patient's daughter know this showed no growthGoZhane jimenez 07/30/2024 01:22:23 PM > left message for return call, pt answered and she cannot hear meMattoxMoriah 07/30/2024 01:39:12 PM > pt informed * Procedure Codes: G 2211 Complex e/[place], [address] CBC WITH AUTO DIFF, 44362 VENIPUNCT, ROUTINE*, 00422 Urinalysis, no micro, G8420 BMI<30 AND >=22 CALC & DOCU, 3075F SYST BP GE 130 - 139MM HG, 3079F DIAST BP 80-89 MM HG * Follow Up: v ia phone to report test results * Images: Billing Information: * Visit Code: 51148 Office Visit, Est Pt., Level 4. * Procedure Codes: G2211 Complex e/[place]. [address] CBC WITH AUTO DIFF. 77830 VENIPUNCT, ROUTINE*. 38103 Urinalysis, no micro. G8420 BMI<30 AND >=22 CALC & DOCU. 3075F SYST BP GE 130 - 139MM HG. 3079F DIAST BP 80-89 MM HG. * Electronic signature of MAXIMUS Jewell on 01/23/2025 at 01:45 AM EST Sign off status: Pending * Provider: MAXIMUS Mcfarland Date: 0 07/21/2024 Generated for Martin berman/Jasbir/Edgardo on: 03/25/2024 01:45 AM EST History and Physical Notes * Examination Category Sub-Category Detail Notes Category Not es General Examination HEENT: unremarkable Heart: RSR Lungs: clear to auscultatio n Abdomen: bowel sounds present , soft and nontender , no organomegaly or masses Extremities: no leg edema, right foot with significant bunion, the 2nd digit is missing, there is a callus at the base of the great toe on the plantar aspect of the foot that is tender General Appearance: NAD Skin: normal, no rash Neurologic Exam: Intact, gait normal Neck: supple, no lymphaden opathy Oral cavity: no lesions, mucosa m oist and WNL, no erythema Peripheral pulses: normal (2+) bilatera lly Chest: normal shape and exp ansion Consultation Request Notes Referral Date Referring Provider Referred Provider Not es 07/21/2024 Hannah Navas ,
--- OUTSIDE RECORDS SUMMARY | 2024-09-07 10:00 | XMS_ITS ---
[facility] Organization [facility] Address [address] [facility] [address] [place] [id number] Care Team Providers Care X Ray Inspector Name Role Phone Derrell Escobedo Primary Care Provider Allergies Allergen (clinical drug ingredient) Drug/Non Drug Allergy documented on EMR Reaction Allergy Type Onset Date Status sulfamethoxazole / trimethoprim Bactrim tongue burning, redness Drug Allergy Active REASON FOR VISIT results, not feeling well Medications Medication SIG (Take, Route, Frequency, Duration) Notes Start Date End Date Status Torsemide 10 MG 1 tab(s) orally once a day Active NEURO CREAM KETAMINE 10%, GABAPENTIN 6%, LIDOCAINE 5%, AMITRIPTYLINE 2%, BUPIVACAINE 2%, MELOXICAM 0.1% 1-2 GRAMS APPLY TOPICALLY 3-4 TIMES PER DAY 01/01/2022 Active traMADol HCl 50 MG 1 tab(s) orally thre e times a day as needed 12/25/2023 Active Entresto 24-26 MG 1 tab(s) orally once daily Active Flonase Allergy Relief 50 MCG/ACT 1 spray in each nostril Nasally Twice a day; Duration: 30 days 09/07/2024 Active Silver sulfADIAZINE 1 % apply topically to the affected area twice daily Active Lipitor 40 MG 1 tab(s) orally once a day Active TEGretol 200 MG 1 tab(s) orally 2 ti mes a day; Duration: 90 days Active Pantoprazole Sodium 40 MG 1 tablet 1/2 t o 1 hour before morning meal Orally twice a day; Duration: 90 days Active Gabapentin 300 MG 1 cap(s) orally 3 ti mes a day; Duration: 30 day(s) 05/24/2024 Active Levothyroxine Sodium 50 MCG TAKE 1 TABLE T BY MOUTH DAILY IN THE MORNING ON AN EMPTY STOMACH; Duration: 90 Active buPROPion HCl ER (XL) 150 MG TAKE 1 TABL ET BY MOUTH EVERY 24 HOURS Orally Once a day; Duration: 90 days Active Eliquis 2.5 MG 1 tab(s) orally Two times a day; Duration: 90 days Active B-12 1000 MCG TAKE 1 TABLET BY NICCI TH DAILY; Duration: 30 Active Atorvastatin Calcium 40 MG 1 tablet Oral ly Once a day; Duration: 90 days Active Coreg 12.5 MG 1 tab(s) orally 2 ti mes a day; Duration: 90 days Active Problems Problem Type SNOMED Code ICD Code Onset Dates Problem Status W/U Status Risk Notes Problem Rhinitis (82377470) Rhinitis (J31.0) Active confirmed Problem Peripheral venous insufficiency (08057449) Venous insufficiency (I87.2) Active confirmed Vital Signs Weight 165 lbs 09/07/2024 Blood pressure systolic 132 mm Hg 09/08/19 25 Blood pressure diastolic 92 mm Hg 025 Heart Rate 70 /min 09/07/2024 Height 63 in 09/07/2024 BMI 29.23 kg/m2 09/07/2024 Encounters Encounter Location Date Provider [facility] [address] [phone] 09/07/2024 R Nitin Escobedo Rhinitis J31.0 ; Kanu ous insufficiency I87.2 and BMI 29.0-29.9,adult Z68.29 Assessments Encounter Date Diagnosis (ICD Code) Assessment Notes Treatment Notes Treatment Clinical Notes Section Notes 09/07/2024 Rhinitis (ICD-10 - J31.0) OTC Coricidin 09/07/2024 Venous insufficiency (ICD-10 - I87.2) Elevate legs is much as possible through the day. Recommend compression socks as well. 09/07/2024 BMI 29.0-29.9,adult (ICD-10 - Z68.29) Plan Of Treatment Medication Medication Name Sig Start Date Stop Date Notes Flonase Allergy Relief 50 MCG/ACT 1 spray in each nostril Nasally Twice a day; Duration: 30 days 09/07/2024 Treatment Notes Assessment Notes Rhinitis OTC Coricidin Venous insufficiency Elevate legs is muc h as possible through the day. Recommend compression socks as well. Next Appt Details Follow Up: prn, Reason: Provider Name:Derrell Taveras Ligiaprincess robins, 05/12/2025 11:00:00 AM, [address], [address], [place], [id number], Progress Notes * BRUCE GAONADOB:1940 ( 84 yo F)Acc No.[id number]:09/07/2024 Progress Notes Patient: BRUCE BLANC Provider: Derrell Escobedo M.D. :1940 A ge:84 Y S ex:Female Date:09/07/2024 Address:[address], [place], [id number] Subjective: * Chief Complaints: * 1 . Results, not feeling well. * HPI: A nkle/Foot: She complains of bluish discoloration of both feet, R>L, and pain in her right foot. Right ankle seems to swell more than the left. 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 She has seen podiatry recently related to a callus on the bottom of the right foot which was trimmed. She also had recent arterial Doppler studies of both legs which were normal. She notes that the discoloration in her toes resolves with elevation of her feet. E NT/respiratory: She complains of constant runny nose with clear nasal discharge and postnasal drainage causing irritation of her throat. No fever. * ROS: D ERMATOLOGY: no R fernando. [...] 2012, cataract surgery , cardiac ablation-Dr Felder [facility] , Pacemaker 2017, left knee ylimdnfqlej-vpzry-Ji Kirk 12/29/2018. * Hospitalization/Major Diagno stic Procedure: [...] 1 tab(s) orally once daily , Taking NEURO CREAM KETAMINE 10%, GABAPENTIN [...] 24 HOURS Orally Once a day , Taking Pantoprazole Sodium 40 MG Tablet Delayed Release 1 tablet 1/2 to 1 hour before morning meal Orally twice a day , Discontinued Montelukast Sodium 10 MG Tablet TAKE 1 TABLET BY MOUTH EVERY DAY , Medication List reviewed and reconciled with the patient * Allergies: B actrim: tongue burning, redness. Objective: * Vitals: W t: 165, Temp: 97.4, BP: 132/92, HR: 70, Nurse: pe, Ht: 63, BMI:29.23. * Examination: G eneral Examination: General Appearance: N AD. H EENT: M ild nasal congestion with clear drainage. O ral cavity: p ostnasal drainage. H eart: R SR. L ungs: c lear to auscultation. E xtremities: B luish discoloration on toes of both feet, R>L. T juanis callus on the ball of the right foot. Surgical absence of right second toe with marked lateral deviation of the great toe and bunion noted.. Assessment: * Assessment: 1. V enous insufficiency - I87.2 (Primary) 2 . R hinitis - J31.0 3 . B FL 29.0-29.9,adult - Z68.29 Plan: * Treatment: 2. R santynitis Start Flonase Allergy Relief Suspension, 50 MCG/ACT, 1 spray in each nostril, Nasally, Twice a day, 30 days, 1, Refills 2. Notes: OTC Coricidin * Procedure Codes: G 2211 Complex e/[place], [address]F TOBACCO NON-USER, G8420 BMI<30 AND >=22 CALC & DOCU * Follow Up: p rn * Images: Billing Information: * Visit Code: 91669 Office Visit, Est Pt., Level 3. * Procedure Codes: G2211 Complex e/m visit add on. 1036F TOBACCO NON-USER. G8420 BMI<30 AND >=22 CALC & DOCU. * Electronic signature of Derrell Escobedo MD on 01/23/2025 at 01:46 AM EST Sign off status: Pending * Provider: Derrell Escobedo M.D. Date: 0 09/07/2024 Generated for Martin berman/Jasbir/eTortizsmitting on: 03/25/2024 01:46 AM EST History and Physical Notes * HPI (History of Present Illness) Category Sub-Category Detail Notes Category Not es ENT/respiratory She complain s of constant runny nose with clear nasal discharge and postnasal drainage causing irritation of her throat. No fever. Ankle/Foot She notes that the discoloration in her toes resolves with elevation of her feet. Examination Category Sub-Category Detail Notes Category Not es General Examination HEENT: Mild nasal c ongestion with clear drainage Heart: RSR Lungs: clear to auscultatio n Extremities: Bluish discoloration on toes of both feet, R>L. Tender callus on the ball of the right foot. Surgical absence of right second toe with marked lateral deviation of the great toe and bunion noted. General Appearance: NAD Oral cavity: postnasal drainage
--- OUTSIDE RECORDS SUMMARY | 2024-09-16 06:00 | XMS_ITS ---
Author Organization [facility] Address [address] [facility] [address] [place] [id number] Care Team Providers Care Guest Services Assistant Name Role Phone Derrell Escobedo Primary Care Provider [phone] Allergies Allergen (clinical drug ingredient) Drug/Non Drug Allergy documented on EMR Reaction Allergy Type Onset Date Status sulfamethoxazole / trimethoprim Bactrim tongue burning, redness Drug Allergy Active REASON FOR VISIT hearing loud noises that are not happening Encounters Encounter Location Date Provider Diagnosis [facility] [address] [place] [phone] 09/16/2024 Derrell Escobedo Plan Of Treatment Next Appt Details Provider Name:Derrell Hawley, 05/12/2025 11:00:00 AM, [address] [facility], [address], [place], [phone], Progress Notes * BRUCE GAONADOB:1940 ( 84 yo F)Acc No.[id number]:09/16/2024 Progress Notes Patient: BRUCE BLANC Provider: Derrell Escobedo M.D. :1940 A ge:84 Y S ex:Female Date:09/16/2024 Address:[facility] [address], [id number] Subjective: * Chief Complaints: * 1 . Hearing loud noises that are not happening. * HPI: H PI: 84 year old female presents with c/o Patient is here today for?Pt is here today with c/o hearing loud noises that are not actually there or happening. * ROS: D ERMATOLOGY: no R fernando. [...] 2012, cataract surgery , cardiac ablation-Dr Felder [facility] , Pacemaker 2017, left knee fstvrajejkl-kpojs-Au Kirk 12/29/2018. * Hospitalization/Major Diagno stic Procedure: [...] smoke detector use: yes. Alcohol: No. * Allergies: B actrim: tongue burning, redness. Objective: * Vitals: Assessment: Plan: * Treatment: * Images: Billing Information: * Visit Code: * Procedure Codes: * Electronic signature of Derrell Escobedo MD on 01/23/2025 at 01:45 AM EST Sign off status: Pending * Provider: Derrell Escobedo M.D. Date: 0 09/16/2024 Generated for Genesisi cullen/Jasbir/eTransmitting on: 03/25/2024 01:45 AM EST History and Physical Notes * HPI (History of Present Illness) Category Sub-Category Detail Notes Category Not es HPI Patient is here today for Pt is here today with c/o hearing loud noises that are not actually there or happening
--- OUTSIDE RECORDS SUMMARY | 2024-09-21 09:00 | XMS_ITS ---
[facility] Address [address] [place] [id number] Care Team Providers Care Career And Technology Education Teacher Name Role Phone Derrell Escobedo Primary Care Provider [phone] Allergies Allergen (clinical drug ingredient) Drug/Non Drug Allergy documented on EMR Reaction Allergy Type Onset Date Status sulfamethoxazole / trimethoprim Bactrim tongue burning, redness Drug Allergy Active Reason For Referral Reason [facility] y in [place] for leg weakness, balance problems, right foot drop Diagnosis 1 Leg weakness, bilate ral (M62.81) Referral Organization [facility] Referring Provider First Name Derrell Taveras Referring Provider Last Name Fanny Referring Provider Speciality Family Pra ctice Referred Provider Physical Therapy, . Referred Provider Specialty Physical The rapist General Notes Sharon Grace 2024 09:53:44 AM > faxed to [facility] in [place] Referral Priority Routine REASON FOR VISIT f/u er Medications Medication SIG (Take, Route, Frequency, Duration) Notes Start Date End Date Status traMADol HCl 50 MG 1 tab(s) orally thre e times a day as needed 12/25/2023 Active Atorvastatin Calcium 40 MG 1 tablet Oral ly Once a day; Duration: 90 days Active Gabapentin 300 MG 1 cap(s) orally 3 ti mes a day; Duration: 30 day(s) 05/24/2024 Active Eliquis 2.5 MG 1 tab(s) orally Two times a day; Duration: 90 days Active B-12 1000 MCG TAKE 1 TABLET BY DAILY; Duration: 30 Active TEGretol 200 MG 1 tab(s) orally 2 ti mes a day; Duration: 90 days Active Silver sulfADIAZINE 1 % apply topically to the affected area twice daily Active Torsemide 10 MG 1 tab(s) orally once a day Active Entresto 24-26 MG 1 tab(s) orally once daily Active NEURO CREAM KETAMINE 10%, GABAPENTIN 6%, LIDOCAINE 5%, AMITRIPTYLINE 2%, BUPIVACAINE 2%, MELOXICAM 0.1% 1-2 GRAMS APPLY TOPICALLY 3-4 TIMES PER DAY 01/01/2022 Active Lipitor 40 MG 1 tab(s) orally once a day Active Pantoprazole Sodium 40 MG 1 tablet 1/2 t o 1 hour before morning meal Orally twice a day; Duration: 90 days Active Flonase Allergy Relief 50 MCG/ACT 1 spray in each nostril Nasally Twice a day; Duration: 30 days 09/07/2024 Active Coreg 12.5 MG 1 tab(s) orally 2 ti mes a day; Duration: 90 days Active Cefuroxime Axetil 500 MG 1 tablet Orally twice a day 09/20/2024 Active Levothyroxine Sodium 50 MCG TAKE 1 TABLE T BY MOUTH DAILY IN THE MORNING ON AN EMPTY STOMACH; Duration: 90 Active buPROPion HCl ER (XL) 150 MG TAKE 1 TABL ET BY MOUTH EVERY 24 HOURS Orally Once a day; Duration: 90 days Active Problems Problem Type SNOMED Code ICD Code Onset Dates Problem Status W/U Status Risk Notes Problem Impairment of balance (523695357) Balance problem (R26.89) Active confirmed Vital Signs Weight 161 lbs 09/21/2024 Blood pressure systolic 130 mm Hg 09/22/19 25 Blood pressure diastolic 82 mm Hg 025 Heart Rate 75 /min 09/21/2024 Height 63 in 09/21/2024 BMI 28.52 kg/m2 09/21/2024 Encounters Encounter Location Date Provider Diagnosis [facility] [address] [facility] [address] [place], [place] [id number] 09/21/2024 Derrell Escobedo UTI (lower urinary tract infection) N39.0 ; Balance problem R26.89 ; Leg weakness, bilateral M62.81 ; Right foot drop M21.371 and BMI 28.0-28.9,adult Z68.28 Assessments Encounter Date Diagnosis (ICD Code) Assessment Notes Treatment Notes Treatment Clinical Notes Section Notes 09/21/2024 UTI (lower urinary tract infection) (ICD-10 - N39.0) 09/21/2024 Balance problem (ICD-10 - R26.89) 09/21/2024 Leg weakness, bilateral (ICD-10 - M62.81) 09/21/2024 Right foot drop (ICD-10 - M21.371) 09/21/2024 BMI 28.0-28.9,adult (ICD-10 - Z68.28) Plan Of Treatment Referrals Referral Date Details 09/21/2024 09/21/2024, [facility] in [place] for leg weakness, balance problems, right foot drop, . Physical Therapy Next Appt Details Follow Up: 2 Months, Reason: Provider Name:Derrell Hawley, 05/12/2025 11:00:00 AM, [address] [facility] [address] [facility], [address], [place], [place], [id number], Progress Notes * MARIA R GAONAJAREDDOB:1940 ( 84 yo F)Acc No.[id number]:09/21/2024 Patient: BRUCE BLANC Provider: Derrell Escobedo M.D. :1940 A ge:84 Y S ex:Female Date:09/21/2024 Address:[facility] [address], [place], [id number] Subjective: * Chief Complaints: * 1 . f/u er. * HPI: C ardiology: Bruce was taken to [facility] emergency room 2 days ago after she had a syncopal episode at home while her daughter was curling her hair. Her daughter thought she had fallen asleep with her head and chin tucked position but then she was unable to arouse her. Paramedics were called and she was transported with concerns for stroke. On arrival to emergency room her blood pressure was quite elevated but came down with treatment. Workup was negative for CVA. She did have significant pyuria but was not treated because she was asymptomatic however daughter states that she has been complaining of back pain and after coming home for the emergency room complained of dysuria. She was given a referral for neurology and discharged from the ER with no changes in her medical regimen She called this office yesterday and was started on oral Ceftin for presumptive UTI. Urine culture was not performed during her ER visit. C onstitutional: She currently lives alone but since this incident, has been living with her daughter. Daughter notes that she has gradually become weaker and having difficulty getting around. She is known to have chronic right foot drop. She is having some issues with balance. * ROS: D ERMATOLOGY: no R fernando. [...] 2012, cataract surgery , cardiac ablation-Dr Felder [facility] , Pacemaker 2017, left knee [id number]-Dc Kirk 12/29/2018. * Hospitalization/Major Diagno stic Procedure: [...] tablet Orally Once a day , Taking Gabapentin 300 MG [...] morning meal Orally twice a day , Taking Flonase Allergy Relief 50 MCG/ACT Suspension 1 spray in each nostril Nasally Twice a day , Taking Coreg 12.5 MG Tablet 1 tab(s) orally 2 times a day , Taking Cefuroxime Axetil 500 MG Tablet 1 tablet Orally twice a day , Medication List reviewed and reconciled with the patient * Allergies: B actrim: tongue burning, redness. Objective: * Vitals: W t: 161, Temp: 97.5, BP: 130/82, HR: 75, Nurse: SATNAM, Ht: 63, BMI:28.52. * Examination: G eneral Examination: S he comes in by wheelchair accompanied by her daughter. She is alert and answers questions appropriately. Color is normal. No respiratory distress. Neck is supple with no masses or bruits. Lungs are clear to auscultation. Heart is regular with no murmurs. Abdomen is soft and nondistended with no masses or tenderness. Lower extremities show no edema. Right foot drop noted. Assessment: * Assessment: 1. U TI (lower urinary tract infection) - N39.0 (Primary) 2 . B alance problem - R26.89 3 . L eg weakness, bilateral - M62.81 4 . R ight foot drop - M21.371 5 . B AL 28.0-28.9,adult - Z68.28 Plan: * Treatment: * Procedure Codes: G 2211 Complex e/m visit add on, 1036F TOBACCO NON-USER, G8420 BMI<30 AND >=22 CALC & DOCU, G8783 BP SCR PRFRM RCMDD DEFIND SCR INTVL, G8752 MOST RECENT SYSTOLIC BP < 140MM HG, G8754 MOST RECENT DIASTOLIC BP < 90MM HG * Follow Up: 2 Months * Images: Billing Information: * Visit Code: 60647 Office Visit, Est Pt., Level 3. * Procedure Codes: G2211 Complex e/m visit add on. 1036F TOBACCO NON-USER. G8420 BMI<30 AND >=22 CALC & DOCU. G8783 BP SCR PRFRM RCMDD DEFIND SCR INTVL. G8752 MOST RECENT SYSTOLIC BP < 140MM HG. G8754 MOST RECENT DIASTOLIC BP < 90MM HG. * Electronic signature of Derrell Escobedo MD on 01/23/2025 at 01:45 AM EST Sign off status: Pending * Provider: Derrell Escobedo M.D. Date: 0 09/21/2024 Generated for Martin berman/Jasbir/Edgardo on: 1 03/25/2024 01:45 AM EST History and Physical Notes * Examination Category Sub-Category Detail Notes Category Not es General Examination She come s in by wheelchair accompanied by her daughter. She is alert and answers questions appropriately. Color is normal. No respiratory distress. Neck is supple with no masses or bruits. Lungs are clear to auscultation. Heart is regular with no murmurs. Abdomen is soft and nondistended with no masses or tenderness. Lower extremities show no edema. Right foot drop noted. Consultation Request Notes Referral Date Referring Provider Referred Provider Not es 09/21/2024 Drerell Escobedo Physical Therapy, . [facility] in [place] for leg weakness, balance problems, right foot drop
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
--- OUTSIDE RECORDS SUMMARY | 2024-11-25 09:00 | XMS_ITS ---
Author Organization [facility] Address [address] [facility] [address] [place] [id number] Care Team Providers Care Mercerizing Range Controller Name Role Phone Derrell Escobedo Primary Care Provider [phone] Allergies Allergen (clinical drug ingredient) Drug/Non Drug Allergy documented on EMR Reaction Allergy Type Onset Date Status sulfamethoxazole / trimethoprim Bactrim tongue burning, redness Drug Allergy Active REASON FOR VISIT 2 months, Needs labs & bone density screening Encounters Encounter Location Date Provider Diagnosis [facility] [address] [place] [phone] 11/25/2024 Derrell Escobedo Plan Of Treatment Next Appt Details Provider Name:Derrell Hawley, 05/12/2025 11:00:00 AM, [address] [facility], [address], [place], [id number], Progress Notes * BRUCE GAONADOB:1940 ( 84 yo F)Acc No.[id number]:11/25/2024 Progress Notes Patient: BRUCE BLANC Provider: Derrell Escobedo M.D. :1940 A ge:84 Y S ex:Female Date:11/25/2024 Address:[facility] [address], [id number] Subjective: * Chief Complaints: * 1 . 2 months. 2. Needs labs & bone density screening. * HPI: H PI: Patient is here today for P t is here today for a 2 month check up. Pt sts she is doing well and has no concerns at this time. * Medical History: H ypothyroidism, Goiter, Hypertension, [...] 2012, cataract surgery , cardiac ablation-Dr Felder [facility] , Pacemaker 2017, left knee haklelpywrx-ccrfk-Nd Kirk 12/29/2018. * Hospitalization/Major Diagno stic Procedure: [...] of Derrell Escobedo MD on 01/23/2025 at 01:47 AM EST Sign off status: Pending * Provider: Derrell Escobedo M.D. Date: 0 11/25/2024 Generated for Martin berman/Jasbir/Marissaitting on: 03/25/2024 01:47 AM EST History and Physical Notes * HPI (History of Present Illness) Category Sub-Category Detail Notes Category Not es HPI Patient is here today for Pt is here today for a 2 month check up. Pt sts she is doing well and has no concerns at this time
--- OUTSIDE RECORDS SUMMARY | 2024-12-21 11:30 | XMS_ITS ---
[facility] Address [address] [place] [id number] Care Team Providers Care Field Sales Trainer Name Role Phone Derrell Escobedo Primary Care Provider [phone] Kenia Stone Unavailable [phone] Allergies Allergen (clinical drug ingredient) Drug/Non Drug Allergy documented on EMR Reaction Allergy Type Onset Date Status sulfamethoxazole / trimethoprim Bactrim tongue burning, redness Drug Allergy Active REASON FOR VISIT [facility] VISIT Medications Medication SIG (Take, Route, Frequency, Duration) Notes Start Date End Date Status Ondansetron 4 MG 1 tablet on the tongue and allow to dissolve Orally every 6 hours As needed Active B-12 TR 1000 MCG TAKE 1 TABLET BY NICCI TH DAILY Active Colace 2-IN-1 8.6-50 MG 2 tablet as need ed Orally at HS Active Acetaminophen 325 MG 2 tablet as needed Orally every 6 hrs prn Active Torsemide 10 MG 1 tab(s) orally once a day Active Levothyroxine Sodium 50 MCG 1 tablet in the morning on an empty stomach Orally Once a day Active NEURO CREAM KETAMINE 10%, GABAPENTIN 6%, LIDOCAINE 5%, AMITRIPTYLINE 2%, BUPIVACAINE 2%, MELOXICAM 0.1% 1-2 GRAMS APPLY TOPICALLY 3-4 TIMES PER DAY Active Wellbutrin XL 150 MG 1 tablet in the mor selena Orally Once a day Active Gabapentin 300 MG 1 cap(s) orally 3 ti mes a day Active Methocarbamol 500 MG 1 Orally 3 times a day Active Flonase Allergy Relief 50 MCG/ACT 1 spray in each nostril Nasally Twice a day Active Coreg 12.5 MG 1 tab(s) orally 2 ti mes a day Active Atorvastatin Calcium 40 MG 1 tablet Oral ly Once a day Active Pantoprazole Sodium 40 MG 1 tablet 1/2 t o 1 hour before morning meal Orally twice a day Active Eliquis 5 MG 1 tab(s) orally Two times a day Active Entresto 49-51 MG 1 tab(s) orally Twic e a day Active Vital Signs Weight 157.4 lbs 12/21/2024 Blood pressure systolic 116 mm Hg 12/22/19 25 Blood pressure diastolic 72 mm Hg 025 Heart Rate 73 /min 12/21/2024 Respiratory Rate 16 /min 12/21/2024 Encounters Encounter Location Date Provider Diagnosis Timoteo Gomez [address] [place] [address] [address] [place] [phone] 12/21/2024 Kenia Stone Essential hypertensi on I10 ; Dissection of aorta, unspecified portion of aorta I71.00 ; Chronic congestive heart failure, unspecified heart [...] atrial fibrillation I48.20 ; Pacemaker Z95.0 ; Seasonal allergies J30.2 ; Chronic depression F32.A ; Constipation K59.00 and Debility R53.81 Assessments Encounter Date Diagnosis (ICD Code) Assessment Notes Treatment Notes Treatment Clinical Notes Section Notes 12/21/2024 Essential hypertension (ICD-10 - I10) 12/21/2024 Dissection of aorta, unspecified portion of aorta (ICD-10 - I71.00) continue to maintain good BP 12/21/2024 Chronic congestive heart failure, unspecified heart failure type (ICD-10 - I50.9) 12/21/2024 Stage 3 chronic kidney disease (ICD-10 - N18.3) 12/21/2024 Status post placement of cardiac pacemaker (ICD-10 - Z95.0) 12/21/2024 Acquired hypothyroidism (ICD-10 - E03.9) 12/21/2024 Dyslipidemia (ICD-10 - E78.5) 12/21/2024 Peripheral polyneuropathy (ICD-10 - G62.9) 12/21/2024 Chronic pain syndrome (ICD-10 - G89.4) 12/21/2024 Osteoarthritis (ICD-10 - M19.90) 12/21/2024 GERD (gastroesophageal reflux disease) (ICD-10 - K21.9) 12/21/2024 Primary osteoarthritis of both knees (ICD-10 - M17.0) 12/21/2024 Right foot drop (ICD-10 - M21.371) 12/21/2024 Presbycusis of both ears (ICD-10 - H91.13) 12/21/2024 Chronic atrial fibrillation (ICD-10 - I48.20) 12/21/2024 Pacemaker (ICD-10 - Z95.0) 12/21/2024 Seasonal allergies (ICD-10 - J30.2) 12/21/2024 Chronic depression (ICD-10 - F32.A) 12/21/2024 Constipation (ICD-10 - K59.00) 12/21/2024 Debility (ICD-10 - R53.81) continue with PT Plan Of Treatment Medication Medication Name Sig Start Date Stop Date Notes Ondansetron 4 MG 1 tablet on the tong ue and allow to dissolve Orally every 6 hours B-12 TR 1000 MCG TAKE 1 TABLET BY NICCI TH DAILY Colace 2-IN-1 8.6-50 MG 2 tablet as need ed Orally at HS Acetaminophen 325 MG 2 tablet as needed Orally every 6 hrs prn Torsemide 10 MG 1 tab(s) orally once a day Levothyroxine Sodium 50 MCG 1 tablet in the morning on an empty stomach Orally Once a day NEURO CREAM KETAMINE 10%, GABAPENTIN 6%, LIDOCAINE 5%, AMITRIPTYLINE 2%, BUPIVACAINE 2%, MELOXICAM 0.1% 1-2 GRAMS APPLY TOPICALLY 3-4 TIMES PER DAY Wellbutrin XL 150 MG 1 tablet in the mor selena Orally Once a day Gabapentin 300 MG 1 cap(s) orally 3 ti mes a day Methocarbamol 500 MG 1 Orally 3 times a day Flonase Allergy Relief 50 MCG/ACT 1 spray in each nostril Nasally Twice a day Coreg 12.5 MG 1 tab(s) orally 2 ti mes a day Atorvastatin Calcium 40 MG 1 tablet Orally Once a day Pantoprazole Sodium 40 MG 1 tablet 1/2 t o 1 hour before morning meal Orally twice a day Eliquis 5 MG 1 tab(s) orally Two times a day Entresto 49-51 MG 1 tab(s) orally Twice a day Treatment Notes Assessment Notes Dissection of aorta, unspecified portion of aorta continue to maintain good BP Debility continue with PT Next Appt Details Follow Up: 2 Months,and prn, Reason: Provider Name:Derrell Hawley, 05/12/2025 11:00:00 AM, [address] [facility] [address], [place], [place], [id number], Progress Notes * BRUCE GAONADOB:1940 ( 84 yo F)Acc No.[id number]:12/21/2024 Progress Notes Patient: Alfonso CANALESBRUCE Provider: SHIMA Hollingsworth :1940 A ge:84 Y S ex:Female Date:12/21/2024 Address:[facility] [address], [address] [facility], [id number] Pcp:Derrell Escobedo Subjective: * Chief Complaints: * 1 . [facility] VISIT. * HPI: H PI: f For routine Assisted visit; chart reviewed and patient examined; see ROS . * ROS: R ESPIRATORY: no S hortness of breath. n o C hest pain. n o?Cough. C ARDIOLOGY: no C hest pain. n o L eg edema. n o S hortness of breath. M USCULOSKELETAL: Positive for s he states she is working with PT. * Medical History: H ypothyroidism, Goiter, Hypertension, [...] 2012, cataract surgery , cardiac ablation-Dr Felder [facility] , Pacemaker 2017, left knee [id number] Kirk 12/29/2018. * Hospitalization/Major Diagno stic Procedure: [...] yes. Alcohol: No. * Medications: T aking Ondansetron 4 MG Tablet Disintegrating 1 tablet on the tongue and allow to dissolve Orally every 6 hours As needed, Taking Entresto 49-51 MG Tablet 1 tab(s) orally Twice a day , Taking Atorvastatin Calcium 40 MG Tablet 1 tablet Orally Once a day , Taking Eliquis 5 MG Tablet 1 tab(s) orally Two times a day , Taking Pantoprazole Sodium 40 MG Tablet Delayed Release 1 tablet 1/2 to 1 hour before morning meal Orally twice a day , Taking Coreg 12.5 MG Tablet 1 tab(s) orally 2 times a day , Taking Flonase Allergy Relief 50 MCG/ACT Suspension 1 spray in each nostril Nasally Twice a day , Taking NEURO CREAM KETAMINE 10%, GABAPENTIN 6%, LIDOCAINE 5%, AMITRIPTYLINE 2%, BUPIVACAINE 2%, MELOXICAM 0.1% 1-2 GRAMS APPLY TOPICALLY 3-4 TIMES PER DAY , Notes to Pharmacist: tid, Taking Levothyroxine Sodium 50 MCG Tablet 1 tablet in the morning on an empty stomach Orally Once a day , Taking B-12 TR 1000 MCG Tablet Extended Release TAKE 1 TABLET BY MOUTH DAILY , Taking Gabapentin 300 MG Capsule 1 cap(s) orally 3 times a day , Taking Wellbutrin XL 150 MG Tablet Extended Release 24 Hour 1 tablet in the morning Orally Once a day , Taking Methocarbamol 500 MG Tablet 1 Orally 3 times a day , Taking Acetaminophen 325 MG Tablet 2 tablet as needed Orally every 6 hrs prn , Taking Colace 2-IN-1 8.6-50 MG Tablet 1 tablet Orally at HS , Taking Torsemide 10 MG Tablet 1 tab(s) orally once a day , Discontinued Cipro 500 MG Tablet 1 tablet Orally every 12 hrs , Discontinued Erythromycin 5 MG/GM Ointment 1 application into the lower eyelid of affected eye Ophthalmic Four times a day * Allergies: B actrim: tongue burning, redness. Objective: * Vitals: W t: 157.4, Temp: 97.6, BP: 116/72, HR: 73, O2 Sat: 95%, Nurse: reviewed/recorded by ye, RR: 16. * Examination: G eneral Examination: General Appearance: N AD, appears healthy, alert, pleasant; lying in bed and appears comfortable. H eart: R RR. L ungs: C TAB A&P. A bdomen: b owel sounds present, soft and nontender. N eurologic Exam: a lert; conversation is appropriate. E xtremities: n o leg edema. Assessment: * Assessment: 1. D issection of [...] 1 6. P acemaker - Z95.0? 17. S easonal allergies - J30.2 1 8. C hronic depression - F32.A 1 9. C onstipation - K59.00 2 0. D ebility - R53.81? Plan: * Treatment: 2. E ssential hypertension [...] tab(s), orally, Two times a day. 11. S easonal allergies Continue Flonase Allergy Relief Suspension, 50 MCG/ACT, 1 spray in each nostril, Nasally, Twice a day. 12. C hronic depression Continue Wellbutrin XL Tablet Extended Release 24 Hour, 150 MG, 1 tablet in the morning, Orally, Once a day; C ontinue B-12 TR Tablet Extended Release, 1000 MCG, TAKE 1 TABLET BY MOUTH DAILY.? 13. C onstipation Continue Colace 2-IN-1 Tablet, 8.6-50 MG, 2 tablet as needed, Orally, at HS. 14. D ebility Notes: continue with PT 15. O thers Continue Ondansetron Tablet Disintegrating, 4 MG, 1 tablet on the tongue and allow to dissolve, Orally, every 6 hours As needed. * Follow Up: 2 Months,and prn * Images: Billing Information: * Visit Code: 96725 subs. level 4. * Procedure Codes: * Electronic signature of Inge Stone APRN on 01/23/2025 at 01:47 AM EST Sign off status: Pending * Provider: SHIMA Hollingsworth Date: Generated for Martin berman/Jasbir/Marissaitting on: 03/25/2024 01:47 AM EST History and Physical Notes * Examination Category Sub-Category Detail Notes Category Not es General Examination Heart: RRR Lungs: CTAB A&P Abdomen: bowel sounds present , soft and nontender Extremities: no leg edema General Appearance: NAD, appears healthy , alert, pleasant; lying in bed and appears comfortable Neurologic Exam: alert; conversation is appropriate
--- OUTSIDE RECORDS SUMMARY | 2025-01-23 01:45 | XMS_ITS | Encounter Summary ---
Author Organization [facility] Address [address] [place] [address] Care Team Providers Care Hog Operator Name Role Phone Bowen Escobedo MD Primary Care Provider Encounter Details Date Type Department Care Team (Late st Contact Info) Description 12/24/2017 External CPT II WELCOME CENTER ATTENDANT - [facility] Social History Tobacco Use [...] Care Team (Late st Contact Info) Description 06/29/2025 1:45 PM EDT Office Visit [facility] [address] [facility] [address] [place] [address] Micheal Lopez MD [address] [facility] [address] [place] [address] 11/01/2025 2:30 PM EDT Office Visit [facility] [address] [facility] [address] [place] [address] Rocky Reynolds MD [address] [facility] [address] [place] [address] Scheduled Procedures Name Priority Associated Diagnoses Date/Ti me LEFT HEART CATH w/cors Angina pectoris documented as of this encounter Visit Diagnoses Not on filedocumented in this encounter Care Teams Hog Operator Relationship Specialty Start Date End Date Bowen Escobedo MD [address] [facility] [address] [place] [address] PCP - General Family Medicine 05/27/18 documented as of this encounter
--- OUTSIDE RECORDS SUMMARY | 2025-01-23 01:46 | XMS_ITS | Encounter Summary ---
[facility] Address [address] [place] [address] Care Team Providers Care Driller And Broacher Name Role Phone Bowen Escobedo MD Primary Care Provider Encounter Details Date Type Department Care Team (Late st Contact Info) Description 09/24/2014 External CPT II SUPERVISOR LACE TEARING - [facility] Social History Tobacco Use [...] Description 06/29/2025 1:45 PM EDT Office Visit [facility] [address] [facility] [address] [place] [address] Micheal Lopez MD [address] [facility] [address] [place] [address] 11/01/2025 2:30 PM EDT Office Visit [facility] [address] [facility] [address] [place] [address] Rocky Reynolds MD [address] [facility] [address] [place] [address] Scheduled Procedures Name Priority Associated Diagnoses Date/Ti me LEFT HEART CATH w/cors Angina pectoris documented as of this encounter Visit Diagnoses Not on filedocumented in this encounter Care Teams Driller And Broacher Relationship Specialty Start Date End Date Bowen Escobedo MD [facility] [address] [place] [address] PCP - General Family Medicine 05/27/18 documented as of this encounter
--- OUTSIDE RECORDS SUMMARY | 2025-01-23 01:46 | XMS_ITS | Encounter Summary ---
[facility] Address [address] [place] [address] Care Team Providers Care Slip Box Changer Name Role Phone Bowen Escobedo MD Primary Care Provider Encounter Details Date Type Department Care Team (Late st Contact Info) Description 07/01/2014 External CPT II LEASE ADMINISTRATION SUPERVISOR - [facility] Social History Tobacco Use [...] Visit [facility] [address] [facility] [address] [place] [address] Micheal Lopez MD [address] [facility] [address] [place] [address] 11/01/2025 2:30 PM EDT Office Visit [facility] [address] [facility] [address] [place] [address] Rocky Reynolds MD [address] [facility] [address] [place] [address] Scheduled Procedures Name Priority Associated Diagnoses Date/Ti me LEFT HEART CATH w/cors Angina pectoris documented as of this encounter Visit Diagnoses Not on filedocumented in this encounter Care Teams Slip Box Changer Relationship Specialty Start Date End Date Bowen Escobedo MD [facility] [address] [place] [address] PCP - General Family Medicine 05/27/18 documented as of this encounter
--- OUTSIDE RECORDS SUMMARY | 2025-01-23 01:46 | XMS_ITS | Encounter Summary ---
[facility] Address [address] [place] [address] Care Team Providers Care Coal Chute Worker Name Role Phone Bowen Escobedo MD Primary Care Provider Encounter Details Date Type Department Care Team (Late st Contact Info) Description 12/11/2016 External CPT II MANAGER BUSINESS PLANNING - [facility] Social History Tobacco Use [...] Description 06/29/2025 1:45 PM EDT Office Visit [facility]IOLOG[facility] [address] [facility] [address] [place] [address] Micheal Lopez MD [address] [facility] [address] [place] [address] 11/01/2025 2:30 PM EDT Office Visit [facility] [address] [facility] [address] [place] [address] Rocky Reynolds MD [address] [facility] [address] [place] [address] Scheduled Procedures Name Priority Associated Diagnoses Date/Ti me LEFT HEART CATH w/cors Angina pectoris documented as of this encounter Visit Diagnoses Not on filedocumented in this encounter Care Teams Coal Chute Worker Relationship Specialty Start Date End Date Bowen Escobedo MD [facility] [address] [place] [address] PCP - General Family Medicine 05/27/18 documented as of this encounter
--- OUTSIDE RECORDS SUMMARY | 2025-01-23 01:46 | XMS_ITS | Encounter Summary ---
[facility] Address [address] [place] [address] Care Team Providers Care Multi Line Claims Adjuster Name Role Phone Bowen Escobedo MD Primary Care Provider Encounter Details Date Type Department Care Team (Late st Contact Info) Description 05/17/2015 External CPT II WARD SECRETARY - [facility] Social History Tobacco Use [...] 06/29/2025 1:45 PM EDT Office Visit [facility] [address] [facility] [address] [place] [address] Micheal Lopez MD [address] [facility] [address] [place] [address] 11/01/2025 2:30 PM EDT Office Visit [facility] [address] [facility] [address] [place] [address] Rocky Reynolds MD [address] [facility] [address] [place] [address] Scheduled Procedures Name Priority Associated Diagnoses Date/Ti me LEFT HEART CATH w/cors Angina pectoris documented as of this encounter Visit Diagnoses Not on filedocumented in this encounter Care Teams Multi Line Claims Adjuster Relationship Specialty Start Date End Date Bowen Escobedo MD [facility] [address] [place] [address] PCP - General Family Medicine 05/27/18 documented as of this encounter
--- OUTSIDE RECORDS SUMMARY | 2025-01-23 01:46 | XMS_ITS | Encounter Summary ---
[facility] Address [address] [place] [address] Care Team Providers Care Consumer Sales Representative Name Role Phone Bowen Escobedo MD Primary Care Provider Encounter Details Date Type Department Care Team (Late st Contact Info) Description 08/10/2015 External CPT II MENTAL HEALTH SOCIAL WORKER - [facility] Social History Tobacco Use [...] [facility] [address] [facility] [address] [place] [address] Micheal Lopez MD [address] [facility] [address] [place] [address] 11/01/2025 2:30 PM EDT Office Visit [facility] [address] [facility] [address] [place] [address] Rocky Reynolds MD [address] [facility] [address] [place] [address] Scheduled Procedures Name Priority Associated Diagnoses Date/Ti me LEFT HEART CATH w/cors Angina pectoris documented as of this encounter Visit Diagnoses Not on filedocumented in this encounter Care Teams Consumer Sales Representative Relationship Specialty Start Date End Date Bowen Escobedo MD [facility] [address] [place] [address] PCP - General Family Medicine 05/27/18 documented as of this encounter
--- OUTSIDE RECORDS SUMMARY | 2025-01-23 01:46 | XMS_ITS | Encounter Summary ---
Author Organization [facility] Address [address] [place] [address] Care Team Providers Care Underground Truck Operator Name Role Phone Bowen Escobedo MD Primary Care Provider Encounter Details Date Type Department Care Team (Late st Contact Info) Description 08/18/2018 External CPT II SCIENCE TECHNICIANS - [facility] Social History Tobacco Use [...] Description 06/29/2025 1:45 PM EDT Office Visit [facility]OLOGY 1720 [facility] [address] [place] [address] Micheal Lopez MD 1720 [facility] [address] [place] [address] 11/01/2025 2:30 PM EDT Office Visit [facility] C[facility] 1720 [facility] [address] [place] [address] Rocky Reynolds MD 1720 [facility] [address] [place] [address] Scheduled Procedures Name Priority Associated Diagnoses Date/Ti me LEFT HEART CATH w/cors Angina pectoris documented as of this encounter Visit Diagnoses Not on filedocumented in this encounter Care Teams Underground Truck Operator Relationship Specialty Start Date End Date Bowen Escobedo MD 1210 [facility] [address] [facility] [address] [place] [address] PCP - General Family Medicine 05/27/18 documented as of this encounter
--- OUTSIDE RECORDS SUMMARY | 2025-01-23 01:46 | XMS_ITS | Encounter Summary ---
[facility] Organization [facility] Address [address] [place] [address] Care Team Providers Care Tree Puller Name Role Phone Bowen Escobedo MD Primary Care Provider Encounter Details Date Type Department Care Team (Late st Contact Info) Description 02/05/2016 External CPT II BANKING SERVICES OFFICER - [facility] Social History Tobacco Use [...] Description 06/29/2025 1:45 PM EDT Office Visit [facility] 1720 [facility] [address] [place] [address] Micheal Lopez MD 1720 [facility] [address] [place] [address] 11/01/2025 2:30 PM EDT Office Visit [facility] 17[address] [facility] [address] [place] [address] Rocky Reynolds MD 1720 [facility] [address] [place] [address] Scheduled Procedures Name Priority Associated Diagnoses Date/Ti me LEFT HEART CATH w/cors Angina pectoris documented as of this encounter Visit Diagnoses Not on filedocumented in this encounter Care Teams Tree Puller Relationship Specialty Start Date End Date Bowen Escobedo MD [facility] [address] [place] [address] PCP - General Family Medicine 05/27/18 documented as of this encounter
--- OUTSIDE RECORDS SUMMARY | 2025-01-23 01:46 | XMS_ITS | Data Portability ---
Author Organization [facility] Address [address] [facility] [address] [place] [address] Care Team Providers Care Certified Tower Climber Name Role Phone CAMRYNBOWEN Primary Care Provider Assessment No assessment recorded. Plan of Treatment Reminders Order Date Submit Date Provider Last Modified By Organization Details Last Modified Time Details Appointments None recorded. Lab None recorded. Referral None recorded. Procedures None recorded. Surgeries None recorded. Imaging None recorded. Medication Orders ipratropium bromide 42 mcg (0.06 %) nasal spray 2021 022 [facility] [employer] [facility] #[id number], [address] [address] [place], [id number], 16:56:52 Patient TargetsNo targets recorded. Patient Instructions Encounter Date Encounter Id Patient Instructions Last Modified By Organization Details Last Modified Time 10/12/2021 [id number] 1. Unilateral (left) Cerumenectomy performed in office [...] today. 5. f/u with results of CT [email or web address] Not available 10/12/2021 16:42:35 81-year-old femandrea chu [...] loss and previously has had hearing aids. [email or web address] Not available 10/12/2021 17:16:22 10/26/2021 [id number] 1. Continue candelario niño, zytrec 2. RX: ipratropium nasal spray 3. coclear implant briefly discussed 4. recommended HAE 5. Thyroid U/S FNA 6. f/u with results [email or web address] Not available 10/26/2021 18:38:53 81-year-old follow-up sensation of feeling like something is draining left side of her neck. I reviewed her CT scan from [facility]. She does have what appears to be [...] in about a year to ensure stability. [email or web address] Not available 10/26/2021 18:38:52 Reason for Referral [...] 10/27/19 Tympanogram completed CHRISTIANO HURST, AUD [address] [place], [address], [facility] 10/26/2021 15:50:44 10/27/19 Audiogram completed CHRISTIANO HURST AUD [address] [place], [address], [facility] 10/26/2021 15:50:43 10/13/19 Cerumen removal - Instruments, Unilateral completed Ivette Schroeder [facility] 10/12/2021 16:32:40 10/13/19 Laryngoscopy Flex completed FREIDA ROMAN MD [address] [place], [address], [facility] 10/12/2021 17:15:10 extraction of cataract completed Sierraoren Bain [facility] 10/12/2021 16:10:45 cholecystectomy completed Sierra [facility] 10/12/2021 16:10:51 hysterectomy completed [facility] 10/12/2021 16:11:01 Back Surgery completed Sierra [facility] 10/12/2021 16:11:07 amputation of toe completed Sierra [facility] 10/12/2021 16:11:13 Imaging Results None recorded. Procedure Notes None recorded. Medical Equipment None Reported. Allergies Allergen ID Allergen Name Allergen Category Reaction Reaction Severity Criticality Documentation Date Start Date Code Code System Note Provider Name and Address Organization Details Recorded Time 953130 Bactrim medicatio n Not available Not available Not available 10/12/2021 41054 9 RxNorm Sierra Bain [facility] 16:10:19 240682 carbamaze pine medicatio n Not available Not available Not available 10/12/20212001 RxNorm Sierra Vest [facility] 16:10:29 Medications Name Sig Start Date Stop [...] Address Organization Details Last Updated DateTime 2 38267.2 1 g 97.2 [degF] 33.2 kg/m2 160.02 cm 74 /min 146/90 mm[Hg] Sierra Bain [facility] 2 16:14:05 Date Recorded Body height Body temperature Body mass index (BMI) Body weight Heart rate Systolic And Diastolic Provider Name and Address Organization Details Last Updated DateTime 2 160.02 cm 96.4 [degF] 32.9 kg/m2 92760.1 8 g 70 /min 110/77 mm[Hg] Shahla Quispe [facility] 2 15:18:08 Social History None recorded. Functional [...] available 2021 16:09:13 Medical History Condition Response Anesthesia Complications N Arthritis Y Acid Reflux (GERD) Y Cancer N Heart Problems Y Diabetes N Bleeding Disorder N Heart Disease Y Hypertension Y Gynecological HistoryNo gynecological history recorded. Obstetrics History GPAL:G 0 P 0 0 0 0 Past Encounters Encounter ID Performer Location Encounter Start Date Encounter Closed Date Diagnosis/Indication Diagnosis SNOMED-CT Code Diagnosis ICD10 Code Diagnosis IMO Codes Diagnosis Note [id number] FREIDA ROMAN MD [facility] [address] [place] [id number] 10/12/2021 15:39:25 10/15/2021 07:57:53 Cardiac pacemaker in situ 965748645 Z95.0 Impacted c erumen in left ear 0973883751 228630 H61.22 Eczema of external auditory canal 27149125 H60.549 Hearing loss 56702365 H9 1.90 Facial ner ve sensory disorder 6650347 G51.9 [id number] FREIDA RMOAN MD [facility] [address] [place] [address] 10/26/2021 15:03:37 10/29/2021 07:55:04 Cardiac pacemaker in situ 860776973 Z95.0 Hearing loss 21171351 H9 1.90 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 [id number] O[facility]AR [facility] [address] [place] [address] 10/26/2021 15:04:53 11/07/2021 08:53:28 Sensorineural hearing loss of bilateral ears 317107813 H90.3 Health Concerns Section Related Observation LastModified by Organization Detai ls LastModified Time None Recorded Concern Status LastModified by Organization Details LastModified Time None Recorded Advance Directives Directive None Recorded Payers Insurance Date Sequence Insurance Name Policy Number Policy Blackmon Covered Member ID Blackmon Member ID Guarantor Name 11/07/2021 2 [employer] (MEDICARE SUPPLEMENT) Elyssa Lopez [id number] Elyssa Lopez 10/12/2021 1 [place] Elyssa Lopez [id number] Elyssa Lopez Notes Date Note Type [...] suspects inflammation from arthritis. FREIDA ROMAN MD [address] [place] [address], [address], [facility] 10/12/2021 17:16:37 10/26/2021 text/html Elyssa is a 81 year old female coming in for a recheck of her neck. Continues to complain of intermittent sensation of something draining in the left side of her neck. FREIDA ROMAN MD [address] [place] [address], [phone], [facility] 10/26/2021 18:39:04 OBGyn Episode No OBEpisode recorded.
--- OUTSIDE RECORDS SUMMARY | 2025-01-23 01:46 | XMS_ITS | Encounter Summary ---
[facility] Address [address] [place] [address] Care Team Providers Care Mobility Scooter Repairer Name Role Phone Bowen Escobedo MD Primary Care Provider Encounter Details Date Type Department Care Team (Late st Contact Info) Description 02/28/2016 External CPT II DIE MAINTENANCE TECHNICIAN - [facility] Social History Tobacco [...] Description 06/29/2025 1:45 PM EDT Office Visit [facility] CARDIOLOGY 1720 [facility] [address] [place] [address] Micheal Lopez MD 1720 [facility] [address] [place] [address] 11/01/2025 2:30 PM EDT Office Visit [facility] CARDIOLOGY 17[address] [facility] [address] [place] [address] Rocky Reynolds MD 1720 [facility] [address] [place] [address] Scheduled Procedures Name Priority Associated Diagnoses Date/Ti me LEFT HEART CATH w/cors Angina pectoris documented as of this encounter Visit Diagnoses Not on filedocumented in this encounter Care Teams Mobility Scooter Repairer Relationship Specialty Start Date End Date Bowen Escobedo MD [facility]0 [facility] [address] [place] [address] PCP - General Family Medicine 05/27/18 documented as of this encounter
--- OUTSIDE RECORDS SUMMARY | 2025-01-23 01:46 | XMS_ITS | Encounter Summary ---
[facility] [address] [place] [address] Care Team Providers Care City Attorney Name Role Phone Bowen Escobedo MD Primary Care Provider Encounter Details Date Type Department Care Team (Late st Contact Info) Description 03/13/2016 External CPT II ONLINE CONTENT EDITOR - [facility] Social History Tobacco Use [...] Description 06/29/2025 1:45 PM EDT Office Visit [facility] CARDIOLOGY 1720 [facility] [address] [place] [address] Micheal Lopez MD 1720 [facility] [address] [place] [address] 11/01/2025 2:30 PM EDT Office Visit [facility] C[facility] 1720 [facility] [address] [place] [address] Rocky Reynolds MD 1720 [facility] [address] [place] [address] Scheduled Procedures Name Priority Associated Diagnoses Date/Ti me LEFT HEART CATH w/cors Angina pectoris documented as of this encounter Visit Diagnoses Not on filedocumented in this encounter Care Teams City Attorney Relationship Specialty Start Date End Date Bowen Escobedo MD [facility] [address] [place] [address] PCP - General Family Medicine 05/27/18 documented as of this encounter
--- OUTSIDE RECORDS SUMMARY | 2025-01-23 01:47 | XMS_ITS ---
Author Organization Unknown ENCOUNTERS Encounter Performer Location Date Diagnosis Diagnosis Status Outpatient [address] [place] [address] [id number] Emergency [address] [place] [address] [id number] Pre Admit Nydia Clark [address] [place] [address] [id number] Emergency [address] [place] [address] [id number] XOTH Pre Admit [address] [place] [address] [id number] Outpatient [address] [place] [address] [id number] [facility] [address] [place] [address] [id number] Pre Admit [address] [place] [address] [id number] *Note: Encounters from your own facility or health system may be excluded. Allergies, Adverse Reactions, Alerts Allergen Type Severity Identification Date trimethoprim drug allergy 0 20190518 sulfamethoxazole drug allergy 0 20190518 Medications Name Date Quantity Days Supplied GPI Number
--- OUTSIDE RECORDS SUMMARY | 2025-01-23 01:47 | XMS_ITS | Clinical Summary ---
[facility] Organization [facility] Address [address] [place] [address] Care Team Providers Care Whizzer Operator Name Role Phone Bowen Escobedo MD [...] Echo 04-09-17 Left atrial cavity size is zxxo-wb-tpucxagoxw dilated. Arov-iq-lzzxfnkm mitral valve regurgitation is present. Mild tricuspid valve regurgitation is present. Mild pulmonic valve regurgitation is present. Left ventricular systolic function is severely decreased. Estimated EF = 33%. The left ventricular cavity is mildly dilated. 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 PAD (peripheral artery disease) 05/28/2017 Overview (05/28/2017): 1. AA with runoff and DIRECT MAIL COORDINATOR of RLE Apr 2013 Mixed hyperlipidemia 05/16/2017 Hypothyroidism 04/09/2017 Hypertension Persistent atrial fibrillation Overview (04/25/2017): Hx of atrial flutter s/p flutter ablation 06/03/13 ([facility]) Chadsvasc: 4 Echo 09/01/13: Normal EF, 68%, no significant valvular stenosis or regurgitation, LA 5.7 cm Previous ischemic eval has not been located. Resolved Problems Problem Noted Date Diagnosed Date Resolved Date Acute blood loss anemia, 1 unit PRBC 01/0112/30/2018 10/01/2022 Acute postoperative pain 12/30/2018 Primary osteoarthritis of left knee 10/21/2018 10/01/2022 Epistaxis 07/11/2017 10/01/2022 Immunizations Immunization Administration Dates Next Due Fluzone [...] Description 06/29/2025 1:45 PM EDT Office Visit [facility] CARDIOLOGY 1720 [facility] [address] [place] [address] Micheal Lopez MD 1720 [facility] [address] [place] [address] 11/01/2025 2:30 PM EDT Office Visit [facility] C[facility] 1720 [facility] [address] [place] [address] Rocky Reynolds MD [address] [address] Scheduled Procedures Name Priority Associated Diagnoses Date/Ti [...] history exists Medical Devices Implanted Type Area Tutoring Clinician Device Identifier Shelf Expiration Date Model / Serial / Lot Cmt Bone Simplex/P Full Dose 10/Pk - [id number] Implanted:Qty: 2 on 12/29/2018 by Norbert Ortez MD at [facility] Implant Left: Knee [employer] 12/07/2020 [id number] / / [id number] Comp Fem Legion Oxinium Ps Sz5 Lt - [id number] Implanted:Qty: 1 on 12/29/2018 by Norbert Ortez MD at [facility] Implant Left: Knee [employer] 10/31/2028 [id number] / / [id number] Pat Gen2 Resrf 32mm - [id number] Implanted:Qty: 1 on 12/29/2018 by Norbert Ortez MD at [facility] Implant Left: Knee [employer] 10/31/2028 [id number] / / [id number] Base Tib/Kn Gen2 Nonpor Ti Sz3 Lt - [id number] Implanted:Qty: 1 on 12/29/2018 by Norbert Ortez MD at [facility] Implant Left: Knee [employer] 08/18/2028 [id number] / / [id number] Insrt Art Legion Ps Hf Xlpe Sz3to4 10mm - [id number] Implanted:Qty: 1 on 12/29/2018 by Norbert Ortez MD at [facility] Implant Left: Knee [employer] 11/16/2028 [id number] / / [id number] Totl Kn Joshua Mccloud Nephew - [id number] Implanted:Qty: 1 on 12/29/2018 by Norbert Ortez MD at [facility] Implant Left: Knee [employer] CAPKNEETOTA LSN2 / / Ld Pm Tendril Sts 6f52cm [id number] - [id number] - [id number] Implanted:Qty: 1 on 10/15/2017 by Seb Phelan MD at [facility] Lead [employer] 08/07/2020 [id number] / [id number] / Ld Quartet Lv S/Crv Bipol 1458q/75 - [id number] - [id number] Implanted:Qty: 1 on 10/15/2017 by Seb Phelan MD at [facility] Lead [employer] 08/08/2019 [id number] / [id number] / Gen Pm Allure Quadra Bivent Rf Crtp [id number] - [id number] - [id number] Implanted:Qty: 1 on 10/15/2017 by Seb Phelan MD at [facility] Pacemaker [employer] 01/07/2019 [id number] / [id number] / [id number] Description:home monitoring Procedures Procedure Name Priority Date/Time Associated Diagnosis Comments REMOTE DEVICE CHECK 10/31/2024 8 :19 PM EDT HEMOGLOBIN A1C Routine 12/17/2018 3:59 PM EDT LIPID PANEL STAT 05/28/2017 6:39 AM EDT from Last 3 Months or Most Recently Relevant to Health Maintenance Results * Remote Device Check (10/31/2024 8:19 PM EDT) Date Time Interrogation Session [id number] [facility] Type Interrogation Session Remote Scheduled [facility] Implantable Pulse Generator Tutoring Clinician [employer] [facility] Implantable Pulse Generator Type LUMBER CHECKER-P [facility] Implantable Pulse Generator Model 3262 Quadra Allure MP(TM) RF [facility] Implantable Pulse Generator Serial Number [id number] [facility] Implantable Pulse Generator Implant Date 20171015 [facility] Battery Remaining Percentage 33.00 % [facility] Battery Remaining Longevity 30.0 mo [facility] Battery Voltage 2.960 [facility] Battery CHANNEL MARKETING PROGRAM MANAGER Trigger 2.620 [facility] Battery Status Middle of Service [facility] LUMBER CHECKER Statistic LUMBER CHECKER Percent Paced 99.00 [facility] Lead Channel RV Sensing Intrinsic Amplitude 6.100 [facility] Lead Channel Setting RV Sensing Sensitivity 2.00 [facility] Lead Channel RV Impedance Value 360 [facility] Lead Channel RV Pacing Threshold Amplitude 0.750 [facility] Lead Channel RV Pacing Threshold Pulse Width 0.5 [facility] Lead Channel RV Measurements Date and Time 20241031 [facility] Lead Channel Setting RV Pacing Amplitude 2.000 [facility] Lead Channel Setting RV Pacing Pulse Width 0.5 [facility] Lead Channel LV Impedance Value 990 [facility] Lead Channel LV Pacing Threshold Amplitude 1.000 [facility] Lead Channel LV Pacing Threshold Pulse Width 0.7 [facility] LV Lead Channel Measurements Date and Time 20241031 [facility] Lead Channel Setting LV Pacing Amplitude 2.000 [facility] Lead Channel Setting LV Pacing Pulse Width 0.7 [facility] J[employer] Setting Mode (NBG Code) VVIR [facility] Ventricular chambers paced during LUMBER CHECKER pacing. BiV [facility] [employer] Setting Lower Rate Limit 70 [facility] [employer]oses[employer] Setting Maximum Sensor Rate 120 [facility] LUMBER CHECKER LV-RV Delay 0 [facility] Lead Channel Setting RA Sensing Polarity Bipolar [facility] Lead Channel Setting RV Sensing Polarity Bipolar [facility] Lead Channel Setting RA Pacing Polarity Bipolar [facility] Lead Channel Setting RV Pacing Polarity Bipolar [facility] Lead Channel Setting LV Pacing Polarity Bipolar [facility] Lead Channel RV Pacing Threshold Polarity Bipolar [facility] Lead Channel LV Pacing Threshold Polarity Bipolar [facility] 10/31/2024 8:19 PM EDT Rocky Reynolds MD CV IMPLANTABLE CARDIAC DEVICE Fi nal Result [facility] * Hemoglobin A1c (12/17/2018 3:59 PM EDT) Hemoglobin A1C 5.30 4.80 - 5.60 % 12/17/2018 5:10 PM EDT [facility] Blood Venipuncture / Unknown 12/17/2018 3:59 PM EDT 12/17/2018 4:32 PM EDT Narrative [facility] - 12/17/2018 5:10 PM EDT Hemoglobin A1C Ranges: Increased Risk for Diabetes 5.7% to 6.4% Diabetes >= 6.5% Diabetic Goal < 7.0% Nathen Johnson MD LAB BLOOD ORDERABLES Gwendolyn l Result [facility]
[address] [place] [address], * Lipid Panel (05/28/2017 6:39 AM EDT) Total Cholesterol 120 0 - 200 mg/dL 05/28/2017 7:24 AM EDT [facility] Triglycerides 80 0 - 150 mg/dL 05/28/2017 7:24 AM EDT [facility] HDL Cholesterol 47 40 - 60 mg/dL 05/28/2017 7:24 AM EDT [facility] LDL Cholesterol 67 0 - 130 mg/dL 05/28/2017 7:24 AM EDT [facility] Blood Line / Unknown 05/28/2017 6: 39 AM EDT 05/28/2017 6:48 AM EDT Narrative [facility] - 05/28/2017 7:24 AM EDT [...] Rui STROUD LAB BLOOD ORDERABLES Final Result [facility]
[address] [place] [address], from Last 3 Months or Most Recently Relevant to Health Maintenance Insurance [address] [id number] MEDICARE A & B Member Subscriber Plan / Payer (Ef fective 2004-Present) Name:Elyssa Lopez Member ID:[id number] Relation to Subscriber:Self Name:Elyssa Lopez Subscriber ID:[id number] Payer ID:[id number] Group ID:Not on file Type:Not on file Address: [address] [place] [address] Advance Directives Documents on File Type Date Recorded Patient Field Sales Associate Expl anation POWER OF [employer] CANDY MAKER - SCAN 12/29/2018 12:21 PM POA 12/25/2018 [...] Of Support Discussed With: Patient Care Teams Whizzer Operator Relationship Specialty Start Date End Date Bowen Escobedo MD [address] [facility] [address] [place] [address] PCP - General Family Medicine 05/27/18
--- OUTSIDE RECORDS SUMMARY | 2025-01-23 01:47 | XMS_ITS | Encounter Summary ---
Author Organization [facility] Address [address] [place] [address] Care Team Providers Care Nail Cutter Name Role Phone Bowen Escobedo MD Primary Care Provider Encounter Details Date Type Department Care Team (Late st Contact Info) Description 10/24/2017 External CPT II LUNCHROOM WORKER - [facility] Social History Tobacco [...] Visit [facility]IOLOG[facility] 1720 [facility] [address] [place] [address] Micheal Lopez MD 1720 [facility] [address] [place] [address] 11/01/2025 2:30 PM EDT Office Visit [facility] 17[address] [facility] [address] [place] [address] Rocky Reynolds MD 1720 [facility] [address] [place] [address] Scheduled Procedures Name Priority Associated Diagnoses Date/Ti me LEFT HEART CATH w/cors Angina pectoris documented as of this encounter Visit Diagnoses Not on filedocumented in this encounter Care Teams Nail Cutter Relationship Specialty Start Date End Date Bowen Escobedo MD 1210 [facility] [address] [place] [address] PCP - General Family Medicine 05/27/18 documented as of this encounter
--- OUTSIDE RECORDS SUMMARY | 2025-01-23 01:47 | XMS_ITS | Clinical Summary ---
Author Organization [facility] Address [address] [place] [address] Care Team Providers Care Mold Stacker Name Role Phone Bowen Escobedo MD Primary Care Provider [phone] Allergies Active Allergy Reactions Criticality Noted Date Comments Flavoring Agent Vomiting 11/03/2024 Sulfa Drugs Swelling High 11/03/2024 Medications apixaban (Eliquis) 5 MG tablet Take 1 tablet by mouth 2 times a day. 7 Active atorvastatin (Lipitor) 40 MG tablet Take 1 tablet by mouth daily. Active buPROPion XL (Wellbutrin XL) 150 MG 24 hr tablet Take 1 tablet by mouth daily. Active carvedilol (Coreg) 12.5 MG tablet Take 1 tablet by mouth twice a day. 5 Active cyanocobalamin (Vitamin B-12) 1000 MCG tablet Take 1 tablet by mouth daily. 5 Active Flonase Allergy Relief 50 MCG/ACT nasal spray Administer 1 spray into each nostril 2 times a day. 5 Active gabapentin (Neurontin) 300 MG capsule Take 1 capsule by mouth 3 times a day. 7 Active levothyroxine (Synthroid, Levoxyl) 50 MCG tablet Take 1 tablet by mouth daily before breakfast. Active sacubitril-manish sartan (Entresto) 49-51 MG tablet Take 1 tablet by mouth twice a day. 5 Active torsemide (Demadex) 10 MG tablet Take 1 tablet by mouth daily. 5 Active pantoprazole (Protonix) 40 MG EC tablet Take 1 tablet by mouth twice a day. 3 Active NON FORMULARY Apply 1-2 g topically 3 times a day as needed. Ketamine Gabapentin Lidocaine Amitriptyline Bupivacaine Meloxicam 10% 6% 5% 2% 2% 0.1% Active senna-docusate (Marla-Colace) 8.6-50 MG tablet Take 2 tablets by mouth nightly. 60 tablet 5 Active methocarbamol (Robaxin) 500 MG tablet Take 1 tablet by mouth 3 times a day. 90 tablet 5 Active acetaminophen (Tylenol) 325 MG tablet Take 2 tablets by mouth every 6 hours. Under [place] law, monthly prescriptions (30 days) can be refilled at 25 days and three-month prescriptions (90 days) at 80 days. Please contact the insurance company with questions if refills are denied. 100 tablet 5 Active Active Problems Problem Noted Date Diagnosed Date Aortic dissection 11/02/2024 Encounters Date Type Department Care Team Description 11/06/2024 Travel 11/03/2024 Travel 11/02/2024 4:52 PM EDT - 11/10/2024 1:28 PM EDT Hospital Encounter [facility] [address] [place] [address] Nancy Escobedo, Urszula Guzman MD [place], Joseph L, MD Dissection of thoracoabdominal aorta (CMS/HCC) (Primary Dx) Discharge Disposition: [facility] 11/02/2024 Travel 11/02/2024 Orders Only External Location [address] [place] [address] Provider, External 11/02/2024 Orders Only External Location [address] [place] [id number] Provider, External from Last 3 Months Family History Medical History Relation Name Comments Diabetes Brother 1 Hypertension Brother 2 Arthritis Mother Cancer Mother Hypertension Mother Cancer Other 1 Hypertension Other 2 Relation Name Status Comments Brother 1 Brother 2 Mother Other 1 Other 2 Social History Tobacco Use Types Packs/Day Years Used Date Smoking Tobacco: Never Smokeless Tobacco: Never Tobacco Cessation:Counseling Given: Not Answered Humiliation, Afraid, Rape, and Kick questionnair e Answer Date Recorded Within the last year, have y ou been afraid of your partner or ex-partner? No 11/03/2024 Within the last year, have y ou been humiliated or emotionally abused in other ways by your partner or ex-partner? No Within the last year, have y ou been kicked, hit, slapped, or otherwise physically hurt by your partner or ex-partner? No 11/03/2024 Within the last year, have y ou been raped or forced to have any kind of sexual activity by your partner or ex-partner? No 11/03/2024 AUDIT-C Answer Date Recorded Q1: How often do you have a drink containing alc ohol? Never 11/03/2024 Average Number of Drinks Not on file 025 Q3: How often do you have si x or more drinks on one occasion? Never 11/03/2024 Hunger Vital Sign Answer Date Recorded Within the past 12 months, y ou worried that your food would run out before you got the money to buy more. Never true 11/04/19 25 Within the past 12 months, t he food you bought just didn't last and you didn't have money to get more. Never true 11/03/2024 PRAPARE - Transportation Answer Date Re corded In the past 12 months, has l ack of transportation kept you from medical appointments or from getting medications? No 10/09 In the past 12 months, has l ack of transportation kept you from meetings, work, or from getting things needed for daily living? No 11/03/2024 Housing Stability Vital Sign Answer Oswald e Recorded In the last 12 months, was t here a time when you were not able to pay the mortgage or rent on time? No 11/03/2024 Number of Times Moved in the Last Year Not on fi le 11/03/2024 At any time in the past 12 m [facility], were you homeless or living in a alf (including now)? No 11/03/2024 Utilities Answer Date Recorded In the past 12 months has th e electric, gas, oil, or water [employer] threatened to shut off services in your home? No 11/03/2024 Comments Unknown Sex and Gender Information Value Date Recorded Sex Assigned at Not on file Legal Sex Female 7:33 PM EDT Gender Identity Not on file Sexual Orientation Not on file Last Filed Vital Signs Vital Sign Reading Time Taken Comments Blood Pressure 115/54 11/10/2024 12:00 PM EDT Pulse 75 11/10/2024 12:00 PM EDT Temperature 37 C (98.6 F) 11/10/2024 12:00 PM EDT Respiratory Rate 22 11/10/2024 12:00 PM EDT Oxygen Saturation 100% 11/10/2024 12:00 PM EDT Inhaled Oxygen Concentration - - Weight 81.2 kg (179 lb 0.2 oz) 11/10/2024 6:00 A M EDT Height 167.6 cm (5' 5.98 ) 11/10/2024 6:00 AM ED T Body Mass Index 28.91 11/10/2024 6:00 AM EDT Plan of Treatment Upcoming Encounters Date Type Department Care Team (Late st Contact Info) Description 02/17/2025 10:40 AM EST Appointment [facility] [address] [place] [address] 02/17/2025 1:20 PM EST Office [facility] [address] [facility] [address] 5th Floor [address] [place] [address] Urszula Ruiz MD [address] [place] [address] Health Maintenance Due Date Last Done Comments [facility]-Bone Density Scan 1940 [facility]-Depression Screening 1940 [facility]-Medicare Annual Wellness (AWV) 1940 [facility]-/Child/Adol SDOH Screenings 1940 [facility]-DTaP,Tdap,and Td Vaccines (1 - Tdap) 07/09/1958 [facility]-Zoster Vaccines (1 of 2) 07/09/1989 [facility]-RSV Vaccine: 60+ Years or (1 - 1-dose 75+ series) 07/09/2014 [id number] Vaccine ( season) 2024 02/15/2021, 05/17/2020, 04/19/2020 [facility]-Influenza Vaccine (#1) 11/08/202401/16, 03/05/2021, 12/30/2019, Additional history exists [facility]- SDOH Screenings 05/06/2025 [facility]-Adult SDOH Screenings 05/06/2025 11/03/2024 [facility]-Pneumococcal Vaccine: 50+ Years Completed 12/24/2017, 12/13/2016, 02/07/2016 [facility]-Obesity Intervention Completed 11/02/2024 HPV Vaccines Aged Out No longer eligi [...] on patient's age to complete this topic Procedures Procedure Name Priority Date/Time Associated Diagnosis Comments LACTATE, VENOUS Routine 11/08/2024 11:46 PM EDT PHOSPHORUS, PLASMA Routine 11/08/2024 11 :46 PM EDT MAGNESIUM, PLASMA Routine 11/08/2024 11: 46 PM EDT BASIC METABOLIC PANEL, PLASMA Routine 11/08/2024 11:46 PM EDT CBC W/O DIFFERENTIAL Routine 11/08/2024 11:46 PM EDT POCT GLUCOSE METER UNSOLICITED RESULTS Routine 11/08/2024 6:04 AM EDT POCT GLUCOSE METER UNSOLICITED RESULTS Routine 11/07/2024 6:00 PM EDT URINE SHAFFER PANEL Routine 11/07/2024 12:1 7 PM EDT URINALYSIS WITH REFLEX MICROSCOPIC Routine 11/07/2024 12:17 PM EDT URINALYSIS WITH REFLEX MICROSCOPIC AND CULTURE Routine 11/07/2024 12:17 PM EDT PHOSPHORUS, PLASMA Routine 11/07/2024 9: 12 AM EDT MAGNESIUM, PLASMA Routine 11/07/2024 9:1 2 AM EDT BASIC METABOLIC PANEL, PLASMA Routine 11/07/2024 9:12 AM EDT CBC W/O DIFFERENTIAL Routine 11/07/2024 9:12 AM EDT URINALYSIS WITH REFLEX MICROSCOPIC Routine 11/06/2024 11:47 PM EDT POCT GLUCOSE METER UNSOLICITED RESULTS Routine 11/06/2024 5:[address] ANGIO CHEST Timed 11/06/2024 2:[address] ANGIO ABDOMEN PELVIS Timed 11/07/19 2:46 PM EDT POCT GLUCOSE METER UNSOLICITED RESULTS Routine 11/06/2024 12:16 PM EDT POCT GLUCOSE METER UNSOLICITED RESULTS Routine 11/06/2024 7:17 AM EDT POCT GLUCOSE METER UNSOLICITED RESULTS Routine 11/05/2024 8:36 PM EDT POCT GLUCOSE METER UNSOLICITED RESULTS Routine 11/05/2024 5:38 PM EDT POCT GLUCOSE METER UNSOLICITED RESULTS Routine 11/05/2024 12:21 PM EDT POCT GLUCOSE METER UNSOLICITED RESULTS Routine 11/05/2024 9:22 AM EDT POCT GLUCOSE METER UNSOLICITED RESULTS Routine 11/04/2024 8:34 PM EDT POCT GLUCOSE METER UNSOLICITED RESULTS Routine 11/04/2024 5:38 PM EDT POCT GLUCOSE METER UNSOLICITED RESULTS Routine 11/04/2024 1:13 PM EDT POCT GLUCOSE METER UNSOLICITED RESULTS Routine 11/04/2024 11:40 AM EDT POCT GLUCOSE METER UNSOLICITED RESULTS Routine 11/04/2024 9:41 AM EDT COMPREHENSIVE METABOLIC PANEL, PLASMA Timed 11/04/2024 2:56 AM EDT CBC WITH AUTO DIFFERENTIAL Timed 11/04/2024 2:56 AM EDT POCT GLUCOSE METER UNSOLICITED RESULTS Routine 11/03/2024 9:42 PM EDT POCT GLUCOSE METER UNSOLICITED RESULTS Routine 11/03/2024 6:46 PM EDT POCT GLUCOSE METER UNSOLICITED RESULTS Routine 11/03/2024 6:22 PM EDT COMPREHENSIVE METABOLIC PANEL, PLASMA Timed 11/03/2024 5:19 PM EDT CBC WITH AUTO DIFFERENTIAL Timed 11/03/2024 5:19 PM EDT POCT GLUCOSE METER UNSOLICITED RESULTS Routine 11/03/2024 11:58 AM EDT PHOSPHORUS, PLASMA Add-On 11/03/2024 11 :15 AM EDT MAGNESIUM, PLASMA Add-On 11/03/2024 11: 15 AM EDT COMPREHENSIVE METABOLIC PANEL, PLASMA Timed 11/03/2024 11:15 AM EDT CBC WITH AUTO DIFFERENTIAL Timed 11/03/2024 11:15 AM EDT POCT GLUCOSE METER UNSOLICITED RESULTS Routine 11/03/2024 8:55 AM EDT POCT GLUCOSE METER UNSOLICITED RESULTS Routine 11/03/2024 8:12 AM EDT PHOSPHORUS, PLASMA Add-On 11/03/2024 6: 25 AM EDT MAGNESIUM, PLASMA Add-On 11/03/2024 6:2 5 AM EDT COMPREHENSIVE METABOLIC PANEL, PLASMA Timed 11/03/2024 6:25 AM EDT CBC WITH AUTO DIFFERENTIAL Timed 11/03/2024 6:25 AM EDT POCT GLUCOSE METER UNSOLICITED RESULTS Routine 11/03/2024 6:23 AM EDT POCT GLUCOSE METER UNSOLICITED RESULTS Routine 11/03/2024 6:21 AM EDT POCT GLUCOSE METER UNSOLICITED RESULTS Routine 11/03/2024 1:34 AM EDT PHOSPHORUS, PLASMA Routine 11/03/2024 12 :54 AM EDT MAGNESIUM, PLASMA Routine 11/03/2024 12: 54 AM EDT COMPREHENSIVE METABOLIC PANEL, PLASMA Timed 11/03/2024 12:54 AM EDT CBC WITH AUTO DIFFERENTIAL Timed 11/03/2024 12:54 AM EDT POCT GLUCOSE METER UNSOLICITED RESULTS Routine 11/03/2024 12:[address] ANGIO CHEST STAT 11/03/2024 12:43 AM EDT PREPARE RBC STAT 11/02/2024 9:08 PM EDT POCT GLUCOSE METER UNSOLICITED RESULTS Routine 11/02/2024 8:51 PM EDT FOZIA AURIS SURVEILLANCE BY PCR Routine 11/02/2024 8:28 PM EDT MULTI DRUG RESISTANCE TEST Routine 11/02/2024 8:28 PM EDT POCT GLUCOSE METER UNSOLICITED RESULTS Routine 11/02/2024 8:08 PM EDT POCT GLUCOSE METER UNSOLICITED RESULTS Routine 11/02/2024 7:56 PM EDT ANTI XA LEVEL UNFRACTIONATED HEPARIN STAT 11/02/2024 7:52 PM EDT TROPONIN T, HIGH SENSITIVITY, 2 HOUR, PLASMA Timed 11/02/2024 7:12 PM EDT URINALYSIS MICROSCOPIC FOR UA REFLEX STAT 11/02/2024 6:18 PM EDT URINALYSIS WITH REFLEX MICROSCOPIC STAT 11/02/2024 6:[address] ANGIO ABDOMEN PELVIS W RUNOFF STAT 11/02/2024 5:31 PM EDT XR CHEST 1 VIEW STAT 11/02/2024 5:11 PM EDT ECG ADULT STAT 11/02/2024 5:05 PM EDT DIFFICULT CROSSMATCH, PATHOLOGIST INTERPRETATION STAT 11/02/2024 5:02 PM EDT ANTIBODY IDENTIFICATION STAT 11/03/19 5:02 PM EDT ED HIV 1/2 ANTIBODY/ANTIGEN SCREEN WITH REFLEX TO HIV I/II DIFFERENTIATION STAT 11/02/2024 5:02 PM EDT ED PROTOCOL HIV 1/2 ANTIBODY/ANTIGEN SCREEN W/REFLEX TO HIV 1/2 ANTIBODY DIFFERENTIATION STAT 11/02/2024 5:02 PM EDT HEPATITIS C ANTIBODY - ED W/REFLEX TO HCV QUANT PCR STAT 11/02/2024 5:02 PM EDT TYPE AND SCREEN STAT 11/02/2024 5:02 PM EDT APTT STAT 11/02/2024 5:02 PM EDT PROTHROMBIN TIME(PT) / INR STAT 11/02/2024 5:02 PM EDT CBC WITH AUTO DIFFERENTIAL STAT 11/02/2024 5:02 PM EDT LIPASE, PLASMA STAT 11/02/2024 5:02 PM EDT FREE T4, PLASMA STAT 11/02/2024 5:02 PM EDT TSH STAT 11/02/2024 5:02 PM EDT N-TERMINAL PROBNP, PLASMA STAT 11/02/2024 5:02 PM EDT BLOOD GAS PANEL, VENOUS STAT 11/03/19 5:02 PM EDT TROPONIN T, HIGH SENSITIVITY, 0 HOUR, PLASMA, REFLEX TO 2 HOUR STAT 11/02/2024 5:02 PM EDT MAGNESIUM, PLASMA STAT 11/02/2024 5:0 2 PM EDT COMPREHENSIVE METABOLIC PANEL, PLASMA STAT 11/02/2024 5:[address] OUTSIDE IMAGES 11/02/2024 1:3 5 PM EDT XR OUTSIDE IMAGES 11/02/2024 12: 17 PM EDT from Last 3 Months Results * Lactate, venous (11/08/2024 11:46 PM EDT) Lactate, Venous, Whole Blood 0.8 0.5 - 2.2 mmol/L LAB HEMATOLOGY METHOD 11/08/2024 11:58 PM EDT [facility] Blood Venous blood specimen / Unknown Venipuncture / Unknown 11/08/2024 11:46 PM EDT 11/08/2024 11:55 PM EDT Jaylen Mix MD LAB BLOOD ORDERABLES Final Result [facility] [address] [place] [address] * (ABNORMAL) CBC W/O Differential (11/08/2024 11:46 PM EDT) Only the most recent of2 resultswithin the time period is included. [facility] WBC Count 4.59 3.70 - 10.30 10*3/uL LAB HEMATOLOGY METHOD 11/09/2024 12:15 AM EDT [facility] RBC Count 2.96(L) 3.90 - 5.20 10*6/uL LAB HEMATOLOGY METHOD 11/09/2024 12:15 AM EDT [facility] HGB 9.7(L) 11.2 - 15.7 g/dL LAB HEMATOLOGY METHOD 11/09/2024 12:15 AM EDT [facility] HCT 29.7(L) 34.0 - 45.0 % LAB HEMATOLOGY METHOD 11/09/2024 12:15 AM EDT [facility] Platelet Count 153(L) 155 - 369 10*3/uL LAB HEMATOLOGY METHOD 11/09/2024 12:15 AM EDT [facility] MCV 100(H) 79 - 98 fL LAB HEMATOLOGY METHOD 11/09/2024 12:15 AM EDT [facility] MCH 32.8(H) 26.0 - 32.0 pg LAB HEMATOLOGY METHOD 11/09/2024 12:15 AM EDT [facility] MCHC 32.7 30.7 - 35.5 g/dL LAB HEMATOLOGY METHOD 11/09/2024 12:15 AM EDT [facility] RDW 13.6 11.5 - 14.5 % LAB HEMATOLOGY METHOD 11/09/2024 12:15 AM EDT [facility] MPV 10.4 8.8 - 12.5 fL LAB HEMATOLOGY METHOD 11/09/2024 12:15 AM EDT [facility] nRBC 0.0 <=0.0 per 100 WBCs LAB HEMATOLOGY METHOD 11/09/2024 12:15 AM EDT [facility] Blood Venous blood specimen / Unknown Venipuncture / Unknown 11/08/2024 11:46 PM EDT 11/08/2024 11:54 PM EDT Jaylen Mix MD LAB BLOOD ORDERABLES Final Result Performing Organization Address City/[facility]/ZIP Co de Phone Number [facility] [address] [place] [address] * Phosphorus, Plasma (11/08/2024 11:46 PM EDT) Only the most recent of5 resultswithin the time period is included. Phosphorus, Plasma 2.6 2.5 - 4.5 mg/dL 11/09/2024 12:22 AM EDT [facility] Blood Venous blood specimen / Unknown Venipuncture / Unknown 11/08/2024 11:46 PM EDT 11/08/2024 11:54 PM EDT us Jaylen Mix MD LAB BLOOD ORDERABLES Final Result Performing Organization Address City/[facility]/ZIP Co de Phone Number [facility] [address] [place] [address] * Magnesium, Plasma (11/08/2024 11:46 PM EDT) Only the most recent of6 resultswithin the time period is included. Magnesium, Plasma 2.0 1.9 - 2.4 mg/dL 11/09/2024 12:22 AM EDT [facility] Blood Venous blood specimen / Unknown Venipuncture / Unknown 11/08/2024 11:46 PM EDT 11/08/2024 11:54 PM EDT us Jaylen Mix MD LAB BLOOD ORDERABLES Final Result [facility] [address] [place] [address] * (ABNORMAL) Basic metabolic panel (11/08/2024 11:46 PM EDT) Only the most recent of2 resultswithin the time period is included. Glucose, Plasma 94 74 - 99 mg/dL 11/09/2024 12:22 AM EDT [facility] BUN, Plasma 17 8 - 23 mg/dL 11/09/2024 12:22 AM EDT [facility] Creatinine, Plasma 1.10 0.60 - 1.10 mg/dL 11/09/2024 12:22 AM EDT [facility] BUN/Creatinine Ratio 15 11/09/2024 12:22 AM EDT [facility] Sodium, Plasma 139 136 - 145 mmol/L 11/09/2024 12:22 AM EDT [facility] Potassium, Plasma 3.9 3.6 - 4.9 mmol/L 11/09/2024 12:22 AM EDT [facility] Chloride, Plasma 105 97 - 107 mmol/L 11/09/2024 12:22 AM EDT [facility] CO2, Plasma 22 22 - 29 mmol/L 11/09/2024 12:22 AM EDT [facility] Anion Gap 12 6 - 16 mmol/L 11/09/2024 12:22 AM EDT [facility] Total Calcium, Plasma 8.2(L) 8.9 - 10.2 mg/dL 11/09/2024 12:22 AM EDT [facility] eGFRcr 49.3 mL/min/1.7 3m*2 11/09/2024 12:22 AM EDT [facility] Comment:Reported eGFRcr in m L/min/1.73m2 is based the CKD-EPI 2020 equation that does not use a race coefficient. Blood Venous blood specimen / Unknown Venipuncture / Unknown 11/08/2024 11:46 PM EDT 11/08/2024 11:54 PM EDT Jaylen Mix MD LAB BLOOD ORDERABLES Final Result [facility] [address] [place] [address] * (ABNORMAL) POCT glucose meter (11/08/2024 6:04 AM EDT) Only the most recent of27 resultswithin the time period is included. POCT Glucose 106(H) 74 - 99 mg/dL 11/08/2024 6:06 AM EDT [facility] Comment:Accuracy of a glucos e result obtained from a capillary whole blood specimen relies upon adequate, non-compromised capillary blood flow. If the capillary glucose result is not consistent with the patient's clinical signs and symptoms, glucose testing should be repeated with either an arterial or venous sample on the glucometer or sent to the main labortory for testing. Comment 11/08/2024 6:06 AM EDT [facility] Business Performance Advisor ID Maria Luz Mcneil 11/09/19 25 6:06 AM EDT [facility] Device ID [id number] 11/08/2024 6:06 AM EDT [facility] Specimen Type POC Capillary 11/08/2024 6:06 AM EDT [facility] Blood Capillary blood specimen / Unknown 11/08/2024 6:04 AM EDT 11/08/2024 6:06 AM EDT Jaylen Mix MD LAB POINT OF CARE TEST DOCKED DEVICE UNSOLICITED RESULTS Final Result Performing Organization Address [facility] Co de Phone Number [facility] [address] [place] [address] * Urine Shaffer Panel (11/07/2024 12:17 PM EDT) [facility] Extra Reflex urine culture not indicated 11/07/2024 9:01 PM EDT [facility] Comment: Previously prelim verified as Specimen evaluation in progress on 11/07/2024 at 1401 EDT. Previously prelim verified as Specimen evaluation in progress on 11/07/2024 at 1501 EDT. Previously prelim verified as Specimen evaluation in progress on 11/07/2024 at 1601 EDT. Previously prelim verified as Specimen evaluation in progress on 11/07/2024 at 1701 EDT. Previously prelim verified as Specimen evaluation in progress on 11/07/2024 at 1801 EDT. Previously prelim verified as Specimen evaluation in progress on 11/07/2024 at 1901 EDT. Previously prelim verified as Specimen evaluation in progress on 11/07/2024 at 2001 EDT. Urine Urine specimen obtained by clean catch procedure / Unknown Non-blood Collection / Unknown 11/07/2024 12:17 PM EDT 11/07/2024 12:27 PM EDT us Jaylen Mix MD LAB URINE ORDERABLES Final Result [facility] [address] [place] [address] * (ABNORMAL) Urinalysis with reflex microscopic (Culture NOT Included) (11/07/2024 12:17 PM EDT) Only the most recent of3 resultswithin the time period is included. Color, Urine Yellow LAB URINALYSIS - AUTOMATED METHOD 11/07/2024 12:59 PM EDT [facility] Clarity, Urine Clear LAB URINALYSIS - AUTOMATED METHOD 11/07/2024 12:59 PM EDT [facility] Spec [place], Urine 1.024 1.005 - 1.030 LAB URINALYSIS - AUTOMATED METHOD 11/07/2024 12:59 PM EDT [facility] pH, Urine 7.5 5.0 - 8.0 LAB URINALYSIS - AUTOMATED METHOD 11/07/2024 12:59 PM EDT [facility] Protein, Urine 30(A) Negative mg/dL LAB URINALYSIS - AUTOMATED METHOD 11/07/2024 12:59 PM EDT [facility] Glucose, Urine Negative Negative mg/dL LAB URINALYSIS - AUTOMATED METHOD 11/07/2024 12:59 PM EDT [facility] Ketones, Urine Negative Negative mg/dL LAB URINALYSIS - AUTOMATED METHOD 11/07/2024 12:59 PM EDT [facility] Blood, Urine Negative Negative LAB URINALYSIS - AUTOMATED METHOD 11/07/2024 12:59 PM EDT [facility] Bilirubin, Urine Negative Negative LAB URINALYSIS - AUTOMATED METHOD 11/07/2024 12:59 PM EDT [facility] Urobilinogen, Urine 2.0(A) 0.2 to 1.0 mg/dL LAB URINALYSIS - AUTOMATED METHOD 11/07/2024 12:59 PM EDT [facility] Leukocytes, Urine Negative Negative LAB URINALYSIS - AUTOMATED METHOD 11/07/2024 12:59 PM EDT [facility] Nitrite, Urine Negative Negative LAB URINALYSIS - AUTOMATED METHOD 11/07/2024 12:59 PM EDT [facility] Urine Urine specimen obtained by clean catch procedure / Unknown Non-blood Collection / Unknown 11/07/2024 12:17 PM EDT 11/07/2024 12:28 PM EDT Jaylen Mix MD LAB URINE ORDERABLES Final Result Performing Organization Address City/State/[facility] Co de Phone Number [facility] [address] [place] [address] * CT Angio Abdomen Pelvis (11/06/2024 2:46 PM EDT) Anatomical Region Laterality Modality Abdomen, Pelvis Computed Tomogra phy Impressions 11/06/2024 4:42 PM EDT Overall no significant interval change in comparison to CTA dated 11/03/2024. 1. 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 2. Similar appearance of the focal outpouching along the thoracic arch and descending aorta as described above which may represent ulcerative atherosclerotic plaque, versus focal dissection or pseudoaneurysm. 3. 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 4. Similar wall thickening of the descending aorta likely representing intramural hematoma. CRITICAL RESULT: No. COMMUNICATION: Per this written report. Drafted by Reji Panda MD on 11/06/2024 4:06 PM Final report signed by Reji Panda MD on 11/06/2024 4:42 PM Narrative 11/06/2024 4:42 PM EDT CLINICAL INDICATION: Dissection TECHNIQUE: Imaging of the chest abdomen and pelvis was performed, from thoracic inlet through pubic symphysis, using spiral technique, following administration of IV contrast, Omnipaque 350, 100 mL according to the CTA thoracic aorta/chest and CTA Abdomen/Pelvis protocol. Reformatted images in the coronal, sagittal, and oblique planes were generated from the axial data set to facilitate diagnostic accuracy. In addition, 3D images were created and reviewed. Total DLP (Dose-Length Product): 2302.69 mGy.cm (accession [id number]), 2302.69 mGy.cm (accession [id number]). Please note: The reported value represents the total of one or more individual components during the CT acquisition on this date and at this time, and as such, the same value may appear in more than one CT report depending on the interpreting/reporting physicians. COMPARISON: CTA dated 11/03/2024 FINDINGS: Chest: A pacemaker device in place. Aorta/Vessels: Patent major vasculature of the chest. Atherosclerotic disease within the thoracic aorta. 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 A small contrast-filled outpouching along the inferior wall of the aortic arch measuring about 16 mm (series 602, image 92) could represent a small focal dissection, pseudoaneurysm or an ulcerative atheromatous plaque. Additional similar focus of ulcerative atheromatous plaque in the proximal descending aorta (series 5, image 242). Focal dilation of the descending thoracic aorta measuring up to 3.8 cm similar to prior. Adjacent to the aneurysmal dilation is a small apparent prominence of the aorta measuring 1.0 cm with directly adjacent type B dissection extending up to the level of the diaphragmatic hiatus. Additional focal area of ulcerative plaque versus focal dissection within the anterior wall of the suprarenal abdominal aorta (series 3, image 225). Aneurysmal dilation of the abdominal aorta measuring up to 3.6 at the the level of the renal arteries (series 3, image 284) . Severe focal narrowing of the proximal celiac axis are to prior. Similar wall thickening likely representing intramural hematoma in the descending thoracic aorta. Pleural/Pericardial Space: No pneumothorax. Small left pleural effusion. Marked cardiomegaly. No pericardial effusion. Lymph Nodes: No lymphadenopathy within the chest. Lungs: The central airways are patent. Scattered subpleural reticulation and interlobular septal thickening. Left basal atelectatic changes. No suspicious pulmonary nodules or focal consolidation. Mediastinum: The visualized thyroid is unremarkable. Chest Wall: No chest wall hematoma or contusion. Bones: No acute fracture within the chest. There are degenerative changes of the visualized spine. No evidence for suspicious lytic or blastic lesions. Prior laminectomy and lumbosacral spine fixation hardware. Upper Abdomen: No suspicious liver lesion. Postcholecystectomy. No bile duct dilatation. Similar bilateral adrenal thickening without discrete nodularity. No hydronephrosis or obstructing urolithiasis. Bilateral renal cysts. Mild cortical scarring noted bilaterally. No splenomegaly. No bowel obstruction or dilatation. Unremarkable urinary bladder. No suspicious pelvic lesion. Procedure Note Reji Panda MD - 11/06/2024 CLINICAL INDICATION: Dissection TECHNIQUE: Imaging of the chest abdomen and pelvis was performed, from thoracic inletthrough pubic symphysis, using spiral technique, following administrationof IV contrast, Omnipaque 350, 100 mL according to the CTA thoracicaorta/chest and CTA Abdomen/Pelvis protocol. Reformatted images in thecoronal, sagittal, and oblique planes were generated from the axial dataset to facilitate diagnostic accuracy. In addition, 3D images were createdand reviewed. Total DLP (Dose-Length Product): 2302.69 mGy.cm (accession [id number]),2302.69 mGy.cm (accession [id number]). Please note: The reported valuerepresents the total of one or more individual components during the CTacquisition on this date and at this time, and as such, the same value mayappear in more than one CT report depending on the interpreting/reportingphysicians. COMPARISON: CTA dated 11/03/2024 FINDINGS: Chest: A pacemaker device in place. Aorta/Vessels: Patent major vasculature of the chest. Atheroscleroticdisease within the thoracic aorta. Mild aneurysmal dilatation of theascending and descending aorta. A small contrast-filled outpouching alongthe inferior wall of the aortic arch measuring about 16 mm (series 602,image 92) could represent a small focal dissection, pseudoaneurysm or anulcerative atheromatous plaque. Additional similar focus of ulcerativeatheromatous plaque in the proximal descending aorta (series 5, [id number]). Focal dilation of the descending thoracic aorta measuring up to 3.8 cmsimilar to prior. Adjacent to the aneurysmal dilation is a small apparentprominence of the aorta measuring 1.0 cm with directly adjacent type Bdissection extending up to the level of the diaphragmatic hiatus.Additional focal area of ulcerative plaque versus focal dissection withinthe anterior wall of the suprarenal abdominal aorta (series 3, image 225).Aneurysmal dilation of the abdominal aorta measuring up to 3.6 at the thelevel of the renal arteries (series 3, image 284) . Severe focal narrowingof the proximal celiac axis are to prior. Similar wall thickening likelyrepresenting intramural hematoma in the descending thoracic aorta. Pleural/Pericardial Space: No pneumothorax. Small left pleural effusion.Marked cardiomegaly. No pericardial effusion. Lymph Nodes: No lymphadenopathy within the chest. Lungs: The central airways are patent. Scattered subpleural reticulationand interlobular septal thickening. Left basal atelectatic changes. Nosuspicious pulmonary nodules or focal consolidation. Mediastinum: The visualized thyroid is unremarkable. Chest Wall: No chest wall hematoma or contusion. Bones: No acute fracture within the chest. There are degenerative changesof the visualized spine. No evidence for suspicious lytic or blasticlesions. Prior laminectomy and lumbosacral spine fixation hardware. Upper Abdomen: No suspicious liver lesion. Postcholecystectomy. No bileduct dilatation. Similar bilateral adrenal thickening without discretenodularity. No hydronephrosis or obstructing urolithiasis. Bilateral renalcysts. Mild cortical scarring noted bilaterally. No splenomegaly. No bowelobstruction or dilatation. Unremarkable urinary bladder. No suspiciouspelvic lesion. IMPRESSION: Overall no significant interval change in comparison to CTA dated11/03/2024. 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 2.Similar appearance of the focal outpouching along the thoracic arch anddescending aorta as described above which may represent ulcerativeatherosclerotic plaque, versus focal dissection or pseudoaneurysm. 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 4.Similar wall thickening of the descending aorta likely representingintramural hematoma. CRITICAL RESULT: No. COMMUNICATION: Per this written report. Drafted by Reji Panda MD on 11/06/2024 4:06 PM Final report signed by Reji Panda MD on 11/06/2024 4:42 PM Jaylen Mix MD IMG CT PROCEDURES Final Re sult * CT Angio Chest (11/06/2024 2:46 PM EDT) Only the most recent of2 resultswithin the time period is included. Anatomical Region Laterality Modality Chest Computed Tomogra phy Impressions 11/06/2024 4:42 PM EDT Overall no significant interval change in comparison to CTA dated 11/03/2024. 1. 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 2. Similar appearance of the focal outpouching along the thoracic arch and descending aorta as described above which may represent ulcerative atherosclerotic plaque, versus focal dissection or pseudoaneurysm. 3. 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 4. Similar wall thickening of the descending aorta likely representing intramural hematoma. CRITICAL RESULT: No. COMMUNICATION: Per this written report. Drafted by Reji Panda MD on 11/06/2024 4:06 PM Final report signed by Reji Panda MD on 11/06/2024 4:42 PM Narrative 11/06/2024 4:42 PM EDT CLINICAL INDICATION: Dissection TECHNIQUE: Imaging of the chest abdomen and pelvis was performed, from thoracic inlet through pubic symphysis, using spiral technique, following administration of IV contrast, Omnipaque 350, 100 mL according to the CTA thoracic aorta/chest and CTA Abdomen/Pelvis protocol. Reformatted images in the coronal, sagittal, and oblique planes were generated from the axial data set to facilitate diagnostic accuracy. In addition, 3D images were created and reviewed. Total DLP (Dose-Length Product): 2302.69 mGy.cm (accession [id number]), 2302.69 mGy.cm (accession [id number]). Please note: The reported value represents the total of one or more individual components during the CT acquisition on this date and at this time, and as such, the same value may appear in more than one CT report depending on the interpreting/reporting physicians. COMPARISON: CTA dated 11/03/2024 FINDINGS: Chest: A pacemaker device in place. Aorta/Vessels: Patent major vasculature of the chest. Atherosclerotic disease within the thoracic aorta. 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 A small contrast-filled outpouching along the inferior wall of the aortic arch measuring about 16 mm (series 602, image 92) could represent a small focal dissection, pseudoaneurysm or an ulcerative atheromatous plaque. Additional similar focus of ulcerative atheromatous plaque in the proximal descending aorta (series 5, image 242). Focal dilation of the descending thoracic aorta measuring up to 3.8 cm similar to prior. Adjacent to the aneurysmal dilation is a small apparent prominence of the aorta measuring 1.0 cm with directly adjacent type B dissection extending up to the level of the diaphragmatic hiatus. Additional focal area of ulcerative plaque versus focal dissection within the anterior wall of the suprarenal abdominal aorta (series 3, image 225). Aneurysmal dilation of the abdominal aorta measuring up to 3.6 at the the level of the renal arteries (series 3, image 284) . Severe focal narrowing of the proximal celiac axis are to prior. Similar wall thickening likely representing intramural hematoma in the descending thoracic aorta. Pleural/Pericardial Space: No pneumothorax. Small left pleural effusion. Marked cardiomegaly. No pericardial effusion. Lymph Nodes: No lymphadenopathy within the chest. Lungs: The central airways are patent. Scattered subpleural reticulation and interlobular septal thickening. Left basal atelectatic changes. No suspicious pulmonary nodules or focal consolidation. Mediastinum: The visualized thyroid is unremarkable. Chest Wall: No chest wall hematoma or contusion. Bones: No acute fracture within the chest. There are degenerative changes of the visualized spine. No evidence for suspicious lytic or blastic lesions. Prior laminectomy and lumbosacral spine fixation hardware. Upper Abdomen: No suspicious liver lesion. Postcholecystectomy. No bile duct dilatation. Similar bilateral adrenal thickening without discrete nodularity. No hydronephrosis or obstructing urolithiasis. Bilateral renal cysts. Mild cortical scarring noted bilaterally. No splenomegaly. No bowel obstruction or dilatation. Unremarkable urinary bladder. No suspicious pelvic lesion. Procedure Note Reji Panda MD - 11/06/2024 CLINICAL INDICATION: Dissection TECHNIQUE: Imaging of the chest abdomen and pelvis was performed, from thoracic inletthrough pubic symphysis, using spiral technique, following administrationof IV contrast, Omnipaque 350, 100 mL according to the CTA thoracicaorta/chest and CTA Abdomen/Pelvis protocol. Reformatted images in thecoronal, sagittal, and oblique planes were generated from the axial dataset to facilitate diagnostic accuracy. In addition, 3D images were createdand reviewed. Total DLP (Dose-Length Product): 2302.69 mGy.cm (accession [id number]),2302.69 mGy.cm (accession [id number]). Please note: The reported valuerepresents the total of one or more individual components during the CTacquisition on this date and at this time, and as such, the same value mayappear in more than one CT report depending on the interpreting/reportingphysicians. COMPARISON: CTA dated 11/03/2024 FINDINGS: Chest: A pacemaker device in place. Aorta/Vessels: Patent major vasculature of the chest. Atheroscleroticdisease within the thoracic aorta. Mild aneurysmal dilatation of theascending and descending aorta. A small contrast-filled outpouching alongthe inferior wall of the aortic arch measuring about 16 mm (series 602,image 92) could represent a small focal dissection, pseudoaneurysm or anulcerative atheromatous plaque. Additional similar focus of ulcerativeatheromatous plaque in the proximal descending aorta (series 5, ). Focal dilation of the descending thoracic aorta measuring up to 3.8 cmsimilar to prior. Adjacent to the aneurysmal dilation is a small apparentprominence of the aorta measuring 1.0 cm with directly adjacent type Bdissection extending up to the level of the diaphragmatic hiatus.Additional focal area of ulcerative plaque versus focal dissection withinthe anterior wall of the suprarenal abdominal aorta (series 3, image 225).Aneurysmal dilation of the abdominal aorta measuring up to 3.6 at the thelevel of the renal arteries (series 3, image 284) . Severe focal narrowingof the proximal celiac axis are to prior. Similar wall thickening likelyrepresenting intramural hematoma in the descending thoracic aorta. Pleural/Pericardial Space: No pneumothorax. Small left pleural effusion.Marked cardiomegaly. No pericardial effusion. Lymph Nodes: No lymphadenopathy within the chest. Lungs: The central airways are patent. Scattered subpleural reticulationand interlobular septal thickening. Left basal atelectatic changes. Nosuspicious pulmonary nodules or focal consolidation. Mediastinum: The visualized thyroid is unremarkable. Chest Wall: No chest wall hematoma or contusion. Bones: No acute fracture within the chest. There are degenerative changesof the visualized spine. No evidence for suspicious lytic or blasticlesions. Prior laminectomy and lumbosacral spine fixation hardware. Upper Abdomen: No suspicious liver lesion. Postcholecystectomy. No bileduct dilatation. Similar bilateral adrenal thickening without discretenodularity. No hydronephrosis or obstructing urolithiasis. Bilateral renalcysts. Mild cortical scarring noted bilaterally. No splenomegaly. No bowelobstruction or dilatation. Unremarkable urinary bladder. No suspiciouspelvic lesion. IMPRESSION: Overall no significant interval change in comparison to CTA dated11/03/2024. 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 2.Similar appearance of the focal outpouching along the thoracic arch anddescending aorta as described above which may represent ulcerativeatherosclerotic plaque, versus focal dissection or pseudoaneurysm. 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 4.Similar wall thickening of the descending aorta likely representingintramural hematoma. CRITICAL RESULT: No. COMMUNICATION: Per this written report. Drafted by Reji Panda MD on 11/06/2024 4:06 PM Final report signed by Reji Panda MD on 11/06/2024 4:42 PM Jaylen Mix MD IMG CT PROCEDURES Final Re sult * (ABNORMAL) CBC and Differential (11/04/2024 2:56 AM EDT) Only the most recent of6 resultswithin the time period is included. WBC Count 5.15 3.70 - 10.30 10*3/uL LAB HEMATOLOGY METHOD 11/04/2024 3:15 AM EDT [facility] RBC Count 3.37(L) 3.90 - 5.20 10*6/uL LAB HEMATOLOGY METHOD 11/04/2024 3:15 AM EDT [facility] HGB 11.2 11.2 - 15.7 g/dL LAB HEMATOLOGY METHOD 11/04/2024 3:15 AM EDT [facility] HCT 33.8(L) 34.0 - 45.0 % LAB HEMATOLOGY METHOD 11/04/2024 3:15 AM EDT [facility] Platelet Count 137(L) 155 - 369 10*3/uL LAB HEMATOLOGY METHOD 11/04/2024 3:15 AM EDT [facility] MCV 100(H) 79 - 98 fL LAB HEMATOLOGY METHOD 11/04/2024 3:15 AM EDT [facility] MCH 33.2(H) 26.0 - 32.0 pg LAB HEMATOLOGY METHOD 11/04/2024 3:15 AM EDT [facility] MCHC 33.1 30.7 - 35.5 g/dL LAB HEMATOLOGY METHOD 11/04/2024 3:15 AM EDT [facility] RDW 13.9 11.5 - 14.5 % LAB HEMATOLOGY METHOD 11/04/2024 3:15 AM EDT [facility] MPV 10.5 8.8 - 12.5 fL LAB HEMATOLOGY METHOD 11/04/2024 3:15 AM EDT [facility] nRBC 0.0 <=0.0 per 100 WBCs LAB HEMATOLOGY METHOD 11/04/2024 3:15 AM EDT [facility] Differential Type Automated LAB HEMATOLOGY METHOD 11/04/2024 3:15 AM EDT [facility] Neutrophils % 71 % LAB HEMATOLOGY METHOD 11/04/2024 3:15 AM EDT [facility] Lymphocytes % 15 % LAB HEMATOLOGY METHOD 11/04/2024 3:15 AM EDT [facility] Monocytes % 12 % LAB HEMATOLOGY METHOD 11/04/2024 3:15 AM EDT [facility] Eosinophils % 2 % LAB HEMATOLOGY METHOD 11/04/2024 3:15 AM EDT [facility] Basophils % 0 % LAB HEMATOLOGY METHOD 11/04/2024 3:15 AM EDT [facility] Immature Granulocytes % 0 % LAB HEMATOLOGY METHOD 11/04/2024 3:15 AM EDT [facility] Neutrophils Absolute 3.62 1.60 - 6.10 10*3/uL LAB HEMATOLOGY METHOD 11/04/2024 3:15 AM EDT [facility] Lymphocytes Absolute 0.76(L) 1.20 - 3.90 10*3/uL LAB HEMATOLOGY METHOD 11/04/2024 3:15 AM EDT [facility] Monocytes Absolute 0.64 0.30 - 0.90 10*3/uL LAB HEMATOLOGY METHOD 11/04/2024 3:15 AM EDT [facility] Eosinophils Absolute 0.09 0.00 - 0.50 10*3/uL LAB HEMATOLOGY METHOD 11/04/2024 3:15 AM EDT [facility] Basophils Absolute 0.02 0.00 - 0.10 10*3/uL LAB HEMATOLOGY METHOD 11/04/2024 3:15 AM EDT [facility] Immature Granulocytes Absolute 0.02 0.00 - 0.06 10*3/uL LAB HEMATOLOGY METHOD 11/04/2024 3:15 AM EDT [facility] Blood Venous blood specimen / Unknown Venipuncture / Unknown 11/04/2024 2:56 AM EDT 11/04/2024 3:01 AM EDT Narrative [facility] - 11/04/2024 3:15 AM EDT Therapeutic decision making should be based on absolute values, rather than percentages. us Jaylen Mix MD LAB BLOOD ORDERABLES Final Result [facility] [address] [place] [address] * (ABNORMAL) Comprehensive Metabolic Panel, Plasma (11/04/2024 2:56 AM EDT) Only the most recent of6 resultswithin the time period is included. Glucose, Plasma 104(H) 74 - 99 mg/dL 11/04/2024 3:29 AM EDT [facility] BUN, Plasma 11 8 - 23 mg/dL 11/04/2024 3:29 AM EDT [facility] Creatinine, Plasma 0.95 0.60 - 1.10 mg/dL 11/04/2024 3:29 AM EDT [facility] BUN/Creatinine Ratio 12 11/04/2024 3:29 AM EDT [facility] Sodium, Plasma 136 136 - 145 mmol/L 11/04/2024 3:29 AM EDT [facility] Potassium, Plasma 4.6 3.6 - 4.9 mmol/L 11/04/2024 3:29 AM EDT [facility] Chloride, Plasma 107 97 - 107 mmol/L 11/04/2024 3:29 AM EDT [facility] CO2, Plasma 21(L) 22 - 29 mmol/L 11/04/2024 3:29 AM EDT [facility] Anion Gap 8 6 - 16 mmol/L 11/04/2024 3:29 AM EDT [facility] Total Calcium, Plasma 8.4(L) 8.9 - 10.2 mg/dL 11/04/2024 3:29 AM EDT [facility] Total Protein 5.4(L) 6.3 - 7.9 g/dL 11/04/2024 3:29 AM EDT [facility] Albumin, Plasma 3.2(L) 3.5 - 5.2 g/dL 11/04/2024 3:29 AM EDT [facility] AST, Plasma 28 10 - 35 U/L 11/04/2024 3:29 AM EDT [facility] Comment:Hemolyzed, result ma y be falsely increased. ALT, Plasma 13 10 - 35 U/L 11/04/2024 3:29 AM EDT [facility] Alkaline Phosphatase, Plasma 84 46 - 142 U/L 11/04/2024 3:29 AM EDT [facility] Total Bilirubin, Plasma 0.9 0.2 - 1.1 mg/dL 11/04/2024 3:29 AM EDT [facility] eGFRcr 58.8 mL/min/1.7 3m*2 11/04/2024 3:29 AM EDT [facility] Comment:Reported eGFRcr in m L/min/1.73m2 is based the CKD-EPI 2020 equation that does not use a race coefficient. Blood Venous blood specimen / Unknown Venipuncture / Unknown 11/04/2024 2:56 AM EDT 11/04/2024 3:01 AM EDT Jaylen Mix MD LAB BLOOD ORDERABLES Final Result [facility] [address] [place] [address] * Fozia auris Surveillance by PCR (11/02/2024 8:28 PM EDT) Fozia auris PCR Result Not Detected Not Detected 11/03/2024 1:48 PM EDT [facility] Swab (Axilla and Groin) Non-blood Collection / Unknown 11/02/2024 8:28 PM EDT 11/02/2024 8:48 PM EDT Narrative [facility] - 11/03/2024 1:48 PM EDT This PCR assay was developed and its performance characteristics determined by [facility] as appropriate for clinical purposes. This assay has not been cleared or approved by the FDA, but is performed in a CLIA regulated laboratory that is qualified to perform high-complexity testing. Jaylen Mix MD LAB MICROBIOLOGY - GENERAL ORDERABLES Final Result Performing Organization Address [facility]/ZIP Co de Phone Number [facility] [address] [place] [address] * Multi Drug Resistance Test (11/02/2024 8:28 PM EDT) Culture No growth at day 1 11/03/2024 11:32 PM EDT [facility] Swab (Nares and Marla Rectal) Non-blood Collection / Unknown 11/02/2024 8:28 PM EDT 11/02/2024 8:48 PM EDT Narrative [facility] - 11/03/2024 11:32 PM EDT This test was developed and its performance characteristics determined by the [facility]. Although the media is FDA-approved, it is not FDA-approved for all specimen types submitted. The FDA has determined that such clearance or approval is not necessary. This test is used for surveillance purposes. It should not be regarded as investigational or for research. The [facility] is certified under the Clinical Laboratory Improvement Amendments of 1988 (CLIA-88) as qualified to perform high complexity clinical laboratory testing. Jaylen Mix MD LAB MICROBIOLOGY - GENERAL ORDERABLES Final Result Performing Organization Address City/[facility] Co de Phone Number [facility] [address] [place] [address] * (ABNORMAL) Anti Xa Level Unfractionated Heparin (11/02/2024 7:52 PM EDT) Anti Xa Level Unfractionated Heparin >1.10(HH ) <1.00 IU/mL LAB COAGULATION METHOD 11/02/2024 8:20 PM EDT [facility] Blood Venous blood specimen / Unknown Venipuncture / Unknown 11/02/2024 7:52 PM EDT 11/02/2024 7:57 PM EDT Narrative [facility] - 11/02/2024 8:20 PM EDT Therapeutic Range: UFH Full Dose and ACS/VT protocols*: 0.30 - 0.70 IU/mL UFH Low Dose protocol*: 0.25 - 0.50 IU/mL UFH prophylaxis: Not established Spreedly DO LAB BLOOD ORDERABLES Final Re sult Performing Organization Address [facility] [place] [place] [address] * Troponin T, High Sensitivity, 2 Hour, Plasma (11/02/2024 7:12 PM EDT) Troponin T, High Sensitivity, 2 Hour 10 <14 ng/L 11/02/2024 7:55 PM EDT [facility] Blood Venous blood specimen / Unknown Venipuncture / Unknown 11/02/2024 7:12 PM EDT 11/02/2024 7:23 PM EDT [employer] LAB BLOOD ORDERABLES Final Re sult Performing Organization Address [facility] [place] [place] [address] * Urinalysis Microscopic Examination (11/02/2024 6:18 PM EDT) Urine Urine specimen obtained by clean catch procedure / Unknown Non-blood Collection / Unknown 11/02/2024 6:18 PM EDT 11/02/2024 6:29 PM EDT [employer] LAB URINE ORDERABLES Final Re sult Performing Organization Address [facility] [place] [place] [address] * CT Angio Abdomen Pelvis w Runoff (11/02/2024 5:31 PM EDT) Anatomical Region Laterality Modality Pelvis and lower extremeties Bilateral Com puted Tomography Impressions 11/02/2024 6:42 PM EDT 1. 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 2. Pelvic prolapse, and additional findings raise the possibility of cysto- vaginal or urethral-vaginal fistula. 3. Pancreatic head and neck are not well visualized; consider dedicated imaging if clinically warranted. 4. Cardiomegaly, with bi-atrial dilation. 5. Left greater than right lung base interstitial reticulations are nonspecific; consider mild interstitial edema or possibly ILD. 6. Small umbilical hernia contains only fat. CRITICAL RESULT: No. COMMUNICATION: These findings were sent via secure chat to Nancy Escobedo DO and Lissett Tinoco MD on 11/02/2024 6:39 PM by Tracy Barrera MD. 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 TECHNIQUE: Imaging of the abdomen and pelvis was performed, from lower chest through pubic symphysis, using spiral technique, following administration of IV contrast, Omnipaque 350, 100 mL according to the CTA Abdomen/Pelvis protocol. Reformatted images in the coronal, sagittal, and oblique planes were generated from the axial data set to facilitate diagnostic accuracy. In addition, 3D images were created and reviewed. Total DLP (Dose-Length Product): 2123.35 mGy.cm. Please note: The reported value represents the total of one or more individual components during the CT acquisition on this date and at this time, and as such, the same value may appear in more than one CT report depending on the interpreting/reporting physicians. COMPARISON: Outside CTA chest from earlier today at 11/02/2024. CT abdomen pelvis with contrast 03/05/2016. FINDINGS: Vessels: Redemonstrated IMH extending from the descending thoracic aorta through the abdominal aorta to the level of the infrarenal abdominal aorta, approximately 2 cm inferior to the inferior most bilateral duplicated renal arteries. Proximal celiac artery is mildly to moderately narrowed at the level of the diaphragmatic crura. Normal celiac branching. Dilated splenic artery throughout, without focal aneurysm. Tortuous bilateral common iliac arteries. No portal venous gas. Inferior chest: Cardiomegaly with biatrial dilation. Cardiac leads terminate in the right ventricle apex and in the left cardiac veins, as previously described, stably positioned. No significant pleural or pericardial effusion. Left greater than right lung base interstitial reticulations. Liver/Gallbladder/Biliary System: The liver demonstrates homogeneous enhancement. Surgically absent gallbladder with cholecystectomy clips. No intra- or extra- hepatic biliary ductal dilatation. No pneumobilia. Spleen: The spleen enhances homogeneously. Anterior pole splenule. Calcified granulomas throughout the spleen including in the splenule. Pancreas: Pancreatic head and neck are not well visualized. Pancreatic tail is normal in appearance. Adrenals: The adrenals are morphologically unremarkable. Kidneys: The kidneys demonstrate symmetric nephrogram. Right renal superior pole hypodensity, 26 mm likely simple cyst. No hydronephrosis. Bilateral extrarenal pelvises. Bowel/Mesentery: The small bowel loops are not dilated. The large bowel loops are not dilated. Scattered colonic diverticulosis without CT evidence of diverticulitis. The appendix is visualized and normal. Lymph Nodes: No lymphadenopathy within the abdomen or pelvis. Fluid Survey: No free fluid in the abdomen. No free fluid in the pelvis. Pelvis: Urinary bladder is distended with contrast. Contrast also in the vagina. Cysto-vaginal or urethral-vaginal fistula tract is not definitely visualized. Body Wall: Small umbilical hernia contains only fat.. Bones: No acute fracture within the abdomen or pelvis.L3-S1 fusion, with bilateral posterior fusion with right transpedicular screws in L4-S2 and a left transpedicular screws in L3, S1 and S2. 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 TECHNIQUE: Imaging of the abdomen and pelvis was performed, from lower chest throughpubic symphysis, using spiral technique, following administration of IVcontrast, Omnipaque 350, 100 mL according to the CTA Abdomen/Pelvisprotocol. Reformatted images in the coronal, sagittal, and oblique planeswere generated from the axial data set to facilitate diagnostic accuracy.In addition, 3D images were created and reviewed. Total DLP (Dose-Length Product): 2123.35 mGy.cm. Please note: The reportedvalue represents the total of one or more individual components during theCT acquisition on this date and at this time, and as such, the same valuemay appear in more than one CT report depending on theinterpreting/reporting physicians. COMPARISON: Outside CTA chest from earlier today at 11/02/2024. CT abdomen pelvis with contrast 03/05/2016. FINDINGS: Vessels: Redemonstrated IMH extending from the descending thoracic aortathrough the abdominal aorta to the level of the infrarenal abdominalaorta, approximately 2 cm inferior to the inferior most bilateralduplicated renal arteries. Proximal celiac artery is mildly to moderatelynarrowed at the level of the diaphragmatic crura. Normal celiac branching.Dilated splenic artery throughout, without focal aneurysm. Tortuousbilateral common iliac arteries. No portal venous gas. Inferior chest: Cardiomegaly with biatrial dilation. Cardiac leadsterminate in the right ventricle apex and in the left cardiac veins, aspreviously described, stably positioned. No significant pleural orpericardial effusion. Left greater than right lung base interstitialreticulations. Liver/Gallbladder/Biliary System: The liver demonstrates homogeneousenhancement. Surgically absent gallbladder with cholecystectomy clips. Nointra- or extra- hepatic biliary ductal dilatation. No pneumobilia. Spleen: The spleen enhances homogeneously. Anterior pole splenule.Calcified granulomas throughout the spleen including in the splenule. Pancreas: Pancreatic head and neck are not well visualized. Pancreatictail is normal in appearance. Adrenals: The adrenals are morphologically unremarkable. Kidneys: The kidneys demonstrate symmetric nephrogram. Right renalsuperior pole hypodensity, 26 mm likely simple cyst. No hydronephrosis.Bilateral extrarenal pelvises. Bowel/Mesentery: The small bowel loops are not dilated. The large bowelloops are not dilated. Scattered colonic diverticulosis without CTevidence of diverticulitis. The appendix is visualized and normal. Lymph Nodes: No lymphadenopathy within the abdomen or pelvis. Fluid Survey: No free fluid in the abdomen. No free fluid in the pelvis. Pelvis: Urinary bladder is distended with contrast. Contrast also in thevagina. Cysto-vaginal or urethral-vaginal fistula tract is not definitelyvisualized. Body Wall: Small umbilical hernia contains only fat.. Bones: No acute fracture within the abdomen or pelvis.L3-S1 fusion, withbilateral posterior fusion with right transpedicular screws in L4-S2 and aleft transpedicular screws in L3, S1 and S2. IMPRESSION: 1. Redemonstrated IMH extends throughout suprarenal abdominal aorta to theproximal infrarenal abdominal aorta, approximately 2 cm inferior to theostia of bilateral inferior renal arteries, in the context of bilateralduplicated renal arteries. 2. Pelvic prolapse, and additional findings raise the possibility ofcysto- vaginal or urethral-vaginal fistula. 3. Pancreatic head and neck are not well visualized; consider dedicatedimaging if clinically warranted. 4. Cardiomegaly, with bi-atrial dilation. 5. Left greater than right lung base interstitial reticulations arenonspecific; consider mild interstitial edema or possibly ILD. 6. Small umbilical hernia contains only fat. CRITICAL RESULT: No. COMMUNICATION: These findings were sent via secure chat to Nancy Escobedo DO and Ricardo Tinoco MD on 11/02/2024 6:39 PM by Tracy Barrera MD. 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 Stably enlarged cardiomediastinal silhouette and redemonstrated tortuosity and dilation of the descending thoracic aorta. Left dual lead AICD, leads terminate in the right ventricle and left cardiac veins. CRITICAL RESULT: No. COMMUNICATION: Per this written report. Drafted by Tracy Barrera MD on 11/02/2024 5:36 PM Final report signed by Tracy Barrera MD on 11/02/2024 5:48 PM Narrative 11/02/2024 5:48 PM EDT CLINICAL INDICATION: Today's chest pain radiating to the back. 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 TECHNIQUE: XR CHEST 1 VIEW COMPARISON: Outside chest radiograph and CT chest from earlier today 11/02/2024 CTA chest 03/05/2016 FINDINGS: Left dual lead AICD, leads terminate in the right ventricle and left cardiac veins. Stably enlarged cardiomediastinal silhouette. Redemonstrated tortuosity and dilation of the descending thoracic aorta. Redemonstrated interstitial reticulations. No consolidation, pleural effusion or pneumothorax. Procedure Note Tracy Barrera MD - 11/02/2024 CLINICAL INDICATION: Today's chest pain radiating to the back. Outside hospital CT for PEdemonstrated Tom type B IH extending to the origins of the celiacartery. TECHNIQUE: XR CHEST 1 VIEW COMPARISON: Outside chest radiograph and CT chest from earlier today 11/02/2024 CTA chest 03/05/2016 FINDINGS: Left dual lead AICD, leads terminate in the right ventricle and leftcardiac veins. Stably enlarged cardiomediastinal silhouette.Redemonstrated tortuosity and dilation of the descending thoracic aorta.Redemonstrated interstitial reticulations. No consolidation, pleuraleffusion or pneumothorax. IMPRESSION: Known Tom type B IMH is better visualized in outside CT from earliertoday. Stably enlarged cardiomediastinal silhouette and redemonstrated tortuosityand dilation of the descending thoracic aorta. Left dual lead AICD, leads terminate in the right ventricle and leftcardiac veins. CRITICAL RESULT: No. COMMUNICATION: Per this written report. Drafted by Tracy Barrera MD on 11/02/2024 5:36 PM Final report signed by Tracy Barrera MD on 11/02/2024 5:48 PM Nancy Escobedo DO IMG XR PROCEDURES Final Resul t * EKG now - STAT (adult) (11/02/2024 5:05 PM EDT) EKG DIAGNOSIS CLASS Abnormal MUSE ECG Ventricular Rate 70 BPM MUSE ECG Atrial Rate 54 BPM MUSE ECG QRSD Interval 138 ms MUSE ECG QT Interval 488 ms MUSE ECG QTC Interval 527 ms MUSE ECG R [place] -70 degrees MUSE ECG T Wave [place] 47 degrees MUSE ECG Diagnosis Ventricular-p aced rhythm MUSE ECG Diagnosis pacing now present MUSE ECG Diagnosis Abnormal ECG MUSE ECG Diagnosis MUSE ECG Diagnosis Confirmed by Bernice Cruz ([id number]) on 11/03/2024 7:12:30 PM MUSE ECG 11/02/2024 5:05 PM EDT 11/03/2024 7:12 PM EDT us Nancy L Bedrock DO ECG ORDERABLES Final Result MUSE ECG * ED HIV 1/2 Antibody/Antigen Screen w/Reflex to HIV 1/2 Differentiation (11/02/2024 5:02 PM EDT) Pathologist [facility] HIV 1 & 2 Antibody/Antigen Screen Non Reactive Non Reactive 11/02/2024 6:03 PM EDT [facility] Comment:Screening for HIV 1 & 2 antibodies, and P24 antigen is NONREACTIVE. No confirmatory testing is required. Blood Venous blood specimen / Unknown Venipuncture / Unknown 11/02/2024 5:02 PM EDT 11/02/2024 5:12 PM EDT us Sp[employer] DO LAB BLOOD ORDERABLES Final Re sult Performing Organization Address City/[facility]/ZIP Co de Phone Number [facility] [address] [place] [address] * Troponin now and 120 min (11/02/2024 5:02 PM EDT) Pathologist [facility] Troponin T, High Sensitivity, 0 Hour 13 <14 ng/L 11/02/2024 5:36 PM EDT [facility] Blood Venous blood specimen / Unknown Venipuncture / Unknown 11/02/2024 5:02 PM EDT 11/02/2024 5:07 PM EDT [employer] DO LAB BLOOD ORDERABLES Final Re sult Performing Organization Address City/[facility]/ZIP Co de Phone Number [facility] [address] [place] [address] * Difficult Crossmatch, Pathologist Interpretation (11/02/2024 5:02 PM EDT) Pathologist [facility] Clinical Diagnosis, Difficult Crossmatch Aortic dissection. 11/03/2024 12:12 PM EDT BLOOD BANK Interpretation , Difficult Crossmatch CONSULTATION FOR DIFFICULT CROSSMATCH Blood Bank testing performed on the specimen collected on 11/02/2024 revealed the presence of one or more antibodies against the following corresponding antigens (antigen negative prevalence): K [KEL1] (91%). Previously identified and/or historic antibodies against the following corresponding antigens are noted (antigen negative prevalence): K [KEL1] (91%) The identified alloantibody may be clinically significant in causing hemolytic transfusion reactions. RECOMMENDATIONS - This patient should receive crossmatch-compati ble RBCs negative for the following antigens: K [KEL1] - Please prepare an Epic order for anticipated RBC transfusions. As discussed above, advance notice may mitigate delays in making available crossmatch-compati ble RBCs for transfusion. - Platelets, plasma, and cryoprecipitate are not affected by these antibodies. These products may be ordered accordingly. - Please discuss this finding with the patient, patient's parent(s), or legal guardian(s) so they are aware that they are a difficult crossmatch. A resident was involved in the service. I attest I examined the relevant preparations for the specimens and confirmed the diagnosis or interpretation. 11/03/2024 12:12 PM EDT BLOOD BANK Pathologist Signature, Difficult Crossmatch Reviewed by: Terri Mclean MD 11/03/2024 12:12 PM EDT [facility]ANK LAB CP ASR DISCLAIMER Yes 11/03/2024 12:12 PM EDT BLOOD BANK Blood Venous blood specimen / Unknown Venipuncture / Unknown 11/02/2024 5:02 PM EDT 11/02/2024 5:11 PM EDT us Nancy Escobedo DO LAB BLOOD BANK TEST ORDERABLE S Final Result BLOOD BANK [address] [place] [address], * Hepatitis C Antibody - ED (11/02/2024 5:02 PM EDT) Hepatitis C Antibody Negative Negative 11/02/2024 6:03 PM EDT [facility] Blood Venous blood specimen / Unknown Venipuncture / Unknown 11/02/2024 5:02 PM EDT 11/02/2024 5:12 PM EDT [employer] LAB BLOOD ORDERABLES Final Re sult Performing Organization Address City/[facility]/ZIP Co de Phone Number [facility] [address] [place] [address] * (ABNORMAL) BNP (11/02/2024 5:02 PM EDT) N-Terminal, PROBNP, Plasma 2,539(H) 0 - 1,799 pg/mL 11/02/2024 5:38 PM EDT [facility] Blood Venous blood specimen / Unknown Venipuncture / Unknown 11/02/2024 5:02 PM EDT 11/02/2024 5:07 PM EDT [employer] LAB BLOOD ORDERABLES Final Re sult Performing Organization Address City/[facility]/ZIP Co de Phone Number [facility] [address] [place] [address] * Antibody Identification (11/02/2024 5:02 PM EDT) Pathologist [facility] Antibody ID Anti-K 11/02/2024 5:54 PM EDT BLOOD BANK Blood Venous blood specimen / Unknown Venipuncture / Unknown 11/02/2024 5:02 PM EDT 11/02/2024 5:11 PM EDT [employer] LAB BLOOD BANK TEST ORDERABLE S Final Result Performing Organization Address City/[facility]/ZIP Co de Phone Number BLOOD BANK [address] [place] [address], [place] * APTT (11/02/2024 5:02 PM EDT) Pathologist [facility] aPTT 31 25 - 35 sec 11/02/2024 5:21 PM EDT [facility] Blood Venous blood specimen / Unknown Venipuncture / Unknown 11/02/2024 5:02 PM EDT 11/02/2024 5:07 PM EDT Nancy Bobby Telly LAB BLOOD ORDERABLES Final Re sult Performing Organization Address [facility]/ZIP Co de Phone Number [facility] [address] [place] [address] * (ABNORMAL) PT-INR (11/02/2024 5:02 PM EDT) Prothrombin Time 18.5(H) 12.0 - 14.3 sec 11/02/2024 5:20 PM EDT [facility] INR 1.6(H) 0.9 - 1.1 11/02/2024 5:20 PM EDT [facility] Blood Venous blood specimen / Unknown Venipuncture / Unknown 11/02/2024 5:02 PM EDT 11/02/2024 5:07 PM EDT Narrative [facility] - 11/02/2024 5:20 PM EDT OPTIMAL INR RANGES FOR PATIENT ON ORAL ANTICOAGULANT THERAPY Prevention of venous thromboembolism INR 2.0 to 3.0 In patients with heart disease: Atrial fibrillation INR 2.0 to 3.0 Valvular heart disease INR 2.0 to 3.0 Tissue heart valves INR 2.0 to 3.0 Mechanical prosthetic valves INR 2.5 to 3.5 Prevention of recurrent VT INR 2.5 to 3.5 [employer] LAB BLOOD ORDERABLES Final Re sult Performing Organization Address [facility]/ZIP Co de Phone Number [facility] [address] [place] [address] * (ABNORMAL) Type and screen (11/02/2024 5:02 PM EDT) ABO/Rh A Positive 11/02/2024 5:01 PM EDT BLOOD BANK Antibody Screen Positive(A) 11/02/2024 5:01 PM EDT BLOOD BANK Specimen Expiration 11/05/2024 23:59 11/02/2024 5:01 PM EDT BLOOD BANK Blood Venous blood specimen / Unknown Venipuncture / Unknown 11/02/2024 5:02 PM EDT 11/02/2024 5:11 PM EDT Nancy Escobedo [facility] BLOOD BANK TEST ORDERABLE S Final Result Performing Organization Address [facility]/ZIP Co de Phone Number BLOOD BANK [address] [place] [address], * Thyroid Stimulating Hormone, Plasma (11/02/2024 5:02 PM EDT) Thyroid Stimulating Hormone, Plasma 1.36 0.40 - 4.20 uIU/mL 11/02/2024 5:38 PM EDT [facility] Blood Venous blood specimen / Unknown Venipuncture / Unknown 11/02/2024 5:02 PM EDT 11/02/2024 5:07 PM EDT Nancy Escobedo LAB BLOOD ORDERABLES Final Re sult Performing Organization Address City/[facility]/ZIP Co de Phone Number [facility] [address] [place] [address] * Free T4, Plasma (11/02/2024 5:02 PM EDT) Free T4, Plasma 1.6 0.8 - 1.7 ng/dL 11/02/2024 5:36 PM EDT [facility] Blood Venous blood specimen / Unknown Venipuncture / Unknown 11/02/2024 5:02 PM EDT 11/02/2024 5:07 PM EDT Nancy Escobedo LAB BLOOD ORDERABLES Final Re sult Performing Organization Address City/[facility]/ZIP Co de Phone Number [facility] [address] [place] [address] * (ABNORMAL) Lipase (11/02/2024 5:02 PM EDT) Lipase, Plasma 14(L) 19 - 63 U/L 11/02/2024 5:38 PM EDT [facility] Blood Venous blood specimen / Unknown Venipuncture / Unknown 11/02/2024 5:02 PM EDT 11/02/2024 5:07 PM EDT us Nancy Escobedo DO LAB BLOOD ORDERABLES Final Re sult [facility] [address] [place] [address] * (ABNORMAL) Blood gas panel, venous (11/02/2024 5:02 PM EDT) pH, Venous 7.33 7.32 - 7.43 LAB HEMATOLOGY METHOD 11/02/2024 5:12 PM EDT [facility] pCO2, Venous 51 37 - 52 mmHg LAB HEMATOLOGY METHOD 11/02/2024 5:12 PM EDT [facility] pO2, Venous 27 25 - 40 mmHg LAB HEMATOLOGY METHOD 11/02/2024 5:12 PM EDT [facility] SO2, Measured, Venous 42(L) 65 - 80 % LAB HEMATOLOGY METHOD 11/02/2024 5:12 PM EDT [facility] Base Excess, Venous 0.3 -2.0 - 3.0 mmol/L LAB HEMATOLOGY METHOD 11/02/2024 5:12 PM EDT [facility] Bicarbonate, Calculated, Venous 27(H) 22 - 26 mmol/L LAB HEMATOLOGY METHOD 11/02/2024 5:12 PM EDT [facility] Hematocrit, Whole Blood 35.6 34.0 - 45.0 % LAB HEMATOLOGY METHOD 11/02/2024 5:12 PM EDT [facility] Sodium, Whole Blood 138 136 - 145 mmol/L LAB HEMATOLOGY METHOD 11/02/2024 5:12 PM EDT [facility] Potassium, Whole Blood 4.2 3.6 - 4.9 mmol/L LAB HEMATOLOGY METHOD 11/02/2024 5:12 PM EDT [facility] Chloride, Whole Blood 107 97 - 107 mmol/L LAB HEMATOLOGY METHOD 11/02/2024 5:12 PM EDT [facility] Glucose, Whole Blood 85 74 - 99 mg/dL LAB HEMATOLOGY METHOD 11/02/2024 5:12 PM EDT [facility] Lactate, Venous, Whole Blood 0.8 0.5 - 2.2 mmol/L LAB HEMATOLOGY METHOD 11/02/2024 5:12 PM EDT [facility] Ionized Calcium, Whole Blood 4.5(L) 4.6 - 5.1 mg/dL LAB HEMATOLOGY METHOD 11/02/2024 5:12 PM EDT [facility] Blood Venous blood specimen / Unknown Venipuncture / Unknown 11/02/2024 5:02 PM EDT 11/02/2024 5:10 PM EDT us Nancy Escobedo DO LAB BLOOD ORDERABLES Final Re sult [facility] [address] [place] [address] * CT OUTSIDE IMAGES (11/02/2024 1:35 PM EDT) Anatomical Region Laterality Modality Computed Tomogra phy 11/02/2024 1:35 PM EDT us External Provider IMG CT PROCEDURES Final Result * XR OUTSIDE IMAGES (11/02/2024 12:17 PM EDT) Anatomical Region Laterality Modality Radiographic Bridgett ging 11/02/2024 12:1 7 PM EDT us External Provider IMG XR PROCEDURES Final Result from Last [address] [address] MEDICARE [place] [place] [address] Advance Directives Documents on File Type Date Recorded 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 No I have reviewed the capacity from the link above and, if needed, have updated to appropriate status: Yes * Full Code Date Activated Date Inactivated Comments 11/02/2024 6:38 PM 11/05/2024 9:07 PM Question Answer Comments I have reviewed the capacity from the link above and, if needed, have updated to appropriate status: Yes Healthcare Agents on File Name Relationship Healthcare Agent Relationshi p Communication Aleksandra Barrientos Daughter First Alternate Health Care Agent Alondra Galdamez Daughter Second Alternat e Health Care Agent Care Teams Mold Stacker Relationship Specialty Start Date End Date Bowen Escobedo MD [address] [place] [id number] PCP - General 11/02/24
--- OUTSIDE RECORDS SUMMARY | 2025-01-23 01:48 | XMS_ITS | Patient Health Record ---
Author Organization [facility] Address [address] [facility] [address] [place] [id number] Care Team Providers Care Academic Administrator Name Role Phone Derrell Escobedo Primary Care Provider William Holland Unavailable [phone] Say Krause Unavailable [phone] Kenia Stone Unavailable [phone] Hannah Navas Unavailable [phone] Allergies Allergen (clinical drug ingredient) Drug/Non Drug [...] 152 100 - 400 P-Comprehensive Metabolic Pa marinane (CMP) Reviewed date:05/18/2024 08:49:50 AM Interpretation:Cr 1.32, gfr 40 Performing Lab: Notes/Report: Test performed by [employer] [facility] , [address], [place] [address] Shaun Draper MD, Supervisor [employer] CLIA: [id number] Sodium 140 135-145 mmol/L Potassium 4.5 3.5-5.3 [...] Interpretation:Normal Performing Lab: Notes/Report: Test performed by [employer], [address] , [address], [place] [address] Shaun Draper MD, Supervisor [employer] CLIA: [id number] Cholesterol 117 <200 mg/dL Triglycerides 66 <150 [...] Interpretation:Normal Performing Lab: Notes/Report: Test performed by [employer] [address] [place] [address] , [address], [place] [address] Shaun Draper MD, Supervisor [employer]eling [employer] CLIA: [id number] Magnesium 2.1 1.6-2.4 mg/dL P-TSH Reviewed date:05/18/2024 08:49:50 AM Interpretation:Normal Performing Lab: Notes/Report: Test performed by [employer] [address] [place] [address] , [address], [place] [address] Shaun Draper MD, Supervisor [employer] CLIA: [id number] TSH 1.69 0.43-5.25 mU/L Urinalysis - Inhouse [...] Growth Performing Lab: Notes/Report: Test performed by [employer] [employer] [address] [place] [address] , [address], [place] [address] Shaun Draper MD, Supervisor [employer]eling [employer] CLIA: [id number] Specimen Source Urine - Void Culture, Urine See Below Final Report : No growth Ankle-brachial index Reviewed date:08/20/2024 04:15:46 PM Interpretation:Negative Performing Lab: Notes/Report: Negative H-UA Reviewed date:11/22/2024 05:14:57 PM Interpretation: Performing Lab: Notes/Report: UCOL YELLOW Yellow UAPP TURBID Clear UPH 6.0 5.0-8.5 USG 1.015 1.005-1.030 UPRO 1+ Negative UGLU Negative Negative UKET Negative Negative UBLD 1+ Negative UNIT Negative Negative UBIL Negative Negative UURO 0.2 0.2 EU/dl ULEU 2+ Negative UMICU URINE MICROSCOPIC MICROSCOPIC URBC 3-5 0-3 #/hpf UWBC TNTC 0-3 #/hpf USQEPI None 0-5 #/hpf UBACT 3+ NONE /lpf CMP Reviewed date:11/30/2024 11:52:43 AM Interpretation: Performing Lab: Notes/Report: H-UA Reviewed date:01/20/2025 10:49:14 AM Interpretation: Performing Lab: Notes/Report: Method to collect specimen clean catch UCOL YELLOW Yellow UAPP CLEAR Clear UPH 7.0 5.0-8.5 USG 1.010 1.005-1.030 UPRO TRACE Negative UGLU Negative Negative UKET Negative Negative UBLD Negative Negative UNIT Negative Negative UBIL Negative Negative UURO 0.2 0.2 EU/dl ULEU Negative Negative UMICU URINE MICROSCOPIC MICROSCOPIC URBC None 0-3 #/hpf UWBC None 0-3 #/hpf USQEPI 3-5 0-5 #/hpf UBACT Trace NONE /lpf H-Urine Culture and Sensitiv ity Reviewed date:11/24/2024 09:51:47 PM Interpretation: Performing Lab: Notes/Report: [facility] ORGANISM 1: Klebsiel la pneumoniae RX KRAMER: R- Resistant S- Susceptible I- Intermediate * Not on [facility] RX KRAMER: R- Resistant S- Susceptible I- Intermediate * [facility] [place] >[facility],000 RX KRAMER: R- Resistant S- Susceptible I- Intermediate * Not on [facility] RX KRAMER: R- Resistant S- Susceptible I- Intermediate * [facility]: R- Resistant S- Susceptible I- Intermediate * Not on [facility] RX KRAMER: R- Resistant S- Susceptible I- Intermediate * [facility] OR[facility] 2: Escheric hia coli RX KRAMER: R- Resistant S- Susceptible I- Intermediate * Not on [facility] RX KRAMER: R- Resistant S- Susceptible I- Intermediate * Not on [facility] Argillite Count >100,000 RX KRAMER: R- Resistant S- Susceptible I- Intermediate * Not on [facility] RX KRAMER: R- Resistant S- Susceptible I- Intermediate * [facility]: R- Resistant S- Susceptible I- Intermediate * Not on [facility] RX KRAMER: R- Resistant S- Susceptible I- Intermediate * [facility]: R- Resistant S- Susceptible I- Intermediate * Not on [facility] RX KRAMER: R- Resistant S- Susceptible I- Intermediate * Not on [facility] Klebsiella pneumonia e: REACTION RX KRAMER: R- Resistant S- Susceptible I- Intermediate * Not on [facility] RX KRAMER: R- Resistant S- Susceptible I- Intermediate * Not on [facility] Amikacin <=8 S RX KRAMER: R- Resistant S- Susceptible I- Intermediate * Not on [facility] RX KRAMER: R- Resistant S- Susceptible I- Intermediate * [facility] Ampicillin 8 R RX KRAMER: R- Resistant S- Susceptible I- Intermediate * Not on [facility] RX KRAMER: R- Resistant S- Susceptible I- Intermediate * Not on [facility] Aztreonam <=2 S RX KRAMER: R- Resistant S- Susceptible I- Intermediate * Not on [facility] RX KRAMER: R- Resistant S- Susceptible I- Intermediate * Not on [facility] Cefepime <=1 S RX KRAMER: R- Resistant S- Susceptible I- Intermediate * Not on [facility] RX KRAMER: R- Resistant S- Susceptible I- Intermediate * [facility] Ceftazid[facility] <=2 S RX KRAMER: R- Resistant S- Susceptible I- Intermediate * Not on [facility] RX KRAMER: R- Resistant S- Susceptible I- Intermediate * [facility] Ceftriaxone <=1 S RX KRAMER: R- Resistant S- Susceptible I- Intermediate * Not on [facility] RX KRAMER: R- Resistant S- Susceptible I- Intermediate * [facility] Ciprofloxacin <=0.25 S RX KRAMER: R- Resistant S- Susceptible I- Intermediate * Not on [facility] RX KRAMER: R- Resistant S- Susceptible I- Intermediate * [facility] Ertapenem <=0.25 S RX KRAMER: R- Resistant S- Susceptible I- Intermediate * Not on [facility] RX KRAMER: R- Resistant S- Susceptible I- Intermediate * [facility] Gentamicin <=2 S RX KRAMER: R- Resistant S- Susceptible I- Intermediate * Not on [facility] RX KRAMER: R- Resistant S- Susceptible I- Intermediate * Not on [facility] Levofloxacin <=0.5 S RX KRAMER: R- Resistant S- Susceptible I- Intermediate * Not on [facility] RX KRAMER: R- Resistant S- Susceptible I- Intermediate * [facility] Meropenem <=0.5 S RX KRAMER: R- Resistant S- Susceptible I- Intermediate * Not on [facility] RX KRAMER: R- Resistant S- Susceptible I- Intermediate * [facility] Nitrofurantoin <=16 S RX KRAMER: R- Resistant S- Susceptible I- Intermediate * Not on [facility] RX KRAMER: R- Resistant S- Susceptible I- Intermediate * [facility] Tetracycline <=2 S RX KRAMER: R- Resistant S- Susceptible I- Intermediate * Not on [facility] RX KRAMER: R- Resistant S- Susceptible I- Intermediate * Not on [facility] CUU Tobramycin <=2 S RX KRAMER: R- Resistant S- Susceptible I- Intermediate * Not on [facility] RX KRAMER: R- Resistant S- Susceptible I- Intermediate * Not on [facility] Trimethoprim/Sulfame thox azole <=0.5/9.5 S RX KRAMER: R- Resistant S- Susceptible I- Intermediate * Not on [facility] RX KRAMER: R- Resistant S- Susceptible I- Intermediate * [facility] Piperacillin/Tazobac almaguer 4/4 S RX KRAMER: R- Resistant S- Susceptible I- Intermediate * Not on [facility] RX KRAMER: R- Resistant S- Susceptible I- Intermediate * [facility]: R- Resistant S- Susceptible I- Intermediate * Not on [facility] RX KRAMER: R- Resistant S- Susceptible I- Intermediate * Not on [facility] Escherichia coli: REACTION RX KRAMER: R- Resistant S- Susceptible I- Intermediate * Not on [facility] RX KRAMER: R- Resistant S- Susceptible I- Intermediate * Not on [facility] Amikacin <=8 S RX KRAMER: R- Resistant S- Susceptible I- Intermediate * Not on [facility] RX KRAMER: R- Resistant S- Susceptible I- Intermediate * Not on [facility] Ampicillin >16 R RX KRAMER: R- Resistant S- Susceptible I- Intermediate * Not on [facility] RX KRAMER: R- Resistant S- Susceptible I- Intermediate * Not on [facility] Aztreonam <=2 S RX KRAMER: R- Resistant S- Susceptible I- Intermediate * Not on [facility] RX KRAMER: R- Resistant S- Susceptible I- Intermediate * Not on [facility] Cefepime <=1 S RX KRAMER: R- Resistant S- Susceptible I- Intermediate * Not on [facility] RX KRAMER: R- Resistant S- Susceptible I- Intermediate * Not on [facility] Ceftazidime <=2 S RX KRAMER: R- Resistant S- Susceptible I- Intermediate * Not on [facility] RX KRAMER: R- Resistant S- Susceptible I- Intermediate * [facility] Ceftriaxone <=1 S RX KRAMER: R- Resistant S- Susceptible I- Intermediate * Not on [facility] RX KRAMER: R- Resistant S- Susceptible I- Intermediate * [facility] Ciprofloxacin <=0.25 S RX KRAMER: R- Resistant S- Susceptible I- Intermediate * Not on [facility] RX KRAMER: R- Resistant S- Susceptible I- Intermediate * [facility] Ertapenem <=0.25 S RX KRAMER: R- Resistant S- Susceptible I- Intermediate * Not on [facility] RX KRAMER: R- Resistant S- Susceptible I- Intermediate * [facility] Gentamicin <=2 S RX KRAMER: R- Resistant S- Susceptible I- Intermediate * Not on [facility] RX KRAMER: R- Resistant S- Susceptible I- Intermediate * [facility] Levofloxacin <=0.5 S RX KRAMER: R- Resistant S- Susceptible I- Intermediate * Not on [facility] RX KRAMER: R- Resistant S- Susceptible I- Intermediate * [facility] Meropenem <=0.5 S RX KRAMER: R- Resistant S- Susceptible I- Intermediate * Not on [facility] RX KRAMER: R- Resistant S- Susceptible I- Intermediate * [facility] Nitrofurantoin <=16 S RX KRAMER: R- Resistant S- Susceptible I- Intermediate * Not on [facility] RX KRAMER: R- Resistant S- Susceptible I- Intermediate * [facility] Tetracycline >8 R RX KRAMER: R- Resistant S- Susceptible I- Intermediate * Not on [facility] RX KRAMER: R- Resistant S- Susceptible I- Intermediate * [facility] Tobramycin <=2 S RX KRAMER: R- Resistant S- Susceptible I- Intermediate * Not on [facility] RX KRAMER: R- Resistant S- Susceptible I- Intermediate * [facility] Trimethoprim/Sulfame thox azole <=0.5/9.5 S RX KRAMER: R- Resistant S- Susceptible I- Intermediate * Not on [facility] RX KRAMER: R- Resistant S- Susceptible I- Intermediate * Not on [facility]U Piperacillin/Tazobac almaguer <=2/4 S RX KRAMER: R- Resistant S- Susceptible I- Intermediate * Not on [facility] RX KRAMER: R- Resistant S- Susceptible I- Intermediate * Not on [facility] CUU RX KRAMER: R- Resistant S- Susceptible I- Intermediate * Not on [facility] RX KRAMER: R- Resistant S- Susceptible I- Intermediate * Not on [facility] Reason For Referral Diagnosis 1 Bunion, right foot ( M21.611) [facility] Referring Provider First Name Hannah Referring Provider Last Name Eloise Referring Provider Speciality Physician Fork Assembler Referred Provider Specialty Podiatry General Notes Sharon Grace 2024 02:17:13 PM > faxed to [facility] Podiatry; please call Maria Isabel Worrell (daughter) with appt time , Sharon Grace 07/21/2024 02:52:06 PM > patients daughter called back and they are going to see her old partnership development manager; canceled referral to [facility] Podiatry Referral Priority Routine Reason [facility] in [place] for leg weakness, balance problems, right foot drop Diagnosis 1 Leg weakness, bilate ral (M62.81) [facility] Referring Provider First Name Derrell Taveras Referring Provider Last Name Fanny Referring Provider Speciality Family Regis eastmanice Referred Provider Physical Therapy, . Referred Provider Specialty Physical The rapist General Notes Sharon Grace 2024 09:53:44 AM > faxed to [facility] in [place] Referral Priority Routine Medications Medication SIG (Take, Route, Frequency, Duration) Notes Start Date End Date Status Flonase Allergy Relief 50 MCG/ACT 1 spray in each nostril Nasally Twice a day Active Ondansetron 4 MG 1 tablet on the tongue and allow to dissolve Orally every 6 hours As needed Active Coreg 12.5 MG 1 tab(s) orally 2 ti mes a day Active B-12 TR 1000 MCG TAKE 1 TABLET BY NICCI DAILY Active NEURO CREAM KETAMINE 10%, GABAPENTIN 6%, LIDOCAINE 5%, AMITRIPTYLINE 2%, BUPIVACAINE 2%, MELOXICAM 0.1% 1-2 GRAMS APPLY TOPICALLY 3-4 TIMES PER DAY Active Atorvastatin Calcium 40 MG 1 tablet Oral ly Once a day Active Colace 2-IN-1 8.6-50 MG 2 tablet as need ed Orally at HS Active Acetaminophen 325 MG 2 tablet as needed Orally every 6 hrs prn Active Pantoprazole Sodium 40 MG 1 tablet 1/2 t o 1 hour before morning meal Orally twice a day Active Eliquis 5 MG 1 tab(s) orally Two times a day Active Torsemide 10 MG 1 tab(s) orally once a day Active traMADol HCl 50 MG 1 tablet as needed Orally every 6 hrs 01/20/2025 Active Wellbutrin XL 150 MG 1 tablet in the mor selena Orally Once a day Active Gabapentin 300 MG 1 cap(s) orally 3 ti mes a day Active Entresto 49-51 MG 1 tab(s) orally Twic e a day Active Methocarbamol 500 MG 1 Orally 3 times a day Active Levothyroxine Sodium 50 MCG 1 tablet in the morning on an empty stomach Orally Once a day; Duration: 90 days Active Immunizations Vaccine Route Administration Date Status [...] Status Risk Notes Problem Gastroesophageal reflux disease (997097650) GERD (gastroesophageal reflux disease) (K21.9) Active confirmed Problem Anemia (531472203) Anemia (D64.9) Active confir med Problem Essential hypertension (93387919) Essential hypertension (I10) Active confirmed Problem Constipation (24308437) Constipation (K59.00) Active confirmed Problem Peripheral venous insufficiency (35923277) Venous insufficiency (I87.2) Active confirmed Problem Rhinitis (04422829) Rhinitis (J31.0) Active con firmed Problem Osteopenia (509737716) Osteopenia (M85.80) Active confirmed Problem Seasonal allergy (102113559) Seasonal allergies (J30.2) Active confirmed Problem Osteoarthritis (934760799) Osteoarthritis (M19.90) Active confirmed Problem BMI 30+ - obesity (610560992) BMI 32.0-32.9,adult (Z68.32) Active confirmed Problem Paroxysmal atrial fibrillation (278904728) Paroxysmal atrial fibrillation (I48.0) Active confirmed Problem Chronic kidney disease (disorder) (564316243) Chronic kidney disease (CKD) (N18.9) Active confirmed Problem Insomnia (707128192) Other insomnia (G47.09) Active confirmed Problem Chronic pain syndrome (639916866) Chronic pain syndrome (G89.4) Active confirmed Problem Hypertensive heart AND chronic kidney disease with congestive heart failure (77955394302470) Hypertensive heart and chronic kidney disease with heart failure and stage 1 through stage 4 chronic kidney disease, or unspecified chronic kidney disease (I13.0) Active confirmed Problem Vaccination given (053687663) Encounter for immunization (Z23) Active confirmed Problem Congestive heart failure (04558053) Congestive heart failure, unspecified (I50.9) Active confirmed Problem Generalized osteoarthritis (816940042) Generalized osteoarthritis (M15.9) Active confirmed Problem Acquired hypothyroidism (760344268) Acquired hypothyroidism (E03.9) Active confirmed Problem Cardiac pacemaker in situ (464196548) Pacemaker (Z95.0) Active confirmed Problem Inflammatory and toxic neuropathy (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) Active confirmed Problem Hypothyroidism (42430437) Hypothyroidism (E03.9) Active confirmed Problem Chronic kidney disease (697430090) Chronic kidney disease (N18.9) Active confirmed Problem Osteoporosis (48896885) Osteoporosis (M81.0) Active confirmed Problem Atrial fibrillation (27280121) PAF (paroxysmal atrial fibrillation) (I48.0) Active confirmed Problem Osteoarthritis of knee (308443856) Primary osteoarthritis of both knees (M17.0) Active confirmed Problem Obstructive sleep apnea syndrome (01939516) JASON (obstructive sleep apnea) (G47.33) Active confirmed Problem Osteoarthritis of knee (047176345) Primary osteoarthritis of right knee (M17.11) Active confirmed Problem Osteoarthritis of knee (906791591) Primary osteoarthritis of left knee (M17.12) Active confirmed Problem Recurrent falls (955798775) Frequent falls (R29.6) Active confirmed Problem Body mass index 30.00 to 34.99 (732915144368051) BMI 31.0-31.9,adult (Z68.31) Active confirmed Problem Presbycusis (42494215) 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) Active confirmed Problem Body mass index 30.00 to 34.99 (244528610362198) BMI 34.0-34.9,adult (Z68.34) Active confirmed Problem Dyslipidemia (874074478) Dyslipidemia (E78.5) Active confirmed Problem Abdominal aortic aneurysm without rupture (disorder) (31028925) Abdominal aortic aneurysm (AAA) without rupture (I71.4) Active confirmed Problem Cardiac pacemaker in situ (978833497) Status post placement of cardiac pacemaker (Z95.0) Active confirmed Problem Chronic kidney disease stage 3 (disorder) (527672175) Stage 3 chronic kidney disease (N18.3) Active confirmed Problem Artificial knee joint present (721834813507) 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) Active confirmed Problem Impairment of balance (988127651) Balance problem (R26.89) Active confirmed Problem Heart failure (89898645) Chronic congestive heart failure, unspecified heart failure type (I50.9) Active confirmed Problem Right foot drop (579671925880394) Right foot drop (M21.371) Active confirmed Problem Chronic atrial fibrillation (disorder) (532225750) Chronic atrial fibrillation, unspecified (I48.20) Active confirmed Problem Chronic atrial fibrillation (148934893) Chronic atrial fibrillation (I48.20) Active confirmed Problem Chronic kidney disease stage 2 (693786820) CKD (chronic kidney disease), stage II (N18.2) Active confirmed Problem Gastroesophageal reflux disease (060813086) Gastroesophageal reflux disease, unspecified whether esophagitis present (K21.9) Active confirmed Problem Dissection of aorta (587436007) Dissection of aorta, unspecified portion of aorta (I71.00) Active confirmed Vital Signs Heart Rate 73 /min 12/21/2024 Respiratory Rate 16 /min 12/21/2024 Blood pressure diastolic 72 mm Hg 12/21/2024 Height 63 in 09/21/2024 Blood pressure systolic 116 mm Hg 12/21/2024 Weight 157.4 lbs 12/21/2024 BMI 28.52 kg/m2 09/21/2024 Encounters Encounter Location Date [facility] [address] [place] [id number] 05/13/2024 R Nitin Escobedo Adult general medica [...] knee replacement Z96.652 and BMI 29.0-29.9,adult Z68.29 [facility] [address] [place] [id number] 07/21/2024 Hannah Crowdy Confusion R41.0 ; Bunion, right foot M21.611 [...] atrial fibrillation I48.0 and BMI 29.0-29.9,adult Z68.29 [facility] [address] [place] [id number] 09/07/2024 R Nitin Escobedo Rhinitis J31.0 ; Kanu ous insufficiency I87.2 and BMI 29.0-29.9,adult Z68.29 [facility] [address] [place], [place] [id number] 09/21/2024 Derrell Escobedo UTI (lower urinary tract infection) N39.0 ; Balance problem R26.89 ; Leg weakness, bilateral M62.81 ; Right foot drop M21.371 and BMI 28.0-28.9,adult Z68.[address] [place] [id number] 11/23/2024 Kenia Stone Dissection of aorta, unspecified [...] ; Chronic depression F32.A and Constipation K59.[address] [place] [id number] 11/30/2024 Kenia Stone Dissection of aorta, unspecified portion [...] ; Anemia D64.9 ; Chronic depression F32.A ; Constipation K59.00 ; Stye H00.019 and Debility R53.[address] [place] [id number] 12/21/2024 Kenia Stone Essential hypertensi on I10 [...] F32.A ; Constipation K59.00 and Debility R53.81 [facility] [address] [facility] [address] [place], [place] [id number] 02/27/2024 R Nitin Fanny [facility] [address] [facility] [address] [place], [place] [id number] 03/09/2024 R Nitin Fanny [facility] [address] [facility] [address] [place], [place] [id number] 03/11/2024 R Nitin Fanny [facility] [address] [place], [place] [id number] 05/18/2024 R Nitin Fanny [facility] [address] [facility] [address] [place] [id number] 05/24/2024 R Nitin Fanny Peripheral polyneuropathy G62.9 [facility] [address] [facility] [address] [place] [id number] 05/25/2024 R Nitin Fanny Chronic atrial fibrillation I48.20 [facility] [address] [facility] [address] [place], [place] [id number] 09/20/2024 R Nitin Fanny [facility] [address] [facility] [address] [place], [place] [id number] 09/30/2024 William Holland Osteoarthritis M19.9 0 [facility] [address] [facility] [address] [place] [id number] 10/05/2024 R Nitin Fanny [facility] [address] [place], [place] [id number] 10/15/2024 [place] Peripheral polyneuropathy G62.9 [facility] [address] [place], [place] [id number] 11/10/2024 R Nitin Fanny [facility] [address] [place] [id number] 11/16/2024 R Nitin Fanny [facility] [address] [place] [id number] 11/19/2024 R Nitin Fanny Peripheral polyneuropathy G62.9 [facility] [address] [place] [id number] 11/22/2024 R Nitin Fanny [facility] [address] [place], [place] [id number] 11/23/2024 R Nitin Fanny [facility] [address] [place], [place] [id number] 11/25/2024 R Nitin Fanny [facility] [address] [place], [place] [id number] 11/26/2024 R Nitin Fanny [facility] [address] [place], [place] [id number] 11/30/2024 R Nitin Fanny [facility] [address] [place] [id number] 12/01/2024 R Nitin Fanny [facility] [address] [place], [place] [id number] 01/19/2025 R Nitin Fanny [facility] [address] [place], [place] [id number] 01/20/2025 R Nitin Fanny Assessments Encounter Date Diagnosis (ICD Code) Assessment Notes Treatment Notes Treatment Clinical Notes Section Notes 05/13/2024 Essential hypertension (ICD-10 - I10) 05/24/2024 [...] M19.90) 10/15/2024 Peripheral polyneuropathy (ICD-10 - G62.9) 11/19/2024 Peripheral polyneuropathy (ICD-10 - G62.9) 11/23/2024 Essential hypertension (ICD-10 - I10) 11/23/2024 Dissection of aorta, unspecified portion of aorta (ICD-10 - I71.00) Important for strict BP control ; has vascular MD ORDAZ 11/30/2024 Essential hypertension (ICD-10 - I10) 11/30/2024 Dissection of aorta, unspecified portion of aorta (ICD-10 - I71.00) continue to maintain good BP 12/21/2024 Essential hypertension (ICD-10 - I10) 11/30/2024 Chronic congestive heart failure, unspecified heart failure type (ICD-10 - I50.9) 11/23/2024 Chronic congestive heart failure, unspecified heart failure type (ICD-10 - I50.9) 12/21/2024 Dissection of aorta, unspecified portion of aorta (ICD-10 - I71.00) continue to maintain good BP 09/21/2024 Leg weakness, bilateral (ICD-10 - M62.81) 09/07/2024 BMI 29.0-29.9,adult (ICD-10 - Z68.29) 07/21/2024 Callus of foot (ICD-10 - L84) Will make podiatry referral. 05/13/2024 Acquired hypothyroidism (ICD-10 - E03.9) 05/13/2024 Dyslipidemia (ICD-10 - E78.5) 09/21/2024 Right foot drop (ICD-10 - M21.371) 07/21/2024 Pain in right leg (ICD-10 - M79.604) 12/21/2024 Chronic congestive heart failure, unspecified heart failure type (ICD-10 - I50.9) 11/23/2024 Stage 3 chronic kidney disease (ICD-10 - N18.3) 11/30/2024 Stage 3 chronic kidney disease (ICD-10 - N18.3) 11/30/2024 Status post placement of cardiac pacemaker (ICD-10 - Z95.0) 12/21/2024 Stage 3 chronic kidney disease (ICD-10 - N18.3) 07/21/2024 Pain in left leg (ICD-10 - M79.605) 09/21/2024 BMI 28.0-28.9,adult (ICD-10 - Z68.28) 11/23/2024 Status post placement of cardiac pacemaker (ICD-10 - Z95.0) 05/13/2024 Peripheral polyneuropathy (ICD-10 - G62.9) 05/13/2024 Chronic kidney disease (ICD-10 - N18.9) 11/23/2024 Acquired hypothyroidism (ICD-10 - E03.9) 07/21/2024 Pyuria (ICD-10 - R82.81) 12/21/2024 Status post placement of cardiac pacemaker (ICD-10 - Z95.0) 11/30/2024 Acquired hypothyroidism (ICD-10 - E03.9) 11/30/2024 Dyslipidemia (ICD-10 - E78.5) 12/21/2024 Acquired hypothyroidism (ICD-10 - E03.9) 07/21/2024 Congestive heart failure, unspecified (ICD-10 - I50.9) 11/23/2024 Dyslipidemia (ICD-10 - E78.5) 05/13/2024 Screening for breast cancer (ICD-10 - Z12.39) 11/23/2024 Peripheral polyneuropathy (ICD-10 - G62.9) 07/21/2024 Chronic atrial fibrillation, unspecified (ICD-10 - I48.20) 05/13/2024 Bunion of great toe (ICD-10 - M21.619) 12/21/2024 Dyslipidemia (ICD-10 - E78.5) 11/30/2024 Peripheral polyneuropathy (ICD-10 - G62.9) 11/30/2024 Chronic pain syndrome (ICD-10 - G89.4) 12/21/2024 Peripheral polyneuropathy (ICD-10 - G62.9) 07/21/2024 Hypertensive heart and chronic kidney disease with heart failure and stage 1 through stage 4 chronic kidney disease, or unspecified chronic kidney disease (ICD-10 - I13.0) 11/23/2024 Chronic pain syndrome (ICD-10 - G89.4) 05/13/2024 Callus of foot (ICD-10 - L84) Recommend she follow-up with her partnership development manager 05/13/2024 Osteopenia (ICD-10 - M85.80) 07/21/2024 Paroxysmal atrial fibrillation (ICD-10 - I48.0) 11/23/2024 Osteoarthritis (ICD-10 - M19.90) 12/21/2024 Chronic pain syndrome (ICD-10 - G89.4) 11/30/2024 Osteoarthritis (ICD-10 - M19.90) 11/30/2024 GERD (gastroesophageal reflux disease) (ICD-10 - K21.9) 12/21/2024 Osteoarthritis (ICD-10 - M19.90) 11/23/2024 GERD (gastroesophageal reflux disease) (ICD-10 - K21.9) 07/21/2024 BMI 29.0-29.9,adult (ICD-10 - Z68.29) 05/13/2024 Osteoporosis (ICD-10 - M81.0) 05/13/2024 Pacemaker (ICD-10 - Z95.0) 11/23/2024 Primary osteoarthritis of both knees (ICD-10 - M17.0) 12/21/2024 GERD (gastroesophageal reflux disease) (ICD-10 - K21.9) 11/30/2024 Primary osteoarthritis of both knees (ICD-10 - M17.0) 11/30/2024 Right foot drop (ICD-10 - M21.371) 11/23/2024 Right foot drop (ICD-10 - M21.371) 12/21/2024 Primary osteoarthritis of both knees (ICD-10 - M17.0) 05/13/2024 Seasonal allergies (ICD-10 - J30.2) 05/13/2024 GERD (gastroesophageal reflux disease) (ICD-10 - K21.9) 11/23/2024 Presbycusis of both ears (ICD-10 - H91.13) 12/21/2024 Right foot drop (ICD-10 - M21.371) 11/30/2024 Presbycusis of both ears (ICD-10 - H91.13) 11/30/2024 Chronic atrial fibrillation (ICD-10 - I48.20) 11/23/2024 Chronic atrial fibrillation (ICD-10 - I48.20) 12/21/2024 Presbycusis of both ears (ICD-10 - H91.13) 05/13/2024 JASON (obstructive sleep apnea) (ICD-10 - G47.33) 05/13/2024 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) 11/23/2024 Pacemaker (ICD-10 - Z95.0) 12/21/2024 Chronic atrial fibrillation (ICD-10 - I48.20) 11/30/2024 Pacemaker (ICD-10 - Z95.0) 11/30/2024 UTI (lower urinary tract infection) (ICD-10 - N39.0) pt has just completed Cipro for URI; she states she is voiding without problems 12/21/2024 Pacemaker (ICD-10 - Z95.0) 11/23/2024 UTI (lower urinary tract infection) (ICD-10 - N39.0) 05/13/2024 Status post left knee replacement (ICD-10 - Z96.652) 11/23/2024 Seasonal allergies (ICD-10 - J30.2) 05/13/2024 BMI 29.0-29.9,adult (ICD-10 - Z68.29) 11/30/2024 Seasonal allergies (ICD-10 - J30.2) 12/21/2024 Seasonal allergies (ICD-10 - J30.2) 11/30/2024 Anemia (ICD-10 - D64.9) 12/21/2024 Chronic depression (ICD-10 - F32.A) 11/23/2024 Anemia (ICD-10 - D64.9) 11/23/2024 Chronic depression (ICD-10 - F32.A) 12/21/2024 Constipation (ICD-10 - K59.00) 11/30/2024 Chronic depression (ICD-10 - F32.A) 12/21/2024 Debility (ICD-10 - R53.81) continue with PT 11/30/2024 Constipation (ICD-10 - K59.00) 11/23/2024 Constipation (ICD-10 - K59.00) 11/30/2024 Stye (ICD-10 - H00.019) 11/30/2024 Debility (ICD-10 - R53.81) continue with PT 11/23/2024 Other Will continue with PT/OT; she would like to go home to her own home; this is a discussion between her and family Plan Of Treatment Pending Test Test Name Order Date Mammogram 05/13/2024 Next Appt Details Provider Name:Derrell Saenz et, 05/12/2025 11:00:00 AM, [address] [facility], [address], [place], [place], [id number], Insurance Providers Payer Name Payer Address Payer Phone Subscriber Number Group Number Insured Name Patient Relationship to Insured Coverage Start Date Coverage End Date MEDICARE PART B [address] [address] [place] [id number] [phone] [id number] BRUCE GAONA Self - patient is the insured [employer] [place] [address] [phone] [id number] BRUCE GAONA Self - patient is the [...] [place] 2013 cataract surgery cardiac ablation-Dr [facility] Pacemaker 2018 left knee [id number] Kirk 12/09 Hospitalization History Reason Date(Month/Year) [facility] - Dehydration 05/17-01/2020
[2025-01-23 02:21] LABS: Microscopic, Urine URINE MICROSCOPIC (MICROSCOPIC)
[2025-01-23 02:38] LABS: Bilirubin,Urine Negative (Negative); Color,Urine YELLOW (Yellow); Glucose,Urine (UA) Negative (Negative); Ketones,Urine Negative (Negative); Leukocyte Esterase,Urine Negative (Negative); PH,Urine 6.5 (5.0-8.5); Protein,Urine TRACE (Negative); Specific Gravity, Urine 1.020 (1.005-1.030); Urobilinogen,Urine 1.0 EU/dl (0.2)
[2025-01-23 03:04] LABS: WBC,Urine Occasional #/hpf (0-3)
[2025-01-23 03:05] LABS: Bacteria,Urine Trace /lpf
== END 2025-01-23 23:59 | disposition home or self-care (01) ==
LOC: LAB.DROPOF 01:43
PROVIDERS: PCP Family Medicine; Visit Provider Family Medicine
DX: Z87.440 Personal history of urinary (tract) infections (principal)
CPT/HCPCS: 81001; 87086